=== PATIENT | female | born 1960 | race Caucasian/White ===

== ENCOUNTER → 2017-04-07 | Outpatient (CLI) | payer MEDICAID ==
[2016-08-24 13:54] VITALS: BP 140/68
[~2017-04-07] MED LIST: ASPI81TA9 PO; BUPR300T4 PO; CIPR500T94 PO; DICY20TA3 PO; GABA600T PO; GABA600T2 PO; HYDR-971 PO; HYDR1TAB26 PO; IBUP-1060 PO; INSU100I17 SQ; INSU100I27 SQ; INSU100V31 SQ; INSU100V8 SQ; LACO50TA PO; LANS30CA PO; LEVE250T30 PO; LEVE250T4 PO; LEVO100T PO; LINA290C PO; LISI2.5T PO; LUBI24CA5 PO; METF500T4 PO; METR500T PO; OMEP40CA5 PO; PHEN100C PO; PHEN100O3 PO; POLY119P4 PO; POLY255P PO; Phenytoin PO; SIMV20TA3 PO; TRAM-29 PO; ZOLP5TAB5 PO
--- NOTE | 2017-04-07 08:45 | KCIC ---
Clinical Indication: Left lower extremity pain and swelling Technique: Study is dated 04/07/2017. Grayscale, color flow and spectral waveform analysis was performed of the left lower extremity with and without compression. Findings: There is normal compressibility of all visualized vein segments. No evidence of DVT is present on grayscale or color images. There is normal phasicity of waveform. There is normal augmentation. There is a left inguinal lymph node measuring 3.1 x 0.6 x 2.2 cm, has a normal fatty notch. This is probably reactive. Impression: No evidence of deep vein thrombosis. Electronically signed by: Silver Hall MD (04/07/2017 8:42 AM)
== END | disposition home or self-care (01) ==
LOC: KCIC US 07:43
PROVIDERS: ATTEND Psychiatry & Neurology Neurology with Special Qualifications in Child Neurology
DX: M79.605 Pain in left leg (principal); M79.89 Other specified soft tissue disorders
CPT/HCPCS: 93971

== ENCOUNTER 2017-04-30 11:44 | Emergency (ER) | payer MEDICAID ==
[~2017-04-30] VITALS: Ht 157.5 cm; Wt 65.3 kg
[~2017-04-30 11:44] MED LIST changes: +ASPI-612 PO; -ASPI81TA9 PO; -LUBI24CA5 PO; +LUBI24CA7 PO; -PHEN100O3 PO; +PHEN100O4 PO; -TRAM-29 PO; +TRAM-48 PO
--- NOTE | 2017-04-30 12:29 | ED.ADGEN ---
Past Medical History Past Medical History: Constipation, Diabetes-Type II, Other Additional Past Medical Histor: abdominal pain,neuropathy,insomnia, chronic pain Past Surgical History: Cholecystectomy, Other Additional Past Surgical Histo: "top of kidney","throat" NOS, FOOT Alcohol Use: None Drug Use: None Adult General Chief Complaint Chief Complaint: ABDOMINAL PAIN HPI HPI Patient is a 57 year old with history of seizure disorder presents with intermittent left upper quadrant pain 1 week. Pain lasts for several hours at a time and varies in intensity. His dry described as sharp and is worse with palpation. Not associated with nausea vomiting constipation or diarrhea. Patient denies bloody stools or dark tarry stools. Pain is not worse with eating. Patient has not taken any medications to treat pain. She is prior cholecystectomy. She is a nonsmoker and nonconsumer of alcohol. Review of Systems Review of Systems Review symptoms as per history of present illness. All other review symptoms are negative. Current Medications Current Medications Current Medications Medications (Trade) Dose Ordered Sig/Khang Start Time Stop Time Status Last Admin Dose Admin Famotidine (Pepcid) 20 mg 1X ONCE 04/30/17 12:30 04/30/17 12:31 DC 04/30/17 12:58 20 MG Multi-Ingredient Mouthwash/Gargle (Gi Cocktail Single Dose) 15 ml 1X ONCE 04/30/17 12:30 04/30/17 12:31 DC 04/30/17 12:58 15 ML Ondansetron HCl (Zofran) 4 mg 1X ONCE 04/30/17 12:30 04/30/17 12:31 DC 04/30/17 12:58 4 MG Allergies Allergies Allergies Coded Allergies Type Severity Reaction Last Updated Verified No Known Drug Allergies 04/09/14 No Physical Exam Physical Exam Constitutional: Well developed, well nourished, no acute distress, non-toxic appearance. HENT: Normocephalic, atraumatic, bilateral external ears normal, oropharynx moist, no oral exudates, nose normal. Eyes: PERRLA, EOMI, conjunctiva normal, no discharge. Neck: Normal range of motion, no tenderness. Cardiovascular:Heart rate regular rhythm, no murmur Lungs & Thorax: Bilateral breath sounds clear to auscultation Abdomen: Bowel sounds normal, soft, Left upper quadrant pain, tenderness voluntary guarding. Skin: Warm, dry. Back: No tenderness, no CVA tenderness. Extremities: No tenderness, no cyanosis, no clubbing, ROM intact, no edema. Neurologic: Alert and oriented X 3, normal motor function, normal sensory function, no focal deficits noted. Psychologic: Affect normal, judgement normal, mood normal. Current Patient Data Vital Signs Vital Signs Date Time Temp Pulse Resp B/P (MAP) Pulse Ox O2 Delivery O2 Flow Rate FiO2 04/30/17 14:08 86 131/60 (83) 95 Room Air 04/30/17 11:56 98.2 20 98.2 Lab Values Laboratory Tests Test 04/30/17 12:16 04/30/17 14:10 White Blood Count 7.2 x10^3/uL (4.0-11.0) Red Blood Count 4.02 x10^6/uL (3.50-5.40) Hemoglobin 10.7 g/dL (12.0-15.5) L Hematocrit 32.9 % (36.0-47.0) L Mean Corpuscular Volume 82 fL (79-100) Mean Corpuscular Hemoglobin 27 pg (25-35) Mean Corpuscular Hemoglobin Concent 32 g/dL (31-37) Red Cell Distribution Width 14.7 % (11.5-14.5) H Platelet Count 318 x10^3/uL (140-400) Neutrophils (%) (Auto) 56 % (31-73) Lymphocytes (%) (Auto) 31 % (24-48) Monocytes (%) (Auto) 9 % (0-9) Eosinophils (%) (Auto) 4 % (0-3) H Basophils (%) (Auto) 1 % (0-3) Neutrophils # (Auto) 4.0 x10^3uL (1.8-7.7) Lymphocytes # (Auto) 2.2 x10^3/uL (1.0-4.8) Monocytes # (Auto) 0.6 x10^3/uL (0.0-1.1) Eosinophils # (Auto) 0.3 x10^3/uL (0.0-0.7) Basophils # (Auto) 0.1 x10^3/uL (0.0-0.2) Sodium Level 135 mmol/L (136-145) L Potassium Level 4.3 mmol/L (3.5-5.1) Chloride Level 98 mmol/L (98-107) Carbon Dioxide Level 31 mmol/L (21-32) Anion Gap 6 (6-14) Blood Urea Nitrogen 10 mg/dL (7-20) Creatinine 0.7 mg/dL (0.6-1.0) Estimated GFR (Cockcroft-Gault) 85.9 BUN/Creatinine Ratio 14 (6-20) Glucose Level 60 mg/dL (70-99) L Calcium Level 9.0 mg/dL (8.5-10.1) Total Bilirubin 0.1 mg/dL (0.2-1.0) L Aspartate Amino Transferase (AST) 22 U/L (15-37) Alanine Aminotransferase (ALT) 28 U/L (14-59) Alkaline Phosphatase 106 U/L (46-116) Troponin I Quantitative 0.024 ng/mL (0.000-0.055) Total Protein 7.3 g/dL (6.4-8.2) Albumin 4.1 g/dL (3.4-5.0) Albumin/Globulin Ratio 1.3 (1.0-1.7) Lipase 80 U/L (73-393) Urine Color Yellow Urine Clarity Clear Urine pH 6.0 Urine Specific [place] 1.015 Urine Protein Negative mg/dL (NEG-TRACE) Urine Glucose (UA) Negative mg/dL (NEG) Urine Ketones (Stick) Negative mg/dL (NEG) Urine Blood Negative (NEG) Urine Nitrite Negative (NEG) Urine Bilirubin Negative (NEG) Urine Urobilinogen Dipstick 0.2 mg/dL (0.2 mg/dL) Urine Leukocyte Esterase Trace (NEG) Urine RBC 0 /HPF (0-2) Urine WBC Occ /HPF (0-4) Urine Squamous Epithelial Cells Occ /LPF Urine Bacteria 0 /HPF (0-FEW) Laboratory Tests 04/30/17 12:16 Laboratory Tests 04/30/17 12:16 EKG EKG [EKG: Sinus rhythm, rate 82, no acute ST-T wave changes. QTC 445.] Radiology/Procedures Radiology/Procedures [] Course & Med Decision Making Course & Med Decision Making Pertinent Labs and Imaging studies reviewed. (See chart for details) [Nondescript, left upper quadrant pain, tenderness. Symptoms resolved in the ED with treatment with GI cocktail and antacid. Vital signs remained stable. Patient able to tolerate oral intake. We'll treat supportively with PCP follow- up. Return precautions reviewed. Patient verbalizes understanding agreement discharge instructions prior to departure.] Anastacia Disclaimer Anastacia Disclaimer This electronic medical record was generated, in whole or in part, using a voice recognition dictation system. GILBERT ABREU DO Apr 30, 2017 12:29
[2017-04-30] MEDS ORDERED: ONDANSETRON PF 4 MG/2 ML VIAL. IV ONE (12:30)
[2017-04-30] MEDS ORDERED: LIDO:MAALOX:DONNATAL 1:1:1 15 ML SINGLE DOSE SWSW ONE (12:30)
[2017-04-30] MEDS ORDERED: FAMOTIDINE 20 MG/2 ML VIAL IVP ONE (12:30)
[2017-04-30 12:38] LABS: BASO # 0.1 x10^3/uL (0.0-0.2); BASO % 1 % (0-3); EOS % 4 % (0-3); HEMATOCRIT 32.9 % (36.0-47.0); HEMOGLOBIN 10.7 g/dL (12.0-15.5); LYMPH # 2.2 x10^3/uL (1.0-4.8); LYMPH % 31 % (24-48); MEAN CORPUSCULAR HEMOGLOBIN 27 pg (25-35); MEAN CORPUSCULAR HGB CONC 32 g/dL (31-37); MEAN CORPUSCULAR VOLUME 82 fL (79-100); MONO % 9 % (0-9); NEUT % 56 % (31-73); PLATELET COUNT 318 x10^3/uL (140-400); RED BLOOD COUNT 4.02 x10^6/uL (3.50-5.40); RED CELL DISTRIBUTION WIDTH 14.7 % (11.5-14.5); WHITE BLOOD COUNT 7.2 x10^3/uL (4.0-11.0)
[2017-04-30 12:43] LABS: CREATININE 0.7 mg/dL (0.6-1.0); GFR 85.9; POTASSIUM 4.3 mmol/L (3.5-5.1)
[2017-04-30 12:47] LABS: ALBUMIN 4.1 g/dL (3.4-5.0); ALBUMIN/GLOBULIN RATIO 1.3 (1.0-1.7); TOTAL BILIRUBIN 0.1 mg/dL (0.2-1.0); TOTAL PROTEIN 7.3 g/dL (6.4-8.2)
[2017-04-30 14:08] VITALS: BP 131/60
[2017-04-30 14:20] LABS: BILIRUBIN,URINE NEGATIVE (NEG); GLUCOSE,URINE NEGATIVE (NEG); NITRITE,URINE NEGATIVE (NEG); PROTEIN,URINE NEGATIVE (NEG-TRACE); UROBILINOGEN,URINE 0.2 mg/dL (0.2 mg/dL)
[2017-04-30 14:36] LABS: BACTERIA,URINE 0 /HPF (0-FEW); RBC,URINE 0 /HPF (0-2); SQUAMOUS EPITHELIAL CELL,UR OCC /LPF; WBC,URINE OCC /HPF (0-4)
--- NOTE | 2017-04-30 14:43 | EKG ---
[facility] [address] [place] [address] Test Date: 2017-04-30 Test Time: 12:55:21 Pat Name: ALIVIA WILDER Department: Room: Gender: F [employer]: : 1960 Requested By: GILBERT ABREU Order Number: [id number] Reading MD: Aj Fagan Measurements Intervals [place] Rate: 82 P: 51 OK: 140 QRS: -5 QRSD: 78 T: 38 QT: 378 QTc: 445 Interpretive Statements SINUS RHYTHM LEFTWARD AXIS QRS(T) CONTOUR ABNORMALITY CONSIDER ANTEROLATERAL MYOCARDIAL DAMAGE RI6.01 Unconfirmed report Compared to ECG 02/13/2015 11:17:12 Left-axis deviation now present Electronically Signed On 05-04-2017 10:35:03 CDT by Aj Fagan
== END 2017-04-30 14:58 | disposition home or self-care (01) ==
LOC: ER 11:44
DX: R10.12 Left upper quadrant pain (principal); E11.40 Type 2 diabetes mellitus with diabetic neuropathy, unspecified; G47.00 Insomnia, unspecified; G89.29 Other chronic pain; G40.909 Epilepsy, unspecified, not intractable, without status epilepticus; Z90.49 Acquired absence of other specified parts of digestive tract
CPT/HCPCS: 36415; 80053; 81001; 83690; 84484; 85027; 87086; 93005; 96374; 96375; 99285; J2405; S0028

== ENCOUNTER 2017-06-01 08:04 | Emergency (ER) | payer MEDICAID ==
[~2017-06-01] VITALS: Ht 157.5 cm; Wt 65.3 kg
[2017-06-01] MEDS ORDERED: IV NORMAL SALINE 1000ML BAG 1,000 ML IV SCH (08:38)
[2017-06-01] MEDS ORDERED: HYDROmorphone 2 MG/ML VIAL IV/SQ PRN (08:45)
[2017-06-01] MEDS ORDERED: ONDANSETRON PF 4 MG/2 ML VIAL. IV ONE (08:45)
[2017-06-01] MEDS ORDERED: 0.9 % SODIUM CHLORIDE 10 ML DISP.SYRIN. IV PRN (08:45)
[2017-06-01 08:49] LABS: BILIRUBIN,URINE NEGATIVE (NEG); GLUCOSE,URINE 250 mg/dL (NEG); NITRITE,URINE NEGATIVE (NEG); PROTEIN,URINE NEGATIVE (NEG-TRACE); UROBILINOGEN,URINE 0.2 mg/dL (0.2 mg/dL)
[2017-06-01 09:06] LABS: RBC,URINE 0 /HPF (0-2)
[2017-06-01 09:07] LABS: BACTERIA,URINE 0 /HPF (0-FEW); SQUAMOUS EPITHELIAL CELL,UR FEW /LPF; WBC,URINE OCC /HPF (0-4)
--- NOTE | 2017-06-01 09:10 | PHYS DOC ---
Past Medical History Past Medical History: Anxiety, Constipation, Diabetes-Type II, Seizure, Other Additional Past Medical Histor: abdominal pain,neuropathy,insomnia, chronic pain Past Surgical History: Cholecystectomy, Other Additional Past Surgical Histo: "top of kidney","throat" NOS,R) FOOT Alcohol Use: None Drug Use: None Adult General Chief Complaint Chief Complaint: ABDOMINAL PAIN HPI HPI She is a pleasant 57-year-old female with a history of chronic abdominal pain, prior cholecystectomy, hyperlipidemia, hypertension, prior seizure disorder who presents with abdominal pain that began one month ago. It is described as dull and achy will go away but is increasingly more frequent over the last several days. It is described as moderate in nature but increased with food, position, and breathing. There is some mild radiation to the chest wall anteriorly. There is no radiation to the back but there is some radiation to the lower abdomen. She describes some nausea without vomiting she describes no diarrhea, no UTI symptoms no vaginal bleeding or discharge. Patient states that food for many makes it worse and she is having a decreasing appetite and increasing difficulty in eating food because the pain is so severe. She's been told that her primary care doctor believes it might be a peptic ulcer but she's had no formal treatment for it. She's been on no recent travel, no recent antibiotics, no recent raw food consumption, no recent sick contacts. Patient denies fever, chills or syncope. Review of Systems Review of Systems Constitutional: Denies fever or chills [] Eyes: Denies change in visual acuity, redness, or eye pain [] HENT: Denies nasal congestion or sore throat [] Respiratory: Denies cough or shortness of breath [] Cardiovascular: No additional information not addressed in HPI [] GI: Stomach complaint is abdominal pain with nausea without vomiting bloody stools diarrhea melena or constipation. : Denies dysuria or hematuria [] Musculoskeletal: Denies back pain or joint pain [] Integument: Denies rash or skin lesions [] Neurologic: Denies headache, focal weakness or sensory changes [] Endocrine: Denies polyuria or polydipsia [] Current Medications Current Medications Current Medications Medications (Trade) Dose Ordered Sig/Khang Start Time Stop Time Status Last Admin Dose Admin Hydromorphone HCl (Dilaudid) 1 mg PRN Q15MIN PRN 06/01/17 08:45 06/02/17 08:44 7/17/17 10:04 1 MG Info (Do NOT chart on this entry -- for MONITORING) 1 each PRN DAILY PRN 06/01/17 10:30 06/03/17 10:29 Iohexol (Omnipaque 300 Mg/ml) 75 ml 1X ONCE 06/01/17 10:30 06/01/17 10:31 DC 06/01/17 10:34 75 ML Ondansetron HCl (Zofran) 4 mg 1X ONCE 06/01/17 08:45 06/01/17 08:46 DC 06/01/17 10:03 4 MG Sodium Chloride (Normal Saline Flush) 10 ml QSHIFT PRN 06/01/17 08:45 Allergies Allergies Allergies Coded Allergies Type Severity Reaction Last Updated Verified No Known Drug Allergies 04/09/14 No Physical Exam Physical Exam Patient vital signs reviewed from nursing notes noted to be hypertensive. Constitutional: Well developed, well nourished, mildly obese in obvious discomfort but not toxic. HENT: Normocephalic, atraumatic, bilateral external ears normal, dry mucous membranes no oral exudates, nose normal. [] Eyes: PERRLA, EOMI, conjunctiva normal, no discharge. [] Neck: Normal range of motion, no tenderness, supple, no stridor. [] Cardiovascular:Heart rate regular rhythm, no murmur [] Lungs & Thorax: Bilateral breath sounds clear to auscultation [] Abdomen: Patient's abdomen is soft but tender in the epigastric region with some voluntary guarding. There is no Mckinney sign McBurney's point tenderness palpation masses or rebound. She has a negative Wright Pearce sign and no evidence of Rossing a positive heeltap. Skin: Warm, dry, no erythema, no rash. [] Back: No tenderness, no CVA tenderness. [] Extremities: No tenderness, no cyanosis, no clubbing, ROM intact, no edema. [] Neurologic: Alert and oriented X 3, normal motor function, normal sensory function, no focal deficits noted. [] Psychologic: Agents affect is somewhat blunted she seems somewhat depressed Current Patient Data Vital Signs Vital Signs Date Time Temp Pulse Resp B/P (MAP) Pulse Ox O2 Delivery O2 Flow Rate FiO2 06/01/17 10:30 74 139/63 (88) 93 Room Air 06/01/17 10:04 16 06/01/17 08:21 98.3 98.3 Lab Values Laboratory Tests Test 06/01/17 08:30 06/01/17 09:33 Urine Collection Type Void Urine Color Yellow Urine Clarity Clear Urine pH 8.0 Urine Specific [place] 1.010 Urine Protein Negative mg/dL (NEG-TRACE) Urine Glucose (UA) 250 mg/dL (NEG) Urine Ketones (Stick) Negative mg/dL (NEG) Urine Blood Negative (NEG) Urine Nitrite Negative (NEG) Urine Bilirubin Negative (NEG) Urine Urobilinogen Dipstick 0.2 mg/dL (0.2 mg/dL) Urine Leukocyte Esterase Negative (NEG) Urine RBC 0 /HPF (0-2) Urine WBC Occ /HPF (0-4) Urine Squamous Epithelial Cells Few /LPF Urine Bacteria 0 /HPF (0-FEW) Urine Mucus Slight /LPF White Blood Count 7.2 x10^3/uL (4.0-11.0) Red Blood Count 4.02 x10^6/uL (3.50-5.40) Hemoglobin 10.5 g/dL (12.0-15.5) L Hematocrit 31.8 % (36.0-47.0) L Mean Corpuscular Volume 79 fL (79-100) Mean Corpuscular Hemoglobin 26 pg (25-35) Mean Corpuscular Hemoglobin Concent 33 g/dL (31-37) Red Cell Distribution Width 14.7 % (11.5-14.5) H Platelet Count 330 x10^3/uL (140-400) Neutrophils (%) (Auto) 67 % (31-73) Lymphocytes (%) (Auto) 20 % (24-48) L Monocytes (%) (Auto) 7 % (0-9) Eosinophils (%) (Auto) 4 % (0-3) H Basophils (%) (Auto) 1 % (0-3) Neutrophils # (Auto) 4.9 x10^3uL (1.8-7.7) Lymphocytes # (Auto) 1.5 x10^3/uL (1.0-4.8) Monocytes # (Auto) 0.5 x10^3/uL (0.0-1.1) Eosinophils # (Auto) 0.3 x10^3/uL (0.0-0.7) Basophils # (Auto) 0.1 x10^3/uL (0.0-0.2) Sodium Level 133 mmol/L (136-145) L Potassium Level 5.1 mmol/L (3.5-5.1) Chloride Level 95 mmol/L (98-107) L Carbon Dioxide Level 28 mmol/L (21-32) Anion Gap 10 (6-14) Blood Urea Nitrogen 9 mg/dL (7-20) Creatinine 0.6 mg/dL (0.6-1.0) Estimated GFR (Cockcroft-Gault) 102.7 BUN/Creatinine Ratio 15 (6-20) Glucose Level 205 mg/dL (70-99) H Calcium Level 9.2 mg/dL (8.5-10.1) Total Bilirubin 0.2 mg/dL (0.2-1.0) Aspartate Amino Transferase (AST) 29 U/L (15-37) Alanine Aminotransferase (ALT) 29 U/L (14-59) Alkaline Phosphatase 113 U/L (46-116) Creatine Kinase 88 U/L (26-192) Creatine Kinase MB (Mass) 1.0 ng/mL (0.0-3.6) Creatine Kinase MB Relative Index 1.1 % (0-4) Troponin I Quantitative 0.020 ng/mL (0.000-0.055) Total Protein 7.1 g/dL (6.4-8.2) Albumin 4.1 g/dL (3.4-5.0) Albumin/Globulin Ratio 1.4 (1.0-1.7) Lipase 106 U/L (73-393) Laboratory Tests 06/01/17 09:33 Laboratory Tests 06/01/17 09:33 EKG EKG EKG timed at 2 AM 06/01/[address] Mccracken demonstrates normal sinus rhythm with a heart rate of 79. Vault 154 which is normal QRS is normal at 78. QTc is normal at 398. There are no specific EKG abdomen is noted on EKG. [] Radiology/Procedures Radiology/Procedures [] [address] [place], [place] [id number] IMAGING REPORT Signed PATIENT: ALIVIA WILDER ACCOUNT: [id number] : 1960 LOCATION: ER AGE: 57 SEX: F EXAM STATUS: REG ER ORD. PHYSICIAN: ELLEN MCCRACKEN MD REASON: upper ab pain PROCEDURE: CT ABD PELV W/ IV CONTRST ONLY Indication upper abdominal pain for 3 weeks. Axial images through the abdomen and pelvis were obtained. IV contrast was administered. Oral contrast was not. Approximately 75 cc of Omnipaque 300 was administered. Note is made of a previous examination 06/13/2016. The lung bases are clear. The liver and spleen appear normal. The pancreas appears unremarkable. Known fatty left adrenal mass, most compatible with an adrenal myolipoma is again seen. The kidneys appear unremarkable. A mass inflammatory process or acute finding in the abdomen is not seen. In the pelvis no focal mass or inflammatory process is seen. There are degenerative changes in lumbar spine likely with a component of spinal stenosis. IMPRESSION:: No acute finding seen in the abdomen or pelvis DICTATED and SIGNED BY: OLGA CANNON MD DATE: 06/01/17 1100 CC: ELLEN MCCRACKEN MD; RUDDY CALHOUN ~ Course & Med Decision Making Course & Med Decision Making Pertinent Labs and Imaging studies reviewed. (See chart for details) Considering nurse's notes, vital signs, and history and physical findings differential diagnosis includes cardiac cause of chest pain, upper abdominal pain, peptic ulcer disease, ache or tightness, small bowel section, acute coronary syndrome, diverticulosis, diverticulosis, gastritis, chronic abdominal pain of unclear etiology. At this time patient fluids, antiemetics, pain medications given as well as a CT of the abdomen and pelvis Cardec evaluation to include EKG troponin and BNP. [] Patient reevaluated and is now 10:[address] Patient tells me that their symptoms given during CC are improved. We reviewed labs at the time. Patient tells me that their symptoms given during CC are improved. We reviewed labs and radiology reports with patient and any family at bedside. Time is now 11:[address] scan findings which demonstrated no acute abdominal issues causing her pain. That we can discern at this time. There is no evidence of appendicitis, small bowel section, pancreatic tightness, or other bowel inflammation or infection. He is feeling markedly better with fluids antiemetics and pain meds here in the emergency department we discussed topic of dyspepsia and aggressive treat with a proton inhibitor and possibly Carafate and GI referral. Differential diagnosis considered upon arrival to include but not limited to small bowel obstruction, gastritis, gastroenteritis, cholelithiasis, appendicitis, diverticulosis, diverticulosis, intussusception, volvulus, UTI, pyonephritis, abdominal aneurysm, pancreatitis, peptic ulcer disease, reflux, lower lung infections. Impression: Abdominal pain unclear etiology possibly peptic ulcer disease dyspepsia. Disposition: PCP follow-up in 4 hours with initiation of PPI and Carafate therapy with referral to GI. Anastacia Disclaimer Dragon Disclaimer This electronic medical record was generated, in whole or in part, using a voice recognition dictation system. Departure Departure Impression: Primary Impression: Abdominal pain Additional Impression: Dyspepsia Disposition: HOME, SELF-CARE Condition: IMPROVED Referrals: RUDDY CALHOUN (PCP) Patient Instructions: Abdominal Pain (Nonspecific), Diet for Peptic Ulcer Disease, Peptic Ulcer Disease Additional Instructions: This follow-up with your primary care doctor in the next 24 hours if symptoms continue. Please do not wait another month to be evaluated by GI physician. I would advise that you use the diet as prescribed help reduce the duration of her symptoms. I would also advise that you return for any questions or concerns might have or if he have worsening symptoms. Scripts Hydrocodone Bit/Acetaminophen (HYDROCODONE-APAP 5-325 ) 1 Each Tablet 1-2 TAB PO PRN Q6HRS Y for PAIN for 5 Days, #10 TAB 0 Refills Prov: ELLEN MCCRACKEN MD 06/01/17 Pantoprazole Sodium (PROTONIX) 40 Mg Tablet.dr 1 TAB PO DAILY, #30 TAB 5 Refills Prov: ELLEN MCCRACKEN MD 06/01/17 Sucralfate (CARAFATE) 1 Gm Tablet 1 TAB PO QID, #60 TAB 1 Refill Prov: ELLEN MCCRACKEN MD 06/01/17 Problem Qualifiers ELLEN MCCRACKEN MD Jun 01, 2017 09:10
[2017-06-01 09:42] LABS: BASO # 0.1 x10^3/uL (0.0-0.2); BASO % 1 % (0-3); EOS % 4 % (0-3); HEMATOCRIT 31.8 % (36.0-47.0); HEMOGLOBIN 10.5 g/dL (12.0-15.5); LYMPH # 1.5 x10^3/uL (1.0-4.8); LYMPH % 20 % (24-48); MEAN CORPUSCULAR HEMOGLOBIN 26 pg (25-35); MEAN CORPUSCULAR HGB CONC 33 g/dL (31-37); MEAN CORPUSCULAR VOLUME 79 fL (79-100); MONO % 7 % (0-9); NEUT % 67 % (31-73); PLATELET COUNT 330 x10^3/uL (140-400); RED BLOOD COUNT 4.02 x10^6/uL (3.50-5.40); RED CELL DISTRIBUTION WIDTH 14.7 % (11.5-14.5); WHITE BLOOD COUNT 7.2 x10^3/uL (4.0-11.0)
[2017-06-01 10:01] LABS: CALCIUM 9.2 mg/dL (8.5-10.1); CREATININE 0.6 mg/dL (0.6-1.0); GFR 102.7; POTASSIUM 5.1 mmol/L (3.5-5.1)
[2017-06-01 10:08] LABS: ALBUMIN 4.1 g/dL (3.4-5.0); ALBUMIN/GLOBULIN RATIO 1.4 (1.0-1.7); TOTAL BILIRUBIN 0.2 mg/dL (0.2-1.0); TOTAL PROTEIN 7.1 g/dL (6.4-8.2)
[2017-06-01] MEDS ORDERED: CONTRAST GIVEN MC PRN (10:30)
[2017-06-01] MEDS ORDERED: IOHEXOL 300 MG/ML 75 ML VIAL IV ONE (10:30)
--- NOTE | 2017-06-01 11:13 | RAD ---
Indication upper abdominal pain for 3 weeks. Axial images through the abdomen and pelvis were obtained. IV contrast was administered. Oral contrast was not. Approximately 75 cc of Omnipaque 300 was administered. Note is made of a previous examination 06/13/2016. The lung bases are clear. The liver and spleen appear normal. The pancreas appears unremarkable. Known fatty left adrenal mass, most compatible with an adrenal myolipoma is again seen. The kidneys appear unremarkable. A mass inflammatory process or acute finding in the abdomen is not seen. In the pelvis no focal mass or inflammatory process is seen. There are degenerative changes in lumbar spine likely with a component of spinal stenosis. IMPRESSION:: No acute finding seen in the abdomen or pelvis
[2017-06-01] MEDS ORDERED: HYDR-2758 PO (11:34)
[2017-06-01] MEDS ORDERED: PANT40TA3 PO (11:34)
[2017-06-01] MEDS ORDERED: SUCR1TAB35 PO (11:34)
[2017-06-01 11:57] VITALS: BP 134/60
--- NOTE | 2017-06-01 15:40 | EKG ---
[facility] [address] [place] [address] Test Date: 2017-06-01 Test Time: 08:22:15 Pat Name: ALIVIA WILDER Department: Room: Gender: F Cancer Spec: CADE : 1960 Requested By: ELLEN MCCRACKEN Order Number: [id number] Reading MD: Measurements Intervals [place] Rate: 79 P: -9 [place]: 154 QRS: 2 QRSD: 78 T: 36 QT: 346 QTc: 398 Interpretive Statements SINUS RHYTHM NO SPECIFIC ECG ABNORMALITIES RI6.01 No previous ECG available for comparison
== END 2017-06-01 12:32 | disposition home or self-care (01) ==
LOC: ER 08:04
DX: G89.29 Other chronic pain (principal); R10.30 Lower abdominal pain, unspecified; R10.13 Epigastric pain; R11.0 Nausea; E11.40 Type 2 diabetes mellitus with diabetic neuropathy, unspecified; E78.5 Hyperlipidemia, unspecified; G40.909 Epilepsy, unspecified, not intractable, without status epilepticus; I10 Essential (primary) hypertension; Z90.49 Acquired absence of other specified parts of digestive tract
CPT/HCPCS: 36415; 74177; 80053; 81001; 82553; 83690; 84484; 85027; 93005; 96361; 96374; 96375; 99285; J1170; J2405; J7030; Q9967

== ENCOUNTER 2017-06-11 13:16 | Emergency (ER) | payer MEDICAID ==
[~2017-06-11 13:16] MED LIST changes: +HYDR-2758 PO; +PANT40TA3 PO; +SUCR1TAB35 PO
[2017-06-11 15:23] LABS: BILIRUBIN,URINE NEGATIVE (NEG); GLUCOSE,URINE NEGATIVE (NEG); NITRITE,URINE NEGATIVE (NEG); PROTEIN,URINE NEGATIVE (NEG-TRACE); UROBILINOGEN,URINE 0.2 mg/dL (0.2 mg/dL)
[2017-06-11 15:30] LABS: BACTERIA,URINE 0 /HPF (0-FEW); RBC,URINE 0 /HPF (0-2); SQUAMOUS EPITHELIAL CELL,UR MOD /LPF
--- NOTE | 2017-06-11 15:35 | RAD ---
Chest, 2 views, 06/11/2017: History: Abdominal pain, weakness Comparison is made to a study from 08/24/2016. The heart size and pulmonary vascularity are normal. There is an unchanged dense nodule in the left upper lobe compatible with a granuloma. There is linear parenchymal scarring in the left base. No new pulmonary abnormality is seen. There is no evidence of pleural fluid. There is a moderate amount of stool in the splenic flexure of the colon. IMPRESSION: No acute cardiopulmonary abnormality is detected.
[2017-06-11 15:37] LABS: BASO # 0.1 x10^3/uL (0.0-0.2); BASO % 1 % (0-3); EOS % 5 % (0-3); HEMOGLOBIN 10.2 g/dL (12.0-15.5); LYMPH # 1.8 x10^3/uL (1.0-4.8); LYMPH % 25 % (24-48); MEAN CORPUSCULAR HEMOGLOBIN 26 pg (25-35); MEAN CORPUSCULAR HGB CONC 32 g/dL (31-37); MEAN CORPUSCULAR VOLUME 82 fL (79-100); MONO % 8 % (0-9); NEUT % 62 % (31-73); PLATELET COUNT 310 x10^3/uL (140-400); RED BLOOD COUNT 3.92 x10^6/uL (3.50-5.40); RED CELL DISTRIBUTION WIDTH 15.6 % (11.5-14.5); WHITE BLOOD COUNT 7.2 x10^3/uL (4.0-11.0)
[2017-06-11 15:47] LABS: CREATININE 0.8 mg/dL (0.6-1.0); GFR 73.7; POTASSIUM 3.8 mmol/L (3.5-5.1)
--- NOTE | 2017-06-11 16:13 | PHYS DOC ---
Past Medical History Past Medical History: Anxiety, Constipation, Diabetes-Type II, Seizure, Other Additional Past Medical Histor: abdominal pain,neuropathy,insomnia, chronic pain Past Surgical History: Cholecystectomy, Other Additional Past Surgical Histo: "top of kidney","throat" NOS,R) FOOT Alcohol Use: None Drug Use: None Adult General Chief Complaint Chief Complaint: BLOOD SUGAR PROBLEM HPI HPI Patient is a 57 year old female presents with complaints of low blood sugar, malaise, intermittent itching and swelling outside her vaginal area. Patient denies any fevers, vomiting, diarrhea, chest pain, back pain, abdominal pain. Patient denies any sick contacts. Patient has not recently been on antibiotics. Review of Systems Review of Systems Constitutional: Denies fever or chills [] Eyes: Denies change in visual acuity, redness, or eye pain [] HENT: Denies nasal congestion or sore throat, no neck pain Respiratory: Denies cough or shortness of breath [] Cardiovascular: No chest pain GI: Denies abdominal pain, nausea, vomiting, bloody stools or diarrhea [] : Denies dysuria or hematuria, swelling in her vaginal area Musculoskeletal: Denies back pain or joint pain [] Integument: Denies rash or skin lesions [] Neurologic: Denies headache, focal weakness or sensory changes [] Endocrine: Denies polyuria or polydipsia [] Allergies Allergies Allergies Coded Allergies Type Severity Reaction Last Updated Verified No Known Drug Allergies 04/09/14 No Physical Exam Physical Exam Constitutional: Well developed, well nourished, looks tired, non-toxic appearance. [] HENT: Normocephalic, atraumatic, oropharynx moist, no oral exudates, nose normal. [] Eyes: EOMI, conjunctiva normal, no discharge. [] Neck: Normal range of motion, no tenderness, supple, no stridor. No LAD, no meningeal signs Cardiovascular:Heart rate regular rhythm, no murmur, normal perfusion, no signs of vascular insufficiency Lungs & Thorax: Bilateral breath sounds clear to auscultation, no tachypnea Abdomen: Bowel sounds normal, soft, no tenderness, no masses, no pulsatile masses. : Nondraining, indurated lesion at the left bulbar with no signs of abscess this is an external lesion, mild erythema. No vaginal discharge or bleeding [] Skin: Warm, dry, no erythema, no rash. Exception are above Back: No tenderness, no CVA tenderness. [] Extremities: No tenderness, no cyanosis, no clubbing, ROM intact, no edema. [] Neurologic: Alert and oriented X 3, normal motor function, no focal deficits noted. [] Psychologic: Affect normal, judgement normal, mood normal. [] Current Patient Data Vital Signs Vital Signs Date Time Temp Pulse Resp B/P (MAP) Pulse Ox O2 Delivery O2 Flow Rate FiO2 06/11/17 13:50 98.2 85 55 157/71 (99) 98 Room Air 98.2 Lab Values Laboratory Tests Test 06/11/17 14:01 06/11/17 14:06 06/11/17 15:30 Urine Collection Type Unknown Urine Color Yellow Urine Clarity Clear Urine pH 6.0 Urine Specific [place] 1.015 Urine Protein Negative mg/dL (NEG-TRACE) Urine Glucose (UA) Negative mg/dL (NEG) Urine Ketones (Stick) Negative mg/dL (NEG) Urine Blood Negative (NEG) Urine Nitrite Negative (NEG) Urine Bilirubin Negative (NEG) Urine Urobilinogen Dipstick 0.2 mg/dL (0.2 mg/dL) Urine Leukocyte Esterase Small (NEG) Urine RBC 0 /HPF (0-2) Urine WBC 1-4 /HPF (0-4) Urine Squamous Epithelial Cells Mod /LPF Urine Bacteria 0 /HPF (0-FEW) Urine Mucus Mod /LPF Glucose (Fingerstick) 231 mg/dL (70-99) H White Blood Count 7.2 x10^3/uL (4.0-11.0) Red Blood Count 3.92 x10^6/uL (3.50-5.40) Hemoglobin 10.2 g/dL (12.0-15.5) L Hematocrit 32.0 % (36.0-47.0) L Mean Corpuscular Volume 82 fL (79-100) Mean Corpuscular Hemoglobin 26 pg (25-35) Mean Corpuscular Hemoglobin Concent 32 g/dL (31-37) Red Cell Distribution Width 15.6 % (11.5-14.5) H Platelet Count 310 x10^3/uL (140-400) Neutrophils (%) (Auto) 62 % (31-73) Lymphocytes (%) (Auto) 25 % (24-48) Monocytes (%) (Auto) 8 % (0-9) Eosinophils (%) (Auto) 5 % (0-3) H Basophils (%) (Auto) 1 % (0-3) Neutrophils # (Auto) 4.4 x10^3uL (1.8-7.7) Lymphocytes # (Auto) 1.8 x10^3/uL (1.0-4.8) Monocytes # (Auto) 0.6 x10^3/uL (0.0-1.1) Eosinophils # (Auto) 0.4 x10^3/uL (0.0-0.7) Basophils # (Auto) 0.1 x10^3/uL (0.0-0.2) Sodium Level 134 mmol/L (136-145) L Potassium Level 3.8 mmol/L (3.5-5.1) Chloride Level 97 mmol/L (98-107) L Carbon Dioxide Level 29 mmol/L (21-32) Anion Gap 8 (6-14) Blood Urea Nitrogen 7 mg/dL (7-20) Creatinine 0.8 mg/dL (0.6-1.0) Estimated GFR (Cockcroft-Gault) 73.7 Glucose Level 242 mg/dL (70-99) H Calcium Level 8.0 mg/dL (8.5-10.1) L Laboratory Tests 06/11/17 15:30 Laboratory Tests 06/11/17 15:30 EKG EKG Sinus rhythm, rate of 80, no STEMI, EP interpretation at 1410 [] Radiology/Procedures Radiology/Procedures History: Abdominal pain, weakness Comparison is made to a study from 08/24/2016. The heart size and pulmonary vascularity are normal. There is an unchanged dense nodule in the left upper lobe compatible with a granuloma. There is linear parenchymal scarring in the left base. No new pulmonary abnormality is seen. There is no evidence of pleural fluid. There is a moderate amount of stool in the splenic flexure of the colon. IMPRESSION: No acute cardiopulmonary abnormality is detected.[] Course & Med Decision Making Course & Med Decision Making Pertinent Labs and Imaging studies reviewed. (See chart for details) Labs and findings discussed with the patient progress to follow up as directed, I told the patient should currently recheck with her PCP in 2-4 days. Patient understands the need to get rechecked and is agreeable to do so. Patient displays medical decision capacity. Strict return precautions have been given to the patient, she was understanding. I expect the patient that this may be an early process and it is imperative to get rechecked and reevaluated. The patient antibiotics for the small area of cellulitis. Dragon Disclaimer Dragon Disclaimer This electronic medical record was generated, in whole or in part, using a voice recognition dictation system. Departure Departure Impression: Primary Impression: Malaise and fatigue Additional Impressions: Anemia Cellulitis Disposition: HOME, SELF-CARE Condition: STABLE Referrals: RUDDY CALHOUN (PCP) please follow up with your doctor in 2-4 days for recheck Patient Instructions: Anemia, Nonspecific-Brief, Cellulitis, [id number], Fatigue Scripts Acetaminophen With Codeine (ACETAMINOPHEN-COD #3 TABLET) 1 Each Tablet 1 TAB PO PRN Q6HRS Y for PAIN for 2 Days, #8 TAB Prov: Abdiel FARR MD 06/11/17 Sulfamethoxazole/Trimethoprim (BACTRIM DS TABLET) 1 Each Tablet 2 TAB PO BID, #28 TAB Prov: Abdiel FARR MD 06/11/17 Problem Qualifiers Abdiel FARR MD Jun 11, 2017 16:13
[2017-06-11 16:30] VITALS: BP 152/66
[2017-06-11] MEDS ORDERED: ACET1TAB33 PO (16:36)
[2017-06-11] MEDS ORDERED: SULF1TAB24 PO (16:36)
--- NOTE | 2017-06-12 06:11 | EKG ---
[facility] [address] [place] [address] Test Date: 2017-06-11 Test Time: 14:06:12 Pat Name: ALIVIA WILDER Department: Room: Gender: F Supervisor Dried Yeast: : 1960 Requested By: Abdiel FARR Order Number: [id number] Reading MD: Reji Torres Measurements Intervals [place] Rate: 80 P: -3 CA: 144 QRS: 6 QRSD: 80 T: 35 QT: 362 QTc: 421 Interpretive Statements SINUS RHYTHM Electronically Signed On 06-14-2017 14:58:41 CDT by Reji Torres
== END 2017-06-11 16:50 | disposition home or self-care (01) ==
LOC: ER 13:16
DX: R53.81 Other malaise (principal); R53.83 Other fatigue; D64.9 Anemia, unspecified; L03.90 Cellulitis, unspecified; E11.9 Type 2 diabetes mellitus without complications; Z90.49 Acquired absence of other specified parts of digestive tract
CPT/HCPCS: 36415; 71020; 80048; 81001; 82962; 85027; 87086; 93005; 99285-25

== ENCOUNTER 2017-06-13 16:07 | Observation (INO) | payer MEDICAID, OTHER ==
[~2017-06-13] VITALS: Ht 157.5 cm; Wt 66.7 kg
[~2017-06-13 16:07] MED LIST changes: +ACET1TAB33 PO; +SULF1TAB24 PO
[2017-06-13] MEDS ORDERED: ASPIRIN CHEWABLE 81 MG TABLET. PO ONE (17:00)
[2017-06-13 17:19] LABS: BASO # 0.1 x10^3/uL (0.0-0.2); BASO % 1 % (0-3); EOS % 9 % (0-3); HEMATOCRIT 29.9 % (36.0-47.0); HEMOGLOBIN 9.7 g/dL (12.0-15.5); LYMPH # 1.2 x10^3/uL (1.0-4.8); LYMPH % 19 % (24-48); MEAN CORPUSCULAR HEMOGLOBIN 26 pg (25-35); MEAN CORPUSCULAR HGB CONC 33 g/dL (31-37); MEAN CORPUSCULAR VOLUME 81 fL (79-100); MONO % 9 % (0-9); NEUT % 62 % (31-73); PLATELET COUNT 309 x10^3/uL (140-400); RED CELL DISTRIBUTION WIDTH 15.4 % (11.5-14.5); WHITE BLOOD COUNT 6.6 x10^3/uL (4.0-11.0)
[2017-06-13 17:31] LABS: CALCIUM 8.3 mg/dL (8.5-10.1); CREATININE 0.8 mg/dL (0.6-1.0); GFR 73.7; POTASSIUM 4.7 mmol/L (3.5-5.1)
[2017-06-13 17:37] LABS: ALBUMIN 3.6 g/dL (3.4-5.0); DIRECT BILIRUBIN 0.1 mg/dL (0.0-0.2); TOTAL BILIRUBIN 0.1 mg/dL (0.2-1.0); TOTAL PROTEIN 6.7 g/dL (6.4-8.2)
[2017-06-13] MEDS ORDERED: ONDANSETRON PF 4 MG/2 ML VIAL. IV PRN ×2 (18:15→18:36)
[2017-06-13] MEDS ORDERED: MORPHINE SULFATE 2 MG/ML DISP.SYRIN. IV PRN (18:15)
[2017-06-13] MEDS ORDERED: INSULIN REGULAR 100 UNIT/ML 10ML VIAL. IV ONE (18:15)
--- NOTE | 2017-06-13 18:21 | PHYS DOC ---
Past Medical History Past Medical History: Anxiety, Constipation, Diabetes-Type II, Seizure, Other Additional Past Medical Histor: abdominal pain,neuropathy,insomnia, chronic pain Past Surgical History: Cholecystectomy, Other Additional Past Surgical Histo: "top of kidney","throat" NOS,R) FOOT Alcohol Use: None Drug Use: None Adult General Chief Complaint Chief Complaint: CHEST PAIN HPI HPI 57-year-old male presenting to the emergency department today with chest pain on the left side that is intermittent and is been present for the past 3 or 4 days. She also has been shortness of breath. The pain is nonradiating and without alleviating or exacerbating factors. She has a history of type 2 diabetes and is hypertensive here but denies a chronic history of hypertension. She denies smoking. And she denies unilateral leg swelling hemoptysis personal or family history of blood clotting disorders. Review of systems is negative for fevers chills abdominal pain. Neg for numbness weakness and tingling. All other review of systems is negative unless otherwise noted in history of present illness. ED course: 57-year-old female presenting to the emergency Department chest pain. Vital signs showed mild hypertension otherwise patient was afebrile with normal heart rate. Pertinent physical exam findings show the patient had a normal physical exam. EKG reviewed by myself compared to previous on April 302016 shows sinus rhythm with a regular rate. [place] is mildly leftward. ST segments are congruent. The computer is reading the ST segments as nonspecific abnormality (elevation). I disagree. Less than 1 mm. Not suggestive of ACS. Otherwise the patient's blood work shows hyperglycemia. Troponin and the reference range of normal. The patient was then admitted to our hospital for serial blood work further evaluation workup and care. Cardiology consult placed. Review of Systems Review of Systems SEE ABOVE. Current Medications Current Medications Current Medications Medications (Trade) Dose Ordered Sig/Khang Start Time Stop Time Status Last Admin Dose Admin Aspirin (Children'S Aspirin) 324 mg 1X ONCE 06/13/17 17:00 06/13/17 17:01 DC 06/13/17 16:51 324 MG Insulin Human Regular (NovoLIN R VIAL) 5 unit 1X ONCE 06/13/17 18:15 06/13/17 18:16 Morphine Sulfate 2 mg PRN Q2HR PRN 06/13/17 18:15 06/14/17 18:14 Ondansetron HCl (Zofran) 4 mg PRN Q8HRS PRN 06/13/17 18:15 06/14/17 18:14 Allergies Allergies Allergies Coded Allergies Type Severity Reaction Last Updated Verified No Known Drug Allergies 04/09/14 No Physical Exam Physical Exam SEE ABOVE Constitutional: Well developed, well nourished, no acute distress, non-toxic appearance. [] HENT: Normocephalic, atraumatic, bilateral external ears normal, oropharynx moist, no oral exudates, nose normal. [] Eyes: PERRLA, EOMI, conjunctiva normal, no discharge. [] Neck: Normal range of motion, no tenderness, supple, no stridor. [] Cardiovascular:Heart rate regular rhythm, no murmur [] Lungs & Thorax: Bilateral breath sounds clear to auscultation [] Abdomen: Bowel sounds normal, soft, no tenderness, no masses, no pulsatile masses. [] Skin: Warm, dry, no erythema, no rash. [] Back: No tenderness, no CVA tenderness. [] Extremities: No tenderness, no cyanosis, no clubbing, ROM intact, no edema. [] Neurologic: Alert and oriented X 3, normal motor function, normal sensory function, no focal deficits noted. [] Psychologic: Affect normal, judgement normal, mood normal. [] Current Patient Data Vital Signs Vital Signs Date Time Temp Pulse Resp B/P (MAP) Pulse Ox O2 Delivery O2 Flow Rate FiO2 06/13/17 16:37 98.7 80 18 158/68 (98) 98 Room Air 98.7 Lab Values Laboratory Tests Test 06/13/17 17:07 White Blood Count 6.6 x10^3/uL (4.0-11.0) Red Blood Count 3.70 x10^6/uL (3.50-5.40) Hemoglobin 9.7 g/dL (12.0-15.5) L Hematocrit 29.9 % (36.0-47.0) L Mean Corpuscular Volume 81 fL (79-100) Mean Corpuscular Hemoglobin 26 pg (25-35) Mean Corpuscular Hemoglobin Concent 33 g/dL (31-37) Red Cell Distribution Width 15.4 % (11.5-14.5) H Platelet Count 309 x10^3/uL (140-400) Neutrophils (%) (Auto) 62 % (31-73) Lymphocytes (%) (Auto) 19 % (24-48) L Monocytes (%) (Auto) 9 % (0-9) Eosinophils (%) (Auto) 9 % (0-3) H Basophils (%) (Auto) 1 % (0-3) Neutrophils # (Auto) 4.1 x10^3uL (1.8-7.7) Lymphocytes # (Auto) 1.2 x10^3/uL (1.0-4.8) Monocytes # (Auto) 0.6 x10^3/uL (0.0-1.1) Eosinophils # (Auto) 0.6 x10^3/uL (0.0-0.7) Basophils # (Auto) 0.1 x10^3/uL (0.0-0.2) Sodium Level 131 mmol/L (136-145) L Potassium Level 4.7 mmol/L (3.5-5.1) Chloride Level 96 mmol/L (98-107) L Carbon Dioxide Level 24 mmol/L (21-32) Anion Gap 11 (6-14) Blood Urea Nitrogen 10 mg/dL (7-20) Creatinine 0.8 mg/dL (0.6-1.0) Estimated GFR (Cockcroft-Gault) 73.7 Glucose Level 322 mg/dL (70-99) H Calcium Level 8.3 mg/dL (8.5-10.1) L Total Bilirubin 0.1 mg/dL (0.2-1.0) L Direct Bilirubin 0.1 mg/dL (0.0-0.2) Aspartate Amino Transferase (AST) 210 U/L (15-37) H Alanine Aminotransferase (ALT) 184 U/L (14-59) H Alkaline Phosphatase 152 U/L (46-116) H Troponin I Quantitative 0.029 ng/mL (0.000-0.055) PQ-Bsw-E-Type Natriuretic Peptide 199 pg/mL (0-124) H Total Protein 6.7 g/dL (6.4-8.2) Albumin 3.6 g/dL (3.4-5.0) Lipase 61 U/L (73-393) L Laboratory Tests 06/13/17 17:07 Laboratory Tests 06/13/17 17:07 EKG EKG [] Radiology/Procedures Radiology/Procedures Chest x-ray reviewed by myself shows no obvious infiltrate or pneumothorax present. No obvious acute cardiopulmonary process present. Course & Med Decision Making Course & Med Decision Making Pertinent Labs and Imaging studies reviewed. (See chart for details) [] Dragon Disclaimer Dragon Disclaimer This electronic medical record was generated, in whole or in part, using a voice recognition dictation system. Departure Departure Impression: Primary Impression: Chest pain Disposition: ADMITTED INPATIENT Admitting Physician: Radha Person Condition: STABLE Referrals: RUDDY CALHOUN (PCP) LELE KUMAR MD Jun 13, 2017 18:21
[2017-06-13] MEDS ORDERED: DEXTROSE 50% 25 GM / 50ML DISP.SYRIN. IV PRN (18:45)
[2017-06-13] MEDS ORDERED: ACETAMINOPHEN/CODEINE 300/30MG TABLET. PO PRN (18:45)
[2017-06-13] MEDS ORDERED: traMADol 50 MG TABLET PO PRN (18:45)
[2017-06-13] MEDS ORDERED: ACETAMINOPHEN 325 MG TABLET. PO PRN (18:45)
[2017-06-13] MEDS ORDERED: HYDROcodone/APAP 5/325MG 1 TAB TABLET PO PRN (18:45)
[2017-06-13] MEDS ORDERED: POLYETHYLENE GLYCOL 3350 238 GM POWDER PO PRN (18:45)
--- NOTE | 2017-06-13 18:50 | PDOC1 ---
History and Physical Date of Admission Date of Admission DATE: 06/13/17 TIME: 18:39 Identification/Chief Complaint Chief Complaint nausea, abd pain, CP Problems: Source Source: Caregiver, Chart review, Patient History of Present Illness History of Present Illness 57 female, known to me, last admit here was maybe a yr ago for DKA, VEry poor historian, partly bec she is on a lot of AEDs, follows with our neuro group. LAst sz maybe few mos ago, Complex sz with tonic clonic movements of bilateral UE. [facility] She does not remember that she has been to [facility]. In any case, epigastric, upper abd pain with some mid sternal CP, totally reproducible, ALso mentions other complains, pain in left hip, lower back,. BS 300s at ER, Does not know last hgba1c, last on file was 7 in 2014. Nausea, emesis no change in BM, Sugar logs at home (I have personally reviewed her notebook), show BS 300s or 120s at home, On OHA and insulin, Able to tell me insulin dose, different now from what she was on last admit, CP as described above, nidsternal no identifiable precipitating or alleviating factors, no presyncopal sxs. NEver has had cardiac work up before. NOn smoker non drinker but poorly controlled Diabetic. EKG and trops reassuring Admits to neuropathy, diabetic > 10 yrs. Denies foot wounds Past Medical History Cardiovascular: HTN, Hyperlipidemia Pulmonary: Other CENTRAL NERVOUS SYSTEM: Dementia, Seizure GI: Irritable bowel disease Heme/Onc: Anemia NOS Psych: Anxiety, Depression Musculoskeletal: low back pain Infectious disease: Other Endocrine: Diabetes Past Surgical History Past Surgical History: Other Family History Family History: Hypertension Social History Smoke: No ALCOHOL: none Drugs: None, Other Current Problem List Problem List Problems Medical Problems: (1) Chest pain Status: Acute Problems: Current Medications Current Medications Current Medications Aspirin (Children'S Aspirin) 324 mg 1X ONCE PO Last administered on 06/13/17t 16:51; Start 06/13/17 at 17:00; Stop 06/13/17 at 17:01; Status DC Ondansetron HCl (Zofran) 4 mg PRN Q8HRS PRN IV NAUSEA/VOMITING; Start 06/13/17 at 18:15; Stop 06/14/17 at 18:14 Morphine Sulfate 2 mg PRN Q2HR PRN IV PAIN; Start 06/13/17 at 18:15; Stop 06/14 at 18:14 Insulin Human Regular (NovoLIN R VIAL) 5 unit 1X ONCE IV ; Start 06/13/17 at 18 :15; Stop 06/13/17 at 18:16; Status DC Active Scripts Active Acetaminophen-Cod #3 Tablet (Acetaminophen/Codeine Phosphate) 1 Each Tablet 1 Tab PO PRN Q6HRS PRN 2 Days Bactrim Ds Tablet (Sulfamethoxazole/Trimethoprim) 1 Each Tablet 2 Tab PO BID Hydrocodone-Apap 5-325 (Hydrocodone Bit/Acetaminophen) 1 Each Tablet 1-2 Tab PO PRN Q6HRS PRN 5 Days Protonix (Pantoprazole Sodium) 40 Mg Tablet.dr 1 Tab PO DAILY Carafate (Sucralfate) 1 Gm Tablet 1 Tab PO QID [place] 5-325 Tablet (Acetaminophen/Hydrocodone Bitart) 1 Each Tablet 1-2 Tab PO PRN Q6HRS PRN Miralax (Polyethylene Glycol 3350) 119 Gm Powder 17 Gm PO DAILY Novolog Flexpen (Insulin Aspart) 100 Unit/1 Ml Insuln.pen 10 Unit SQ TIDAC Levemir Flextouch (Insulin Detemir) 100 Unit/1 Ml Insuln.pen 14 Unit SQ QHS Ultram (Tramadol Hcl) 50 Mg Tablet 50 Mg PO PRN Q6HRS PRN [Phenytoin] 100 MG/4 ML Oral.susp 300 Mg PO QHS 30 Days Linzess (Linaclotide) 290 Mcg Capsule 290 Mcg PO DAILY 30 Days Synthroid (Levothyroxine Sodium) 100 Mcg Tablet 100 Mcg PO DAILY06 30 Days Keppra (Levetiracetam) 250 Mg Tablet 1,250 Mg PO BID 30 Days Vimpat (Lacosamide) 50 Mg Tablet 50 Mg PO BID 30 Days Reported Metformin Hcl 500 Mg Tablet 2 Tab PO BID Dilantin (Phenytoin Sodium Extended) 100 Mg Capsule 300 Mg PO HS Ibuprofen 800 Mg Tablet 800 Mg PO TID PRN PRN Omeprazole 40 Mg Capsule.dr 40 Mg PO DAILY Lisinopril 2.5 Mg Tablet 2.5 Mg PO DAILY Neurontin (Gabapentin) 600 Mg Tablet 600 Mg PO TID Polyethylene Glycol 3350 255 Gm Powder 17 Gm PO DAILY PRN Aspirin Ec (Aspirin) 81 Mg Tablet.dr 81 Mg PO DAILY Zolpidem Tartrate 5 Mg Tablet 10 Mg PO HS Bupropion Xl (Bupropion Hcl) 300 Mg Tab.er.24h 150 Mg PO DAILY Simvastatin 20 Mg Tablet 20 Mg PO HS Allergies Allergies: Coded Allergies: No Known Drug Allergies (Unverified , 04/09/14) ROS Review of System as per HPI, CP, Abd pain, nausea, hipa pain,weak, all else is neg 14 pt reviewed Physical Exam General: Oriented X3, Cooperative, No acute distress HEENT: Atraumatic, PERRLA Lungs: Clear to auscultation, Normal air movement Heart: S1S2, RRR, no thrills, no rubs, no gallops, no murmurs Cardiovascular: S1, S2 Breasts: Normal, Rt breast nml w/o mass, Lt breast nml w/o mass, Nipples normal Abdomen: Soft, No tenderness, Other (tendernes son chest area, on palpation) Rectal Exam: not examined PELVIC: Nml ext genitalia Extremities: No clubbing, No cyanosis, No edema, Normal pulses, No tenderness/ swelling Skin: No rashes, No breakdown, No significant lesion, Other (deenis wounds on her feet) Neuro: Normal gait, Normal speech, Strength at 5/5 X4 ext, Normal tone, Sensation intact, Cranial nerves 3-12 NL, Reflexes 2+ Psych/Mental Status: Mental status NL, Mood NL Vitals Vitals Vital Signs Date Time Temp Pulse Resp B/P (MAP) Pulse Ox O2 Delivery O2 Flow Rate FiO2 06/13/17 16:37 98.7 80 18 158/68 (98) 98 Room Air 98.7 Labs Labs Laboratory Tests Test 06/13/17 17:07 White Blood Count 6.6 x10^3/uL (4.0-11.0) Red Blood Count 3.70 x10^6/uL (3.50-5.40) Hemoglobin 9.7 g/dL (12.0-15.5) Hematocrit 29.9 % (36.0-47.0) Mean Corpuscular Volume 81 fL (79-100) Mean Corpuscular Hemoglobin 26 pg (25-35) Mean Corpuscular Hemoglobin Concent 33 g/dL (31-37) Red Cell Distribution Width 15.4 % (11.5-14.5) Platelet Count 309 x10^3/uL (140-400) Neutrophils (%) (Auto) 62 % (31-73) Lymphocytes (%) (Auto) 19 % (24-48) Monocytes (%) (Auto) 9 % (0-9) Eosinophils (%) (Auto) 9 % (0-3) Basophils (%) (Auto) 1 % (0-3) Neutrophils # (Auto) 4.1 x10^3uL (1.8-7.7) Lymphocytes # (Auto) 1.2 x10^3/uL (1.0-4.8) Monocytes # (Auto) 0.6 x10^3/uL (0.0-1.1) Eosinophils # (Auto) 0.6 x10^3/uL (0.0-0.7) Basophils # (Auto) 0.1 x10^3/uL (0.0-0.2) Sodium Level 131 mmol/L (136-145) Potassium Level 4.7 mmol/L (3.5-5.1) Chloride Level 96 mmol/L (98-107) Carbon Dioxide Level 24 mmol/L (21-32) Anion Gap 11 (6-14) Blood Urea Nitrogen 10 mg/dL (7-20) Creatinine 0.8 mg/dL (0.6-1.0) Estimated GFR (Cockcroft-Gault) 73.7 Glucose Level 322 mg/dL (70-99) Calcium Level 8.3 mg/dL (8.5-10.1) Total Bilirubin 0.1 mg/dL (0.2-1.0) Direct Bilirubin 0.1 mg/dL (0.0-0.2) Aspartate Amino Transf (AST/SGOT) 210 U/L (15-37) Alanine Aminotransferase (ALT/SGPT) 184 U/L (14-59) Alkaline Phosphatase 152 U/L (46-116) Troponin I Quantitative 0.029 ng/mL (0.000-0.055) UG-Qkn-D-Type Natriuretic Peptide 199 pg/mL (0-124) Total Protein 6.7 g/dL (6.4-8.2) Albumin 3.6 g/dL (3.4-5.0) Lipase 61 U/L (73-393) Laboratory Tests Test 7/29/17 17:07 White Blood Count 6.6 x10^3/uL (4.0-11.0) Red Blood Count 3.70 x10^6/uL (3.50-5.40) Hemoglobin 9.7 g/dL (12.0-15.5) Hematocrit 29.9 % (36.0-47.0) Mean Corpuscular Volume 81 fL (79-100) Mean Corpuscular Hemoglobin 26 pg (25-35) Mean Corpuscular Hemoglobin Concent 33 g/dL (31-37) Red Cell Distribution Width 15.4 % (11.5-14.5) Platelet Count 309 x10^3/uL (140-400) Neutrophils (%) (Auto) 62 % (31-73) Lymphocytes (%) (Auto) 19 % (24-48) Monocytes (%) (Auto) 9 % (0-9) Eosinophils (%) (Auto) 9 % (0-3) Basophils (%) (Auto) 1 % (0-3) Neutrophils # (Auto) 4.1 x10^3uL (1.8-7.7) Lymphocytes # (Auto) 1.2 x10^3/uL (1.0-4.8) Monocytes # (Auto) 0.6 x10^3/uL (0.0-1.1) Eosinophils # (Auto) 0.6 x10^3/uL (0.0-0.7) Basophils # (Auto) 0.1 x10^3/uL (0.0-0.2) Sodium Level 131 mmol/L (136-145) Potassium Level 4.7 mmol/L (3.5-5.1) Chloride Level 96 mmol/L (98-107) Carbon Dioxide Level 24 mmol/L (21-32) Anion Gap 11 (6-14) Blood Urea Nitrogen 10 mg/dL (7-20) Creatinine 0.8 mg/dL (0.6-1.0) Estimated GFR (Cockcroft-Gault) 73.7 Glucose Level 322 mg/dL (70-99) Calcium Level 8.3 mg/dL (8.5-10.1) Total Bilirubin 0.1 mg/dL (0.2-1.0) Direct Bilirubin 0.1 mg/dL (0.0-0.2) Aspartate Amino Transf (AST/SGOT) 210 U/L (15-37) Alanine Aminotransferase (ALT/SGPT) 184 U/L (14-59) Alkaline Phosphatase 152 U/L (46-116) Troponin I Quantitative 0.029 ng/mL (0.000-0.055) BO-Dlc-R-Type Natriuretic Peptide 199 pg/mL (0-124) Total Protein 6.7 g/dL (6.4-8.2) Albumin 3.6 g/dL (3.4-5.0) Lipase 61 U/L (73-393) VTE Prophylaxis Ordered VTE Prophylaxis Devices: Yes VTE Pharmacological Prophylaxi: Yes Assessment/Plan Assessment/Plan 1. NAusea, CP atypical in a poorly controlled Diabetic, reproducible on palpation 2. HIGHLY POSSIBLE GASTROPARESIS 3. SZ - last Sz few mos ago, on multiple AEDS 4. Cognitive decline/impairment, forgetfullness 5,. DM 2 with neuropathy, target organ damage, uncontrolled, hx DKA needing admission - BS 300s at ER 6. Mild to mod PCM 7. LILLI PLAN: Admit Normal saline 100cc SSI high dose Liquid diet then ADAT to ADA Check hgba1c Resume AEDs and other meds - I have reviewed her multiple meds at ER and verified doses DVT prophy PT/OT GEt GET (gastric emptying test) - I REALLY THINK THIS IS GASTROPARESIS CAUSING HER SX - it is mostly epigastric But do agree with cycling CE, and getting cards - has not had cardiac eval in this poorly controlled Diabetic Dw ER pt and Seen at ER 12 GE CASTRO MD Jun 13, 2017 18:49
[2017-06-13 19:00] VITALS: BP 147/63
[2017-06-13] MEDS ORDERED: IBUPROFEN 800 MG TABLET. PO PRN (19:00)
[2017-06-13] MEDS ORDERED: ZOLPIDEM 5 MG TABLET. PO PRN (19:00)
[2017-06-13] MEDS ORDERED: PHENYTOIN 300 MG PO SCH (21:00)
[2017-06-13] MEDS: IV NORMAL SALINE 1000ML BAG 1,000 ML IV SCH (21:11)
[2017-06-13] MEDS: ENOXAPARIN 40 MG/0.4 ML SYRINGE. SQ SCH (21:18)
[2017-06-13] MEDS: ZOLPIDEM 5 MG TABLET. PO SCH (21:18)
[2017-06-13] MEDS: HYDROcodone/APAP 5/325MG 1 TAB TABLET PO PRN (21:19)
[2017-06-13] MEDS: GABAPENTIN 300 MG CAPSULE. PO SCH (21:19)
[2017-06-13] MEDS: SUCRALFATE 1 GM TABLET. PO SCH (21:19)
[2017-06-13] MEDS: SMZ/TMP 800/160MG TABLET. PO SCH (21:19)
[2017-06-13] MEDS: SIMVASTATIN 20 MG TABLET PO SCH (21:19)
[2017-06-13] MEDS: METOCLOPRAMIDE 10 MG TABLET. PO SCH (21:19)
[2017-06-13] MEDS: LACOSAMIDE 50 MG TABLET PO SCH (21:19)
[2017-06-13] MEDS: PHENYTOIN SODIUM EXTENDED 100 MG CAPSULE PO SCH (21:20)
[2017-06-13] MEDS: levETIRAcetam 250 MG TABLET PO SCH (21:20)
[2017-06-13] MEDS: INSULIN DETEMIR 300 UNITS/3 ML INSULN.PEN. SQ SCH (21:28)
[2017-06-13 23:00] VITALS: BP 125/57
--- NOTE | 2017-06-14 02:51 | ACF ---
Admission Forms Criteria CHEST PAIN Clinical Indications for Admission to Inpatient Care (Place 'X' for any and all applicable criteria): Admission is indicated for chest pain and ANY ONE of the following(1)(2)(3)(4)(5 ): [ ]I. Angina with acute coronary syndrome (Also use Myocardial Infarction or Angina guideline) [ ]II. Hemodynamic instability [ X]III. Angina needing acute intervention as indicated by ALL of the following (11)(12): [X ]a) Unstable angina is present as indicated by angina that is ANY ONE of the following: [ ]i) New onset [ ]ii) Nocturnal [ ]iii) Prolonged at rest [ X]iv) Progressive [X ]b) Angina warrants acute intervention as indicated by ANY ONE of the following: [ ]i) Recurrent angina (e.g, not responding as previously to treatment) [ ]ii) Angina at rest or with low-level activities despite initial medical therapy [ ]iii) New or presumably new ST-segment depression on ECG [ ]iv) Signs or symptoms of heart failure (eg, dyspnea, pulmonary edema) [ ]v) New or worsening mitral regurgitation [ ]vi) Hemodynamic instability [ ]vii) Dangerous arrhythmia (eg, sustained ventricular tachycardia) [ ]viii) History of percutaneous coronary intervention within 6 months [ ]ix) History of coronary artery bypass graft surgery [ ]x) MAGNOLIA risk score of 2 or greater[A] [X ]xi) History of Diabetes(14) [ ]xii) High-risk cardiac ischemia findings on noninvasive testing (e.g, echocardiogram, treadmill testing, nuclear scan) [ ]xiii) Chronic renal insufficiency (ie, estimated GFR less than 60 mL/min/1.732m) [ ]xiv) Left ventricular ejection fraction less than 40% [ ]IV. Evidence of SD (eg, cardiac biomarkers positive, ST-segment elevation on ECG) also use Myocardial Infarction Criteria Form. [ ]V. Pulmonary edema [ ]. Respiratory distress [ ]VII. Chest pain indicative of serious diagnosis other than coronary artery disease (eg, aortic dissection) [ ]VIII. Contraindications and/or Inappropriate clinical situations for Observational Care in patients with Chest Pain, when ANY ONE of the following is required: [ ]a) Patient with risk factor for pulmonary embolism, acute coronary syndrome and myocardial infarction (18) [ ]b) Patient with Pulmonary embolism require an average LOS of 4.3 days, therefore emergency department observation management is inappropriate 18,23 [ ]c) Painful condition/s in the elderly, have the highest rate of recidivism after emergency department observation management (10.8%) 20,21,22 [ ]d) Elevated cardiac biomarker requires intensive and exhaustive care (19) [ ]IX. General contraindications and/or Inappropriate clinical situations for Observational Care in patients with Chest Pain, when ANY ONE of the following is required: [ ]a) Prediction of prolongation of LOS based on ANY ONE of the following may be considered as a contraindication for observational care 2, 3, 4, 5, 6, 7, 8, 9, 10, 11 [ ]i) Age > 65 yrs. [ ]ii) Patient arriving by ambulance [ ]iii) Patient with high acuity [ ]iv) Patient requiring vital sign monitoring [ ]v) Patient on IV medication [ ]b) Systolic blood pressures 180mmHg 3,12 [ ]c) Patient with altered mental status including delirium and other alteration of consciousness, (3) [ ]d) Patient whose discharge disposition will be to a senior living home or rehabilitation home should not be managed in Emergency Department Observation Unit. CMS rule requires 3 days hospital stay before such placement. 3,13 [ ]e) Patient with failure to thrive due to broad array of etiologies 3,16,17 [ ]f) Inability to ambulate 3,14 Extended stay beyond goal length of stay may be needed for (1)(28): [ ]a) Specific condition diagnosed after evaluation (eg, pulmonary embolism, aortic dissection) [ ]b) Unstable angina [ ]c) Continued suspicion of acute coronary syndrome with inability to complete needed cardiac evaluation (eg, patient clinically unable to undergo stress testing) [ ]d) Myocardial infarction (Contents from ANGINA and CHEST PAIN clinical indications for admission to inpatient care have been integrated in this form) The original [employer] content created by [employer] has been revised. The portions of the content which have been revised are identified through the use of italic text or in bold, and [facility] has neither reviewed nor approved the modified material. All other unmodified content is copyright [employer]. Please see references footnoted in the original [facility] edition 2016 Admission Criteria Met?: Yes LESLI PEREZ Jun 14, 2017 02:51
[2017-06-14 02:54] VITALS: BP 114/57
[2017-06-14] MEDS: HYDROcodone/APAP 5/325MG 1 TAB TABLET PO PRN ×2 (03:33→21:41)
[2017-06-14] MEDS: LEVOTHYROXINE 100 MCG TABLET PO SCH (05:39)
[2017-06-14] MEDS: LINACLOTIDE 145 MCG CAPSULE. PO SCH (05:39)
[2017-06-14] MEDS: IV NORMAL SALINE 1000ML BAG 1,000 ML IV SCH ×2 (05:40→16:09)
[2017-06-14 06:07] LABS: CALCIUM 8.4 mg/dL (8.5-10.1); CREATININE 0.7 mg/dL (0.6-1.0); GFR 85.9; POTASSIUM 4.4 mmol/L (3.5-5.1)
[2017-06-14 06:11] LABS: BASO % 1 % (0-3); EOS % 11 % (0-3); HEMATOCRIT 29.4 % (36.0-47.0); HEMOGLOBIN 9.6 g/dL (12.0-15.5); LYMPH # 1.4 x10^3/uL (1.0-4.8); LYMPH % 22 % (24-48); MEAN CORPUSCULAR HEMOGLOBIN 26 pg (25-35); MEAN CORPUSCULAR HGB CONC 33 g/dL (31-37); MEAN CORPUSCULAR VOLUME 80 fL (79-100); MONO % 10 % (0-9); NEUT % 56 % (31-73); PLATELET COUNT 300 x10^3/uL (140-400); RED BLOOD COUNT 3.67 x10^6/uL (3.50-5.40); RED CELL DISTRIBUTION WIDTH 15.4 % (11.5-14.5); WHITE BLOOD COUNT 6.3 x10^3/uL (4.0-11.0)
[2017-06-14 07:00] VITALS: BP 118/62
[2017-06-14] MEDS: SUCRALFATE 1 GM TABLET. PO SCH ×4 (07:30→21:40)
[2017-06-14] MEDS: INSULIN ASPART 300 UNITS/3 ML INSULN.PEN SQ SCH ×6 (07:30→18:37)
[2017-06-14] MEDS: METOCLOPRAMIDE 10 MG TABLET. PO SCH ×4 (07:30→21:39)
[2017-06-14] MEDS ORDERED: PANTOPRAZOLE 40 MG TABLET.DR. PO SCH (07:30)
--- NOTE | 2017-06-14 08:33 | RAD ---
Portable AP upright view CXR: Clinical indications: Left-sided chest pain radiating to the left shoulder today. Comparison: June 11, 2017 and August 24, 2016. Findings: Again seen is a calcified granuloma within left upper lobe which is stable. Again seen is left lung base scarring which is unchanged. No new lung infiltrate or pleural effusion or pulmonary edema or lung mass or pneumothorax is seen. The heart size, pulmonary vasculature, mediastinum and both gary are unremarkable. Impression: No acute radiographic abnormality is seen.
[2017-06-14] MEDS ORDERED: POLYETHYLENE GLYCOL 3350 17 GM PACKET. PO PRN (09:00)
[2017-06-14] MEDS: GABAPENTIN 300 MG CAPSULE. PO SCH ×3 (09:00→21:45)
--- NOTE | 2017-06-14 09:19 | EKG ---
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
--- NOTE | 2017-06-14 10:39 | RAD ---
Gastric emptying study nuclear medicine examination History: Abdominal pain for one month. Technique: After oral ingestion of a solid meal containing 2 mCi of technetium 99m sulfur colloid, anterior planar images of the upper abdomen were performed in sequential fashion and a time/activity curve was generated. Half time gastric clearance was measured and calculated. Findings: Half-time gastric clearance is measured and calculated to be 216 minutes. Normal is 45-90 minutes. Therefore, there is a delay in gastric emptying. IMPRESSION: Delay in gastric emptying.
[2017-06-14 11:00] VITALS: BP 147/68
[2017-06-14] MEDS: levETIRAcetam 250 MG TABLET PO SCH ×2 (11:33→21:39)
[2017-06-14] MEDS: SMZ/TMP 800/160MG TABLET. PO SCH ×2 (11:39→21:39)
[2017-06-14] MEDS: LACOSAMIDE 50 MG TABLET PO SCH ×2 (11:40→21:41)
[2017-06-14] MEDS: PANTOPRAZOLE 40 MG TABLET.DR. PO SCH (11:41)
[2017-06-14] MEDS: ASPIRIN ENTERIC COATED 81 MG TABLET.DR. PO SCH (11:42)
[2017-06-14] MEDS: buPROPion XL 150 MG TAB.ER.24H. PO SCH (11:43)
[2017-06-14] MEDS: POLYETHYLENE GLYCOL 3350 17 GM PACKET. PO SCH (11:47)
[2017-06-14] MEDS: LISINOPRIL 2.5 MG TABLET PO SCH (11:55)
--- NOTE | 2017-06-14 12:07 | PDOC2 ---
CONSULT Date of Consult Date of Consult DATE: 06/14/17 TIME: 12:07 Reason for Consult Reason for Consult: Chest pain Referring Physician Referring Physician: Dr. Person Identification/Chief Complaint Chief Complaint Chest pain Problems: Source Source: Chart review, Patient History of Present Illness Reason for Visit: 57-year-old female presented with pain in her upper abdomen, retrosternal and lower back not related to exertion. She also complained of nausea, vomiting but denied any shortness of breath, palpitations or syncope. Past Medical History Cardiovascular: HTN, Hyperlipidemia Pulmonary: Other CENTRAL NERVOUS SYSTEM: Dementia, Seizure GI: Irritable bowel disease Heme/Onc: Anemia NOS Psych: Anxiety, Depression Musculoskeletal: low back pain Infectious disease: Other Endocrine: Diabetes Past Surgical History Past Surgical History: Other Family History Family History: Hypertension Social History No ALCOHOL: none Drugs: None, Other Current Problem List Problem List Problems Medical Problems: (1) Chest pain Status: Acute Current Medications Current Medications Current Medications Aspirin (Children'S Aspirin) 324 mg 1X ONCE PO Last administered on 06/13/17 16:51; Start 06/13/17 at 17:00; Stop 06/13/17 at 17:01; Status DC Ondansetron HCl (Zofran) 4 mg PRN Q8HRS PRN IV NAUSEA/VOMITING; Start 06/13/17 at 18:15; Stop 06/13/17 at 18:40; Status DC Morphine Sulfate 2 mg PRN Q2HR PRN IV PAIN; Start 06/13/17 at 18:15; Stop 06/14 at 18:14 Insulin Human Regular (NovoLIN R VIAL) 5 unit 1X ONCE IV Last administered on 06/13/17 18:50; Start 06/13/17 at 18:15; Stop 06/13/17 at 18:16; Status DC Ondansetron HCl (Zofran) 4 mg PRN Q6HRS PRN IV NAUSEA/VOMITING; Start 06/13/17 at 18:36 Acetaminophen (Tylenol) 650 mg PRN Q6HRS PRN PO MILD PAIN / TEMP; Start at 18:45 Sodium Chloride 1,000 ml @ 100 mls/hr Q10H IV Last administered on 06/14/17 05:40; Start 06/13/17 at 20:00 Insulin Aspart (NovoLOG) 0-9 UNITS TIDWMEALS SQ ; Start 06/14/17 at 08:00 Dextrose (Dextrose 50%-Water Syringe) 12.5 gm PRN Q15MIN PRN IV SEE COMMENTS; Start 06/13/17 at 18:45 Acetaminophen/ Codeine Phosphate (Tylenol #3) 1 tab PRN Q6HRS PRN PO MODERATE PAIN; Start 06/13/17 at 18:45 Aspirin (Ecotrin) 81 mg DAILY PO Last administered on 06/14/17 11:42; Start at 09:00 Acetaminophen/ Hydrocodone Bitart (Lortab 5/325) 1 tab PRN Q6HRS PRN PO SEVERE PAIN Last administered on 06/14/17 03:33; Start 06/13/17 at 18:45 Acetaminophen/ Hydrocodone Bitart (Lortab 5/325) 1 tab PRN Q6HRS PRN PO PAIN; Start 06/13/17 at 18:45; Status UNV Insulin Aspart (NovoLOG) 10 units TIDAC SQ ; Start 06/14/17 at 07:30 Insulin Detemir (Levemir) 14 units QHS SQ Last administered on 06/13/17 21:28 ; Start 06/13/17 at 21:00 Lacosamide (Vimpat) 50 mg BID PO Last administered on 06/14/17 11:40; Start at 21:00 Levetiracetam (Keppra) 1,250 mg BID PO Last administered on 06/14/17 11:33; Start 06/13/17 at 21:00 Levothyroxine Sodium (Synthroid) 100 mcg DAILY06 PO Last administered on 05:39; Start 06/14/17 at 06:00 Lisinopril (Prinivil) 2.5 mg DAILY PO ; Start 06/14/17 at 09:00 Metformin HCl (Glucophage) 1,000 mg BIDWMEALS PO Last administered on 11:46; Start 06/14/17 at 08:00 Pantoprazole Sodium (Protonix) 40 mg DAILYAC PO Last administered on 06/14/17 11:41; Start 06/14/17 at 07:30 Phenytoin Sodium (Dilantin) 300 mg HS PO Last administered on 06/13/17 21:20; Start 06/13/17 at 21:00 Polyethylene Glycol (miraLAX Powder BULK BOTTLE) 17 gm PRN DAILY PRN PO CONSTIPATION; Start 06/13/17 at 18:45; Stop 06/13/17 at 18:49; Status DC Polyethylene Glycol (miraLAX PACKET) 17 gm DAILY PO Last administered on 11:47; Start 06/14/17 at 09:00 Simvastatin (Zocor) 20 mg HS PO Last administered on 06/13/17 21:19; Start at 21:00 Sucralfate (Carafate) 1 gm QIDACHS PO Last administered on 06/14/17 11:45; Start 06/13/17 at 21:00 Trimethoprim/ Sulfamethoxazole (Bactrim Ds) 2 tab BID PO Last administered on 11:39; Start 06/13/17 at 21:00 Tramadol HCl (Ultram) 50 mg PRN Q6HRS PRN PO MILD PAIN; Start 06/13/17 at 18:45 Zolpidem Tartrate (Ambien) 5 mg HS PO Last administered on 06/13/17 21:18; Start 06/13/17 at 21:00 Bupropion HCl (Wellbutrin Xl) 150 mg DAILY PO Last administered on 06/14/17 11 :43; Start 06/14/17 at 09:00 Gabapentin (Neurontin) 600 mg TID PO Last administered on 06/14/17 11:44; Start 06/13/17 at 21:00 Ibuprofen (Motrin) 800 mg PRN TID PRN PO PAIN; Start 06/13/17 at 19:00 Linaclotide (Linzess) 290 mcg DAILY07 PO Last administered on 06/14/17 05:39; Start 06/14/17 at 07:00 Pantoprazole Sodium (Protonix) 40 mg DAILYAC PO ; Start 06/14/17 at 07:30; Status UNV Non-Formulary Medication 300 mg QHS PO ; Start 06/13/17 at 21:00; Status UNV Enoxaparin Sodium (Lovenox 40mg Syringe) 40 mg Q24H SQ Last administered on 21:18; Start 06/13/17 at 21:00 Polyethylene Glycol (miraLAX PACKET) 17 gm PRN DAILY PRN PO CONSTIPATION; Start 06/14/17 at 09:00 Zolpidem Tartrate (Ambien) 5 mg PRN QHS PRN PO IF CONTINUED INSOMNIA; Start at 19:00 Metoclopramide HCl (Reglan) 10 mg TIDACHC PO Last administered on 06/13/17t 21: 19; Start 06/13/17 at 21:00 Active Scripts Active Acetaminophen-Cod #3 Tablet (Acetaminophen/Codeine Phosphate) 1 Each Tablet 1 Tab PO PRN Q6HRS PRN 2 Days Bactrim Ds Tablet (Sulfamethoxazole/Trimethoprim) 1 Each Tablet 2 Tab PO BID Hydrocodone-Apap 5-325 (Hydrocodone Bit/Acetaminophen) 1 Each Tablet 1-2 Tab PO PRN Q6HRS PRN 5 Days Protonix (Pantoprazole Sodium) 40 Mg Tablet.dr 1 Tab PO DAILY Carafate (Sucralfate) 1 Gm Tablet 1 Tab PO QID Shields 5-325 Tablet (Acetaminophen/Hydrocodone Bitart) 1 Each Tablet 1-2 Tab PO PRN Q6HRS PRN Miralax (Polyethylene Glycol 3350) 119 Gm Powder 17 Gm PO DAILY Novolog Flexpen (Insulin Aspart) 100 Unit/1 Ml Insuln.pen 10 Unit SQ TIDAC Levemir Flextouch (Insulin Detemir) 100 Unit/1 Ml Insuln.pen 14 Unit SQ QHS Ultram (Tramadol Hcl) 50 Mg Tablet 50 Mg PO PRN Q6HRS PRN Linzess (Linaclotide) 290 Mcg Capsule 290 Mcg PO DAILY 30 Days Synthroid (Levothyroxine Sodium) 100 Mcg Tablet 100 Mcg PO DAILY06 30 Days Keppra (Levetiracetam) 250 Mg Tablet 1,250 Mg PO BID 30 Days Vimpat (Lacosamide) 50 Mg Tablet 50 Mg PO BID 30 Days Reported Metformin Hcl 500 Mg Tablet 2 Tab PO BID Dilantin (Phenytoin Sodium Extended) 100 Mg Capsule 300 Mg PO HS Ibuprofen 800 Mg Tablet 800 Mg PO TID PRN PRN Omeprazole 40 Mg Capsule.dr 40 Mg PO DAILY Lisinopril 2.5 Mg Tablet 2.5 Mg PO DAILY Neurontin (Gabapentin) 600 Mg Tablet 600 Mg PO TID Polyethylene Glycol 3350 255 Gm Powder 17 Gm PO DAILY PRN Aspirin Ec (Aspirin) 81 Mg Tablet.dr 81 Mg PO DAILY Zolpidem Tartrate 5 Mg Tablet 10 Mg PO HS Bupropion Xl (Bupropion Hcl) 300 Mg Tab.er.24h 150 Mg PO DAILY Simvastatin 20 Mg Tablet 20 Mg PO HS Allergies Allergies: Coded Allergies: No Known Drug Allergies (Unverified , 04/09/14) ROS PSYCHOLOGICAL ROS: No: Hallucinations Eyes: No Loss of vision HEENT: No: Epistaxis Respiratory: No: Shortness of breath Cardiovascular: yes Chest Pain, No Palpitations Gastrointestinal: Yes Nausea, Yes Vomiting Genitourinary: No Hematuria Neurological: No Seizures Skin: No Rash Physical Exam General: Alert, No acute distress HEENT: Atraumatic, PERRLA Lungs: Clear to auscultation Heart: Regular rate Abdomen: Soft Extremities: No edema Psych/Mental Status: Mood NL Vitals VITALS Vital Signs Date Time Temp Pulse Resp B/P (MAP) Pulse Ox O2 Delivery O2 Flow Rate FiO2 06/14/17 03:33 18 96 Room Air 06/14/17 02:54 97.9 81 114/57 (76) 97.9 Labs Labs Laboratory Tests Test 06/13/17 17:07 06/13/17 20:44 06/14/17 00:10 06/14/17 05:45 White Blood Count 6.6 x10^3/uL (4.0-11.0) 6.3 x10^3/uL (4.0-11.0) Red Blood Count 3.70 x10^6/uL (3.50-5.40) 3.67 x10^6/uL (3.50-5.40) Hemoglobin 9.7 g/dL (12.0-15.5) 9.6 g/dL (12.0-15.5) Hematocrit 29.9 % (36.0-47.0) 29.4 % (36.0-47.0) Mean Corpuscular Volume 81 fL (79-100) 80 fL (79-100) Mean Corpuscular Hemoglobin 26 pg (25-35) 26 pg (25-35) Mean Corpuscular Hemoglobin Concent 33 g/dL (31-37) 33 g/dL (31-37) Red Cell Distribution Width 15.4 % (11.5-14.5) 15.4 % (11.5-14.5) Platelet Count 309 x10^3/uL (140-400) 300 x10^3/uL (140-400) Neutrophils (%) (Auto) 62 % (31-73) 56 % (31-73) Lymphocytes (%) (Auto) 19 % (24-48) 22 % (24-48) Monocytes (%) (Auto) 9 % (0-9) 10 % (0-9) Eosinophils (%) (Auto) 9 % (0-3) 11 % (0-3) Basophils (%) (Auto) 1 % (0-3) 1 % (0-3) Neutrophils # (Auto) 4.1 x10^3uL (1.8-7.7) 3.5 x10^3uL (1.8-7.7) Lymphocytes # (Auto) 1.2 x10^3/uL (1.0-4.8) 1.4 x10^3/uL (1.0-4.8) Monocytes # (Auto) 0.6 x10^3/uL (0.0-1.1) 0.7 x10^3/uL (0.0-1.1) Eosinophils # (Auto) 0.6 x10^3/uL (0.0-0.7) 0.7 x10^3/uL (0.0-0.7) Basophils # (Auto) 0.1 x10^3/uL (0.0-0.2) 0.0 x10^3/uL (0.0-0.2) Sodium Level 131 mmol/L (136-145) 134 mmol/L (136-145) Potassium Level 4.7 mmol/L (3.5-5.1) 4.4 mmol/L (3.5-5.1) Chloride Level 96 mmol/L (98-107) 99 mmol/L (98-107) Carbon Dioxide Level 24 mmol/L (21-32) 28 mmol/L (21-32) Anion Gap 11 (6-14) 7 (6-14) Blood Urea Nitrogen 10 mg/dL (7-20) 8 mg/dL (7-20) Creatinine 0.8 mg/dL (0.6-1.0) 0.7 mg/dL (0.6-1.0) Estimated GFR (Cockcroft-Gault) 73.7 85.9 Glucose Level 322 mg/dL (70-99) 277 mg/dL (70-99) Calcium Level 8.3 mg/dL (8.5-10.1) 8.4 mg/dL (8.5-10.1) Total Bilirubin 0.1 mg/dL (0.2-1.0) Direct Bilirubin 0.1 mg/dL (0.0-0.2) Aspartate Amino Transf (AST/SGOT) 210 U/L (15-37) Alanine Aminotransferase (ALT/SGPT) 184 U/L (14-59) Alkaline Phosphatase 152 U/L (46-116) Troponin I Quantitative 0.029 ng/mL (0.000-0.055) 0.021 ng/mL (0.000-0.055) 0.023 ng/mL (0.000-0.055) NW-Mbx-X-Type Natriuretic Peptide 199 pg/mL (0-124) Total Protein 6.7 g/dL (6.4-8.2) Albumin 3.6 g/dL (3.4-5.0) Lipase 61 U/L (73-393) Glucose (Fingerstick) 252 mg/dL (70-99) Test 06/14/17 07:19 06/14/17 10:44 Glucose (Fingerstick) 110 mg/dL (70-99) 249 mg/dL (70-99) Laboratory Tests Test 06/13/17 17:07 06/13/17 20:44 06/14/17 00:10 06/14/17 05:45 White Blood Count 6.6 x10^3/uL (4.0-11.0) 6.3 x10^3/uL (4.0-11.0) Red Blood Count 3.70 x10^6/uL (3.50-5.40) 3.67 x10^6/uL (3.50-5.40) Hemoglobin 9.7 g/dL (12.0-15.5) 9.6 g/dL (12.0-15.5) Hematocrit 29.9 % (36.0-47.0) 29.4 % (36.0-47.0) Mean Corpuscular Volume 81 fL (79-100) 80 fL (79-100) Mean Corpuscular Hemoglobin 26 pg (25-35) 26 pg (25-35) Mean Corpuscular Hemoglobin Concent 33 g/dL (31-37) 33 g/dL (31-37) Red Cell Distribution Width 15.4 % (11.5-14.5) 15.4 % (11.5-14.5) Platelet Count 309 x10^3/uL (140-400) 300 x10^3/uL (140-400) Neutrophils (%) (Auto) 62 % (31-73) 56 % (31-73) Lymphocytes (%) (Auto) 19 % (24-48) 22 % (24-48) Monocytes (%) (Auto) 9 % (0-9) 10 % (0-9) Eosinophils (%) (Auto) 9 % (0-3) 11 % (0-3) Basophils (%) (Auto) 1 % (0-3) 1 % (0-3) Neutrophils # (Auto) 4.1 x10^3uL (1.8-7.7) 3.5 x10^3uL (1.8-7.7) Lymphocytes # (Auto) 1.2 x10^3/uL (1.0-4.8) 1.4 x10^3/uL (1.0-4.8) Monocytes # (Auto) 0.6 x10^3/uL (0.0-1.1) 0.7 x10^3/uL (0.0-1.1) Eosinophils # (Auto) 0.6 x10^3/uL (0.0-0.7) 0.7 x10^3/uL (0.0-0.7) Basophils # (Auto) 0.1 x10^3/uL (0.0-0.2) 0.0 x10^3/uL (0.0-0.2) Sodium Level 131 mmol/L (136-145) 134 mmol/L (136-145) Potassium Level 4.7 mmol/L (3.5-5.1) 4.4 mmol/L (3.5-5.1) Chloride Level 96 mmol/L (98-107) 99 mmol/L (98-107) Carbon Dioxide Level 24 mmol/L (21-32) 28 mmol/L (21-32) Anion Gap 11 (6-14) 7 (6-14) Blood Urea Nitrogen 10 mg/dL (7-20) 8 mg/dL (7-20) Creatinine 0.8 mg/dL (0.6-1.0) 0.7 mg/dL (0.6-1.0) Estimated GFR (Cockcroft-Gault) 73.7 85.9 Glucose Level 322 mg/dL (70-99) 277 mg/dL (70-99) Calcium Level 8.3 mg/dL (8.5-10.1) 8.4 mg/dL (8.5-10.1) Total Bilirubin 0.1 mg/dL (0.2-1.0) Direct Bilirubin 0.1 mg/dL (0.0-0.2) Aspartate Amino Transf (AST/SGOT) 210 U/L (15-37) Alanine Aminotransferase (ALT/SGPT) 184 U/L (14-59) Alkaline Phosphatase 152 U/L (46-116) Troponin I Quantitative 0.029 ng/mL (0.000-0.055) 0.021 ng/mL (0.000-0.055) 0.023 ng/mL (0.000-0.055) PT-Uhy-P-Type Natriuretic Peptide 199 pg/mL (0-124) Total Protein 6.7 g/dL (6.4-8.2) Albumin 3.6 g/dL (3.4-5.0) Lipase 61 U/L (73-393) Glucose (Fingerstick) 252 mg/dL (70-99) Test 06/14/17 07:19 06/14/17 10:44 Glucose (Fingerstick) 110 mg/dL (70-99) 249 mg/dL (70-99) Assessment/Plan Assessment/Plan 1. Chest pain with atypical features, reproducible to palpation. Myocardial infarction is ruled out. Check 2-D echocardiogram to assess LV systolic function and rule out wall motion abnormalities. We will also obtain Lexiscan nuclear stress test to rule out ischemia. 2. Hypertension: Well-controlled 3. Diabetes mellitus, uncontrolled with possible gastroparesis: Treat per IM 4. Seizure disorder: Continue current medical regimen Thank you for your consultation RINA MALCOLM MD Jun 14, 2017 12:07
--- NOTE | 2017-06-14 14:00 | PDOC ---
PROGRESS NOTES Chief Complaint Chief Complaint Chest pain Abdominal pain Nausea HTN Hyperlipidemia Dementia Seizure Irritable bowel disease Anemia NOS Anxiety Depression Low back pain Diabetes History of Present Illness History of Present Illness Patient appeared to be in moderate discomfort. Stated chest pain worsened just after she started eating. Patient was crying. Vital signs stable. Vitals Vitals Vital Signs Date Time Temp Pulse Resp B/P (MAP) Pulse Ox O2 Delivery O2 Flow Rate FiO2 06/14/17 11:55 69 147/68 06/14/17 03:33 18 96 Room Air 06/14/17 02:54 97.9 97.9 Physical Exam General: Oriented X3, Cooperative, moderate distress Heart: Regular rate, No murmurs Lungs: Clear, Other Abdomen: Soft, No tenderness, Other Extremities: No clubbing, No cyanosis, No edema, Normal pulses, No tenderness/ swelling Skin: No rashes, No breakdown, No significant lesion, Other Labs LABS Laboratory Tests Test 06/13/17 17:07 06/13/17 20:44 06/14/17 00:10 06/14/17 05:45 White Blood Count 6.6 x10^3/uL (4.0-11.0) 6.3 x10^3/uL (4.0-11.0) Red Blood Count 3.70 x10^6/uL (3.50-5.40) 3.67 x10^6/uL (3.50-5.40) Hemoglobin 9.7 g/dL (12.0-15.5) 9.6 g/dL (12.0-15.5) Hematocrit 29.9 % (36.0-47.0) 29.4 % (36.0-47.0) Mean Corpuscular Volume 81 fL (79-100) 80 fL (79-100) Mean Corpuscular Hemoglobin 26 pg (25-35) 26 pg (25-35) Mean Corpuscular Hemoglobin Concent 33 g/dL (31-37) 33 g/dL (31-37) Red Cell Distribution Width 15.4 % (11.5-14.5) 15.4 % (11.5-14.5) Platelet Count 309 x10^3/uL (140-400) 300 x10^3/uL (140-400) Neutrophils (%) (Auto) 62 % (31-73) 56 % (31-73) Lymphocytes (%) (Auto) 19 % (24-48) 22 % (24-48) Monocytes (%) (Auto) 9 % (0-9) 10 % (0-9) Eosinophils (%) (Auto) 9 % (0-3) 11 % (0-3) Basophils (%) (Auto) 1 % (0-3) 1 % (0-3) Neutrophils # (Auto) 4.1 x10^3uL (1.8-7.7) 3.5 x10^3uL (1.8-7.7) Lymphocytes # (Auto) 1.2 x10^3/uL (1.0-4.8) 1.4 x10^3/uL (1.0-4.8) Monocytes # (Auto) 0.6 x10^3/uL (0.0-1.1) 0.7 x10^3/uL (0.0-1.1) Eosinophils # (Auto) 0.6 x10^3/uL (0.0-0.7) 0.7 x10^3/uL (0.0-0.7) Basophils # (Auto) 0.1 x10^3/uL (0.0-0.2) 0.0 x10^3/uL (0.0-0.2) Sodium Level 131 mmol/L (136-145) 134 mmol/L (136-145) Potassium Level 4.7 mmol/L (3.5-5.1) 4.4 mmol/L (3.5-5.1) Chloride Level 96 mmol/L (98-107) 99 mmol/L (98-107) Carbon Dioxide Level 24 mmol/L (21-32) 28 mmol/L (21-32) Anion Gap 11 (6-14) 7 (6-14) Blood Urea Nitrogen 10 mg/dL (7-20) 8 mg/dL (7-20) Creatinine 0.8 mg/dL (0.6-1.0) 0.7 mg/dL (0.6-1.0) Estimated GFR (Cockcroft-Gault) 73.7 85.9 Glucose Level 322 mg/dL (70-99) 277 mg/dL (70-99) Calcium Level 8.3 mg/dL (8.5-10.1) 8.4 mg/dL (8.5-10.1) Total Bilirubin 0.1 mg/dL (0.2-1.0) Direct Bilirubin 0.1 mg/dL (0.0-0.2) Aspartate Amino Transf (AST/SGOT) 210 U/L (15-37) Alanine Aminotransferase (ALT/SGPT) 184 U/L (14-59) Alkaline Phosphatase 152 U/L (46-116) Troponin I Quantitative 0.029 ng/mL (0.000-0.055) 0.021 ng/mL (0.000-0.055) 0.023 ng/mL (0.000-0.055) SC-Jff-D-Type Natriuretic Peptide 199 pg/mL (0-124) Total Protein 6.7 g/dL (6.4-8.2) Albumin 3.6 g/dL (3.4-5.0) Lipase 61 U/L (73-393) Glucose (Fingerstick) 252 mg/dL (70-99) Test 06/14/17 07:19 06/14/17 10:44 Glucose (Fingerstick) 110 mg/dL (70-99) 249 mg/dL (70-99) Review of Systems Review of Systems Weakness. Crying. Moderate distress. Assessment and Plan Assessmemt and Plan Problems Medical Problems: (1) Chest pain Status: Acute Assessment: Chest pain Abdominal pain Gastroparesis Nausea HTN Hyperlipidemia Dementia Seizure Irritable bowel disease Anemia NOS Anxiety Depression Low back pain Diabetes Plan: 1. Continue serial cardiac enzymes 2. Continue serial EKGs 3. Cardiac monitoring 4. Continue daily aspirin 5. Consulting with cardiology 6. PT/OT 7. Home meds Problems: Comment Review of Relevant I have reviewed the following items vlad (where applicable) has been applied. Labs Laboratory Tests Test 06/13/17 17:07 06/13/17 20:44 06/14/17 00:10 06/14/17 05:45 White Blood Count 6.6 x10^3/uL (4.0-11.0) 6.3 x10^3/uL (4.0-11.0) Red Blood Count 3.70 x10^6/uL (3.50-5.40) 3.67 x10^6/uL (3.50-5.40) Hemoglobin 9.7 g/dL (12.0-15.5) 9.6 g/dL (12.0-15.5) Hematocrit 29.9 % (36.0-47.0) 29.4 % (36.0-47.0) Mean Corpuscular Volume 81 fL (79-100) 80 fL (79-100) Mean Corpuscular Hemoglobin 26 pg (25-35) 26 pg (25-35) Mean Corpuscular Hemoglobin Concent 33 g/dL (31-37) 33 g/dL (31-37) Red Cell Distribution Width 15.4 % (11.5-14.5) 15.4 % (11.5-14.5) Platelet Count 309 x10^3/uL (140-400) 300 x10^3/uL (140-400) Neutrophils (%) (Auto) 62 % (31-73) 56 % (31-73) Lymphocytes (%) (Auto) 19 % (24-48) 22 % (24-48) Monocytes (%) (Auto) 9 % (0-9) 10 % (0-9) Eosinophils (%) (Auto) 9 % (0-3) 11 % (0-3) Basophils (%) (Auto) 1 % (0-3) 1 % (0-3) Neutrophils # (Auto) 4.1 x10^3uL (1.8-7.7) 3.5 x10^3uL (1.8-7.7) Lymphocytes # (Auto) 1.2 x10^3/uL (1.0-4.8) 1.4 x10^3/uL (1.0-4.8) Monocytes # (Auto) 0.6 x10^3/uL (0.0-1.1) 0.7 x10^3/uL (0.0-1.1) Eosinophils # (Auto) 0.6 x10^3/uL (0.0-0.7) 0.7 x10^3/uL (0.0-0.7) Basophils # (Auto) 0.1 x10^3/uL (0.0-0.2) 0.0 x10^3/uL (0.0-0.2) Sodium Level 131 mmol/L (136-145) 134 mmol/L (136-145) Potassium Level 4.7 mmol/L (3.5-5.1) 4.4 mmol/L (3.5-5.1) Chloride Level 96 mmol/L (98-107) 99 mmol/L (98-107) Carbon Dioxide Level 24 mmol/L (21-32) 28 mmol/L (21-32) Anion Gap 11 (6-14) 7 (6-14) Blood Urea Nitrogen 10 mg/dL (7-20) 8 mg/dL (7-20) Creatinine 0.8 mg/dL (0.6-1.0) 0.7 mg/dL (0.6-1.0) Estimated GFR (Cockcroft-Gault) 73.7 85.9 Glucose Level 322 mg/dL (70-99) 277 mg/dL (70-99) Calcium Level 8.3 mg/dL (8.5-10.1) 8.4 mg/dL (8.5-10.1) Total Bilirubin 0.1 mg/dL (0.2-1.0) Direct Bilirubin 0.1 mg/dL (0.0-0.2) Aspartate Amino Transf (AST/SGOT) 210 U/L (15-37) Alanine Aminotransferase (ALT/SGPT) 184 U/L (14-59) Alkaline Phosphatase 152 U/L (46-116) Troponin I Quantitative 0.029 ng/mL (0.000-0.055) 0.021 ng/mL (0.000-0.055) 0.023 ng/mL (0.000-0.055) DR-Zti-R-Type Natriuretic Peptide 199 pg/mL (0-124) Total Protein 6.7 g/dL (6.4-8.2) Albumin 3.6 g/dL (3.4-5.0) Lipase 61 U/L (73-393) Glucose (Fingerstick) 252 mg/dL (70-99) Test 06/14/17 07:19 06/14/17 10:44 Glucose (Fingerstick) 110 mg/dL (70-99) 249 mg/dL (70-99) Laboratory Tests Test 06/13/17 17:07 06/13/17 20:44 06/14/17 00:10 06/14/17 05:45 White Blood Count 6.6 x10^3/uL (4.0-11.0) 6.3 x10^3/uL (4.0-11.0) Red Blood Count 3.70 x10^6/uL (3.50-5.40) 3.67 x10^6/uL (3.50-5.40) Hemoglobin 9.7 g/dL (12.0-15.5) 9.6 g/dL (12.0-15.5) Hematocrit 29.9 % (36.0-47.0) 29.4 % (36.0-47.0) Mean Corpuscular Volume 81 fL (79-100) 80 fL (79-100) Mean Corpuscular Hemoglobin 26 pg (25-35) 26 pg (25-35) Mean Corpuscular Hemoglobin Concent 33 g/dL (31-37) 33 g/dL (31-37) Red Cell Distribution Width 15.4 % (11.5-14.5) 15.4 % (11.5-14.5) Platelet Count 309 x10^3/uL (140-400) 300 x10^3/uL (140-400) Neutrophils (%) (Auto) 62 % (31-73) 56 % (31-73) Lymphocytes (%) (Auto) 19 % (24-48) 22 % (24-48) Monocytes (%) (Auto) 9 % (0-9) 10 % (0-9) Eosinophils (%) (Auto) 9 % (0-3) 11 % (0-3) Basophils (%) (Auto) 1 % (0-3) 1 % (0-3) Neutrophils # (Auto) 4.1 x10^3uL (1.8-7.7) 3.5 x10^3uL (1.8-7.7) Lymphocytes # (Auto) 1.2 x10^3/uL (1.0-4.8) 1.4 x10^3/uL (1.0-4.8) Monocytes # (Auto) 0.6 x10^3/uL (0.0-1.1) 0.7 x10^3/uL (0.0-1.1) Eosinophils # (Auto) 0.6 x10^3/uL (0.0-0.7) 0.7 x10^3/uL (0.0-0.7) Basophils # (Auto) 0.1 x10^3/uL (0.0-0.2) 0.0 x10^3/uL (0.0-0.2) Sodium Level 131 mmol/L (136-145) 134 mmol/L (136-145) Potassium Level 4.7 mmol/L (3.5-5.1) 4.4 mmol/L (3.5-5.1) Chloride Level 96 mmol/L (98-107) 99 mmol/L (98-107) Carbon Dioxide Level 24 mmol/L (21-32) 28 mmol/L (21-32) Anion Gap 11 (6-14) 7 (6-14) Blood Urea Nitrogen 10 mg/dL (7-20) 8 mg/dL (7-20) Creatinine 0.8 mg/dL (0.6-1.0) 0.7 mg/dL (0.6-1.0) Estimated GFR (Cockcroft-Gault) 73.7 85.9 Glucose Level 322 mg/dL (70-99) 277 mg/dL (70-99) Calcium Level 8.3 mg/dL (8.5-10.1) 8.4 mg/dL (8.5-10.1) Total Bilirubin 0.1 mg/dL (0.2-1.0) Direct Bilirubin 0.1 mg/dL (0.0-0.2) Aspartate Amino Transf (AST/SGOT) 210 U/L (15-37) Alanine Aminotransferase (ALT/SGPT) 184 U/L (14-59) Alkaline Phosphatase 152 U/L (46-116) Troponin I Quantitative 0.029 ng/mL (0.000-0.055) 0.021 ng/mL (0.000-0.055) 0.023 ng/mL (0.000-0.055) GR-Ulm-P-Type Natriuretic Peptide 199 pg/mL (0-124) Total Protein 6.7 g/dL (6.4-8.2) Albumin 3.6 g/dL (3.4-5.0) Lipase 61 U/L (73-393) Glucose (Fingerstick) 252 mg/dL (70-99) Test 06/14/17 07:19 06/14/17 10:44 Glucose (Fingerstick) 110 mg/dL (70-99) 249 mg/dL (70-99) Medications Current Medications Aspirin (Children'S Aspirin) 324 mg 1X ONCE PO Last administered on 06/13/17 16:51; Start 06/13/17 at 17:00; Stop 06/13/17 at 17:01; Status DC Ondansetron HCl (Zofran) 4 mg PRN Q8HRS PRN IV NAUSEA/VOMITING; Start 06/13/17 at 18:15; Stop 06/13/17 at 18:40; Status DC Morphine Sulfate 2 mg PRN Q2HR PRN IV PAIN; Start 06/13/17 at 18:15; Stop 06/14 at 18:14 Insulin Human Regular (NovoLIN R VIAL) 5 unit 1X ONCE IV Last administered on 06/13/17 18:50; Start 06/13/17 at 18:15; Stop 06/13/17 at 18:16; Status DC Ondansetron HCl (Zofran) 4 mg PRN Q6HRS PRN IV NAUSEA/VOMITING; Start 06/13/17 at 18:36 Acetaminophen (Tylenol) 650 mg PRN Q6HRS PRN PO MILD PAIN / TEMP; Start at 18:45 Sodium Chloride 1,000 ml @ 100 mls/hr Q10H IV Last administered on 06/14/17 05:40; Start 06/13/17 at 20:00 Insulin Aspart (NovoLOG) 0-9 UNITS TIDWMEALS SQ Last administered on 06/14/17 12:19; Start 06/14/17 at 08:00 Dextrose (Dextrose 50%-Water Syringe) 12.5 gm PRN Q15MIN PRN IV SEE COMMENTS; Start 06/13/17 at 18:45 Acetaminophen/ Codeine Phosphate (Tylenol #3) 1 tab PRN Q6HRS PRN PO MODERATE PAIN; Start 06/13/17 at 18:45 Aspirin (Ecotrin) 81 mg DAILY PO Last administered on 06/14/17 11:42; Start at 09:00 Acetaminophen/ Hydrocodone Bitart (Lortab 5/325) 1 tab PRN Q6HRS PRN PO SEVERE PAIN Last administered on 06/14/17 03:33; Start 06/13/17 at 18:45 Acetaminophen/ Hydrocodone Bitart (Lortab 5/325) 1 tab PRN Q6HRS PRN PO PAIN; Start 06/13/17 at 18:45; Status UNV Insulin Aspart (NovoLOG) 10 units TIDAC SQ Last administered on 06/14/17 12:20 ; Start 06/14/17 at 07:30 Insulin Detemir (Levemir) 14 units QHS SQ Last administered on 06/13/17 21:28 ; Start 06/13/17 at 21:00 Lacosamide (Vimpat) 50 mg BID PO Last administered on 06/14/17 11:40; Start at 21:00 Levetiracetam (Keppra) 1,250 mg BID PO Last administered on 06/14/17 11:33; Start 06/13/17 at 21:00 Levothyroxine Sodium (Synthroid) 100 mcg DAILY06 PO Last administered on 05:39; Start 06/14/17 at 06:00 Lisinopril (Prinivil) 2.5 mg DAILY PO Last administered on 06/14/17 11:55; Start 06/14/17 at 09:00 Metformin HCl (Glucophage) 1,000 mg BIDWMEALS PO Last administered on 11:46; Start 06/14/17 at 08:00 Pantoprazole Sodium (Protonix) 40 mg DAILYAC PO Last administered on 06/14/17 11:41; Start 06/14/17 at 07:30 Phenytoin Sodium (Dilantin) 300 mg HS PO Last administered on 06/13/17 21:20; Start 06/13/17 at 21:00 Polyethylene Glycol (miraLAX Powder BULK BOTTLE) 17 gm PRN DAILY PRN PO CONSTIPATION; Start 06/13/17 at 18:45; Stop 06/13/17 at 18:49; Status DC Polyethylene Glycol (miraLAX PACKET) 17 gm DAILY PO Last administered on 11:47; Start 06/14/17 at 09:00 Simvastatin (Zocor) 20 mg HS PO Last administered on 06/13/17 21:19; Start at 21:00 Sucralfate (Carafate) 1 gm QIDACHS PO Last administered on 06/14/17 11:45; Start 06/13/17 at 21:00 Trimethoprim/ Sulfamethoxazole (Bactrim Ds) 2 tab BID PO Last administered on 11:39; Start 06/13/17 at 21:00 Tramadol HCl (Ultram) 50 mg PRN Q6HRS PRN PO MILD PAIN; Start 06/13/17 at 18:45 Zolpidem Tartrate (Ambien) 5 mg HS PO Last administered on 06/13/17 21:18; Start 06/13/17 at 21:00 Bupropion HCl (Wellbutrin Xl) 150 mg DAILY PO Last administered on 06/14/17 11 :43; Start 06/14/17 at 09:00 Gabapentin (Neurontin) 600 mg TID PO Last administered on 06/14/17 11:44; Start 06/13/17 at 21:00 Ibuprofen (Motrin) 800 mg PRN TID PRN PO PAIN; Start 06/13/17 at 19:00 Linaclotide (Linzess) 290 mcg DAILY07 PO Last administered on 06/14/17 05:39; Start 06/14/17 at 07:00 Pantoprazole Sodium (Protonix) 40 mg DAILYAC PO ; Start 06/14/17 at 07:30; Status UNV Non-Formulary Medication 300 mg QHS PO ; Start 06/13/17 at 21:00; Status UNV Enoxaparin Sodium (Lovenox 40mg Syringe) 40 mg Q24H SQ Last administered on 21:18; Start 06/13/17 at 21:00 Polyethylene Glycol (miraLAX PACKET) 17 gm PRN DAILY PRN PO CONSTIPATION; Start 06/14/17 at 09:00 Zolpidem Tartrate (Ambien) 5 mg PRN QHS PRN PO IF CONTINUED INSOMNIA; Start at 19:00 Metoclopramide HCl (Reglan) 10 mg TIDACHC PO Last administered on 06/14/17 11: 49; Start 06/13/17 at 21:00 Active Scripts Active Acetaminophen-Cod #3 Tablet (Acetaminophen/Codeine Phosphate) 1 Each Tablet 1 Tab PO PRN Q6HRS PRN 2 Days Bactrim Ds Tablet (Sulfamethoxazole/Trimethoprim) 1 Each Tablet 2 Tab PO BID Hydrocodone-Apap 5-325 (Hydrocodone Bit/Acetaminophen) 1 Each Tablet 1-2 Tab PO PRN Q6HRS PRN 5 Days Protonix (Pantoprazole Sodium) 40 Mg Tablet.dr 1 Tab PO DAILY Carafate (Sucralfate) 1 Gm Tablet 1 Tab PO QID [place] 5-325 Tablet (Acetaminophen/Hydrocodone Bitart) 1 Each Tablet 1-2 Tab PO PRN Q6HRS PRN Miralax (Polyethylene Glycol 3350) 119 Gm Powder 17 Gm PO DAILY Novolog Flexpen (Insulin Aspart) 100 Unit/1 Ml Insuln.pen 10 Unit SQ TIDAC Levemir Flextouch (Insulin Detemir) 100 Unit/1 Ml Insuln.pen 14 Unit SQ QHS Ultram (Tramadol Hcl) 50 Mg Tablet 50 Mg PO PRN Q6HRS PRN Linzess (Linaclotide) 290 Mcg Capsule 290 Mcg PO DAILY 30 Days Synthroid (Levothyroxine Sodium) 100 Mcg Tablet 100 Mcg PO DAILY06 30 Days Keppra (Levetiracetam) 250 Mg Tablet 1,250 Mg PO BID 30 Days Vimpat (Lacosamide) 50 Mg Tablet 50 Mg PO BID 30 Days Reported Metformin Hcl 500 Mg Tablet 2 Tab PO BID Dilantin (Phenytoin Sodium Extended) 100 Mg Capsule 300 Mg PO HS Ibuprofen 800 Mg Tablet 800 Mg PO TID PRN PRN Omeprazole 40 Mg Capsule.dr 40 Mg PO DAILY Lisinopril 2.5 Mg Tablet 2.5 Mg PO DAILY Neurontin (Gabapentin) 600 Mg Tablet 600 Mg PO TID Polyethylene Glycol 3350 255 Gm Powder 17 Gm PO DAILY PRN Aspirin Ec (Aspirin) 81 Mg Tablet.dr 81 Mg PO DAILY Zolpidem Tartrate 5 Mg Tablet 10 Mg PO HS Bupropion Xl (Bupropion Hcl) 300 Mg Tab.er.24h 150 Mg PO DAILY Simvastatin 20 Mg Tablet 20 Mg PO HS Vitals/I & O Vital Sign - Last 24 Hours 06/13/17 06/13/17 06/13/17 06/13/17 16:37 16:44 17:21 17:44 Temp 98.7 98.7 Pulse 80 80 66 79 Resp 18 16 16 18 B/P (MAP) 158/68 (98) 158/70 (99) 156/70 (98) 123/58 (79) Pulse Ox 98 98 98 94 O2 Delivery Room Air Room Air Room Air Room Air 06/13/17 06/13/17 06/13/17 06/13/17 18:14 19:00 21:19 21:39 Temp 97.9 97.9 Pulse 76 83 Resp 18 18 18 B/P (MAP) 152/69 (96) 147/63 (91) Pulse Ox 97 96 97 O2 Delivery Room Air Room Air Room Air 06/13/17 06/13/17 06/14/17 06/14/17 22:19 23:00 02:54 03:33 Temp 97.9 97.9 97.9 97.9 Pulse 81 81 Resp 18 18 16 18 B/P (MAP) 125/57 (79) 114/57 (76) Pulse Ox 97 96 96 96 O2 Delivery Room Air Room Air Room Air Room Air 06/14/17 11:55 Pulse 69 B/P (MAP) 147/68 Intake and Output 06/13/17 06/13/17 06/14/17 15:00 23:00 07:00 Intake Total 980 ml Balance 980 ml SABRINA BALTAZAR III DO Jun 14, 2017 14:00
[2017-06-14 15:00] VITALS: BP 125/57
[2017-06-14 19:00] VITALS: BP 121/57
[2017-06-14] MEDS: ENOXAPARIN 40 MG/0.4 ML SYRINGE. SQ SCH (21:37)
[2017-06-14] MEDS: PHENYTOIN SODIUM EXTENDED 100 MG CAPSULE PO SCH (21:40)
[2017-06-14] MEDS: SIMVASTATIN 20 MG TABLET PO SCH (21:40)
[2017-06-14] MEDS: ZOLPIDEM 5 MG TABLET. PO SCH (21:41)
[2017-06-14] MEDS: INSULIN DETEMIR 300 UNITS/3 ML INSULN.PEN. SQ SCH (21:46)
[2017-06-14 23:00] VITALS: BP 140/63
[2017-06-15] MEDS: IV NORMAL SALINE 1000ML BAG 1,000 ML IV SCH (01:41)
[2017-06-15 03:19] VITALS: BP 95/59
[2017-06-15] MEDS: LINACLOTIDE 145 MCG CAPSULE. PO SCH (04:57)
[2017-06-15] MEDS: LEVOTHYROXINE 100 MCG TABLET PO SCH (04:57)
[2017-06-15] MEDS: INSULIN ASPART 300 UNITS/3 ML INSULN.PEN SQ SCH ×4 (07:30→11:15)
[2017-06-15 07:55] VITALS: BP 125/56
[2017-06-15] MEDS ORDERED: REGADENOSON 0.4 MG/5 ML DISP.SYRIN. IV ONE (08:45)
[2017-06-15] MEDS: POLYETHYLENE GLYCOL 3350 17 GM PACKET. PO SCH (10:29)
[2017-06-15] MEDS: PANTOPRAZOLE 40 MG TABLET.DR. PO SCH (10:30)
[2017-06-15] MEDS: LACOSAMIDE 50 MG TABLET PO SCH (10:30)
[2017-06-15] MEDS: LISINOPRIL 2.5 MG TABLET PO SCH (10:30)
[2017-06-15] MEDS: levETIRAcetam 250 MG TABLET PO SCH (10:30)
[2017-06-15] MEDS: GABAPENTIN 300 MG CAPSULE. PO SCH ×2 (10:31→14:53)
[2017-06-15] MEDS: buPROPion XL 150 MG TAB.ER.24H. PO SCH (10:31)
[2017-06-15] MEDS: SMZ/TMP 800/160MG TABLET. PO SCH (10:31)
[2017-06-15] MEDS: SUCRALFATE 1 GM TABLET. PO SCH ×2 (10:31→11:30)
[2017-06-15] MEDS: ASPIRIN ENTERIC COATED 81 MG TABLET.DR. PO SCH (10:31)
[2017-06-15] MEDS: METOCLOPRAMIDE 10 MG TABLET. PO SCH ×2 (10:31→11:30)
[2017-06-15 10:45] VITALS: BP 161/56
--- NOTE | 2017-06-15 12:55 | RAD ---
APPROVED REPORT Test Type: Pharmacological Stress Nurse/Tech: Courtney German R.N. Test Indications: chest pain Cardiac History: htn, dm Medications: see ehr Medical History: see ehr Resting ECG: sr Resting Heart Rate: 68 bpm Resting Blood Pressure: 126/58mmHg Pretest Chest Pain: No chest pain Nurse/Tech Notes lungs cta, heart tones reg, good radial pulse Consent: The procedure was explained to the patient in lay terms. Informed consent was witnessed. Abdifatah eout was entered into [facility]. History and Stress Test performed by Courtney German R.N. Pharm. Details Pharmacologic stress testing was performed using 0.4mg per 5ml of regadenoson given intravenously ove r 7-10 seconds. Stress Symptoms No chest pain or symptoms. POST EXERCISE Reason for Termination: Infusion complete Target HR: No Max HR: 114 bpm Max Blood Pressure: 161/69mmHg Chest Pain: No. Arrhythmia: No. ST Change: No. INTERPRETATION Stress EKG Conclusion: No evidence of acute EKG changes. Imaging Protocol IMAGE PROTOCOL: Rest Tc-99m/stress Tc-99m 1 day Rest: Stress: Viability: Radiopharm.Tc99m ScsjiatdzEv61h Sestamibi Rodu20cDd 33mCi Img Date 06/15/2017 06/15/2017 Inj-Img [id number]. 90min. Rest Admin Site:IV - Left HandAdministrator:GABRIELA Montoya, ARRT (R)(N) Stress Admin Site: IV - Left HandAdministrator: GABRIELA Montoya, SANTOSHT (R)(N) STRESS DATA End Diast. Vol.60.0mlAv. Heart Rate84.0bpm End Syst. Vol.11.0mlCO Index BSA0.0L/min Myocardial Etbv108.0gEject. Gojdhiip22.0% Stress Rates Pk. Fill Rate4.33EDV/secLVtime Pk. Fill 184.11msec Pk. Empty Rate4.89ESV/secLVtime Pk. Zkbww226.09msec 11/18 Pk. Fill1.63EDV/sec Stress Scores Regional WT1.00Summed WT6.00 Regional WM0.00Summed WM2.00 The rest and stress images show normal perfusion, normal contraction and thickening. LV Perf. Quant 17 Seg. SSS0.00 17 Seg. SRS0.00 17 Seg. SDS0.00 Stress Defect Extent (% LAD)0.00Rest Defect Extent (% LAD)0.00Rev. Defect Extent (% LAD)0.00 Stress Defect Extent (% LCX) 0.00Rest Defect Extent (% LCX)0.00Rev. Defect Extent (% LCX)0.00 Stress Defect Extent (% RCA)0.00Rest Defect Extent (% RCA)0.00Rev. Defect Extent (% RCA)0.00 Stress Defect Extent (% LIZZ)0.00Rest Defect Extent (% LIZZ)0.00Rev. Defect Extent (% LIZZ)0.00 Other Information Quality:Good Risk Assessment: Low Risk Conclusion 1. No evidence of EKG changes with stress testing. 2. Normal perfusion at stress/rest. 3. Low risk study. 4. EF > 60%.
--- NOTE | 2017-06-15 12:58 | EKG ---
[facility] [address] [place] [address] Test Date: 2017-06-15 Test Time: 11:24:36 Pat Name: ALIVIA WILDER Department: Room: 538 1 Gender: F Banking Representative: : 1960 Requested By: CARLTON CASTRO Order Number: [id number] Reading MD: Mejia Benson Measurements Intervals [place] Rate: 84 P: -109 [place]: 122 QRS: -16 QRSD: 82 T: 98 QT: 370 QTc: 440 Interpretive Statements SR NON-SPECIFIC ST/T CHANGES BASELINE ARTIFACT Electronically Signed On 06-18-2017 7:50:25 CDT by Mejia Benson
--- NOTE | 2017-06-15 13:14 | PDOC ---
CARDIO Progress Notes Date and Time Date of Service 06/15/17 Time of Evaluation 1245 Subjective Subjective: Other (rapid response called this morning for chest pain and seizure-like activity) Vitals Vitals Vital Signs Date Time Temp Pulse Resp B/P (MAP) Pulse Ox O2 Delivery O2 Flow Rate FiO2 06/15/17 10:45 97.5 74 18 161/56 (91) 100 Room Air 97.5 Weight Weight [ ] Input and Output Intake and Output Intake and Output 06/15/17 07:00 Intake Total 2260 ml Balance 2260 ml Intake Oral 260 ml IV Total 2000 ml # Voids 11 Laboratory Labs Laboratory Tests Test 06/14/17 16:31 06/14/17 20:44 06/15/17 07:56 06/15/17 11:10 Glucose (Fingerstick) 204 mg/dL (70-99) 108 mg/dL (70-99) 185 mg/dL (70-99) 194 mg/dL (70-99) Test 06/15/17 11:29 Glucose (Fingerstick) 218 mg/dL (70-99) Physical Exam HEENT: Neck Supple W Full Motion Chest: Symmetric LUNGS: Clear to Auscultation Heart: S1S2, RRR, no thrills Abdomen: Soft N/T Extremities: No Edema, No Calf Tenderness Neurology: alert, oriented, follow commands Assessment Assessment 1. Chest pain with atypical features, reproducible to palpation. Myocardial infarction is ruled out. Echo revealed normal LV systolic function. MPI without evidence of ischemia. Nor further cardiac workup warranted. Please call with questions. 2. Hypertension: Well-controlled 3. Diabetes mellitus, uncontrolled with possible gastroparesis: Treat per IM. 4. Seizure disorder: Continue current medical regimen DOUG BOOGIE APRN Jun 15, 2017 13:14
--- NOTE | 2017-06-15 13:27 | CARD ---
APPROVED REPORT EXAM: Two-dimensional and M-mode echocardiogram with Doppler and color Doppler. Other Information Quality : GoodHR: 79bpm Rhythm : NSR INDICATION Aortic Valve Disease Chest Pain 2D DIMENSIONS RVDd2.8 (2.9-3.5cm)Left Atrium(2D)2.8 (1.6-4.0cm) IVSd0.9 (0.7-1.1cm)Aortic Root(2D)2.0 (2.0-3.7cm) LVDd3.8 (3.9-5.9cm)PWd0.9 (0.7-1.1cm) LVDs2.4 (2.5-4.0cm)FS (%) 36.2 % SV40.1 mlLVEF(%)66.7 (>50%) Aortic Valve AoV Peak Brandon.176.7cm/sAoV VTI33.9cm AO Peak GR.12.5mmHgLVOT Peak Brandon.141.5cm/s AO Mean GR.6mmHgAI P 1/2 [id number] Mitral Valve MV E Bdbrozan64.0cm/sMV E Peak Gr.3mmHg MV DECEL [id number] A Fhbzwpsc86.9cm/s MV E Mean Gr.1mmHgE/A Ratio1.4 MV A [id number] Pulmonary Valve PV Peak Ydzswdwq391.0cm/s Pulmonary Vein S1 Vupcdgez65.5cm/sD2 Qpgkpytl90.0cm/s PVa [id number] LEFT VENTRICLE The left ventricle is normal size. There is normal left ventricular wall thickness. The left ventricu lar systolic function is normal and the ejection fraction is within normal range. The Ejection Fracti on is 60-65%. There is normal LV segmental wall motion. The left ventricular diastolic function and f illing is normal for age. RIGHT VENTRICLE The right ventricle is normal size. There is normal right ventricular wall thickness. The right ventr icular systolic function is normal. ATRIA The left atrium size is normal. The right atrium size is normal. The interatrial septum is intact wit h no evidence for an atrial septal defect or patent foramen ovale as noted on 2-D or Doppler imaging. The septum appears to be moderately thickened. AORTIC VALVE The aortic valve is not well visualized but appears grossly trileaflet mildly calcified, thickened an d opens well. Doppler and Color Flow revealed mild aortic regurgitation. There is no significant aort ic valvular stenosis. MITRAL VALVE Mitral annular calcification is mild. The mitral valve leaflets are mildly thickened. There is no paola dence of mitral valve prolapse. There is no mitral valve stenosis. Doppler and Color Flow revealed no mitral valve regurgitation noted. TRICUSPID VALVE Doppler and Color Flow revealed no tricuspid valve regurgitation noted. Unable to determine pulmonary artery pressure at exam time. PULMONIC VALVE The pulmonary valve is not well visualized but appears to opens well. Doppler and Color Flow revealed pulmonic valvular regurgitation. There is no pulmonic valvular stenosis by spectral Doppler. GREAT VESSELS The aortic root is normal in size. The ascending aorta is normal in size. The pulmonary artery is nor mal. The IVC is normal in size and collapses >50% with inspiration. PERICARDIAL EFFUSION There is no evidence of significant pericardial effusion. Critical Notification Critical Value: No <Conclusion> The left ventricular systolic function is normal and the ejection fraction is within normal range. Th e Ejection Fraction is 60-65%. There is normal LV segmental wall motion.
--- NOTE | 2017-06-15 14:13 | PDOC ---
PROGRESS NOTES Chief Complaint Chief Complaint Chest pain ASSESSMENT AND PLAN: 1. Chest pain: ACS ruled out with serial enzymes, EKG. appreciate cardiology input: nl echo, no further W/U indicated with pain reproducible with pressure, i.e. chest wall pain 2. Abd pain/nausea: resolved. hx IBS 3. Epilepsy: had sz this AM, now recovered. apparently, daily sz at home 4. HTN, HLD: well controlled on home regimen 5. DM2: fairl control on metformin and insulin. on ISS 6. Anemia NOS 7. Depression/anxiety: stable mood, cont home meds 8. LBP: chronic 9. dispo: home History of Present Illness History of Present Illness denies any ongoing pain issues chest or abd. eager to go home. Per RN, had sx episode this AM, self-limited Vitals Vitals Vital Signs Date Time Temp Pulse Resp B/P (MAP) Pulse Ox O2 Delivery O2 Flow Rate FiO2 06/15/17 10:45 97.5 74 18 161/56 (91) 100 Room Air 97.5 Physical Exam General: Alert, Oriented X3, Cooperative, No acute distress Heart: Regular rate Lungs: Clear Abdomen: Normal bowel sounds, Soft Extremities: No edema Skin: No rashes Labs LABS Laboratory Tests Test 06/14/17 16:31 06/14/17 20:44 06/15/17 07:56 06/15/17 11:10 Glucose (Fingerstick) 204 mg/dL (70-99) 108 mg/dL (70-99) 185 mg/dL (70-99) 194 mg/dL (70-99) Test 06/15/17 11:29 Glucose (Fingerstick) 218 mg/dL (70-99) YAS JEREZ MD Jun 15, 2017 14:13
[2017-06-15 14:30] VITALS: BP 110/64
[2017-06-16] MEDS ORDERED: HYDR-2758 PO (13:02)
--- NOTE | 2017-06-16 21:51 | DS ---
DATE OF DISCHARGE: 06/15/2017 CHIEF COMPLAINT: Chest pain. HOSPITAL COURSE: The patient is a 57-year-old woman with multiple risk factors for cardiac disease, who presented to the Emergency Room with chest pain. ACS was ruled out with serial enzymes and EKGs. Cardiology was consulted and echo was obtained, which was essentially within normal limits. Further workup was not indicated as her chest pain was actually reproducible with pressure and attributed to chest wall rather than cardiac pain. She also had complaint of nausea and abdominal pain, which resolved with p.r.n. medications. She does carry a history of IBS. All other medical issues including hypertension, hyperlipidemia, diabetes as well as depression were controlled with her home medications and did not require any further adjustment. PHYSICAL EXAMINATION: Please refer to note from same day. DISCHARGE DISPOSITION: To home. DISCHARGE CONDITION: Improved. DISCHARGE MEDICATIONS: Please refer to MAR. DISCHARGE INSTRUCTIONS: The patient will follow up with her PCP in 1-2 weeks. YAS JEREZ MD DR: MICHAEL/nts JOB#: [id number] / [id number] RUDDY Laura MD MTDD
== END 2017-06-15 16:36 | disposition home or self-care (01) ==
LOC: ER 16:07 → 5 NORTH 18:02
PROVIDERS: ADMIT Internal Medicine; ATTEND Internal Medicine
DX: R07.89 Other chest pain (principal); R11.0 Nausea; R10.9 Unspecified abdominal pain; E78.5 Hyperlipidemia, unspecified; F03.90 Unspecified dementia, unspecified severity, without behavioral disturbance, psychotic disturbance, mood disturbance, and anxiety; F41.9 Anxiety disorder, unspecified; F32.9 Major depressive disorder, single episode, unspecified; E11.65 Type 2 diabetes mellitus with hyperglycemia; E11.43 Type 2 diabetes mellitus with diabetic autonomic (poly)neuropathy; K31.84 Gastroparesis; G40.909 Epilepsy, unspecified, not intractable, without status epilepticus; G31.84 Mild cognitive impairment of uncertain or unknown etiology; N17.9 Acute kidney failure, unspecified; E44.0 Moderate protein-calorie malnutrition; I10 Essential (primary) hypertension; K58.9 Irritable bowel syndrome, unspecified; D64.9 Anemia, unspecified; G89.29 Other chronic pain; M54.5 Low back pain; Z82.49 Family history of ischemic heart disease and other diseases of the circulatory system
CPT/HCPCS: 36415; 71010; 78264; 78452; 80048; 80076; 82962; 83036; 83690; 83880; 84484; 85027; 93005; 93017; 93306; 96361; 96372; 96374; 97161; 97165; 99285; A9500; A9541; G0378; G8987; G8988; G8989; J1650; J1815; J2785; J7030; J8597; 96375; 96376; G0379

== ENCOUNTER 2017-06-16 10:19 | Emergency (ER) | payer OTHER ==
[~2017-06-16] VITALS: Ht 160 cm; Wt 66.7 kg
[2017-06-16] MEDS ORDERED: IV NORMAL SALINE 500ML BAG 500 ML IV ONE (10:45)
[2017-06-16] MEDS ORDERED: ONDANSETRON PF 4 MG/2 ML VIAL. IV ONE (10:45)
--- NOTE | 2017-06-16 11:33 | RAD ---
Left shoulder, 2 views, 06/16/2017: History: Fall Comparison is made to a study from 10/21/2014. There is an impacted fracture of the left humeral neck. There is deformity of the distal clavicle due to an old fracture which was evident on the 10/21/2014 study. There are mild degenerative changes. Granulomatous calcifications are present in the left chest. IMPRESSION: 1. Recent appearing impacted fracture of the left humeral neck. 2. Old healed distal left clavicular fracture.
[2017-06-16 11:50] LABS: BASO # 0.1 x10^3/uL (0.0-0.2); BASO % 1 % (0-3); EOS % 5 % (0-3); HEMATOCRIT 31.2 % (36.0-47.0); LYMPH # 1.6 x10^3/uL (1.0-4.8); LYMPH % 20 % (24-48); MEAN CORPUSCULAR HEMOGLOBIN 26 pg (25-35); MEAN CORPUSCULAR HGB CONC 32 g/dL (31-37); MEAN CORPUSCULAR VOLUME 81 fL (79-100); MONO % 8 % (0-9); NEUT % 67 % (31-73); PLATELET COUNT 319 x10^3/uL (140-400); RED BLOOD COUNT 3.86 x10^6/uL (3.50-5.40); RED CELL DISTRIBUTION WIDTH 15.6 % (11.5-14.5); WHITE BLOOD COUNT 8.4 x10^3/uL (4.0-11.0)
[2017-06-16] MEDS: HYDROmorphone 2 MG/ML VIAL IV PRN ×2 (12:01→12:44)
[2017-06-16 12:07] LABS: CREATININE 0.8 mg/dL (0.6-1.0); GFR 73.7; POTASSIUM 4.7 mmol/L (3.5-5.1)
[2017-06-16 12:17] VITALS: BP 140/64
--- NOTE | 2017-06-16 12:43 | EKG ---
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
[2017-06-16] MEDS ORDERED: HYDR-2758 PO (13:02)
--- NOTE | 2017-06-16 13:16 | PHYS DOC ---
Past Medical History Past Medical History: Anxiety, Constipation, Diabetes-Type II, Seizure, Other Additional Past Medical Histor: abdominal pain,neuropathy,insomnia, chronic pain Past Surgical History: Cholecystectomy, Other Additional Past Surgical Histo: "top of kidney","throat" NOS,R) FOOT Alcohol Use: None Drug Use: None Adult General Chief Complaint Chief Complaint: SHOULDER INJURY HPI HPI 57-year-old female presenting to the emergency department today after injuring her left shoulder. She was at the local grocery store when she tripped on her foot and suddenly had pain in her left shoulder that was sharp moderate nonradiating and without alleviating factors. She presents today by EMS. She denies loss of consciousness or head injury. She denies chest pain or abdominal pain. Review of systems is negative for fevers chills cough abdominal pain nausea vomiting. All other review of systems is negative unless otherwise noted in history of present illness. ED course: 49-year-old female presenting to the emergency department after sustaining a fall and injuring her left shoulder. She was found to have an acute humeral neck fracture and distal clavicular fracture that may or may not be acute. I discussed the case with Dr. scott early our orthopedic surgeon who recommended placing the patient in a shoulder immobilizer and having her follow-up with him in clinic in 5-7 days. I communicated this to the patient demonstrated verbal understanding. I provided her with oral pain medications and subsequently discharged her home. Review of Systems Review of Systems SEE ABOVE. Current Medications Current Medications Current Medications Medications (Trade) Dose Ordered Sig/Khang Start Time Stop Time Status Last Admin Dose Admin Hydromorphone HCl (Dilaudid) 0.5 mg PRN Q30MIN PRN 06/16/17 10:45 06/16/17 12:44 0.5 MG Ondansetron HCl (Zofran) 4 mg 1X ONCE 06/16/17 10:45 06/16/17 10:48 DC 06/16/17 12:00 4 MG Sodium Chloride 500 ml @ 500 mls/hr 1X ONCE 06/16/17 10:45 06/16/17 11:44 DC 06/16/17 12:00 500 MLS/HR Allergies Allergies Allergies Coded Allergies Type Severity Reaction Last Updated Verified No Known Drug Allergies 04/09/14 No Physical Exam Physical Exam SEE ABOVE Constitutional: Well developed, well nourished, no acute distress, non-toxic appearance. [] HENT: Normocephalic, atraumatic, bilateral external ears normal, oropharynx moist, no oral exudates, nose normal. [] Eyes: PERRLA, EOMI, conjunctiva normal, no discharge. [] Neck: Normal range of motion, no tenderness, supple, no stridor. [] Cardiovascular:Heart rate regular rhythm, no murmur [] Lungs & Thorax: Bilateral breath sounds clear to auscultation [] Abdomen: Bowel sounds normal, soft, no tenderness, no masses, no pulsatile masses. [] Skin: Warm, dry, no erythema, no rash. [] Back: No tenderness, no CVA tenderness. [] Extremities: Pain with passive range of motion. Mild pain in the left clavicular region. Neurovascularly intact. Axilla sensation intact. Sensation of the hand intact. Otherwise palpable pulse and 2 second cap refill. Neurologic: Alert and oriented X 3, normal motor function, normal sensory function, no focal deficits noted. [] Psychologic: Affect normal, judgement normal, mood normal. [] Current Patient Data Vital Signs Vital Signs Date Time Temp Pulse Resp B/P (MAP) Pulse Ox O2 Delivery O2 Flow Rate FiO2 06/16/17 12:44 16 98 Room Air 06/16/17 12:17 78 140/64 (89) 06/16/17 10:20 98.3 98.3 Lab Values Laboratory Tests Test 06/16/17 11:40 White Blood Count 8.4 x10^3/uL (4.0-11.0) Red Blood Count 3.86 x10^6/uL (3.50-5.40) Hemoglobin 10.0 g/dL (12.0-15.5) L Hematocrit 31.2 % (36.0-47.0) L Mean Corpuscular Volume 81 fL (79-100) Mean Corpuscular Hemoglobin 26 pg (25-35) Mean Corpuscular Hemoglobin Concent 32 g/dL (31-37) Red Cell Distribution Width 15.6 % (11.5-14.5) H Platelet Count 319 x10^3/uL (140-400) Neutrophils (%) (Auto) 67 % (31-73) Lymphocytes (%) (Auto) 20 % (24-48) L Monocytes (%) (Auto) 8 % (0-9) Eosinophils (%) (Auto) 5 % (0-3) H Basophils (%) (Auto) 1 % (0-3) Neutrophils # (Auto) 5.6 x10^3uL (1.8-7.7) Lymphocytes # (Auto) 1.6 x10^3/uL (1.0-4.8) Monocytes # (Auto) 0.7 x10^3/uL (0.0-1.1) Eosinophils # (Auto) 0.4 x10^3/uL (0.0-0.7) Basophils # (Auto) 0.1 x10^3/uL (0.0-0.2) Sodium Level 134 mmol/L (136-145) L Potassium Level 4.7 mmol/L (3.5-5.1) Chloride Level 98 mmol/L (98-107) Carbon Dioxide Level 26 mmol/L (21-32) Anion Gap 10 (6-14) Blood Urea Nitrogen 7 mg/dL (7-20) Creatinine 0.8 mg/dL (0.6-1.0) Estimated GFR (Cockcroft-Gault) 73.7 Glucose Level 59 mg/dL (70-99) L Calcium Level 9.0 mg/dL (8.5-10.1) Troponin I Quantitative 0.031 ng/mL (0.000-0.055) Laboratory Tests 06/16/17 11:40 Laboratory Tests 06/16/17 11:40 EKG EKG [] Radiology/Procedures Radiology/Procedures [] Course & Med Decision Making Course & Med Decision Making Pertinent Labs and Imaging studies reviewed. (See chart for details) [] Dragon Disclaimer Dragon Disclaimer This electronic medical record was generated, in whole or in part, using a voice recognition dictation system. Departure Departure Impression: Primary Impression: Fracture of proximal end of humerus Additional Impression: Clavicular fracture Disposition: 01 HOME, SELF-CARE Admitting Physician: Other Condition: STABLE Referrals: RUDDY CALHOUN (PCP) JOHN FLEMING II, MD Patient Instructions: Humerus Fracture, Treated with Immobilization, Easy-to- Read Additional Instructions: Thank you for allowing us to participate in your care today. Followup with your primary care physician in 3 days if your symptoms do not improve. Call your Primary Doctor tomorrow and inform them of your visit today. If you do not have a primary care provider you can ask for a list of our primary care providers. Return to the emergency department you have any new or concerning findings. This should be evaluated by the primary care physician and any necessary consulting services for continued management within a few days after discharge. Return to emergency room if you have any new or concerning symptoms including but not limited to fever, chills, nausea, vomiting, intractable pain, any new rashes, chest pain, shortness of air, uncontrolled bleeding, difficulty breathing, and/or vision loss. You may have been prescribed medication that can change in your level of thinking and ability to operate machinery. These medications include hydrocodone and Ativan. Also, Benadryl has been known to do this as well. Be sure to check with your pharmacist and ask if the medications you've prescribed can affect your level of consciousness. I recommend not operating heavy machinery or driving while on medication such as these. Scripts Hydrocodone Bit/Acetaminophen (HYDROCODONE-APAP 5-325 ) 1 Each Tablet 1 TAB PO PRN Q6HRS Y for PAIN, #15 TAB 0 Refills Be careful as this medication may cause you to be drowsy or tired. Do not drive on this medication. Prov: LELE KUMAR MD 06/16/17 Problem Qualifiers LELE KUMAR MD Jun 16, 2017 13:16
== END 2017-06-16 14:00 | disposition home or self-care (01) ==
LOC: ER 10:19
DX: S42.202A Unspecified fracture of upper end of left humerus, initial encounter for closed fracture (principal); S42.002A Fracture of unspecified part of left clavicle, initial encounter for closed fracture; E11.40 Type 2 diabetes mellitus with diabetic neuropathy, unspecified; G89.29 Other chronic pain; W01.0XXA Fall on same level from slipping, tripping and stumbling without subsequent striking against object, initial encounter; Y93.89 Activity, other specified; Y99.8 Other external cause status; Y92.89 Other specified places as the place of occurrence of the external cause
CPT/HCPCS: 36415; 73030; 80048; 84484; 85027; 93005; 96361; 96374; 96375; 96376; 99285; J1170; J2405; J7040

== ENCOUNTER 2017-06-21 07:33 | Emergency (ER) | payer OTHER ==
[~2017-06-21] VITALS: Ht 157.5 cm; Wt 68.0 kg
[2017-06-21] MEDS ORDERED: HYDROcodone/APAP 5/325MG 1 TAB TABLET PO ONE (08:00)
[2017-06-21] MEDS ORDERED: HYDR-2758 PO (08:14)
--- NOTE | 2017-06-21 08:14 | PHYS DOC ---
Past Medical History Past Medical History: Anxiety, Constipation, Diabetes-Type II, Seizure, Other Additional Past Medical Histor: abdominal pain,neuropathy,insomnia, chronic pain Past Surgical History: Cholecystectomy, Other Additional Past Surgical Histo: "top of kidney","throat" NOS,R) FOOT Alcohol Use: None Drug Use: None Adult General Chief Complaint Chief Complaint: PAIN CONTROL HPI HPI He is a pleasant 57-year-old female who had fallen earlier this month injuring her left shoulder. She is presently in a sling. She been sitting and sleeping in a chair for comfort for last week noted this morning that her sling was not adjusted properly and is causing more pain in her shoulder or arm. She came in this morning to have helped to adjust her sling and is looking for some pain management. At this point patient has no new neurologic complaints no shortness of breath just wants some help adjusting her sling. Pain is described as throbbing 8 of 10 at this time. She denies any neck pain at this time only short of pain Review of Systems Review of Systems Constitutional: Denies fever or chills [] Eyes: Denies change in visual acuity, redness, or eye pain [] HENT: Denies nasal congestion or sore throat [] Respiratory: Denies cough or shortness of breath [] Cardiovascular: No additional information not addressed in HPI [] GI: Denies abdominal pain, nausea, vomiting, bloody stools or diarrhea [] : Denies dysuria or hematuria [] Musculoskeletal: Denies back pain or joint pain [] Integument: Denies rash or skin lesions [] Neurologic: Denies headache, focal weakness or sensory changes [] Endocrine: Denies polyuria or polydipsia [] Current Medications Current Medications Current Medications Medications (Trade) Dose Ordered Sig/[facility] Start Time Stop Time Status Last Admin Dose Admin Acetaminophen/ Hydrocodone Bitart (Lortab 5/325) 2 tab 1X ONCE 06/21/17 08:00 06/21/17 08:01 DC Allergies Allergies Allergies Coded Allergies Type Severity Reaction Last Updated Verified No Known Drug Allergies 04/09/14 No Physical Exam Physical Exam Patient's vital signs been reviewed and remarkable Constitutional: Well developed, well nourished, no acute distress, non-toxic appearance. [] Neck: Normal range of motion, no tenderness, supple, no stridor. [] Cardiovascular:Heart rate regular rhythm, no murmur [] Lungs & Thorax: Bilateral breath sounds clear to auscultation [] Skin: Warm, dry, no erythema, no rash. [] Extremities: His left arm is held in a position of comfort with a sling. She has great capillary refill +2 peripheral pulses +2 at the ulnar and radial arteries. Patient has no significant soft tissue swelling. Normal sensation to light touch. Neurologic: Alert and oriented X 3, normal motor function, normal sensory function, no focal deficits noted. [] Psychologic: She is very anxious. Her judgment is normal. Current Patient Data Vital Signs Vital Signs Date Time Temp Pulse Resp B/P (MAP) Pulse Ox O2 Delivery O2 Flow Rate FiO2 06/21/17 07:33 98.4 84 18 99 Room Air 98.4 EKG EKG [] Radiology/Procedures Radiology/Procedures [] IMAGING REPORT Signed PATIENT: ALIVIA WILDER ACCOUNT: [id number] : 1960 LOCATION: ER AGE: 57 SEX: F EXAM STATUS: REG ER ORD. PHYSICIAN: LELE KUMAR MD REASON: left shoulder pain PROCEDURE: SHOULDER 2+V LEFT Left shoulder, 2 views, 06/16/2017: History: Fall Comparison is made to a study from 10/21/2014. There is an impacted fracture of the left humeral neck. There is deformity of the distal clavicle due to an old fracture which was evident on the 10/21/2014 study. There are mild degenerative changes. Granulomatous calcifications are present in the left chest. IMPRESSION: 1. Recent appearing impacted fracture of the left humeral neck. 2. Old healed distal left clavicular fracture. DICTATED and SIGNED BY: MARYLU CALLAWAY MD DATE: 06/16/17 1128 CC: LELE KUMAR MD; RUDDY CALHOUN I have reviewed x-ray of the patient's prior injury. Course & Med Decision Making Course & Med Decision Making Pertinent Labs and Imaging studies reviewed. (See chart for details) She presents with pain control issues and readjustment of her splint. She is neurovascularly intact. Pain is well controlled or medications. Patient was prescribed her appropriate medications and asked to follow-up with her primary care doctor. Impression: Pain control, splint adjustment. No evidence of compartment syndrome [] Dragon Disclaimer Dragon Disclaimer This electronic medical record was generated, in whole or in part, using a voice recognition dictation system. Departure Departure Impression: Primary Impression: Fall Additional Impressions: Humerus fracture Inadequate pain control Disposition: HOME, SELF-CARE Condition: STABLE Referrals: RUDDY CALHOUN (PCP) Patient Instructions: Cast or Splint Care, Humerus Fracture, Treated with Immobilization Additional Instructions: Follow-up your primary care doctor for referral to physical therapy and your orthopedic surgeon to manage her humeral fracture. Scripts Hydrocodone Bit/Acetaminophen (HYDROCODONE-APAP 5-325 ) 1 Each Tablet 1-2 TAB PO PRN Q6HRS Y for PAIN for 5 Days, #10 TAB 0 Refills Prov: ELLEN MCCRACKEN MD 06/21/17 Problem Qualifiers ELLEN MCCRACKEN MD Jun 21, 2017 08:14
[2017-06-21 08:45] VITALS: BP 132/57
== END 2017-06-21 08:48 | disposition home or self-care (01) ==
LOC: ER 07:33
DX: S42.212A Unspecified displaced fracture of surgical neck of left humerus, initial encounter for closed fracture (principal); F41.9 Anxiety disorder, unspecified; E11.40 Type 2 diabetes mellitus with diabetic neuropathy, unspecified; G89.29 Other chronic pain; G47.00 Insomnia, unspecified; Z90.49 Acquired absence of other specified parts of digestive tract; W18.39XA Other fall on same level, initial encounter; Y93.89 Activity, other specified; Y92.89 Other specified places as the place of occurrence of the external cause; Y99.8 Other external cause status
CPT/HCPCS: 99283

== ENCOUNTER 2017-06-23 08:50 | Emergency (ER) | payer OTHER ==
[2017-06-23 08:59] VITALS: BP 185/82
[2017-06-23] MEDS ORDERED: oxyCODONE/APAP 5/325 1 TAB TABLET PO ONE (10:15)
--- NOTE | 2017-06-23 10:22 | ED.ADGEN ---
Past Medical History Past Medical History: Anxiety, Constipation, Diabetes-Type II, Seizure, Other Additional Past Medical Histor: abdominal pain,neuropathy,insomnia, chronic pain Past Surgical History: Cholecystectomy, Other Additional Past Surgical Histo: "top of kidney","throat" NOS,R) FOOT Alcohol Use: None Drug Use: None Adult General Chief Complaint Chief Complaint: UPPER EXTREMITY PAIN HPI HPI Patient is a 57 year old with chronic pain syndrome who suffers from chronic left shoulder arm pain who presents with exacerbation of chronic pain. Patient denies specific injury or complaint. She states her pain is pearly controlled with home pain medications. Patient is managed by her PCP Dr. Ramirez. She has not seen her doctor today or yesterday but has been evaluated multiple times for the same complaint. She is also well-known to the ED staff is been here multiple obtained for various pain-related complaints. No other acute symptoms or complaints. Review of Systems Review of Systems Review OF symptoms as per history of present illness. All other review symptoms are negative. Current Medications Current Medications Current Medications Medications (Trade) Dose Ordered Sig/Khang Start Time Stop Time Status Last Admin Dose Admin Oxycodone/ Acetaminophen (Percocet 5/325) 1 tab 1X ONCE 06/23/17 10:15 06/23/17 10:16 Allergies Allergies Allergies Coded Allergies Type Severity Reaction Last Updated Verified No Known Drug Allergies 04/09/14 No Physical Exam Physical Exam Constitutional: Well developed, anxious, rocking, moderate discomfort secondary to pain [] HENT: Normocephalic, atraumatic, bilateral external ears normal, oropharynx moist, no oral exudates, nose normal. [] Eyes: PERRLA, EOMI, conjunctiva normal, no discharge. [] Neck: Normal range of motion, no tenderness, supple, no stridor. [] Cardiovascular:Heart rate regular rhythm, no murmur [] Lungs & Thorax: Bilateral breath sounds clear to auscultation [] Abdomen: Bowel sounds normal, soft, no tenderness, no masses, no pulsatile masses. [] Skin: Warm, dry, no erythema, no rash. [] Back: No tenderness, no CVA tenderness. [] Extremities: Left upper extremity in sling with immobilizer. Patient with no gross deformity, bony tenderness or soft tissue swelling. Diffuse soft tissue pain/tenderness disproportionate to exam. Limited exam secondary to pain. [] Neurologic: Alert and oriented X 3, left upper extremity, no motor weakness or loss of sensation.. [] Current Patient Data Vital Signs Vital Signs Date Time Temp Pulse Resp B/P (MAP) Pulse Ox O2 Delivery O2 Flow Rate FiO2 06/23/17 08:59 99.0 104 18 185/82 (116) 97 Room Air 99.0 EKG EKG [] Radiology/Procedures Radiology/Procedures [] Course & Med Decision Making Course & Med Decision Making Pertinent Labs and Imaging studies reviewed. (See chart for details) [Pain addressed. Patient's arm does not feel red, war, or swollen. There is no deformity or history of recent acute injury.] Dragon Disclaimer Dragon Disclaimer This electronic medical record was generated, in whole or in part, using a voice recognition dictation system. GILBERT ABREU DO Jun 23, 2017 10:21
== END 2017-06-23 10:28 | disposition home or self-care (01) ==
LOC: ER 08:50
DX: G89.29 Other chronic pain (principal); M25.512 Pain in left shoulder; E11.40 Type 2 diabetes mellitus with diabetic neuropathy, unspecified; Z90.49 Acquired absence of other specified parts of digestive tract
CPT/HCPCS: 99284

== ENCOUNTER 2017-07-01 09:37 | Emergency (ER) | payer OTHER ==
[2017-07-01 10:07] VITALS: BP 144/70
[2017-07-01] MEDS ORDERED: oxyCODONE/APAP 5/325 1 TAB TABLET PO ONE (10:15)
[2017-07-01] MEDS ORDERED: CYCLOBENZAPRINE 10 MG TABLET. PO ONE (10:15)
[2017-07-01] MEDS ORDERED: NAPR500T3 PO (10:53)
[2017-07-01] MEDS ORDERED: CYCL10TA2 PO (10:53)
--- NOTE | 2017-07-01 10:53 | PHYS DOC ---
Past Medical History Past Medical History: Anxiety, Constipation, Diabetes-Type II, Seizure, Other Additional Past Medical Histor: abdominal pain,neuropathy,insomnia, chronic pain Past Surgical History: Cholecystectomy, Other Additional Past Surgical Histo: "top of kidney","throat" NOS,R) FOOT Alcohol Use: None Drug Use: None Adult General Chief Complaint Chief Complaint: UPPER EXTREMITY PAIN HPI HPI Patient is a 57 year old female with history of diabetes type 2, anxiety, chronic pain syndrome, and seizures who presents today complaining of increased moderate left shoulder pain that has been going on since June 16 2017 after she fell. Patient was diagnosed with left humerus fracture. She is in an immobilizer. She states she is supposed to follow-up with orthopedic doctor on July 07, 2017. She states her pain was more today than normal. Patient denies any new injuries. Review of Systems Review of Systems Constitutional: Denies fever or chills [] Musculoskeletal: Left shoulder pain Integument: Denies rash or skin lesions [] Neurologic: Denies headache, focal weakness or sensory changes [] Current Medications Current Medications Current Medications Medications (Trade) Dose Ordered Sig/Khang Start Time Stop Time Status Last Admin Dose Admin Cyclobenzaprine HCl (Flexeril) 10 mg 1X ONCE 07/01/17 10:15 07/01/17 10:16 DC 07/01/17 10:23 10 MG Oxycodone/ Acetaminophen (Percocet 5/325) 1 tab 1X ONCE 07/01/17 10:15 07/01/17 10:16 DC 07/01/17 10:23 1 TAB Allergies Allergies Allergies Coded Allergies Type Severity Reaction Last Updated Verified No Known Drug Allergies 04/09/14 No Physical Exam Physical Exam Constitutional: Well developed, well nourished, no acute distress, non-toxic appearance. [] Skin: Warm, dry, no erythema, no rash. [] Back: No tenderness, no CVA tenderness. [] Extremities: Left upper extremity is in a immobilizer. Neurovascular exam is intact to the left upper extremity including cap refill less than 2 seconds the left fingers. +2 left radial pulse. Neurologic: Alert and oriented X 3, normal motor function, normal sensory function, no focal deficits noted. [] Psychologic: Affect normal, judgement normal, mood normal. [] Current Patient Data Vital Signs Vital Signs Date Time Temp Pulse Resp B/P (MAP) Pulse Ox O2 Delivery O2 Flow Rate FiO2 07/01/17 10:23 16 07/01/17 10:07 98.6 99 99 Room Air 98.6 EKG EKG [] Radiology/Procedures Radiology/Procedures [] Course & Med Decision Making Course & Med Decision Making Pertinent Labs and Imaging studies reviewed. (See chart for details) Patient is in the ED with increased shoulder pain. She does have left humerus fracture diagnosed on 06/16/2017. She is an appointment with orthopedic doctor on July 07, 2017. She was given pain control in the ED and discharged. She is well known to this ED for chronic pain. She was advised to follow-up with orthopedic doctor. I gave her prescription for naproxen and cyclobenzaprine. Dragon Disclaimer Dragon Disclaimer This electronic medical record was generated, in whole or in part, using a voice recognition dictation system. Departure Departure Impression: Primary Impression: Left shoulder pain Disposition: HOME, SELF-CARE Condition: STABLE Referrals: RUDDY CALHOUN (PCP) JOHN FLEMING II, MD Follow-up with orthopedic doctor as soon as possible Patient Instructions: Shoulder Pain, [id number] Additional Instructions: You were seen for left shoulder pain. Follow-up with the orthopedic doctor as soon as possible. Scripts Cyclobenzaprine Hcl (CYCLOBENZAPRINE HCL) 10 Mg Tablet 1 TAB PO TID, #15 TAB Prov: ALOK TOM APRN 07/01/17 Naproxen (NAPROXEN) 500 Mg Tablet 1 TAB PO BID, #20 TAB 0 Refills Prov: ALOK TOM APRN 07/01/17 Problem Qualifiers Primary Impression: Left shoulder pain Chronicity: chronic Qualified Codes: M25.512 - Pain in left shoulder; G89.29 - Other chronic pain ALOK TOM APRN Jul 01, 2017 10:53
== END 2017-07-01 11:18 | disposition home or self-care (01) ==
LOC: ER 09:37
DX: M25.512 Pain in left shoulder (principal); G89.29 Other chronic pain; E11.9 Type 2 diabetes mellitus without complications
CPT/HCPCS: 99283

== ENCOUNTER 2017-07-20 09:56 | Emergency (ER) | payer OTHER ==
[~2017-07-20] VITALS: Ht 157.5 cm; Wt 81.6 kg
[~2017-07-20 09:56] MED LIST changes: +CYCL10TA2 PO; +NAPR500T3 PO
[2017-07-20] MEDS ORDERED: NYSTATIN TOPICAL POWDER 15GM BOTTLE. TP SCH (11:00)
--- NOTE | 2017-07-20 11:08 | PHYS DOC ---
Past Medical History Past Medical History: Anxiety, Constipation, Diabetes-Type II, Seizure, Other Additional Past Medical Histor: abdominal pain,neuropathy,insomnia, chronic pain Past Surgical History: Cholecystectomy, Other Additional Past Surgical Histo: "top of kidney","throat" NOS,R) FOOT Alcohol Use: None Drug Use: None Adult General Chief Complaint Chief Complaint: epigastric abd pain HPI HPI 49-year-old female presenting to the emergency department today with epigastric abdominal pain and chest pain. She describes it as a burning sensation that radiates to the left side. The pain is intermittent mild and without alleviating factors. Review of systems is negative for fevers chills cough she denies nausea vomiting diarrhea or blood in stools. All other review of systems is negative unless otherwise noted in history of present illness. ED course: 57-year-old female presenting to the emergency department today with epigastric abdominal pain and chest pain. EKG obtained and reviewed by myself shows sinus rhythm at a regular rate. [place] is mildly leftward. ST segments are congruent. Compared to previous on June 16, 2017. Similar to previous. Patient had a recent nuclear medicine cardiac examination that was unremarkable at the end of May. Patient recently evaluated by cardiology. gastric emptying study performed from previous admission which shows delayed gastric emptying consistent with possible gastroparesis. On reexamination of the patient in the emergency department she was feeling better and subsequently discharged home to follow-up with her PCP. The patient was then discharged home in stable condition to follow up with their primary care physician over the next 2-3 days. They were to return if their symptoms worsened or if they were concerned for any reason. [id number] discharge instructions and return precautions were given. Patient's questions were answered to their satisfaction. Patient is comfortable plan. Review of Systems Review of Systems SEE ABOVE. Current Medications Current Medications Current Medications Medications (Trade) Dose Ordered Sig/Khang Start Time Stop Time Status Last Admin Dose Admin Nystatin (Nystop) 1 abhijit BID 07/20/17 11:00 07/20/17 10:56 1 ABHIJIT Allergies Allergies Allergies Coded Allergies Type Severity Reaction Last Updated Verified No Known Drug Allergies 04/09/14 No Physical Exam Physical Exam SEE ABOVE Constitutional: Well developed, well nourished, no acute distress, non-toxic appearance. [] HENT: Normocephalic, atraumatic, bilateral external ears normal, oropharynx moist, no oral exudates, nose normal. [] Eyes: PERRLA, EOMI, conjunctiva normal, no discharge. [] Neck: Normal range of motion, no tenderness, supple, no stridor. [] Cardiovascular:Heart rate regular rhythm, no murmur [] Lungs & Thorax: Bilateral breath sounds clear to auscultation [] Abdomen: Abdomen is soft and nontender to palpation. No rebound tenderness or guarding present. Negative McBurney's point. Skin: Warm, dry, no erythema, no rash. [] Back: No tenderness, no CVA tenderness. [] Extremities: No tenderness, no cyanosis, no clubbing, ROM intact, no edema. [] Neurologic: Alert and oriented X 3, normal motor function, normal sensory function, no focal deficits noted. [] Psychologic: Affect normal, judgement normal, mood normal. [] Current Patient Data Vital Signs Vital Signs Date Time Temp Pulse Resp B/P (MAP) Pulse Ox O2 Delivery O2 Flow Rate FiO2 07/20/17 10:58 76 20 140/61 (87) 95 Room Air 07/20/17 09:58 99.0 99.0 Lab Values Laboratory Tests Test 07/20/17 10:40 07/20/17 11:15 Troponin I Quantitative 0.026 ng/mL (0.000-0.055) White Blood Count 8.1 x10^3/uL (4.0-11.0) Red Blood Count 4.15 x10^6/uL (3.50-5.40) Hemoglobin 10.8 g/dL (12.0-15.5) L Hematocrit 34.2 % (36.0-47.0) L Mean Corpuscular Volume 82 fL (79-100) Mean Corpuscular Hemoglobin 26 pg (25-35) Mean Corpuscular Hemoglobin Concent 32 g/dL (31-37) Red Cell Distribution Width 18.1 % (11.5-14.5) H Platelet Count 405 x10^3/uL (140-400) H Neutrophils (%) (Auto) 70 % (31-73) Lymphocytes (%) (Auto) 14 % (24-48) L Monocytes (%) (Auto) 8 % (0-9) Eosinophils (%) (Auto) 7 % (0-3) H Basophils (%) (Auto) 1 % (0-3) Neutrophils # (Auto) 5.7 x10^3uL (1.8-7.7) Lymphocytes # (Auto) 1.1 x10^3/uL (1.0-4.8) Monocytes # (Auto) 0.6 x10^3/uL (0.0-1.1) Eosinophils # (Auto) 0.6 x10^3/uL (0.0-0.7) Basophils # (Auto) 0.1 x10^3/uL (0.0-0.2) Sodium Level 136 mmol/L (136-145) Potassium Level 4.5 mmol/L (3.5-5.1) Chloride Level 96 mmol/L (98-107) L Carbon Dioxide Level 30 mmol/L (21-32) Anion Gap 10 (6-14) Blood Urea Nitrogen 10 mg/dL (7-20) Creatinine 0.7 mg/dL (0.6-1.0) Estimated GFR (Cockcroft-Gault) 85.9 Glucose Level 199 mg/dL (70-99) H Calcium Level 8.9 mg/dL (8.5-10.1) Total Bilirubin 0.1 mg/dL (0.2-1.0) L Direct Bilirubin 0.1 mg/dL (0.0-0.2) Aspartate Amino Transferase (AST) 18 U/L (15-37) Alanine Aminotransferase (ALT) 31 U/L (14-59) Alkaline Phosphatase 145 U/L (46-116) H Total Protein 7.6 g/dL (6.4-8.2) Albumin 3.9 g/dL (3.4-5.0) Lipase 64 U/L (73-393) L Laboratory Tests 07/20/17 11:15 Laboratory Tests 07/20/17 11:15 EKG EKG [] Radiology/Procedures Radiology/Procedures [] Course & Med Decision Making Course & Med Decision Making Pertinent Labs and Imaging studies reviewed. (See chart for details) [] Dragon Disclaimer Dragon Disclaimer This electronic medical record was generated, in whole or in part, using a voice recognition dictation system. Departure Departure Impression: Primary Impression: Abdominal pain Additional Impression: Chest pain Disposition: HOME, SELF-CARE Condition: STABLE Referrals: RUDDY CALHOUN (PCP) Patient Instructions: Abdominal Pain Additional Instructions: Thank you for allowing us to participate in your care today. Followup with your primary care physician in 3 days if your symptoms do not improve. Call your Primary Doctor tomorrow and inform them of your visit today. If you do not have a primary care provider you can ask for a list of our primary care providers. Return to the emergency department you have any new or concerning findings. This should be evaluated by the primary care physician and any necessary consulting services for continued management within a few days after discharge. Return to emergency room if you have any new or concerning symptoms including but not limited to fever, chills, nausea, vomiting, intractable pain, any new rashes, chest pain, shortness of air, uncontrolled bleeding, difficulty breathing, and/or vision loss. Problem Qualifiers LELE KUMAR MD Jul 20, 2017 11:08
--- NOTE | 2017-07-20 11:15 | RAD ---
Examination: Single frontal view chest History: History of chest pain and possible seizure Comparison: 06/13/2017 Findings The cardiomediastinal silhouette grossly appears unremarkable. There is no acute infiltrate or visualized pneumothorax. Small calcified granuloma identified in the left upper lobe lung similar to prior exam. Minimal left lung base linear atelectasis. Degenerative disease left shoulder joint. Old left clavicle fracture. Impression: No acute cardiopulmonary findings.
[2017-07-20] MEDS ORDERED: INSU100V13 SQ (11:16)
[2017-07-20] MEDS ORDERED: PHEN100C PO (11:16)
[2017-07-20] MEDS ORDERED: FAMO20TA5 PO (11:16)
[2017-07-20] MEDS ORDERED: INSU100V31 SQ ×3 (11:16)
[2017-07-20] MEDS ORDERED: LEVO137T3 PO (11:16)
[2017-07-20] MEDS ORDERED: OXYC-323 PO (11:16)
[2017-07-20 11:33] VITALS: BP 122/58
[2017-07-20 11:33] LABS: CALCIUM 8.9 mg/dL (8.5-10.1); CREATININE 0.7 mg/dL (0.6-1.0); GFR 85.9; POTASSIUM 4.5 mmol/L (3.5-5.1)
[2017-07-20 11:39] LABS: ALBUMIN 3.9 g/dL (3.4-5.0); DIRECT BILIRUBIN 0.1 mg/dL (0.0-0.2); TOTAL BILIRUBIN 0.1 mg/dL (0.2-1.0); TOTAL PROTEIN 7.6 g/dL (6.4-8.2)
[2017-07-20 11:40] LABS: BASO # 0.1 x10^3/uL (0.0-0.2); BASO % 1 % (0-3); EOS % 7 % (0-3); HEMATOCRIT 34.2 % (36.0-47.0); HEMOGLOBIN 10.8 g/dL (12.0-15.5); LYMPH # 1.1 x10^3/uL (1.0-4.8); LYMPH % 14 % (24-48); MEAN CORPUSCULAR HEMOGLOBIN 26 pg (25-35); MEAN CORPUSCULAR HGB CONC 32 g/dL (31-37); MEAN CORPUSCULAR VOLUME 82 fL (79-100); MONO % 8 % (0-9); NEUT % 70 % (31-73); PLATELET COUNT 405 x10^3/uL (140-400); RED BLOOD COUNT 4.15 x10^6/uL (3.50-5.40); RED CELL DISTRIBUTION WIDTH 18.1 % (11.5-14.5); WHITE BLOOD COUNT 8.1 x10^3/uL (4.0-11.0)
--- NOTE | 2017-07-20 13:19 | EKG ---
[facility] [address] [place] [address] Test Date: 2017-07-20 Test Time: 09:58:55 Pat Name: ALIVIA WILDER Department: Room: Gender: F [employer]: : 1960 Requested By: LELE KUMAR Order Number: [id number] Reading MD: Romelia Webber Measurements Intervals [place] Rate: 78 P: 31 W[place]: 150 QRS: 10 QRSD: 76 T: 49 QT: 350 QTc: 402 Interpretive Statements SINUS RHYTHM NORMAL ECG Electronically Signed On 07-24-2017 21:43:01 CDT by Romelia Webber
== END 2017-07-20 11:59 | disposition home or self-care (01) ==
LOC: ER 09:56
DX: R10.13 Epigastric pain (principal); R07.89 Other chest pain; E11.40 Type 2 diabetes mellitus with diabetic neuropathy, unspecified; G89.29 Other chronic pain; Z90.49 Acquired absence of other specified parts of digestive tract
CPT/HCPCS: 36415; 71010; 80048; 80076; 83690; 84484; 85025; 93005; 99285-25

== ENCOUNTER 2017-07-24 09:37 | Emergency (ER) | payer OTHER ==
[~2017-07-24] VITALS: Ht 157.5 cm; Wt 63.5 kg
[~2017-07-24 09:37] MED LIST changes: +FAMO20TA5 PO; +INSU100V13 SQ; +LEVO137T3 PO; +OXYC-323 PO
[2017-07-24 09:55] VITALS: BP 156/70
[2017-07-24] MEDS ORDERED: MORPHINE SULFATE 2 MG/ML DISP.SYRIN. IM ONE (10:30)
--- NOTE | 2017-07-24 10:34 | PHYS DOC ---
Past Medical History Past Medical History: Anxiety, Constipation, Diabetes-Type II, Seizure, Other Additional Past Medical Histor: abdominal pain,neuropathy,insomnia, chronic pain Past Surgical History: Cholecystectomy, Other Additional Past Surgical Histo: "top of kidney","throat" NOS,R) FOOT Alcohol Use: None Drug Use: None Adult General Chief Complaint Chief Complaint: UPPER EXTREMITY PAIN [facility] HPI Patient is a 57 year old female presents to the emergency department stating that she has having left upper arm pain and discomfort. She states that she was seen here was diagnosed with a humeral head fracture. She has been seen by orthopedic doctor in which they placed her in a sling. She states that she has hydrocodone for pain and discomfort she states this morning she was in extreme pain in the hydrocodone have not worked. Patient presents to the emergency department this morning with normal vital signs. Patient does take ibuprofen on a regular basis. Patient has peripheral pulses that are 2+ cap refill brisk less than 2 seconds good sensation noted. Patient states that her pain is an 8/ 10. She states the pain is sharp in nature. Review of Systems Review of Systems Constitutional: Denies fever or chills [] Eyes: Denies change in visual acuity, redness, or eye pain [] HENT: Denies nasal congestion or sore throat [] Respiratory: Denies cough or shortness of breath [] Cardiovascular: No additional information not addressed in HPI [] GI: Denies abdominal pain, nausea, vomiting, bloody stools or diarrhea [] : Denies dysuria or hematuria [] Musculoskeletal: Denies back pain. Left upper arm pain, status post fracture Integument: Denies rash or skin lesions [] Neurologic: Denies headache, focal weakness or sensory changes [] Endocrine: Denies polyuria or polydipsia [] Current Medications Current Medications Current Medications Medications (Trade) Dose Ordered Sig/[facility] Start Time Stop Time Status Last Admin Dose Admin Morphine Sulfate 2 mg 1X ONCE 07/24/17 10:30 07/24/17 10:31 DC 07/24/17 10:48 2 MG Allergies Allergies Allergies Coded Allergies Type Severity Reaction Last Updated Verified No Known Drug Allergies 04/09/14 No Physical Exam Physical Exam Constitutional: Well developed, well nourished, no acute distress, non-toxic appearance. [] HENT: Normocephalic, atraumatic, bilateral external ears normal, oropharynx moist, no oral exudates, nose normal. [] Eyes: PERRLA, EOMI, conjunctiva normal, no discharge. [] Neck: Normal range of motion, no tenderness, supple, no stridor. [] Cardiovascular:Heart rate regular rhythm, no murmur [] Lungs & Thorax: Bilateral breath sounds clear to auscultation [] Skin: Warm, dry, no erythema, no rash. Patient with open sores noted on the upper abd. Appears to be healing, no drainage noted from the area. Back: No tenderness Extremities: left upper arm tenderness, no cyanosis, no clubbing, ROM intact, no edema. Patient was noted to have swelling in the upper arm however there was no discoloration. Peripheral pulses 2+ cap refill brisk less than 2 seconds. Patient remains in a sling. Neurologic: Alert and oriented X 3, normal motor function, normal sensory function, no focal deficits noted. [] Psychologic: Affect normal, judgement normal, mood normal. [] Current Patient Data Vital Signs Vital Signs Date Time Temp Pulse Resp B/P (MAP) Pulse Ox O2 Delivery O2 Flow Rate FiO2 07/24/17 10:48 14 97 Room Air EKG EKG [] Radiology/Procedures Radiology/Procedures [] Course & Med Decision Making Course & Med Decision Making Pertinent Labs and Imaging studies reviewed. (See chart for details) Patient will be provided with 2 mg of morphine IM for pain control. She was instructed that she will need to use her hydrocodone at home and need to follow- up with orthopedic for further evaluation of her pain. Patient agrees with discharge instructions, treatment regimens and follow-up recommendations. Signs and symptoms to return back to emergency department as been provided. All questions and concerns have been answered. [] Dragon Disclaimer Dragon Disclaimer This electronic medical record was generated, in whole or in part, using a voice recognition dictation system. Departure Departure Impression: Primary Impression: Left shoulder pain Disposition: 01 HOME, SELF-CARE Condition: STABLE Referrals: RUDDY CALHOUN (PCP) Patient Instructions: Shoulder Pain, Eywz-er-[id number] Additional Instructions: Activity as tolerated. Continue to wear the sling is usually were instructed by your orthopedic doctor. Continue with your home medications as prescribed. This would include the hydrocodone in which you have. Follow-up with orthopedic for further pain management. You may also try ice packs on 20 minutes off 20 minutes several times a day. Return to the emergency department for signs and symptoms of become worse. Scripts Bacitracin (Bacitracin) 28.4 Gm Oint...g. 28.4 GM TP BID, #1 MISC Prov: GILL TINOCO APRN 07/24/17 Problem Qualifiers Primary Impression: Left shoulder pain Chronicity: acute Qualified Codes: M25.512 - Pain in left shoulder GILL TINOCO APRN Jul 24, 2017 10:34
[2017-07-24] MEDS ORDERED: BACI28.43 TP (11:06)
== END 2017-07-24 11:06 | disposition home or self-care (01) ==
LOC: ER 09:37
DX: M25.512 Pain in left shoulder (principal); M79.622 Pain in left upper arm; E11.9 Type 2 diabetes mellitus without complications; G89.29 Other chronic pain
CPT/HCPCS: 96372; 99283; J2270

== ENCOUNTER 2017-07-28 08:17 | Emergency (ER) | payer OTHER ==
[~2017-07-28] VITALS: Ht 157.5 cm; Wt 65.8 kg
[~2017-07-28 08:17] MED LIST changes: +BACI28.43 TP
[2017-07-28 08:24] VITALS: BP 154/69
[2017-07-28] MEDS ORDERED: LIDOCAINE 1%/EPI 1:100,000 20 ML VIAL. INJ ONE (08:30)
--- NOTE | 2017-07-28 08:31 | PHYS DOC ---
Past Medical History Past Medical History: Constipation, Diabetes-Type II, Hypothyroid, Seizure, Other Additional Past Medical Histor: Abd.pain,Neuropathy,Insomnia,Chronic pain. Past Surgical History: Cholecystectomy, Tonsillectomy, Other Additional Past Surgical Histo: "top of kidney","throat",NOS,R)foot. Alcohol Use: None Drug Use: None Adult General Chief Complaint Chief Complaint: finger and breast abscess HPI HPI Patient is a 57 year old female who presents with left breast abscess and R index finger abscess. Denies fevers, reports she took her morning meds just prior to arrival. pt has h/o DM and has had multiple abscesses in the past. She is unsure of her tetanus status Review of Systems Review of Systems Constitutional: Denies fever or chills [] Eyes: Denies change in visual acuity, redness, or eye pain [] HENT: Denies nasal congestion or sore throat [] Respiratory: Denies cough or shortness of breath [] Cardiovascular: Denies chest pain GI: Denies abdominal pain, nausea, vomiting, bloody stools or diarrhea [] : Denies dysuria or hematuria [] Musculoskeletal: Denies back pain , left arm pain from humerus fracture from 1 month ago Integument: per hpi Neurologic: Denies headache, focal weakness or sensory changes [] Current Medications Current Medications Current Medications Medications (Trade) Dose Ordered Sig/Khang Start Time Stop Time Status Last Admin Dose Admin Lidocaine/ Epinephrine (Xylocaine 1%-Epi 1:100,000) 20 ml 1X ONCE 07/28/17 08:30 07/28/17 08:31 DC 07/28/17 08:39 20 ML Allergies Allergies Allergies Coded Allergies Type Severity Reaction Last Updated Verified No Known Drug Allergies 04/09/14 No Physical Exam Physical Exam Constitutional: Well developed, well nourished, no acute distress, non-toxic appearance. [] HENT: Normocephalic, atraumatic Eyes: PERRLA, EOMI, c Neck: Normal range of motion Cardiovascular:Heart rate regular with regular rhythm Lungs & Thorax: Bilateral breath sounds clear to auscultation [] Skin: Warm, dry, left lateral breast with small fluctuance of abscess without surrounding erythema or enduration Back: No tenderness, no CVA tenderness. [] Extremities: R index finger paronychia with enduration and erythema, no active drainage, no fat pad ttp, ROM intact, ttp of proximal L humuerus (site of previous humeral fracture), pulse intact Neurologic: Alert and oriented X 3, normal motor function, normal sensory function, no focal deficits noted. [] Current Patient Data Vital Signs Vital Signs Date Time Temp Pulse Resp B/P (MAP) Pulse Ox O2 Delivery O2 Flow Rate FiO2 07/28/17 08:24 98.7 94 18 154/69 (97) 97 Room Air 98.7 EKG EKG [] Radiology/Procedures Radiology/Procedures Indication: abscess Procedure: The patient was positioned appropriately. Local anesthesia was 1% lido with epi. An incision was then made over the apex of the lesion of left index finger with pus material was expressed. The drainage cavity was irrigated . The left breast was also injected with 1%lido with epi, incised with 11 blade , small pus expressed, small cavity, no irrigation. Pt's tetanus was updated in 05/2017 The patient tolerated the procedure well. Complications: none.[] Course & Med Decision Making Course & Med Decision Making Pertinent Labs and Imaging studies reviewed. (See chart for details) I&D performed. Will treat with keflex for erythema of the R index finger. She has f/u with per PCP next week. Dragon Disclaimer Dragon Disclaimer This electronic medical record was generated, in whole or in part, using a voice recognition dictation system. Departure Departure Impression: Primary Impression: Acute paronychia Additional Impression: Abscess Disposition: 01 HOME, SELF-CARE Condition: STABLE Referrals: RUDDY CALHOUN (PCP) Scripts Cephalexin (KEFLEX) 500 Mg Capsule 1 CAP PO BID, #14 CAP Prov: MARIO KRUEGER MD 07/28/17 Problem Qualifiers MARIO KRUEGER MD Jul 28, 2017 08:31
[2017-07-28] MEDS ORDERED: CEPH-264 PO (09:00)
== END 2017-07-28 09:07 | disposition home or self-care (01) ==
LOC: ER 08:17
DX: N61.1 Abscess of the breast and nipple (principal); L03.011 Cellulitis of right finger; E11.40 Type 2 diabetes mellitus with diabetic neuropathy, unspecified; E03.9 Hypothyroidism, unspecified; G47.00 Insomnia, unspecified; G89.29 Other chronic pain; Z90.49 Acquired absence of other specified parts of digestive tract
CPT/HCPCS: 10061; 99284; J3490

== ENCOUNTER 2017-08-08 09:05 | Emergency (ER) | payer OTHER ==
[~2017-08-08] VITALS: Ht 157.5 cm; Wt 64.0 kg
[~2017-08-08 09:05] MED LIST changes: +CEPH-264 PO
[2017-08-08 10:19] VITALS: BP 158/69
--- NOTE | 2017-08-08 10:38 | PHYS DOC ---
Past Medical History Past Medical History: Constipation, Diabetes-Type II, Hypothyroid, Seizure, Other Additional Past Medical Histor: Abd.pain,Neuropathy,Insomnia,Chronic pain. Past Surgical History: Cholecystectomy, Other Additional Past Surgical Histo: "top of kidney","throat",NOS,R)foot. Alcohol Use: None Drug Use: None Adult General Chief Complaint Chief Complaint: SHOUDLER HPI HPI Patient is a 57 year old female with history of diabetes type 2, anxiety, chronic pain syndrome, and seizures who presents today complaining of mild left shoulder pain that three days after she hit her left shoulder against a wall. Patient was diagnosed with left humerus fracture in June 2017 and follows up with the orthopedic doctor as well as outpatient therapy, she is requesting x- rays of her left shoulder. Review of Systems Review of Systems Constitutional: Denies fever or chills [] Musculoskeletal: Left shoulder pain Integument: Denies rash or skin lesions [] Neurologic: Denies headache, focal weakness or sensory changes [] Allergies Allergies Allergies Coded Allergies Type Severity Reaction Last Updated Verified No Known Drug Allergies 04/09/14 No Physical Exam Physical Exam Constitutional: Well developed, well nourished, no acute distress, non-toxic appearance. [] Skin: Warm, dry, no erythema, no rash. [] Back: No tenderness, no CVA tenderness. [] Extremities: Left shoulder is immobilized in a sling with good range of motion to the fingers. Cap refill less than 2 seconds the left fingers. Adequate radial medial and ulnar sensation to the left hand. +2 left radial pulse. Slight tenderness elicited on palpation of the left ACM joint. Neurologic: Alert and oriented X 3, normal motor function, normal sensory function, no focal deficits noted. [] Psychologic: Affect normal, judgement normal, mood normal. [] Current Patient Data Vital Signs Vital Signs Date Time Temp Pulse Resp B/P (MAP) Pulse Ox O2 Delivery O2 Flow Rate FiO2 08/08/17 10:19 98.4 85 18 96 Room Air 98.4 EKG EKG [] Radiology/Procedures Radiology/Procedures []PROCEDURE: SHOULDER 2+V LEFT Three-view left shoulder radiographs 08/08/2017 Clinical history: Left shoulder pain post fall. AP internal and external rotation and transscapular digital radiographs of the left shoulder were obtained. Comparison study is dated 08/03/2017. Ununited fractures of the left humeral neck and distal left clavicle are again seen, unchanged. No acute fracture is noted. No dislocation is seen. Calcified left hilar lymph nodes are again seen. A calcified granuloma seen involving the left upper lobe, unchanged. Impression: Ununited fractures of the left humeral neck and left clavicle are again seen. No acute abnormality is noted. DICTATED and SIGNED BY: ANGELITA BRAGA MD DATE: 08/08/17 1131 CC: ALOK TOM APRN; NON,STAFF; RUDDY CALHOUN ~ Course & Med Decision Making Course & Med Decision Making Pertinent Labs and Imaging studies reviewed. (See chart for details) This is a 57-year-old female patient with history of left humerus fracture June 2017 who presents today complaining of left shoulder pain after hitting her left shoulder on a wall 3 days ago. She is currently following up with an orthopedic doctor as well as outpatient therapy for the humerus fracture. She is requesting x-rays of her left shoulder. Left shoulder x-rays interpreted by radiologist were noted for Ununited fractures of the left humeral neck and left clavicle. No acute abnormality is noted. Patient was instructed to follow-up with her orthopedic doctor on Thursday. Discharge with naproxen and Flexeril. Dragon Disclaimer Dragon Disclaimer This electronic medical record was generated, in whole or in part, using a voice recognition dictation system. Departure Departure Impression: Primary Impression: Contusion of left shoulder Disposition: HOME, SELF-CARE Condition: STABLE Referrals: RUDDY CALHOUN (PCP) Follow up with the orthopedic doctor on Thursday Patient Instructions: Contusion Additional Instructions: You were seen for left shoulder contusion. We did an x-ray of the left shoulder , there was no acute findings on the x-rays. Continue wearing the sling. Follow- up with the orthopedic doctor on Thursday. Ice and elevate the extremity. Take the prescribed medicines as needed. Scripts Naproxen (NAPROXEN) 500 Mg Tablet. 1 TAB PO BID, #20 TAB 0 Refills Prov: ALOK TOM APRN 08/08/17 Cyclobenzaprine Hcl (CYCLOBENZAPRINE HCL) 10 Mg Tablet 1 TAB PO TID, #30 TAB Prov: ALOK TOM APRN 08/08/17 Problem Qualifiers Primary Impression: Contusion of left shoulder Encounter type: initial encounter Qualified Codes: S40.012A - Contusion of left shoulder, initial encounter ALOK TOM APRN Aug 08, 2017 10:38
--- NOTE | 2017-08-08 11:35 | RAD ---
Three-view left shoulder radiographs 08/08/2017 Clinical history: Left shoulder pain post fall. AP internal and external rotation and transscapular digital radiographs of the left shoulder were obtained. Comparison study is dated 08/03/2017. Ununited fractures of the left humeral neck and distal left clavicle are again seen, unchanged. No acute fracture is noted. No dislocation is seen. Calcified left hilar lymph nodes are again seen. A calcified granuloma seen involving the left upper lobe, unchanged. Impression: Ununited fractures of the left humeral neck and left clavicle are again seen. No acute abnormality is noted.
[2017-08-08] MEDS ORDERED: NAPR500T8 PO (11:40)
[2017-08-08] MEDS ORDERED: CYCL10TA2 PO (11:40)
== END 2017-08-08 11:46 | disposition home or self-care (01) ==
LOC: ER 09:05
DX: S40.012A Contusion of left shoulder, initial encounter (principal); E11.40 Type 2 diabetes mellitus with diabetic neuropathy, unspecified; G89.29 Other chronic pain; E03.9 Hypothyroidism, unspecified; W22.01XA Walked into wall, initial encounter; Y93.89 Activity, other specified; Y92.89 Other specified places as the place of occurrence of the external cause; Y99.8 Other external cause status
CPT/HCPCS: 73030; 99284

== ENCOUNTER → 2017-09-23 | Outpatient (CLI) | payer OTHER ==
[2017-09-21 18:53] VITALS: BP 146/67
[~2017-09-23] MED LIST changes: +LEVE500T56 PO; -NAPR500T3 PO; +NAPR500T4 PO; +NAPR500T8 PO; +PHEN30CA PO; +POLY17PO29 PO
[2017-09-23 14:38] LABS: BASO # 0.1 x10^3/uL (0.0-0.2); BASO % 1 % (0-3); EOS % 6 % (0-3); HEMOGLOBIN 10.2 g/dL (12.0-15.5); LYMPH # 1.6 x10^3/uL (1.0-4.8); LYMPH % 25 % (24-48); MEAN CORPUSCULAR HEMOGLOBIN 27 pg (25-35); MEAN CORPUSCULAR HGB CONC 32 g/dL (31-37); MEAN CORPUSCULAR VOLUME 85 fL (79-100); MONO % 9 % (0-9); NEUT % 59 % (31-73); PLATELET COUNT 426 x10^3/uL (140-400); RED BLOOD COUNT 3.76 x10^6/uL (3.50-5.40); RED CELL DISTRIBUTION WIDTH 16.8 % (11.5-14.5); WHITE BLOOD COUNT 6.4 x10^3/uL (4.0-11.0)
[2017-09-23 14:43] LABS: INR 1.1 (0.8-1.1); PROTHROMBIN TIME PATIENT 13.3 SEC (11.7-14.0)
[2017-09-23 14:44] LABS: ALBUMIN 3.9 g/dL (3.4-5.0); CALCIUM 8.6 mg/dL (8.5-10.1); CREATININE 0.8 mg/dL (0.6-1.0); GFR 73.7; POTASSIUM 4.6 mmol/L (3.5-5.1)
[2017-09-23 16:36] LABS: BILIRUBIN,URINE NEGATIVE (NEG); GLUCOSE,URINE NEGATIVE (NEG); NITRITE,URINE NEGATIVE (NEG); PROTEIN,URINE 30 mg/dL (NEG-TRACE)
[2017-09-23 16:48] LABS: BACTERIA,URINE 0 /HPF (0-FEW); RBC,URINE 0 /HPF (0-2); SQUAMOUS EPITHELIAL CELL,UR MOD /LPF; WBC,URINE 0 /HPF (0-4)
== END | disposition home or self-care (01) ==
LOC: SURGPAT 13:26
PROVIDERS: ATTEND Orthopaedic Surgery
DX: Z01.818 Encounter for other preprocedural examination (principal); S42.302A Unspecified fracture of shaft of humerus, left arm, initial encounter for closed fracture; Z96.612 Presence of left artificial shoulder joint; X58.XXXA Exposure to other specified factors, initial encounter; Y93.89 Activity, other specified; Y92.89 Other specified places as the place of occurrence of the external cause; Y99.8 Other external cause status
CPT/HCPCS: 36415; 80048; 81001; 82040; 83036; 85025; 85610; 85651; 85730; 87641

== ENCOUNTER 2017-09-30 10:54 | Inpatient (IN) | payer OTHER ==
[~2017-09-30] VITALS: Ht 142.2 cm; Wt 63.5 kg
[2017-09-30] MEDS ORDERED: HALOPERIDOL LACTATE 5 MG/ML VIAL. IVP ONE (11:30)
--- NOTE | 2017-09-30 11:32 | PHYS DOC ---
Past Medical History Past Medical History: Constipation, Diabetes-Type II, Hypothyroid, Seizure, Other Additional Past Medical Histor: Abd pain,Neuropathy,Insomnia,Chronic pain, L arm fx. Past Surgical History: Cholecystectomy, Other Additional Past Surgical Histo: "top of kidney","throat",NOS,R)foot. Alcohol Use: None Drug Use: None Adult General Chief Complaint Chief Complaint: ABDOMINAL PAIN HPI HPI Patient is a 57 year old female well-known to this emergency department who presents with chronic abdominal pain, onset of nausea with vomiting 1 this morning constipation. Patient's been evaluated in this emergency department apartment multiple times for chronic abdominal pain, neuropathy, complications of diabetes. Patient was last seen in the emergency department on 09/21/17 for the same. She had extensive workup including CT of the abdomen and pelvis which showed constipation. Patient has also been taking narcotic pain medications for her fracture which she feels may have worsened or constipation. The patient was discharged home with MiraLAX and she is been compliant with therapy but returned due to worsening pain and vomiting. Patient denies fever chills sweats. Denies blood in stools dark tarry stools. Denies hematuria, flank pain. No history of kidney stones. No other acute symptoms or complaints.[] Review of Systems Review of Systems Review symptoms as per history of present illness. All other review symptoms are negative. All other systems were reviewed and found to be within normal limits, except as documented in this note. Current Medications Current Medications Current Medications Medications (Trade) Dose Ordered Sig/Khang Start Time Stop Time Status Last Admin Dose Admin Haloperidol Lactate (Haldol) 2.5 mg 1X ONCE 09/30/17 11:30 09/30/17 11:31 DC 09/30/17 12:04 2.5 MG Allergies Allergies Allergies Coded Allergies Type Severity Reaction Last Updated Verified No Known Drug Allergies 09/23/17 No Physical Exam Physical Exam Constitutional: Well developed, well nourished, just. [] HENT: Normocephalic, atraumatic, bilateral external ears normal, oropharynx moist, no oral exudates, nose normal. [] Eyes: PERRLA, EOMI, conjunctiva normal, no discharge. [] Neck: Normal range of motion, no tenderness, supple, no stridor. [] Cardiovascular:Heart rate regular rhythm, no murmur [] Lungs & Thorax: Bilateral breath sounds clear to auscultation [] Abdomen: Bowel sounds normal, soft, tension, normal bowel sounds, use abdominal pain tenderness without guarding.. [] Skin: Warm, dry, no erythema, no rash. [] Back: No tenderness, no CVA tenderness. [] Extremities: No tenderness, no cyanosis, no clubbing, ROM intact, no edema. [] Neurologic: Alert and oriented X 3, normal motor function, normal sensory function [] Current Patient Data Vital Signs Vital Signs Date Time Temp Pulse Resp B/P (MAP) Pulse Ox O2 Delivery O2 Flow Rate FiO2 09/30/17 10:56 97.6 85 20 171/73 (105) 96 Room Air 97.6 Lab Values Laboratory Tests Test 09/30/17 11:38 09/30/17 13:39 White Blood Count 9.7 x10^3/uL (4.0-11.0) Red Blood Count 4.39 x10^6/uL (3.50-5.40) Hemoglobin 11.8 g/dL (12.0-15.5) L Hematocrit 36.5 % (36.0-47.0) Mean Corpuscular Volume 83 fL (79-100) Mean Corpuscular Hemoglobin 27 pg (25-35) Mean Corpuscular Hemoglobin Concent 32 g/dL (31-37) Red Cell Distribution Width 16.2 % (11.5-14.5) H Platelet Count 519 x10^3/uL (140-400) H Neutrophils (%) (Auto) 56 % (31-73) Lymphocytes (%) (Auto) 31 % (24-48) Monocytes (%) (Auto) 10 % (0-9) H Eosinophils (%) (Auto) 2 % (0-3) Basophils (%) (Auto) 1 % (0-3) Neutrophils # (Auto) 5.4 x10^3uL (1.8-7.7) Lymphocytes # (Auto) 3.0 x10^3/uL (1.0-4.8) Monocytes # (Auto) 1.0 x10^3/uL (0.0-1.1) Eosinophils # (Auto) 0.2 x10^3/uL (0.0-0.7) Basophils # (Auto) 0.1 x10^3/uL (0.0-0.2) Sodium Level 124 mmol/L (136-145) L Potassium Level 4.3 mmol/L (3.5-5.1) Chloride Level 86 mmol/L (98-107) L Carbon Dioxide Level 26 mmol/L (21-32) Anion Gap 12 (6-14) Blood Urea Nitrogen 12 mg/dL (7-20) Creatinine 0.9 mg/dL (0.6-1.0) Estimated GFR (Cockcroft-Gault) 64.3 BUN/Creatinine Ratio 13 (6-20) Glucose Level 49 mg/dL (70-99) L Calcium Level 9.7 mg/dL (8.5-10.1) Total Bilirubin 0.2 mg/dL (0.2-1.0) Aspartate Amino Transferase (AST) 23 U/L (15-37) Alanine Aminotransferase (ALT) 18 U/L (14-59) Alkaline Phosphatase 118 U/L (46-116) H Total Protein 8.8 g/dL (6.4-8.2) H Albumin 4.9 g/dL (3.4-5.0) Albumin/Globulin Ratio 1.3 (1.0-1.7) Lipase 54 U/L (73-393) L Glucose (Fingerstick) 53 mg/dL (70-99) L Laboratory Tests 09/30/17 11:38 Laboratory Tests 09/30/17 11:38 EKG EKG [] Radiology/Procedures Radiology/Procedures Abdominal series: No evidence of obstruction per radiology report. CT abdomen pelvis- 09/21/17 1. No acute intra-abdominal or pelvic process is detected. 2. Stable left adrenal nodules. 3. Extensive scattered stool throughout the colon. Correlate clinically for constipation. ] Course & Med Decision Making Course & Med Decision Making Pertinent Labs and Imaging studies reviewed. (See chart for details) [Patient anxious tearful abdomen soft nonsurgical. Lab work reviewed and imaging reviewed. No evidence of obstruction on current x-ray. No evidence of surgical pathology on recent CT scan. Patient noted to be hypoglycemic and hyponatremic. Patient tolerates oral intake in the ED. Sodium is 124 which represents a 10 point drop in just the past several days. Will admit to hospitalist service for further treatment.] Dragon Disclaimer Dragon Disclaimer This electronic medical record was generated, in whole or in part, using a voice recognition dictation system. Departure Departure Impression: Primary Impression: Hyponatremia Additional Impressions: Hypoglycemia Abdominal pain Constipation Disposition: 09 ADMITTED INPATIENT Admitting Physician: Francisco Cruz Condition: STABLE Referrals: RUDDY CALHOUN MD (PCP) Problem Qualifiers GILBERT ABREU DO Sep 30, 2017 11:32
[2017-09-30 11:52] LABS: BASO # 0.1 x10^3/uL (0.0-0.2); BASO % 1 % (0-3); EOS % 2 % (0-3); HEMATOCRIT 36.5 % (36.0-47.0); HEMOGLOBIN 11.8 g/dL (12.0-15.5); LYMPH % 31 % (24-48); MEAN CORPUSCULAR HEMOGLOBIN 27 pg (25-35); MEAN CORPUSCULAR HGB CONC 32 g/dL (31-37); MEAN CORPUSCULAR VOLUME 83 fL (79-100); MONO % 10 % (0-9); NEUT % 56 % (31-73); PLATELET COUNT 519 x10^3/uL (140-400); RED BLOOD COUNT 4.39 x10^6/uL (3.50-5.40); RED CELL DISTRIBUTION WIDTH 16.2 % (11.5-14.5); WHITE BLOOD COUNT 9.7 x10^3/uL (4.0-11.0)
[2017-09-30 11:58] LABS: CALCIUM 9.7 mg/dL (8.5-10.1); CREATININE 0.9 mg/dL (0.6-1.0); GFR 64.3; POTASSIUM 4.3 mmol/L (3.5-5.1)
[2017-09-30 12:03] LABS: ALBUMIN 4.9 g/dL (3.4-5.0); ALBUMIN/GLOBULIN RATIO 1.3 (1.0-1.7); TOTAL BILIRUBIN 0.2 mg/dL (0.2-1.0); TOTAL PROTEIN 8.8 g/dL (6.4-8.2)
--- NOTE | 2017-09-30 12:20 | RAD ---
Acute abdominal series 09/30/2017 Clinical indication: Abdominal pain, nausea and vomiting. Comparison: CT abdomen and pelvis 09/21/2017 Findings: There is a calcified granuloma in the left upper lung. Cardiac and mediastinal silhouettes are within normal limits. There is linear atelectasis or scarring in the left lung base. No pleural effusion or pneumothorax. There is a nonobstructive bowel gas pattern. There is a large amount of retained colonic stool throughout including the rectum. No evidence of pneumoperitoneum. Impression: 1. No acute cardiopulmonary abnormality. 2. No radiographic evidence of bowel obstruction or pneumoperitoneum. 3. Large amount of retained colonic stool, may contribute to constipation.
[2017-09-30] MEDS ORDERED: IV NORMAL SALINE 1000ML BAG 1,000 ML IV ONE ×2 (14:30→15:45)
[2017-09-30] MEDS ORDERED: ONDANSETRON PF 4 MG/2 ML VIAL. IV PRN ×2 (14:30→15:45)
[2017-09-30 15:10] VITALS: BP 156/60
[2017-09-30] MEDS ORDERED: HYDROcodone/APAP 5/325MG 1 TAB TABLET PO PRN (15:45)
[2017-09-30] MEDS ORDERED: LACTULOSE 20 GM/30 ML SOLUTION. PO PRN (15:45)
[2017-09-30] MEDS ORDERED: MAGNESIUM HYDROXIDE 2,400 MG/30 ML ORAL.SUSP. PO PRN (15:45)
[2017-09-30] MEDS ORDERED: BISACODYL 10 MG SUPP.RECT. PR PRN (15:45)
[2017-09-30] MEDS ORDERED: DEXTROSE 50% 25 GM / 50ML DISP.SYRIN. IV PRN (15:45)
[2017-09-30] MEDS ORDERED: hydrALAZINE 20 MG/ML VIAL. IVP PRN (15:45)
[2017-09-30] MEDS ORDERED: ACETAMINOPHEN 325 MG TABLET. PO PRN (15:45)
[2017-09-30] MEDS ORDERED: DOCUSATE SODIUM 100 MG CAPSULE. PO PRN (15:45)
[2017-09-30] MEDS ORDERED: MORPHINE SULFATE 4 MG/ML DISP.SYRIN. IV PRN (15:45)
[2017-09-30] MEDS ORDERED: traMADol 50 MG TABLET PO PRN (15:45)
--- NOTE | 2017-09-30 15:52 | PDOC1 ---
History and Physical Date of Admission Date of Admission 09/30/17 Identification/Chief Complaint Chief Complaint abd pain Problems: Source Source: Chart review, Patient History of Present Illness History of Present Illness HPI Patient is a 57 year old female with dm2 on insulin, seizure, came for abd pain. She was in ER before for abd pain, CT showed constipation. She said this abd pain has been going on for 1 week, intermittent, but daily, middle abd , moderate 6/10, no radiation. ALso N/V today. She has chronic constipation, BM every 1-2 weeks, not taking stool softner. just had one BM in ER before i came, and abd pain gone for now. AXR showed stool in colon. Patient has also been taking narcotic pain medications for her fracture which she feels may have worsened or constipation. seems she was given miralax from ER , but she told me not taking any stool softner. not taking NSAIDS , had EGD/COLONoscopy done but cannot tell me the result. She was also found hypoglycemia in ER with Glucose 40s, Na 124, low po intake at home. i looked at her DM diary, had hypoglycemia in the morning twice a week or so. takes levemir 12u qhs, aspart ac. Past Medical History Cardiovascular: HTN, Hyperlipidemia Pulmonary: Other CENTRAL NERVOUS SYSTEM: Dementia, Seizure GI: Irritable bowel disease Heme/Onc: Anemia NOS Psych: Anxiety, Depression Infectious disease: Other Endocrine: Diabetes Past Surgical History Past Surgical History: Cholecystectomy, Other Family History Family History: Hypertension Social History Smoke: No ALCOHOL: none Drugs: None, Other Current Problem List Problem List Problems Medical Problems: (1) Abdominal pain Status: Acute (2) Constipation Status: Acute (3) Hypoglycemia Status: Acute (4) Hyponatremia Status: Acute Current Medications Current Medications Current Medications Medications (Trade) Dose Ordered Sig/Khang Start Time Stop Time Status Last Admin Dose Admin Acetaminophen/ Hydrocodone Bitart (Lortab 5/325) 1 tab PRN Q6HRS PRN 09/30/17 15:45 UNV Famotidine (Pepcid) 20 mg BID 09/30/17 21:00 UNV Haloperidol Lactate (Haldol) 2.5 mg 1X ONCE 09/30/17 11:30 09/30/17 11:31 DC 09/30/17 12:04 2.5 MG Lacosamide (Vimpat) 50 mg BID 09/30/17 21:00 UNV Levetiracetam (Keppra) 1,250 mg BID 09/30/17 21:00 UNV Levothyroxine Sodium (Synthroid) 137 mcg DAILY 10/01/17 09:00 UNV Metformin HCl (Glucophage) 1,000 mg BID 09/30/17 21:00 UNV Non-Formulary Medication 600 mg TID 09/30/17 21:00 UNV Ondansetron HCl (Zofran) 4 mg PRN Q8HRS PRN 09/30/17 14:30 10/01/17 14:29 Pantoprazole Sodium (Protonix) 40 mg DAILY 10/01/17 09:00 UNV Phenytoin Sodium (Dilantin) 200 mg QHS 09/30/17 21:00 UNV Polyethylene Glycol (miraLAX Powder BULK BOTTLE) 17 gm DAILY PRN 09/30/17 15:45 UNV Simvastatin (Zocor) 20 mg HS 09/30/17 21:00 UNV Sodium Chloride 1,000 ml @ 150 mls/hr 1X ONCE 09/30/17 14:30 09/30/17 21:09 09/30/17 15:03 150 MLS/HR Allergies Allergies Allergies Coded Allergies Type Severity Reaction Last Updated Verified No Known Drug Allergies 09/23/17 No ROS Review of System CONSTITUTIONAL: No fever or chills EYES: No recent changes SKIN: No rash or itching CARDIOVASCULAR: No chest pain, syncope, palpitations, or edema RESPIRATORY: No SOB or cough GASTROINTESTINAL: No nausea, vomiting or abdominal pain NEUROLOGICAL: No headaches or weakness ENDOCRINE: No cold or heat intolerance GENITOURINARY: No urgency or frequency of urination MUSCULOSKELETAL: No back pain or joint pain LYMPHATICS: No enlarged lymph nodes PSYCHIATRIC: No anxiety or depression Physical Exam Physical Exam GEN.: No apparent distress. Alert and oriented. HEENT: Head is normocephalic, atraumatic NECK: Supple. LUNGS: Clear to auscultation. HEART: RRR, S1, S2 present. Peripheral pulses intact ABDOMEN: Soft, nontender. Positive bowel sounds. EXTREMITIES: Without any cyanosis. NEUROLOGIC: Normal speech, normal tone PSYCHIATRIC: Normal affect, normal mood. SKIN: No ulcerations Vitals Vitals Vital Signs Date Time Temp Pulse Resp B/P (MAP) Pulse Ox O2 Delivery O2 Flow Rate FiO2 09/30/17 15:05 82 14 177/77 (110) 99 Room Air 09/30/17 10:56 97.6 97.6 Labs Labs Laboratory Tests Test 09/30/17 11:38 09/30/17 13:39 09/30/17 14:59 White Blood Count 9.7 x10^3/uL (4.0-11.0) Red Blood Count 4.39 x10^6/uL (3.50-5.40) Hemoglobin 11.8 g/dL (12.0-15.5) Hematocrit 36.5 % (36.0-47.0) Mean Corpuscular Volume 83 fL (79-100) Mean Corpuscular Hemoglobin 27 pg (25-35) Mean Corpuscular Hemoglobin Concent 32 g/dL (31-37) Red Cell Distribution Width 16.2 % (11.5-14.5) Platelet Count 519 x10^3/uL (140-400) Neutrophils (%) (Auto) 56 % (31-73) Lymphocytes (%) (Auto) 31 % (24-48) Monocytes (%) (Auto) 10 % (0-9) Eosinophils (%) (Auto) 2 % (0-3) Basophils (%) (Auto) 1 % (0-3) Neutrophils # (Auto) 5.4 x10^3uL (1.8-7.7) Lymphocytes # (Auto) 3.0 x10^3/uL (1.0-4.8) Monocytes # (Auto) 1.0 x10^3/uL (0.0-1.1) Eosinophils # (Auto) 0.2 x10^3/uL (0.0-0.7) Basophils # (Auto) 0.1 x10^3/uL (0.0-0.2) Sodium Level 124 mmol/L (136-145) Potassium Level 4.3 mmol/L (3.5-5.1) Chloride Level 86 mmol/L (98-107) Carbon Dioxide Level 26 mmol/L (21-32) Anion Gap 12 (6-14) Blood Urea Nitrogen 12 mg/dL (7-20) Creatinine 0.9 mg/dL (0.6-1.0) Estimated GFR (Cockcroft-Gault) 64.3 BUN/Creatinine Ratio 13 (6-20) Glucose Level 49 mg/dL (70-99) Serum Osmolality 266 mOsm/Kg (279-304) Calcium Level 9.7 mg/dL (8.5-10.1) Total Bilirubin 0.2 mg/dL (0.2-1.0) Aspartate Amino Transf (AST/SGOT) 23 U/L (15-37) Alanine Aminotransferase (ALT/SGPT) 18 U/L (14-59) Alkaline Phosphatase 118 U/L (46-116) Total Protein 8.8 g/dL (6.4-8.2) Albumin 4.9 g/dL (3.4-5.0) Albumin/Globulin Ratio 1.3 (1.0-1.7) Lipase 54 U/L (73-393) Glucose (Fingerstick) 53 mg/dL (70-99) 159 mg/dL (70-99) Laboratory Tests Test 09/30/17 11:38 09/30/17 13:39 09/30/17 14:59 White Blood Count 9.7 x10^3/uL (4.0-11.0) Red Blood Count 4.39 x10^6/uL (3.50-5.40) Hemoglobin 11.8 g/dL (12.0-15.5) Hematocrit 36.5 % (36.0-47.0) Mean Corpuscular Volume 83 fL (79-100) Mean Corpuscular Hemoglobin 27 pg (25-35) Mean Corpuscular Hemoglobin Concent 32 g/dL (31-37) Red Cell Distribution Width 16.2 % (11.5-14.5) Platelet Count 519 x10^3/uL (140-400) Neutrophils (%) (Auto) 56 % (31-73) Lymphocytes (%) (Auto) 31 % (24-48) Monocytes (%) (Auto) 10 % (0-9) Eosinophils (%) (Auto) 2 % (0-3) Basophils (%) (Auto) 1 % (0-3) Neutrophils # (Auto) 5.4 x10^3uL (1.8-7.7) Lymphocytes # (Auto) 3.0 x10^3/uL (1.0-4.8) Monocytes # (Auto) 1.0 x10^3/uL (0.0-1.1) Eosinophils # (Auto) 0.2 x10^3/uL (0.0-0.7) Basophils # (Auto) 0.1 x10^3/uL (0.0-0.2) Sodium Level 124 mmol/L (136-145) Potassium Level 4.3 mmol/L (3.5-5.1) Chloride Level 86 mmol/L (98-107) Carbon Dioxide Level 26 mmol/L (21-32) Anion Gap 12 (6-14) Blood Urea Nitrogen 12 mg/dL (7-20) Creatinine 0.9 mg/dL (0.6-1.0) Estimated GFR (Cockcroft-Gault) 64.3 BUN/Creatinine Ratio 13 (6-20) Glucose Level 49 mg/dL (70-99) Serum Osmolality 266 mOsm/Kg (279-304) Calcium Level 9.7 mg/dL (8.5-10.1) Total Bilirubin 0.2 mg/dL (0.2-1.0) Aspartate Amino Transf (AST/SGOT) 23 U/L (15-37) Alanine Aminotransferase (ALT/SGPT) 18 U/L (14-59) Alkaline Phosphatase 118 U/L (46-116) Total Protein 8.8 g/dL (6.4-8.2) Albumin 4.9 g/dL (3.4-5.0) Albumin/Globulin Ratio 1.3 (1.0-1.7) Lipase 54 U/L (73-393) Glucose (Fingerstick) 53 mg/dL (70-99) 159 mg/dL (70-99) VTE Prophylaxis Ordered VTE Prophylaxis Devices: Yes VTE Pharmacological Prophylaxi: Yes Assessment/Plan Assessment/Plan abd pain 2/2 constipation likely chronic constipation hypoglycemia with dm2 on insulin htn hyponatremia, low po intake likely hypothyroidism seizure chronic pain plan: stool softner ivf hold insulin regimen, SSI for now check hba1c cont other home meds dvt ppx labs tmr check TSH MANUELITO WALSH MD Sep 30, 2017 15:52
[2017-09-30] MEDS ORDERED: POLYETHYLENE GLYCOL 3350 17 GM PACKET. PO PRN (16:30)
[2017-09-30] MEDS: ENOXAPARIN 40 MG/0.4 ML SYRINGE. SQ SCH (17:02)
[2017-09-30] MEDS: INSULIN ASPART 300 UNITS/3 ML INSULN.PEN SQ SCH (17:46)
[2017-09-30 19:35] VITALS: BP 145/50
[2017-09-30] MEDS: FAMOTIDINE 20 MG TABLET. PO SCH (20:43)
[2017-09-30] MEDS: SENNOSIDES/DOCUSATE 8.6/50MG TABLET. PO SCH (20:43)
[2017-09-30] MEDS: LACOSAMIDE 50 MG TABLET PO SCH (20:44)
[2017-09-30] MEDS: DOCUSATE SODIUM 100 MG CAPSULE. PO SCH (20:44)
[2017-09-30] MEDS: levETIRAcetam 250 MG TABLET PO SCH (20:45)
[2017-09-30] MEDS: GABAPENTIN 300 MG CAPSULE. PO SCH (20:46)
[2017-09-30] MEDS ORDERED: PHENYTOIN SODIUM EXTENDED 100 MG CAPSULE PO SCH (21:00)
[2017-09-30] MEDS ORDERED: PHENYTOIN SODIUM EXTENDED 30 MG CAPSULE. PO SCH (21:00)
[2017-09-30] MEDS ORDERED: SIMVASTATIN 20 MG TABLET PO SCH (21:00)
[2017-09-30 21:40] VITALS: BP 145/80
[2017-09-30 23:35] VITALS: BP 125/61
[2017-10-01 03:40] VITALS: BP 125/62
[2017-10-01 05:36] LABS: BASO # 0.1 x10^3/uL (0.0-0.2); BASO % 1 % (0-3); EOS % 2 % (0-3); HEMATOCRIT 36.6 % (36.0-47.0); HEMOGLOBIN 11.7 g/dL (12.0-15.5); LYMPH # 1.8 x10^3/uL (1.0-4.8); LYMPH % 26 % (24-48); MEAN CORPUSCULAR HEMOGLOBIN 27 pg (25-35); MEAN CORPUSCULAR HGB CONC 32 g/dL (31-37); MEAN CORPUSCULAR VOLUME 84 fL (79-100); MONO % 12 % (0-9); NEUT % 58 % (31-73); PLATELET COUNT 441 x10^3/uL (140-400); RED BLOOD COUNT 4.38 x10^6/uL (3.50-5.40); RED CELL DISTRIBUTION WIDTH 16.6 % (11.5-14.5); WHITE BLOOD COUNT 6.9 x10^3/uL (4.0-11.0)
[2017-10-01 05:57] LABS: CALCIUM 9.3 mg/dL (8.5-10.1); CREATININE 0.7 mg/dL (0.6-1.0); GFR 85.9; POTASSIUM 4.9 mmol/L (3.5-5.1)
[2017-10-01] MEDS ORDERED: LEVOTHYROXINE 137 MCG TABLET PO SCH (06:00)
[2017-10-01] MEDS ORDERED: PANTOPRAZOLE 40 MG TABLET.DR. PO SCH (07:30)
[2017-10-01 07:55] VITALS: BP 116/68
[2017-10-01] MEDS: INSULIN ASPART 300 UNITS/3 ML INSULN.PEN SQ SCH ×3 (08:00→17:43)
[2017-10-01] MEDS: LACOSAMIDE 50 MG TABLET PO SCH (09:19)
[2017-10-01] MEDS: FAMOTIDINE 20 MG TABLET. PO SCH (09:19)
[2017-10-01] MEDS: GABAPENTIN 300 MG CAPSULE. PO SCH ×2 (09:19→17:38)
[2017-10-01] MEDS: levETIRAcetam 250 MG TABLET PO SCH (09:19)
[2017-10-01] MEDS: SENNOSIDES/DOCUSATE 8.6/50MG TABLET. PO SCH (09:20)
[2017-10-01] MEDS: DOCUSATE SODIUM 100 MG CAPSULE. PO SCH (09:20)
--- NOTE | 2017-10-01 09:20 | PDOC ---
PROGRESS NOTES Chief Complaint Chief Complaint Abd pain ASSESSMENT AND PLAN: 1. Constipation: prob 2/2 narcotic use. if oral bowel regimen ineffective, trial of relistor 2. Hypoglycemia: resolved 3. DM2: well controlled oral home meds, cont ISS. HgbA1c pending 4. HTN: well controlled on home regimen 5. Hyponatremia: resolved 6. Hypothyroidism: on synthroid; check TSH 7. seizure d/o: on phenytoin, keppra, vimpat 8. chronic pain: cont home meds. no IV narcotics 9. Prophylaxis: H2b, lovenox 10. Dispo: home History of Present Illness History of Present Illness feels much better, eager to go home Vitals Vitals Vital Signs Date Time Temp Pulse Resp B/P (MAP) Pulse Ox O2 Delivery O2 Flow Rate FiO2 10/01/17 03:40 98.6 85 125/62 (83) 95 Room Air 98.6 09/30/17 23:35 2.0 09/30/17 16:09 14 Physical Exam General: Alert, Oriented X3, Cooperative Heart: Regular rate Lungs: Clear Abdomen: Normal bowel sounds, Soft, No tenderness Extremities: No edema Labs LABS Laboratory Tests Test 09/30/17 11:38 09/30/17 13:39 09/30/17 14:59 09/30/17 17:14 White Blood Count 9.7 x10^3/uL (4.0-11.0) Red Blood Count 4.39 x10^6/uL (3.50-5.40) Hemoglobin 11.8 g/dL (12.0-15.5) Hematocrit 36.5 % (36.0-47.0) Mean Corpuscular Volume 83 fL (79-100) Mean Corpuscular Hemoglobin 27 pg (25-35) Mean Corpuscular Hemoglobin Concent 32 g/dL (31-37) Red Cell Distribution Width 16.2 % (11.5-14.5) Platelet Count 519 x10^3/uL (140-400) Neutrophils (%) (Auto) 56 % (31-73) Lymphocytes (%) (Auto) 31 % (24-48) Monocytes (%) (Auto) 10 % (0-9) Eosinophils (%) (Auto) 2 % (0-3) Basophils (%) (Auto) 1 % (0-3) Neutrophils # (Auto) 5.4 x10^3uL (1.8-7.7) Lymphocytes # (Auto) 3.0 x10^3/uL (1.0-4.8) Monocytes # (Auto) 1.0 x10^3/uL (0.0-1.1) Eosinophils # (Auto) 0.2 x10^3/uL (0.0-0.7) Basophils # (Auto) 0.1 x10^3/uL (0.0-0.2) Sodium Level 124 mmol/L (136-145) Potassium Level 4.3 mmol/L (3.5-5.1) Chloride Level 86 mmol/L (98-107) Carbon Dioxide Level 26 mmol/L (21-32) Anion Gap 12 (6-14) Blood Urea Nitrogen 12 mg/dL (7-20) Creatinine 0.9 mg/dL (0.6-1.0) Estimated GFR (Cockcroft-Gault) 64.3 BUN/Creatinine Ratio 13 (6-20) Glucose Level 49 mg/dL (70-99) Serum Osmolality 266 mOsm/Kg (279-304) Calcium Level 9.7 mg/dL (8.5-10.1) Total Bilirubin 0.2 mg/dL (0.2-1.0) Aspartate Amino Transf (AST/SGOT) 23 U/L (15-37) Alanine Aminotransferase (ALT/SGPT) 18 U/L (14-59) Alkaline Phosphatase 118 U/L (46-116) Total Protein 8.8 g/dL (6.4-8.2) Albumin 4.9 g/dL (3.4-5.0) Albumin/Globulin Ratio 1.3 (1.0-1.7) Lipase 54 U/L (73-393) Thyroid Stimulating Hormone (TSH) 0.148 uIU/mL (0.358-3.74) Free Thyroxine 1.30 ng/dL (0.76-1.46) Glucose (Fingerstick) 53 mg/dL (70-99) 159 mg/dL (70-99) 327 mg/dL (70-99) Test 09/30/17 21:29 10/01/17 05:05 10/01/17 07:44 Glucose (Fingerstick) 165 mg/dL (70-99) 137 mg/dL (70-99) White Blood Count 6.9 x10^3/uL (4.0-11.0) Red Blood Count 4.38 x10^6/uL (3.50-5.40) Hemoglobin 11.7 g/dL (12.0-15.5) Hematocrit 36.6 % (36.0-47.0) Mean Corpuscular Volume 84 fL (79-100) Mean Corpuscular Hemoglobin 27 pg (25-35) Mean Corpuscular Hemoglobin Concent 32 g/dL (31-37) Red Cell Distribution Width 16.6 % (11.5-14.5) Platelet Count 441 x10^3/uL (140-400) Neutrophils (%) (Auto) 58 % (31-73) Lymphocytes (%) (Auto) 26 % (24-48) Monocytes (%) (Auto) 12 % (0-9) Eosinophils (%) (Auto) 2 % (0-3) Basophils (%) (Auto) 1 % (0-3) Neutrophils # (Auto) 4.0 x10^3uL (1.8-7.7) Lymphocytes # (Auto) 1.8 x10^3/uL (1.0-4.8) Monocytes # (Auto) 0.8 x10^3/uL (0.0-1.1) Eosinophils # (Auto) 0.2 x10^3/uL (0.0-0.7) Basophils # (Auto) 0.1 x10^3/uL (0.0-0.2) Sodium Level 134 mmol/L (136-145) Potassium Level 4.9 mmol/L (3.5-5.1) Chloride Level 98 mmol/L (98-107) Carbon Dioxide Level 26 mmol/L (21-32) Anion Gap 10 (6-14) Blood Urea Nitrogen 11 mg/dL (7-20) Creatinine 0.7 mg/dL (0.6-1.0) Estimated GFR (Cockcroft-Gault) 85.9 Glucose Level 123 mg/dL (70-99) Calcium Level 9.3 mg/dL (8.5-10.1) YAS JEREZ MD Oct 01, 2017 09:20
[2017-10-01] MEDS ORDERED: POLY255P PO (10:51)
[2017-10-01 11:07] VITALS: BP 123/60
[2017-10-01 14:50] VITALS: BP 111/59
[2017-10-01] MEDS: ENOXAPARIN 40 MG/0.4 ML SYRINGE. SQ SCH (17:38)
--- NOTE | 2017-10-03 18:59 | DS ---
DATE OF DISCHARGE: 10/01/2017 CHIEF COMPLAINT: Abdominal pain secondary to constipation. HOSPITAL COURSE: The patient is a 57-year-old woman who presented to the hospital with constipation secondary to chronic narcotic abuse. She responded well to oral bowel regimen. Relistor was not utilized. Pain essentially resolved. Discussion about judicious use of narcotics at home was held with her. Her other medical issues including diabetes, hypertension, hypothyroidism were stable and she was continued on all home medications. Same true for seizures. PHYSICAL EXAMINATION: VITAL SIGNS: Blood pressure of 125/62, heart rate of 85, respiratory rate at 20. GENERAL: This is a 57-year-old woman, alert and oriented, in no acute distress. LUNGS: Clear. HEART: Regular rate and rhythm. ABDOMEN: Positive bowel sounds. EXTREMITIES: No edema. DISCHARGE DIAGNOSES: Constipation, impaction. DISCHARGE DISPOSITION: to home DISCHARGE CONDITION: Improved. DISCHARGE MEDICATIONS: Please refer to MAR. DISCHARGE INSTRUCTIONS: The patient will follow up with PCP in 1-2 weeks. YAS JEREZ MD DR: UR/nts JOB#: [id number] / [id number] RUDDY Laura MD MTDD
== END 2017-10-01 19:10 | disposition home or self-care (01) | DRG 392 ==
LOC: ER 10:54 → ED HOLD 14:30 → 5 SOUTH 16:39
PROVIDERS: ADMIT Internal Medicine; ATTEND Internal Medicine
DX: K59.03 Drug induced constipation (principal); E11.40 Type 2 diabetes mellitus with diabetic neuropathy, unspecified; E11.649 Type 2 diabetes mellitus with hypoglycemia without coma; E87.1 Hypo-osmolality and hyponatremia; K58.9 Irritable bowel syndrome, unspecified; E03.9 Hypothyroidism, unspecified; F03.90 Unspecified dementia, unspecified severity, without behavioral disturbance, psychotic disturbance, mood disturbance, and anxiety; E78.5 Hyperlipidemia, unspecified; F11.10 Opioid abuse, uncomplicated; G89.29 Other chronic pain; I10 Essential (primary) hypertension; T40.605A Adverse effect of unspecified narcotics, initial encounter; F41.9 Anxiety disorder, unspecified; F32.9 Major depressive disorder, single episode, unspecified; Z79.4 Long term (current) use of insulin; Y92.89 Other specified places as the place of occurrence of the external cause; Z82.49 Family history of ischemic heart disease and other diseases of the circulatory system; Z90.49 Acquired absence of other specified parts of digestive tract
CPT/HCPCS: 36415; 74022; 80048; 80053; 82962; 83036; 83690; 83930; 83935; 84439; 84443; 85025; 96361; 96372; 96374; J1630; J1650; J1815; J7030; 99285-25

== ENCOUNTER 2017-11-11 08:56 | Emergency (ER) | payer OTHER ==
[2017-11-11] MEDS: MAGNESIUM CITRATE 296 ML SOLUTION. PO (10:30)
== END 2017-11-11 10:48 | disposition home or self-care (01) ==
LOC: ER 08:56
DX: K59.03 Drug induced constipation (principal); E03.9 Hypothyroidism, unspecified; I10 Essential (primary) hypertension; E11.40 Type 2 diabetes mellitus with diabetic neuropathy, unspecified; G89.29 Other chronic pain; Z90.49 Acquired absence of other specified parts of digestive tract; Z88.8 Allergy status to other drugs, medicaments and biological substances
CPT/HCPCS: 74000; 99283

== ENCOUNTER 2017-11-14 11:12 | Emergency (ER) | payer OTHER ==
[2017-11-14 11:42] LABS: BILIRUBIN,URINE NEGATIVE (NEG); GLUCOSE,URINE 250 mg/dL (NEG); NITRITE,URINE NEGATIVE (NEG); PROTEIN,URINE NEGATIVE (NEG-TRACE); UROBILINOGEN,URINE 0.2 mg/dL (0.2 mg/dL)
[2017-11-14 12:02] LABS: BACTERIA,URINE 0 /HPF (0-FEW); RBC,URINE 0 /HPF (0-2); WBC,URINE 0 /HPF (0-4)
[2017-11-14 12:22] LABS: ADD MAN DIFF? NO; BASO # 0.1 x10^3/uL (0.0-0.2); BASO % 1 % (0-3); EOS % 4 % (0-3); HEMATOCRIT 29.1 % (36.0-47.0); HEMOGLOBIN 9.1 g/dL (12.0-15.5); LYMPH # 1.3 x10^3/uL (1.0-4.8); LYMPH % 20 % (24-48); MEAN CORPUSCULAR HEMOGLOBIN 26 pg (25-35); MEAN CORPUSCULAR HGB CONC 31 g/dL (31-37); MEAN CORPUSCULAR VOLUME 83 fL (79-100); MONO % 10 % (0-9); NEUT % 65 % (31-73); PLATELET COUNT 304 x10^3/uL (140-400); RED CELL DISTRIBUTION WIDTH 16.4 % (11.5-14.5); WHITE BLOOD COUNT 6.6 x10^3/uL (4.0-11.0)
[2017-11-14 12:27] LABS: ANION GAP 9 (6-14); BLOOD UREA NITROGEN 8 mg/dL (7-20); BUN/CREATININE RATIO 11 (6-20); CALCIUM 8.6 mg/dL (8.5-10.1); CARBON DIOXIDE 29 mmol/L (21-32); CHLORIDE 99 mmol/L (98-107); CREATININE 0.7 mg/dL (0.6-1.0); GFR 85.9; GLUCOSE 209 mg/dL (70-99); POTASSIUM 4.1 mmol/L (3.5-5.1); SODIUM 137 mmol/L (136-145)
[2017-11-14 12:32] LABS: ALBUMIN 3.6 g/dL (3.4-5.0); ALBUMIN/GLOBULIN RATIO 1.2 (1.0-1.7); ALK PHOS 149 U/L (46-116); ALT (SGPT) 21 U/L (14-59); AST (SGOT) 18 U/L (15-37); TOTAL BILIRUBIN 0.1 mg/dL (0.2-1.0); TOTAL PROTEIN 6.5 g/dL (6.4-8.2)
[2017-11-14 12:42] LABS: OBC FLU VALID
== END 2017-11-14 12:56 | disposition home or self-care (01) ==
LOC: ER 11:12
DX: K59.03 Drug induced constipation (principal); T40.605A Adverse effect of unspecified narcotics, initial encounter; E11.40 Type 2 diabetes mellitus with diabetic neuropathy, unspecified; I10 Essential (primary) hypertension; E03.9 Hypothyroidism, unspecified; G89.29 Other chronic pain; G47.00 Insomnia, unspecified; Z90.49 Acquired absence of other specified parts of digestive tract; Y92.89 Other specified places as the place of occurrence of the external cause
CPT/HCPCS: 36415; 74022; 80053; 81001; 85025; 87804; 87804-59; 99285

== ENCOUNTER 2017-12-25 15:24 | Emergency (ER) | payer OTHER ==
[2017-12-25 15:40] LABS: POC GLUCOSE 77 mg/dL (70-99)
[2017-12-25] MEDS: IV DEXTROSE 5% - 0.9 % NACL 500 ML IV ×2 (15:45)
[2017-12-25 16:12] LABS: BILIRUBIN,URINE NEGATIVE (NEG); CLARITY,URINE CLEAR; COLOR,URINE YELLOW; GLUCOSE,URINE NEGATIVE (NEG); NITRITE,URINE NEGATIVE (NEG); PROTEIN,URINE NEGATIVE (NEG-TRACE); UROBILINOGEN,URINE 0.2 mg/dL (0.2 mg/dL)
[2017-12-25 16:20] LABS: ADD MAN DIFF? NO
[2017-12-25 16:21] LABS: RBC,URINE 0 /HPF (0-2)
[2017-12-25 16:22] LABS: BACTERIA,URINE 0 /HPF (0-FEW); SQUAMOUS EPITHELIAL CELL,UR MOD /LPF
[2017-12-25 16:27] LABS: BASO # 0.1 x10^3/uL (0.0-0.2); BASO % 2 % (0-3); EOS # 0.3 x10^3/uL (0.0-0.7); EOS % 5 % (0-3); HEMATOCRIT 29.8 % (36.0-47.0); HEMOGLOBIN 9.4 g/dL (12.0-15.5); LYMPH % 16 % (24-48); MEAN CORPUSCULAR HEMOGLOBIN 25 pg (25-35); MEAN CORPUSCULAR HGB CONC 32 g/dL (31-37); MEAN CORPUSCULAR VOLUME 77 fL (79-100); MONO # 0.7 x10^3/uL (0.0-1.1); MONO % 11 % (0-9); NEUT # 4.3 x10^3uL (1.8-7.7); NEUT % 67 % (31-73); PLATELET COUNT 316 x10^3/uL (140-400); RED BLOOD COUNT 3.84 x10^6/uL (3.50-5.40); RED CELL DISTRIBUTION WIDTH 16.4 % (11.5-14.5); WHITE BLOOD COUNT 6.5 x10^3/uL (4.0-11.0)
[2017-12-25 16:55] LABS: TROPONINI 0.024 ng/mL (0.000-0.055)
[2017-12-25 18:21] LABS: POC GLUCOSE 413 mg/dL (70-99)
[2017-12-25 19:09] LABS: POC GLUCOSE 442 mg/dL (70-99)
== END 2017-12-25 19:35 | disposition home or self-care (01) ==
LOC: ER 15:24
DX: E11.649 Type 2 diabetes mellitus with hypoglycemia without coma (principal); E11.40 Type 2 diabetes mellitus with diabetic neuropathy, unspecified; I10 Essential (primary) hypertension; E03.9 Hypothyroidism, unspecified; G89.29 Other chronic pain; Z90.49 Acquired absence of other specified parts of digestive tract
CPT/HCPCS: 36415; 81001; 82962; 84484; 85025; 93005; 99285-25; J7042

== ENCOUNTER 2018-04-17 10:32 | Inpatient (IN) | payer OTHER ==
[2018-04-17] MEDS: LIDO:MAALOX 1:1 20 ML SINGLE DOSE. SWSW ×2 (11:13→20:58)
[2018-04-17] MEDS: IV NORMAL SALINE 1000ML BAG 1,000 ML IV ×4 (11:14→23:58)
[2018-04-17 11:37] LABS: BILIRUBIN,URINE NEGATIVE (NEG); CLARITY,URINE CLEAR; COLOR,URINE YELLOW; GLUCOSE,URINE >=1000 mg/dL (NEG); NITRITE,URINE NEGATIVE (NEG); PROTEIN,URINE NEGATIVE (NEG-TRACE); UROBILINOGEN,URINE 0.2 mg/dL (0.2 mg/dL)
[2018-04-17 11:43] LABS: BACTERIA,URINE FEW /HPF (0-FEW); SQUAMOUS EPITHELIAL CELL,UR MANY /LPF
[2018-04-17 11:45] LABS: RBC,URINE OCC /HPF (0-2); YEAST,URINE PRESENT /HPF
[2018-04-17 11:49] LABS: BASO # 0.1 x10^3/uL (0.0-0.2); BASO % 1 % (0-3); EOS % 0 % (0-3); HEMOGLOBIN 9.9 g/dL (12.0-15.5); LYMPH # 0.9 x10^3/uL (1.0-4.8); LYMPH % 5 % (24-48); MEAN CORPUSCULAR HEMOGLOBIN 24 pg (25-35); MEAN CORPUSCULAR HGB CONC 31 g/dL (31-37); MEAN CORPUSCULAR VOLUME 77 fL (79-100); MONO # 1.2 x10^3/uL (0.0-1.1); MONO % 7 % (0-9); NEUT # 15.5 x10^3uL (1.8-7.7); NEUT % 87 % (31-73); PLATELET COUNT 501 x10^3/uL (140-400); RED BLOOD COUNT 4.17 x10^6/uL (3.50-5.40); RED CELL DISTRIBUTION WIDTH 19.2 % (11.5-14.5); WHITE BLOOD COUNT 17.7 x10^3/uL (4.0-11.0)
[2018-04-17 11:50] LABS: ADD MAN DIFF? YES
[2018-04-17 11:57] LABS: ANION GAP 23 (6-14); BLOOD UREA NITROGEN 19 mg/dL (7-20); BUN/CREATININE RATIO 17 (6-20); CARBON DIOXIDE 16 mmol/L (21-32); CHLORIDE 94 mmol/L (98-107); CREATININE 1.1 mg/dL (0.6-1.0); GFR 50.8; GLUCOSE 348 mg/dL (70-99); POTASSIUM 4.4 mmol/L (3.5-5.1); SODIUM 133 mmol/L (136-145)
[2018-04-17 12:03] LABS: ALBUMIN 3.9 g/dL (3.4-5.0); ALBUMIN/GLOBULIN RATIO 1.1 (1.0-1.7); ALK PHOS 216 U/L (46-116); ALT (SGPT) 29 U/L (14-59); AST (SGOT) 24 U/L (15-37); LIPASE 271 U/L (73-393); TOTAL BILIRUBIN 0.5 mg/dL (0.2-1.0); TOTAL PROTEIN 7.5 g/dL (6.4-8.2)
[2018-04-17 12:07] LABS: TROPONINI 0.054 ng/mL (0.000-0.055)
[2018-04-17 12:15] LABS: % BANDS 6 % (0-9); % LYMPHS 5 % (24-48)
[2018-04-17 12:16] LABS: % MONOS 5 % (0-10); % SEGS 84 % (35-66); PLT ESTIMATE INCREASED (ADEQUATE)
[2018-04-17 12:17] LABS: ANISOCYTOSIS SLIGHT; BURR CELLS FEW; MICROCYTOSIS PRESENT; OVALOCYTES FEW; POLYCHROMASIA SLIGHT
[2018-04-17] MEDS: IOHEXOL 300 MG/ML 100ML VIAL. IV (12:23)
[2018-04-17] MEDS ORDERED: CONTRAST GIVEN. MC (12:30)
[2018-04-17] MEDS: INSULIN REGULAR 100 UNIT/ML 3ML VIAL. IV ×2 (12:36→20:59)
[2018-04-17 12:53] LABS: PCO2 ABG 30 mmHg (35-46); PH ABG 7.35 (7.35-7.45)
[2018-04-17 12:54] LABS: BASE EXCESS ABG -8 mmol/L (-3-3); FIO2 ABG 21; HCO3 ABG 16 mmol/L (21-28); PO2 ABG 92 mmHg (65-108); SAT O2 ABG 97 % (92-99)
[2018-04-17] MEDS: ASPIRIN CHEWABLE 81 MG TABLET. PO (13:28)
[2018-04-17 13:52] LABS: POC GLUCOSE 239 mg/dL (70-99)
[2018-04-17] MEDS: amLODIPine BESYLATE 10 MG TABLET PO (15:30)
[2018-04-17] MEDS: GABAPENTIN 300 MG CAPSULE. PO ×2 (16:30→21:40)
[2018-04-17] MEDS: ENOXAPARIN 40 MG/0.4 ML SYRINGE. SQ (16:30)
[2018-04-17] MEDS: INSULIN LISPRO 300 UNITS/3 ML INSULN.PEN. SQ ×2 (16:31→16:32)
[2018-04-17 16:41] LABS: POC GLUCOSE 199 mg/dL (70-99)
[2018-04-17] MEDS: oxyCODONE/APAP 10/325 1 TAB TABLET PO (17:06)
[2018-04-17 18:59] LABS: ANION GAP 18 (6-14); BLOOD UREA NITROGEN 15 mg/dL (7-20); CALCIUM 8.1 mg/dL (8.5-10.1); CARBON DIOXIDE 17 mmol/L (21-32); CHLORIDE 99 mmol/L (98-107); CREATININE 0.7 mg/dL (0.6-1.0); GFR 85.6; GLUCOSE 331 mg/dL (70-99); MAGNESIUM 1.7 mg/dL (1.8-2.4); SODIUM 134 mmol/L (136-145)
[2018-04-17 19:08] LABS: LACTIC ACID 1.2 mmol/L (0.4-2.0)
[2018-04-17 19:50] LABS: TROPONINI 0.047 ng/mL (0.000-0.055)
[2018-04-17 20:23] LABS: POC GLUCOSE 410 mg/dL (70-99)
[2018-04-17] MEDS: PANTOPRAZOLE 40 MG TABLET.DR. PO (20:58)
[2018-04-17] MEDS ORDERED: ONDANSETRON PF 4 MG/2 ML VIAL. IV (21:30)
[2018-04-17] MEDS: PHENYTOIN SODIUM EXTENDED 100 MG CAPSULE PO (21:40)
[2018-04-17] MEDS: LACOSAMIDE 50 MG TABLET PO (21:41)
[2018-04-17] MEDS: levETIRAcetam 250 MG TABLET PO (21:41)
[2018-04-17] MEDS: INSULIN GLARGINE 300 UNITS/3 ML INSULN.PEN. SQ (21:42)
[2018-04-17] MEDS: INSULIN REGULAR VIAL 150 UNIT in 0.9 % SODIUM CHLORIDE 150ML 150 ML IV (22:57)
[2018-04-17] MEDS: IV 1/2 NORMAL SALINE 1,000 ML IV (23:54)
[2018-04-18 00:55] LABS: POC GLUCOSE 410 mg/dL (70-99)
[2018-04-18 00:55] LABS: POC GLUCOSE 343 mg/dL (70-99)
[2018-04-18 00:55] LABS: POC GLUCOSE 294 mg/dL (70-99)
[2018-04-18 00:55] LABS: POC GLUCOSE 375 mg/dL (70-99)
[2018-04-18 03:55] LABS: MAGNESIUM 1.7 mg/dL (1.8-2.4)
[2018-04-18 05:38] LABS: TROPONINI 0.047 ng/mL (0.000-0.055)
[2018-04-18] MEDS: DEXTROSE 50% 25 GM / 50ML DISP.SYRIN. IV (05:51)
[2018-04-18] MEDS: LEVOTHYROXINE 137 MCG TABLET PO (06:24)
[2018-04-18] MEDS: INSULIN LISPRO 300 UNITS/3 ML INSULN.PEN. SQ ×6 (08:00→16:58)
[2018-04-18] MEDS: LACOSAMIDE 50 MG TABLET PO ×2 (08:11→20:58)
[2018-04-18] MEDS: amLODIPine BESYLATE 10 MG TABLET PO (08:11)
[2018-04-18] MEDS: levETIRAcetam 250 MG TABLET PO ×2 (08:11→20:59)
[2018-04-18] MEDS: GABAPENTIN 300 MG CAPSULE. PO ×3 (08:11→20:58)
[2018-04-18] MEDS: PANTOPRAZOLE 40 MG TABLET.DR. PO (08:11)
[2018-04-18] MEDS: POLYETHYLENE GLYCOL 3350 17 GM PACKET. PO (08:11)
[2018-04-18 08:13] LABS: POC GLUCOSE 126 mg/dL (70-99)
[2018-04-18 08:13] LABS: POC GLUCOSE 91 mg/dL (70-99)
[2018-04-18 08:13] LABS: POC GLUCOSE 241 mg/dL (70-99)
[2018-04-18 08:13] LABS: POC GLUCOSE 177 mg/dL (70-99)
[2018-04-18 08:13] LABS: POC GLUCOSE 82 mg/dL (70-99)
[2018-04-18 08:13] LABS: POC GLUCOSE 68 mg/dL (70-99)
[2018-04-18 08:14] LABS: POC GLUCOSE 90 mg/dL (70-99)
[2018-04-18] MEDS: MAGNESIUM SULFATE 2GM 50 ML IV (09:31)
[2018-04-18] MEDS: IV NORMAL SALINE 1000ML BAG 1,000 ML IV (09:58)
[2018-04-18 10:57] LABS: HEMATOCRIT 23.9 % (36.0-47.0); HEMOGLOBIN 7.5 g/dL (12.0-15.5); MEAN CORPUSCULAR HEMOGLOBIN 24 pg (25-35); MEAN CORPUSCULAR HGB CONC 31 g/dL (31-37); MEAN CORPUSCULAR VOLUME 77 fL (79-100); PLATELET COUNT 331 x10^3/uL (140-400); RED BLOOD COUNT 3.11 x10^6/uL (3.50-5.40); WHITE BLOOD COUNT 9.8 x10^3/uL (4.0-11.0)
[2018-04-18 11:04] LABS: ALBUMIN 2.7 g/dL (3.4-5.0); ALBUMIN/GLOBULIN RATIO 0.9 (1.0-1.7); ALK PHOS 137 U/L (46-116); ALT (SGPT) 25 U/L (14-59); AST (SGOT) 32 U/L (15-37); CHLORIDE 105 mmol/L (98-107); CREATININE 0.8 mg/dL (0.6-1.0); GFR 73.4; POTASSIUM 3.8 mmol/L (3.5-5.1); TOTAL BILIRUBIN 0.2 mg/dL (0.2-1.0); TOTAL PROTEIN 5.7 g/dL (6.4-8.2)
[2018-04-18 11:07] LABS: ANION GAP 11 (6-14); BLOOD UREA NITROGEN 11 mg/dL (7-20); BUN/CREATININE RATIO 14 (6-20); CALCIUM 7.7 mg/dL (8.5-10.1); CARBON DIOXIDE 20 mmol/L (21-32); GLUCOSE 158 mg/dL (70-99); SODIUM 136 mmol/L (136-145)
[2018-04-18 11:38] LABS: POC GLUCOSE 156 mg/dL (70-99)
[2018-04-18] MEDS: ENOXAPARIN 40 MG/0.4 ML SYRINGE. SQ (14:27)
[2018-04-18 16:08] LABS: POC GLUCOSE 170 mg/dL (70-99)
[2018-04-18] MEDS: PHENYTOIN SODIUM EXTENDED 100 MG CAPSULE PO (20:58)
[2018-04-18] MEDS: INSULIN GLARGINE 300 UNITS/3 ML INSULN.PEN. SQ (21:00)
[2018-04-18 21:10] LABS: POC GLUCOSE 179 mg/dL (70-99)
[2018-04-18] MEDS: FLUCONAZOLE 100 MG TABLET. PO (23:04)
[2018-04-18 23:08] LABS: HEMOGLOBIN A1C 8.5 % (4.8-5.6)
[2018-04-19] MEDS: LEVOTHYROXINE 137 MCG TABLET PO (06:09)
[2018-04-19] MEDS: REGADENOSON 0.4 MG/5 ML DISP.SYRIN. IV (08:45)
[2018-04-19 09:09] LABS: ADD MAN DIFF? NO
[2018-04-19 09:14] LABS: BASO % 1 % (0-3); EOS # 0.2 x10^3/uL (0.0-0.7); EOS % 4 % (0-3); HEMOGLOBIN 8.6 g/dL (12.0-15.5); LYMPH # 1.1 x10^3/uL (1.0-4.8); LYMPH % 23 % (24-48); MEAN CORPUSCULAR HEMOGLOBIN 24 pg (25-35); MEAN CORPUSCULAR HGB CONC 32 g/dL (31-37); MEAN CORPUSCULAR VOLUME 75 fL (79-100); MONO # 0.4 x10^3/uL (0.0-1.1); MONO % 8 % (0-9); NEUT % 65 % (31-73); PLATELET COUNT 328 x10^3/uL (140-400); RED CELL DISTRIBUTION WIDTH 19.2 % (11.5-14.5); WHITE BLOOD COUNT 4.6 x10^3/uL (4.0-11.0)
[2018-04-19 09:39] LABS: ALBUMIN 2.8 g/dL (3.4-5.0); ALBUMIN/GLOBULIN RATIO 0.8 (1.0-1.7); ALK PHOS 172 U/L (46-116); ALT (SGPT) 31 U/L (14-59); ANION GAP 9 (6-14); AST (SGOT) 37 U/L (15-37); BLOOD UREA NITROGEN 6 mg/dL (7-20); BUN/CREATININE RATIO 10 (6-20); CALCIUM 7.4 mg/dL (8.5-10.1); CARBON DIOXIDE 22 mmol/L (21-32); CHLORIDE 105 mmol/L (98-107); CHOLESTEROL 151 mg/dL (0-200); CREATININE 0.6 mg/dL (0.6-1.0); GFR 102.3; GLUCOSE 306 mg/dL (70-99); HDLC 77 mg/dL (40-60); LDLC 61 mg/dL (0-100); MAGNESIUM 1.8 mg/dL (1.8-2.4); NON-HDL CHOLESTEROL 74 mg/dL (0-129); POTASSIUM 5.1 mmol/L (3.5-5.1); SODIUM 136 mmol/L (136-145); TOTAL BILIRUBIN 0.2 mg/dL (0.2-1.0); TOTAL PROTEIN 6.1 g/dL (6.4-8.2); TRIGLYCERIDES 67 mg/dL (0-150); VLDLC 13 mg/dL (0-40)
[2018-04-19 10:06] LABS: POC GLUCOSE 277 mg/dL (70-99)
[2018-04-19] MEDS: levETIRAcetam 250 MG TABLET PO (10:21)
[2018-04-19] MEDS: GABAPENTIN 300 MG CAPSULE. PO ×2 (10:22→15:09)
[2018-04-19] MEDS: PANTOPRAZOLE 40 MG TABLET.DR. PO (10:22)
[2018-04-19] MEDS: LACOSAMIDE 50 MG TABLET PO (10:22)
[2018-04-19] MEDS: amLODIPine BESYLATE 10 MG TABLET PO (10:23)
[2018-04-19] MEDS: POLYETHYLENE GLYCOL 3350 17 GM PACKET. PO (10:25)
[2018-04-19] MEDS: INSULIN LISPRO 300 UNITS/3 ML INSULN.PEN. SQ ×7 (10:29→17:00)
[2018-04-19] MEDS ORDERED: DEXTROSE 50% 25 GM / 50ML DISP.SYRIN. IV (13:00)
[2018-04-19 13:53] LABS: POC GLUCOSE 300 mg/dL (70-99)
[2018-04-19] MEDS: ENOXAPARIN 40 MG/0.4 ML SYRINGE. SQ (16:00)
[2018-04-19] MEDS ORDERED: metFORMIN 500 MG TABLET PO (17:00)
[2018-04-19 17:23] LABS: POC GLUCOSE 125 mg/dL (70-99)
[2018-04-19 18:26] LABS: ANION GAP 7 (6-14); BLOOD UREA NITROGEN 8 mg/dL (7-20); CALCIUM 8.9 mg/dL (8.5-10.1); CARBON DIOXIDE 27 mmol/L (21-32); CHLORIDE 103 mmol/L (98-107); CREATININE 0.8 mg/dL (0.6-1.0); GFR 73.4; GLUCOSE 86 mg/dL (70-99); SODIUM 137 mmol/L (136-145)
[2018-04-19 18:33] LABS: POTASSIUM 4.1 mmol/L (3.5-5.1)
[2018-04-19 21:03] LABS: POC GLUCOSE 390 mg/dL (70-99)
== END 2018-04-19 19:15 | disposition home or self-care (01) | DRG 638 ==
LOC: 2 SOUTH 04-18 23:48 → ER 10:32 → 1 WEST ICU 12:20
DX: E11.10 Type 2 diabetes mellitus with ketoacidosis without coma (principal); R65.10 Systemic inflammatory response syndrome (SIRS) of non-infectious origin without acute organ dysfunction; E87.0 Hyperosmolality and hypernatremia; R07.89 Other chest pain; I10 Essential (primary) hypertension; Z79.4 Long term (current) use of insulin; Z91.19 Patient's noncompliance with other medical treatment and regimen; F41.9 Anxiety disorder, unspecified; E78.5 Hyperlipidemia, unspecified; E03.9 Hypothyroidism, unspecified; K21.9 Gastro-esophageal reflux disease without esophagitis; G62.9 Polyneuropathy, unspecified; F32.9 Major depressive disorder, single episode, unspecified; G89.29 Other chronic pain; Z90.49 Acquired absence of other specified parts of digestive tract; Z82.49 Family history of ischemic heart disease and other diseases of the circulatory system; Z83.3 Family history of diabetes mellitus; L73.2 Hidradenitis suppurativa; Z85.528 Personal history of other malignant neoplasm of kidney; Z90.5 Acquired absence of kidney; D64.9 Anemia, unspecified
CPT/HCPCS: 36415; 36600; 71045; 74177; 78452; 80048; 80053; 80061; 81001; 82805; 82962; 83036; 83605; 83690; 83735; 84100; 84484; 85007; 85025; 85027; 87040; 93005; 93017; 96361; 96374; 96375; 96376; 97161-GP; 99285-25; A9500; J1650; J1815; J2785; J3475; J7030; J7042; Q9967

== ENCOUNTER 2018-10-08 12:07 | Emergency (ER) | payer OTHER ==
[~2018-10-08] VITALS: Ht 157.5 cm; Wt 68.0 kg
[~2018-10-08 12:07] MED LIST changes: +AMLO10TA6 PO; +ATOR10TA60 PO; +HYDR-3164 PO; -HYDR-971 PO; +METF500T16 PO; -METF500T4 PO; +NAPR-514 PO; -NAPR500T4 PO; +OXYC-328 PO; -POLY255P PO; +POLY255P11 PO
[2018-10-08] MEDS ORDERED: cloNIDine HCL 0.1 MG TABLET PO ONE (13:15)
[2018-10-08 14:01] LABS: BILIRUBIN,URINE NEGATIVE (NEG); CLARITY,URINE CLEAR; COLOR,URINE YELLOW; NITRITE,URINE NEGATIVE (NEG); PH,URINE 7.5; PROTEIN,URINE NEGATIVE (NEG-TRACE)
[2018-10-08 14:06] LABS: BASO # 0.1 x10^3/uL (0.0-0.2); BASO % 1 % (0-3); EOS # 0.2 x10^3/uL (0.0-0.7); EOS % 1 % (0-3); HEMATOCRIT 41.5 % (36.0-47.0); HEMOGLOBIN 14.3 g/dL (12.0-15.5); LYMPH # 1.2 x10^3/uL (1.0-4.8); LYMPH % 11 % (24-48); MEAN CORPUSCULAR HEMOGLOBIN 33 pg (25-35); MEAN CORPUSCULAR HGB CONC 34 g/dL (31-37); MEAN CORPUSCULAR VOLUME 96 fL (79-100); MONO # 0.3 x10^3/uL (0.0-1.1); MONO % 3 % (0-9); NEUT # 9.8 x10^3uL (1.8-7.7); NEUT % 85 % (31-73); PLATELET COUNT 247 x10^3/uL (140-400); RED BLOOD COUNT 4.33 x10^6/uL (3.50-5.40); RED CELL DISTRIBUTION WIDTH 14.8 % (11.5-14.5); WHITE BLOOD COUNT 11.6 x10^3/uL (4.0-11.0)
[2018-10-08 14:08] LABS: BACTERIA,URINE 0 /HPF (0-FEW); RBC,URINE 0 /HPF (0-2); SQUAMOUS EPITHELIAL CELL,UR FEW /LPF; WBC,URINE 0 /HPF (0-4)
[2018-10-08 14:20] LABS: CALCIUM 9.4 mg/dL (8.5-10.1); CREATININE 0.8 mg/dL (0.6-1.0); GFR 73.4; POTASSIUM 4.4 mmol/L (3.5-5.1)
[2018-10-08 14:27] LABS: ALBUMIN/GLOBULIN RATIO 1.1 (1.0-1.7); TOTAL BILIRUBIN 0.3 mg/dL (0.2-1.0); TOTAL PROTEIN 7.7 g/dL (6.4-8.2)
[2018-10-08] MEDS ORDERED: IV NORMAL SALINE 1000ML BAG 1,000 ML IV ONE (14:45)
[2018-10-08 15:02] LABS: PHENY 19.5 mcg/mL (10.0-20.0)
--- NOTE | 2018-10-08 17:31 | RAD ---
PQRS Compliance statement: One or more of the following individualized dose reduction techniques were utilized for this examination: 1. Automated exposure control. 2. Adjustment of the mA and/or kV according to patient size. 3. Use of iterative reconstruction technique. Indication:FALL, SEIZURE, extreme AMS TECHNIQUE: CT head without IV contrast COMPARISON:04/02/2018 FINDINGS: no pathologic extra-axial or intra-axial fluid collection. The ventricles and basal cisterns are within normal limits. No acute intracranial bleed. No focal loss of lancaster-white differentiation. Orbits are within normal limits. No suspicious calvarial lesion. Visualized paranasal sinuses and mastoid air cells are clear. IMPRESSION: No acute intracranial process. If concern for acute ischemic stroke is high, please consider MRI brain. Electronically signed by: Seb Beltran DO (10/08/2018 5:27 PM) [facility]
--- NOTE | 2018-10-08 17:43 | PHYS DOC ---
Past Medical History Past Medical History: Constipation, Diabetes-Type II, Hypertension, Hypothyroid , Seizure, Other Additional Past Medical Histor: Abd pain,Neuropathy,Insomnia,Chronic pain Past Surgical History: Cholecystectomy, Other Additional Past Surgical Histo: "top of kidney","throat",NOS,R)foot. Alcohol Use: None Drug Use: None Adult General Chief Complaint Chief Complaint: SEIZURE HPI HPI Patient is a 58 year old female who presents with reported seizure at home. The patient did seem to be postictal upon arrival in the ED. She is not answering questions. Vital signs are stable. Review of Systems Review of Systems Unable to assess. All other systems were reviewed and found to be within normal limits, except as documented in this note. Current Medications Current Medications Current Medications Medications (Trade) Dose Ordered Sig/Khang Start Time Stop Time Status Last Admin Dose Admin Clonidine HCl (Catapres) 0.1 mg 1X ONCE 10/08/18 13:15 10/08/18 13:48 DC Sodium Chloride 1,000 ml @ 1,000 mls/hr 1X ONCE 10/08/18 14:45 10/08/18 15:44 DC 10/08/18 14:41 1,000 MLS/HR Allergies Allergies Allergies Coded Allergies Type Severity Reaction Last Updated Verified I S O L A T I O N *CONTACT* Allergy Unknown 04/05/18 Yes No Known Medication Allergies Allergy Unknown 04/05/18 Yes Physical Exam Physical Exam Constitutional: Well developed, well nourished, no acute distress, non-toxic appearance. [] HENT: Normocephalic, atraumatic, bilateral external ears normal, oropharynx moist, no oral exudates, nose normal. [] Eyes: PERRLA, EOMI, conjunctiva normal, no discharge. [] Neck: Normal range of motion, no tenderness, supple, no stridor. [] Cardiovascular:Heart rate regular rhythm, no murmur [] Lungs & Thorax: Bilateral breath sounds clear to auscultation [] Abdomen: Bowel sounds normal, soft, no tenderness, no masses, no pulsatile masses. [] Skin: Warm, dry, no erythema, no rash. [] Neurologic: Alert and oriented, normal motor function, normal sensory function, no focal deficits noted. [] Psychologic: Affect flat, judgement normal, mood depressed. [] Current Patient Data Vital Signs Vital Signs Date Time Temp Pulse Resp B/P (MAP) Pulse Ox O2 Delivery O2 Flow Rate FiO2 10/08/18 18:32 92 18 97 10/08/18 12:07 98.0 157/72 (100) Room Air 98.0 Lab Values Laboratory Tests Test 10/08/18 12:55 10/08/18 13:40 10/08/18 14:37 Urine Collection Type Unknown Urine Color Yellow Urine Clarity Clear Urine pH 7.5 Urine Specific [place] >=1.030 Urine Protein Negative mg/dL (NEG-TRACE) Urine Glucose (UA) >=1000 mg/dL (NEG) Urine Ketones (Stick) 15 mg/dL (NEG) Urine Blood Negative (NEG) Urine Nitrite Negative (NEG) Urine Bilirubin Negative (NEG) Urine Urobilinogen Dipstick 1.0 mg/dL (0.2 mg/dL) Urine Leukocyte Esterase Negative (NEG) Urine RBC 0 /HPF (0-2) Urine WBC 0 /HPF (0-4) Urine Squamous Epithelial Cells Few /LPF Urine Bacteria 0 /HPF (0-FEW) White Blood Count 11.6 x10^3/uL (4.0-11.0) H Red Blood Count 4.33 x10^6/uL (3.50-5.40) Hemoglobin 14.3 g/dL (12.0-15.5) Hematocrit 41.5 % (36.0-47.0) Mean Corpuscular Volume 96 fL (79-100) Mean Corpuscular Hemoglobin 33 pg (25-35) Mean Corpuscular Hemoglobin Concent 34 g/dL (31-37) Red Cell Distribution Width 14.8 % (11.5-14.5) H Platelet Count 247 x10^3/uL (140-400) Neutrophils (%) (Auto) 85 % (31-73) H Lymphocytes (%) (Auto) 11 % (24-48) L Monocytes (%) (Auto) 3 % (0-9) Eosinophils (%) (Auto) 1 % (0-3) Basophils (%) (Auto) 1 % (0-3) Neutrophils # (Auto) 9.8 x10^3uL (1.8-7.7) H Lymphocytes # (Auto) 1.2 x10^3/uL (1.0-4.8) Monocytes # (Auto) 0.3 x10^3/uL (0.0-1.1) Eosinophils # (Auto) 0.2 x10^3/uL (0.0-0.7) Basophils # (Auto) 0.1 x10^3/uL (0.0-0.2) Sodium Level 136 mmol/L (136-145) Potassium Level 4.4 mmol/L (3.5-5.1) Chloride Level 98 mmol/L (98-107) Carbon Dioxide Level 29 mmol/L (21-32) Anion Gap 9 (6-14) Blood Urea Nitrogen 17 mg/dL (7-20) Creatinine 0.8 mg/dL (0.6-1.0) Estimated GFR (Cockcroft-Gault) 73.4 BUN/Creatinine Ratio 21 (6-20) H Glucose Level 420 mg/dL (70-99) H Calcium Level 9.4 mg/dL (8.5-10.1) Total Bilirubin 0.3 mg/dL (0.2-1.0) Aspartate Amino Transferase (AST) 17 U/L (15-37) Alanine Aminotransferase (ALT) 26 U/L (14-59) Alkaline Phosphatase 172 U/L (46-116) H Total Protein 7.7 g/dL (6.4-8.2) Albumin 4.0 g/dL (3.4-5.0) Albumin/Globulin Ratio 1.1 (1.0-1.7) Phenytoin (Dilantin) Level 19.5 mcg/mL (10.0-20.0) Phenytoin Last Dose Date 10/08/18 Phenytoin Last Dose Time 0900 Glucose (Fingerstick) 341 mg/dL (70-99) H Laboratory Tests 10/08/18 13:40 Laboratory Tests 10/08/18 13:40 EKG EKG [] Radiology/Procedures Radiology/Procedures []PATIENT: ALIVIA WILDER MACCOUNT: [id number]#: [id number] : 1960 LOCATION: ER AGE: 58 SEX: F EXAM STATUS: REG ER ORD. PHYSICIAN: TIMMY SANTIAGO APRN REASON: seizure, fall PROCEDURE: CT HEAD WO CONTRAST PQRS Compliance statement: One or more of the following individualized dose reduction techniques were utilized for this examination: 1. Automated exposure control. 2. Adjustment of the mA and/or kV according to patient size. 3. Use of iterative reconstruction technique. Indication:FALL, SEIZURE, extreme AMS TECHNIQUE: CT head without IV contrast COMPARISON:04/02/2018 FINDINGS: no pathologic extra-axial or intra-axial fluid collection. The ventricles and basal cisterns are within normal limits. No acute intracranial bleed. No focal loss of lancaster-white differentiation. Orbits are within normal limits. No suspicious calvarial lesion. Visualized paranasal sinuses and mastoid air cells are clear. IMPRESSION: No acute intracranial process. If concern for acute ischemic stroke is high, please consider MRI brain. Electronically signed by: Seb Beltran DO (10/08/2018 5:27 PM) [facility] DICTATED and SIGNED BY: SEB BELTRAN DO DATE: 10/08/181724 Course & Med Decision Making Course & Med Decision Making Pertinent Labs and Imaging studies reviewed. (See chart for details) []Reassessment of the patient after she began speaking shows that her cranial nerves II through XII are grossly intact. After the patient was informed that she was being discharged home she ripped out her IV, took her pillow and went and laid on the floor. She had last repeatedly while she was here where her boyfriend was. She seems very angry that he has not appeared at the hospital to see her. She is now refusing to answer any further questions. We did place her back in the bed. She is completely uncommunicative and will not make eye contact now. I explained to her that with her changes in behavior coupled with the seizure would have to do a head CT. She refuses to answer. We will proceed with a head CT. After her boyfriend. In the emergency department the patient is now speaking. Her CT was normal. She is being discharged home. Dragon Disclaimer Dragon Disclaimer This electronic medical record was generated, in whole or in part, using a voice recognition dictation system. Departure Departure Impression: Primary Impression: Seizure Disposition: 01 HOME, SELF-CARE Condition: STABLE Referrals: KAYLAN STAHL M.D. (PCP) Patient Instructions: Seizure, Adult Additional Instructions: Continue to take your at-home medications as directed. Follow-up with your primary care provider in 3 days for recheck. If worsening return to the emergency department. TIMMY SANTIAGO SIZER HAND Oct 08, 2018 17:43
[2018-10-08 18:32] VITALS: BP 149/65
--- NOTE | 2018-10-09 16:32 | EKG ---
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
== END 2018-10-08 18:34 | disposition home or self-care (01) ==
LOC: ER 12:07
DX: R56.9 Unspecified convulsions (principal); R41.82 Altered mental status, unspecified; E03.9 Hypothyroidism, unspecified; E11.40 Type 2 diabetes mellitus with diabetic neuropathy, unspecified; I10 Essential (primary) hypertension; G89.29 Other chronic pain; Z90.49 Acquired absence of other specified parts of digestive tract; Z91.041 Radiographic dye allergy status
CPT/HCPCS: 36415; 70450; 80053; 80185; 81001; 82962; 85025; 93005; 96360; 99284; J7030

== ENCOUNTER 2018-11-10 14:39 | Emergency (ER) | payer OTHER ==
[~2018-11-10] VITALS: Ht 157.5 cm; Wt 58.5 kg
[~2018-11-10 14:39] MED LIST changes: -HYDR-2758 PO; +HYDR-2761 PO; -LINA290C PO; +LINZESS290 MCG PO; -OXYC-323 PO; -OXYC-328 PO; +OXYC1TAB15 PO; +OXYC1TAB22 PO
--- NOTE | 2018-11-10 15:37 | PHYS DOC ---
Past Medical History Past Medical History: Constipation, Diabetes-Type II, Hypertension, Hypothyroid , Seizure, Other Additional Past Medical Histor: Abd pain,Neuropathy,Insomnia,Chronic pain Past Surgical History: Cholecystectomy, Other Additional Past Surgical Histo: "top of kidney","throat",NOS,R)foot. Alcohol Use: None Drug Use: None Adult General Chief Complaint Chief Complaint: CONSTIPATION HPI HPI Patient is a 58 year old female with history of constipation, diabetes type 2, seizures, hypothyroidism, who presents today complaining of constipation, patient states she's not had a normal bowel movement since the beginning of the month. Denies any nausea vomiting, she states she's been using"this powder stuff "and pills with no relief. She states she take pain medicine but does not know/ remember the name Review of Systems Review of Systems Constitutional: Denies fever or chills [] Eyes: Denies change in visual acuity, redness, or eye pain [] HENT: Denies nasal congestion or sore throat [] Respiratory: Denies cough or shortness of breath [] Cardiovascular: No additional information not addressed in HPI [] GI: Reports constipation, denies, nausea, vomiting, bloody stools or diarrhea [] : Denies dysuria or hematuria [] Musculoskeletal: Denies back pain or joint pain [] Integument: Denies rash or skin lesions [] Neurologic: Denies headache, focal weakness or sensory changes [] All other systems were reviewed and found to be within normal limits, except as documented in this note. Current Medications Current Medications Current Medications Medications (Trade) Dose Ordered Sig/Khang Start Time Stop Time Status Last Admin Dose Admin Magnesium Citrate (Citroma) 296 ml 1X ONCE 11/10/18 16:30 11/10/18 16:31 DC 11/10/18 16:20 296 ML Methylnaltrexone [place] (Relistor) 12 mg 1X ONCE 11/10/18 16:30 11/10/18 16:31 DC 11/10/18 16:20 12 MG Allergies Allergies Allergies Coded Allergies Type Severity Reaction Last Updated Verified I S O L A T I O N *CONTACT* Allergy Unknown 04/05/18 Yes No Known Medication Allergies Allergy Unknown 04/05/18 Yes Physical Exam Physical Exam Constitutional: Well developed, well nourished, no acute distress, non-toxic appearance. [] HENT: Normocephalic, atraumatic, bilateral external ears normal, oropharynx moist, no oral exudates, nose normal. [] Eyes: PERRLA, EOMI, conjunctiva normal, no discharge. [] Neck: Normal range of motion, no tenderness, supple, no stridor. [] Cardiovascular:Heart rate regular rhythm, no murmur [] Lungs & Thorax: Bilateral breath sounds clear to auscultation [] Abdomen: Bowel sounds normal, soft, no tenderness, no masses, no pulsatile masses. [] Rectal exam External rectum with small amount of non-thrombosed external hemorrhoids. No internal hemorrhoids. No signs stool masses/blockage on the lower rectum. Skin: Warm, dry, no erythema, no rash. [] Back: No tenderness, no CVA tenderness. [] Extremities: No tenderness, no cyanosis, no clubbing, ROM intact, no edema. [] Neurologic: Alert and oriented X 3, normal motor function, normal sensory function, no focal deficits noted. [] Psychologic: Affect normal, judgement normal, mood normal. [] Current Patient Data Vital Signs Vital Signs Date Time Temp Pulse Resp B/P (MAP) Pulse Ox O2 Delivery O2 Flow Rate FiO2 11/10/18 16:47 98.9 74 16 118/60 (79) 95 Room Air 98.9 EKG EKG [] Radiology/Procedures Radiology/Procedures []PROCEDURE: VIJAY LINARES, 11/10/2018: HISTORY: Abdominal pain, constipation There is a large amount of stool throughout the colon. There is no evidence organomegaly. Scattered vascular calcifications are present. There is a surgical clip along the medial aspect of the left kidney. Mild degenerative changes are evident in the spine. IMPRESSION: Large amount of retained stool throughout the colon. Electronically signed by: Tonny Small MD (11/10/2018 3:54 PM) [facility] DICTATED and SIGNED BY: TONNY SMALL MD DATE: 11/10/18 2032 Course & Med Decision Making Course & Med Decision Making Pertinent Labs and Imaging studies reviewed. (See chart for details) This is a 58-year-old female patient presenting to the ED today complaining of constipation. Apparently her last bowel movement was the beginning of this month. She has no nausea vomiting. Well known to this ED for constipation mostly narcotic induced. She states she takes pain medicine but she could not remember the names. KUB noted for- Large amount of retained stool throughout the colon. Patient was given Rosteril IM as well as magnesium citrate. She was discharged to home. We talked about staying away from pain pills, we talked about increasing dietary as well as water intake. We talked about following up with the PCP. Encouraged her to take MiraLAX every day and magnesium citrate every day and today she has a normal bowel movement. She is in no distress, she has no nausea or vomiting. She has been tolerating all her meals with no difficulties. Staff Physician Addendum: I was working in the ER during the course of this patient's visit. I was available for consultation as needed, but I was not directly involved in the care of this patient. Dragon Disclaimer Dragon Disclaimer This electronic medical record was generated, in whole or in part, using a voice recognition dictation system. Departure Departure Impression: Primary Impression: Constipation Disposition: HOME, SELF-CARE Condition: STABLE Referrals: RUDDY CALHOUN MD (PCP) Follow-up with your doctor in the course of this week or next week. MARISABEL HAYES MD follow-up in the course of this week or next week Patient Instructions: Constipation, Adult Additional Instructions: You were evaluated in the emergency room for constipation. We encourage you to continue using MiraLAX every day. Take magnesium citrate every day until you have a normal bowel movement. Consider performing an enema. Consider increasing dietary fiber as well as water intake. Consider not taking any pain pills especially narcotics. Scripts Magnesium Citrate (MAGNESIUM CITRATE) 296 Ml Solution 296 ML PO ONCE, #296 ML Prov: ALOK TOM APRN 11/10/18 Problem Qualifiers Primary Impression: Constipation Constipation type: drug induced constipation Qualified Codes: K59.03 - Drug induced constipation ALOK TOM APRN Nov 10, 2018 15:37 ZAHIRA GALLARDO MD Nov 10, 2018 18:03
--- NOTE | 2018-11-10 15:58 | RAD ---
KUB, 11/10/2018: HISTORY: Abdominal pain, constipation There is a large amount of stool throughout the colon. There is no evidence organomegaly. Scattered vascular calcifications are present. There is a surgical clip along the medial aspect of the left kidney. Mild degenerative changes are evident in the spine. IMPRESSION: Large amount of retained stool throughout the colon. Electronically signed by: Tonny Small MD (11/10/2018 3:54 PM) [facility]
[2018-11-10] MEDS ORDERED: MAGN296S9 PO (16:29)
[2018-11-10] MEDS ORDERED: MAGNESIUM CITRATE 296 ML SOLUTION. PO ONE (16:30)
[2018-11-10] MEDS ORDERED: METHYLNALTREXONE 12 MG/0.6 ML VIAL. SQ ONE (16:30)
[2018-11-10 16:47] VITALS: BP 118/60
== END 2018-11-10 16:55 | disposition home or self-care (01) ==
LOC: ER 14:39
DX: K59.03 Drug induced constipation (principal); K64.4 Residual hemorrhoidal skin tags; I10 Essential (primary) hypertension; E03.9 Hypothyroidism, unspecified; E11.40 Type 2 diabetes mellitus with diabetic neuropathy, unspecified; G89.29 Other chronic pain; Z91.040 Latex allergy status
CPT/HCPCS: 74018; 96372; 99283; J2212

== ENCOUNTER 2019-03-06 10:54 | Emergency (ER) | payer MEDICAID, OTHER ==
[~2019-03-06] VITALS: Ht 157.5 cm; Wt 54.0 kg
[~2019-03-06 10:54] MED LIST changes: -AMLO10TA6 PO; +AMLO10TA8 PO; -GABA600T2 PO; +GABA600T7 PO; +MAGN296S9 PO
[2019-03-06] MEDS ORDERED: KETOROLAC 30 MG/ML VIAL. IV ONE (11:45)
[2019-03-06 11:47] LABS: BASO # 0.1 x10^3/uL (0.0-0.2); BASO % 1 % (0-3); EOS # 0.2 x10^3/uL (0.0-0.7); EOS % 4 % (0-3); HEMOGLOBIN 13.3 g/dL (12.0-15.5); LYMPH # 1.5 x10^3/uL (1.0-4.8); LYMPH % 33 % (24-48); MEAN CORPUSCULAR HEMOGLOBIN 32 pg (25-35); MEAN CORPUSCULAR HGB CONC 33 g/dL (31-37); MEAN CORPUSCULAR VOLUME 95 fL (79-100); MONO # 0.3 x10^3/uL (0.0-1.1); MONO % 8 % (0-9); NEUT # 2.4 x10^3uL (1.8-7.7); NEUT % 54 % (31-73); PLATELET COUNT 227 x10^3/uL (140-400); RED BLOOD COUNT 4.21 x10^6/uL (3.50-5.40); RED CELL DISTRIBUTION WIDTH 13.6 % (11.5-14.5); WHITE BLOOD COUNT 4.4 x10^3/uL (4.0-11.0)
--- NOTE | 2019-03-06 11:47 | PHYS DOC ---
Past Medical History Past Medical History: Diabetes-Type II, High Cholesterol, Seizure Additional Past Medical Histor: Abd pain,Neuropathy,Insomnia,Chronic pain Past Surgical History: Other Additional Past Surgical Histo: Left shoulder and right kidney surgeries Alcohol Use: None Drug Use: None Adult General Chief Complaint Chief Complaint: CHEST PAIN [facility] HPI Patient is a 59 year old female who presents with complaining of chest and abdominal pain. Patient states she woke up at 0645 today without having any pain at around 7 AM she has sudden onset of pain in substernal and left side of chest and bilateral upper abdomen as a constant pain without radiation. Patient rated her pain 10 over 10 and denies shortness of breath, nausea, dizziness, fever and chills. Patient complaining of palpitation. Patient states she took a couple of Tylenol without change of her pain. Patient states she has had episodes of the same pain for several months that happened usually daily but today her pain was worse than her usual. Patient denies history of coronary artery disease and smoking and family history of coronary artery disease. Patient is a poor history because of mentally challenged condition. Review of Systems Review of Systems Constitutional: Denies fever or chills [] Eyes: Denies change in visual acuity, redness, or eye pain [] HENT: Denies nasal congestion or sore throat [] Respiratory: Denies cough or shortness of breath [] Cardiovascular: No additional information not addressed in HPI [] GI: Denies abdominal pain, nausea, vomiting, bloody stools or diarrhea [] : Denies dysuria or hematuria [] Musculoskeletal: Denies back pain or joint pain [] Integument: Denies rash or skin lesions [] Neurologic: Denies headache, focal weakness or sensory changes [] Endocrine: Denies polyuria or polydipsia [] All other systems were reviewed and found to be within normal limits, except as documented in this note. Current Medications Current Medications Current Medications Medications (Trade) Dose Ordered Sig/Khang Start Time Stop Time Status Last Admin Dose Admin Ketorolac Tromethamine (Toradol 30mg Vial) 30 mg 1X ONCE 03/06/19 11:45 03/06/19 11:46 DC 03/06/19 11:45 30 MG Allergies Allergies Allergies Coded Allergies Type Severity Reaction Last Updated Verified I S O L A T I O N *CONTACT* Allergy Unknown 04/05/18 Yes No Known Medication Allergies Allergy Unknown 04/05/18 Yes Physical Exam Physical Exam Constitutional: Well nourished, mild distress, non-toxic appearance. [] HENT: Normocephalic, atraumatic, oropharynx moist. Eyes: PERRLA, EOMI, conjunctiva normal, no discharge. [] Neck: Normal range of motion, no tenderness, supple, no stridor. [] Cardiovascular:Heart rate regular rhythm, no murmur [] Lungs & Thorax: Bilateral breath sounds clear to auscultation , reproducible left-sided chest pain[] Abdomen: Bowel sounds normal, soft, no tenderness, no masses, no pulsatile masses. [] Skin: Warm, dry, no erythema, no rash. [] Back: No tenderness, no CVA tenderness. [] Extremities: No tenderness, no cyanosis, no clubbing, ROM intact, no edema. [] Neurologic: Alert and oriented X 3, normal motor function, normal sensory function, no focal deficits noted. [] Psychologic: Affect anxious, keeps her eyes closed. Current Patient Data Vital Signs Vital Signs Date Time Temp Pulse Resp B/P (MAP) Pulse Ox O2 Delivery O2 Flow Rate FiO2 03/06/19 11:49 64 16 134/69 (90) 97 Room Air 03/06/19 11:28 98.1 98.1 Lab Values Laboratory Tests Test 03/06/19 11:20 03/06/19 11:56 White Blood Count 4.4 x10^3/uL (4.0-11.0) Red Blood Count 4.21 x10^6/uL (3.50-5.40) Hemoglobin 13.3 g/dL (12.0-15.5) Hematocrit 40.0 % (36.0-47.0) Mean Corpuscular Volume 95 fL (79-100) Mean Corpuscular Hemoglobin 32 pg (25-35) Mean Corpuscular Hemoglobin Concent 33 g/dL (31-37) Red Cell Distribution Width 13.6 % (11.5-14.5) Platelet Count 227 x10^3/uL (140-400) Neutrophils (%) (Auto) 54 % (31-73) Lymphocytes (%) (Auto) 33 % (24-48) Monocytes (%) (Auto) 8 % (0-9) Eosinophils (%) (Auto) 4 % (0-3) H Basophils (%) (Auto) 1 % (0-3) Neutrophils # (Auto) 2.4 x10^3uL (1.8-7.7) Lymphocytes # (Auto) 1.5 x10^3/uL (1.0-4.8) Monocytes # (Auto) 0.3 x10^3/uL (0.0-1.1) Eosinophils # (Auto) 0.2 x10^3/uL (0.0-0.7) Basophils # (Auto) 0.1 x10^3/uL (0.0-0.2) Sodium Level 137 mmol/L (136-145) Potassium Level 4.3 mmol/L (3.5-5.1) Chloride Level 101 mmol/L (98-107) Carbon Dioxide Level 31 mmol/L (21-32) Anion Gap 5 (6-14) L Blood Urea Nitrogen 14 mg/dL (7-20) Creatinine 0.8 mg/dL (0.6-1.0) Estimated GFR (Cockcroft-Gault) 73.2 BUN/Creatinine Ratio 18 (6-20) Glucose Level 208 mg/dL (70-99) H Calcium Level 9.1 mg/dL (8.5-10.1) Magnesium Level 1.9 mg/dL (1.8-2.4) Total Bilirubin 0.2 mg/dL (0.2-1.0) Aspartate Amino Transferase (AST) 19 U/L (15-37) Alanine Aminotransferase (ALT) 21 U/L (14-59) Alkaline Phosphatase 137 U/L (46-116) H Creatine Kinase 68 U/L (26-192) Troponin I Quantitative 0.039 ng/mL (0.000-0.055) OL-Bwr-M-Type Natriuretic Peptide 185 pg/mL (0-124) H Total Protein 7.3 g/dL (6.4-8.2) Albumin 3.9 g/dL (3.4-5.0) Albumin/Globulin Ratio 1.1 (1.0-1.7) Lipase 56 U/L (73-393) L Phenytoin (Dilantin) Level 16.9 mcg/mL (10.0-20.0) Phenytoin Last Dose Date 03/05/19 Phenytoin Last Dose Time 2100 Urine Collection Type Unknown Urine Color Yellow Urine Clarity Clear Urine pH 7.5 Urine Specific [place] 1.010 Urine Protein Negative mg/dL (NEG-TRACE) Urine Glucose (UA) Negative mg/dL (NEG) Urine Ketones (Stick) Negative mg/dL (NEG) Urine Blood Negative (NEG) Urine Nitrite Negative (NEG) Urine Bilirubin Negative (NEG) Urine Urobilinogen Dipstick 0.2 mg/dL (0.2 mg/dL) Urine Leukocyte Esterase Negative (NEG) Urine RBC 0 /HPF (0-2) Urine WBC 0 /HPF (0-4) Urine Squamous Epithelial Cells Few /LPF Urine Bacteria 0 /HPF (0-FEW) Laboratory Tests 03/06/19 11:20 Laboratory Tests 03/06/19 11:20 EKG EKG EKG interpreted by me. EKG at 1105 showed normal sinus rhythm at rate of 67, normal TN and QT intervals, poor R-wave progress in anteroseptal leads, no acute ST and T-wave abnormalities. Radiology/Procedures Radiology/Procedures [facility] [address] [place], [place] [id number] IMAGING REPORT Signed PATIENT: ALIVIA WILDER ACCOUNT: [id number] : 1960 LOCATION: ER AGE: 59 SEX: F EXAM STATUS: REG ER ORD. PHYSICIAN: KWAKU MAR MD REASON: chest pain PROCEDURE: CHEST PA & LATERAL CHEST PA LATERAL Technique: PA and lateral views of the chest were obtained. Clinical History: CHEST PAIN AND TROUBLE BREATHING. Comparison: April 17, 2018. Findings: The heart and pulmonary vasculature appear within normal limits. There is a calcified granuloma on the left and there is linear opacities in the left lung base. The pleural margins are clear. There has been prior left shoulder total reverse arthroplasty. Impression: Left basal infiltrate likely discoid atelectasis. Electronically signed by: Dontae Becerril III, MD (03/06/2019 12:26 PM) [id number] DICTATED and SIGNED BY: DONTAE BECERRIL III, MD DATE: 03/06/19 1226 Course & Med Decision Making Course & Med Decision Making Pertinent Labs and Imaging studies reviewed. (See chart for details) Evaluation of patient in ER showed 59-year-old male patient with complaining of intermittent episodes of left chest and upper abdomen pain for several months that getting worse today. Patient had reproducible left upper chest wall pain with unremarkable EKG, chest x-ray and labs. Patient treated with Trental helping the pain. Plan to discharge patient home with diagnosis of musculoskeletal chest pain and instruction to follow up with her primary care physician for chronic pain. Dragon Disclaimer Dragon Disclaimer This electronic medical record was generated, in whole or in part, using a voice recognition dictation system. Departure Departure Impression: Primary Impression: Musculoskeletal chest pain Additional Impressions: Seizure Diabetes mellitus Disposition: HOME, SELF-CARE (at 1306) Condition: IMPROVED Referrals: RUDDY CALHOUN MD (PCP) Patient Instructions: Chest Wall Pain Additional Instructions: Drink plenty of liquids Follow-up with your primary care physician in 3-5 days Return to ER if not getting better Scripts Cyclobenzaprine Hcl (CYCLOBENZAPRINE HCL) 10 Mg Tablet 1 TAB PO TID for muscle pain, #30 TAB Prov: KWAKU MAR MD 03/06/19 Problem Qualifiers Additional Impressions: Diabetes mellitus Diabetes mellitus type: other specified (including ALVIN) Diabetes mellitus nursing home insulin use: unspecified terminal worker insulin use status Diabetes mellitus complication status: with unspecified complications Qualified Codes: E13.8 - Other specified diabetes mellitus with unspecified complications KWAKU MAR MD Mar 06, 2019 11:47
[2019-03-06 11:52] LABS: ANION GAP 5 (6-14); BLOOD UREA NITROGEN 14 mg/dL (7-20); BUN/CREATININE RATIO 18 (6-20); CALCIUM 9.1 mg/dL (8.5-10.1); CARBON DIOXIDE 31 mmol/L (21-32); CHLORIDE 101 mmol/L (98-107); CREATININE 0.8 mg/dL (0.6-1.0); GFR 73.2; GLUCOSE 208 mg/dL (70-99); POTASSIUM 4.3 mmol/L (3.5-5.1); SODIUM 137 mmol/L (136-145)
[2019-03-06 11:58] LABS: ALBUMIN 3.9 g/dL (3.4-5.0); ALBUMIN/GLOBULIN RATIO 1.1 (1.0-1.7); ALK PHOS 137 U/L (46-116); ALT (SGPT) 21 U/L (14-59); AST (SGOT) 19 U/L (15-37); CREATINE KINASE 68 U/L (26-192); LIPASE 56 U/L (73-393); MAGNESIUM 1.9 mg/dL (1.8-2.4); PHENY 16.9 mcg/mL (10.0-20.0); TOTAL BILIRUBIN 0.2 mg/dL (0.2-1.0); TOTAL PROTEIN 7.3 g/dL (6.4-8.2)
--- NOTE | 2019-03-06 12:25 | EKG ---
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
--- NOTE | 2019-03-06 12:29 | RAD ---
CHEST PA LATERAL Technique: PA and lateral views of the chest were obtained. Clinical History: CHEST PAIN AND TROUBLE BREATHING. Comparison: April 17, 2018. Findings: The heart and pulmonary vasculature appear within normal limits. There is a calcified granuloma on the left and there is linear opacities in the left lung base. The pleural margins are clear. There has been prior left shoulder total reverse arthroplasty. Impression: Left basal infiltrate likely discoid atelectasis. Electronically signed by: Wade Dang III, MD (03/06/2019 12:26 PM) [id number]
[2019-03-06 12:44] LABS: BILIRUBIN,URINE NEGATIVE (NEG); CLARITY,URINE CLEAR; COLOR,URINE YELLOW; NITRITE,URINE NEGATIVE (NEG); PH,URINE 7.5; PROTEIN,URINE NEGATIVE (NEG-TRACE); UROBILINOGEN,URINE 0.2 mg/dL (0.2 mg/dL)
[2019-03-06 12:50] LABS: BACTERIA,URINE 0 /HPF (0-FEW); RBC,URINE 0 /HPF (0-2); SQUAMOUS EPITHELIAL CELL,UR FEW /LPF; WBC,URINE 0 /HPF (0-4)
[2019-03-06 13:02] VITALS: BP 127/61
[2019-03-06] MEDS ORDERED: CYCL10TA2 PO (13:08)
== END 2019-03-06 13:24 | disposition home or self-care (01) ==
LOC: ER 10:54
DX: R07.2 Precordial pain (principal); R56.9 Unspecified convulsions; E11.40 Type 2 diabetes mellitus with diabetic neuropathy, unspecified; E78.00 Pure hypercholesterolemia, unspecified; G89.29 Other chronic pain; Z91.041 Radiographic dye allergy status
CPT/HCPCS: 36415; 71046; 80053; 80185; 81001; 82550; 83690; 83735; 83880; 84484; 85025; 93005; 96374; 99285; J1885

== ENCOUNTER 2019-03-12 09:19 | Emergency (ER) | payer OTHER ==
[~2019-03-12] VITALS: Ht 154.9 cm; Wt 54.0 kg
--- NOTE | 2019-03-12 10:09 | PHYS DOC ---
Past Medical History Past Medical History: Diabetes-Type II, High Cholesterol, Seizure Additional Past Medical Histor: Abd pain,Neuropathy,Insomnia,Chronic pain Past Surgical History: Other Additional Past Surgical Histo: Left shoulder and right kidney surgeries Alcohol Use: None Drug Use: None Adult General Chief Complaint Chief Complaint: CHEST PAIN HPI HPI 59 y/o female presents to ER via POV for c/o lt side CP/SOA. She reports her chest pain or shortness of air have been intermittent for the past 3 months however this morning pain increased with pain radiation into left arm and left side neck. Patient denies palpitations, productive cough, or fever. She reports her appetite has been regular denies any N/V/D. Patient denies smoking and is uncertain of family medical hx except that her mother had diabetes. Review of Systems Review of Systems Constitutional: Denies fever or chills [] Eyes: Denies change in visual acuity, redness, or eye pain [] HENT: Denies nasal congestion or sore throat [] Respiratory: Denies cough. Reports intermittent SOA Cardiovascular: Reports lt side CP w/pain radiating into lt arm/lt side neck GI: Denies abdominal pain, nausea, vomiting, bloody stools or diarrhea [] : Denies dysuria or hematuria [] Musculoskeletal: Denies back pain or joint pain [] Integument: Denies rash or skin lesions [] Neurologic: Denies headache, focal weakness or sensory changes [] Endocrine: Denies polyuria or polydipsia [] All other systems were reviewed and found to be within normal limits, except as documented in this note. Allergies Allergies Allergies Coded Allergies Type Severity Reaction Last Updated Verified I S O L A T I O N *CONTACT* Allergy Unknown 04/05/18 Yes No Known Medication Allergies Allergy Unknown 04/05/18 Yes Physical Exam Physical Exam Constitutional: Well developed, well nourished, no acute distress, non-toxic appearance. [] HENT: Normocephalic, atraumatic, oropharynx moist, no oral exudates, nose taiwo l. [] Eyes: Pupils equal, conjunctiva normal, no discharge. [] Neck: Normal range of motion, no tenderness, supple, no stridor. [] Cardiovascular: Heart rate regular rhythm, no murmur [] Lungs & Thorax: Bilateral breath sounds clear to auscultation- resp. equal/nonlabored Abdomen: Bowel sounds normal, soft, no tenderness, no masses, no pulsatile masses. [] Skin: Warm, dry, no erythema, no rash. [] Back: No tenderness, no CVA tenderness. [] Extremities: No tenderness, no cyanosis, no clubbing, ROM intact, no edema. [] Neurologic: Alert and oriented X 3, normal motor function, normal sensory function, no focal deficits noted. [] Psychologic: Affect normal, judgement normal, mood normal. [] Current Patient Data Vital Signs Vital Signs Date Time Temp Pulse Resp B/P (MAP) Pulse Ox O2 Delivery O2 Flow Rate FiO2 03/12/19 09:30 98.5 90 18 132/62 (85) 98 Room Air 98.5 Lab Values Laboratory Tests Test 03/12/19 11:05 03/12/19 12:45 White Blood Count 4.7 x10^3/uL (4.0-11.0) Red Blood Count 4.50 x10^6/uL (3.50-5.40) Hemoglobin 14.2 g/dL (12.0-15.5) Hematocrit 42.6 % (36.0-47.0) Mean Corpuscular Volume 95 fL (79-100) Mean Corpuscular Hemoglobin 32 pg (25-35) Mean Corpuscular Hemoglobin Concent 33 g/dL (31-37) Red Cell Distribution Width 13.4 % (11.5-14.5) Platelet Count 241 x10^3/uL (140-400) Neutrophils (%) (Auto) 59 % (31-73) Lymphocytes (%) (Auto) 27 % (24-48) Monocytes (%) (Auto) 7 % (0-9) Eosinophils (%) (Auto) 4 % (0-3) H Basophils (%) (Auto) 2 % (0-3) Neutrophils # (Auto) 2.8 x10^3uL (1.8-7.7) Lymphocytes # (Auto) 1.3 x10^3/uL (1.0-4.8) Monocytes # (Auto) 0.3 x10^3/uL (0.0-1.1) Eosinophils # (Auto) 0.2 x10^3/uL (0.0-0.7) Basophils # (Auto) 0.1 x10^3/uL (0.0-0.2) Sodium Level 135 mmol/L (136-145) L Potassium Level 4.3 mmol/L (3.5-5.1) Chloride Level 99 mmol/L (98-107) Carbon Dioxide Level 27 mmol/L (21-32) Anion Gap 9 (6-14) Blood Urea Nitrogen 14 mg/dL (7-20) Creatinine 0.9 mg/dL (0.6-1.0) Estimated GFR (Cockcroft-Gault) 63.9 BUN/Creatinine Ratio 16 (6-20) Glucose Level 228 mg/dL (70-99) H Calcium Level 9.3 mg/dL (8.5-10.1) Magnesium Level 2.0 mg/dL (1.8-2.4) Total Bilirubin 0.2 mg/dL (0.2-1.0) Aspartate Amino Transferase (AST) 19 U/L (15-37) Alanine Aminotransferase (ALT) 20 U/L (14-59) Alkaline Phosphatase 154 U/L (46-116) H Troponin I Quantitative 0.030 ng/mL (0.000-0.055) Total Protein 7.6 g/dL (6.4-8.2) Albumin 4.2 g/dL (3.4-5.0) Albumin/Globulin Ratio 1.2 (1.0-1.7) Urine Collection Type Unknown Urine Color Yellow Urine Clarity Clear Urine pH 6.0 Urine Specific [place] 1.015 Urine Protein Negative mg/dL (NEG-TRACE) Urine Glucose (UA) >=1000 mg/dL (NEG) Urine Ketones (Stick) Negative mg/dL (NEG) Urine Blood Negative (NEG) Urine Nitrite Negative (NEG) Urine Bilirubin Negative (NEG) Urine Urobilinogen Dipstick 0.2 mg/dL (0.2 mg/dL) Urine Leukocyte Esterase Negative (NEG) Urine RBC 0 /HPF (0-2) Urine WBC 1-4 /HPF (0-4) Urine Squamous Epithelial Cells Mod /LPF Urine Bacteria 0 /HPF (0-FEW) Urine Mucus Slight /LPF Laboratory Tests 03/12/19 11:05 Laboratory Tests 03/12/19 11:05 EKG EKG EKG obtained 03/12/19 at [address] Fisher Sinus rhythm Ltward axis Nonspec. ST-T abnorm Rate 79 No STEMI Radiology/Procedures Radiology/Procedures PROCEDURE: CHEST PA & LATERAL CHEST PA LATERAL History: Chest pain, shortness of air Comparison: March 06, 2019 Findings: 2 views of the chest are submitted. There is again large granuloma of the superior left hemithorax and atelectasis of the left lung base. There is no pneumothorax, new lobar consolidation, pleural fluid. Heart size is stable. There is atherosclerotic calcification of the aortic arch. There is left shoulder arthroplasty. Impression: 1. There is again left base atelectasis. Electronically signed by: Monique Kenny MD (03/12/2019 10:57 AM) [facility] DICTATED and SIGNED BY: MONIQUE KENNY MD DATE: 03/12/19 105 Course & Med Decision Making Course & Med Decision Making Pertinent Labs and Imaging studies reviewed. (See chart for details) During initial exam discussed plans for dose of aspirin patient is refusing aspirin stating she has taken too many medications today which are her p rescribed meds and has not wanting any additional medicine. 1155: Pt's records show that pt was evaluated in the ER for similar sxs on 03/06 and had cardiac examination with EKG/labs/chest xray. Pt had not mentioned this ER visit during initial exam so discussed this with her as she was dx'd with m usculoskeletal pain and Rx'd Flexeril. She reports she hasn't taken that medication for sxs. She reports she hadn't had Rx filled. She was evaluated in the ER for complaints of ongoing chest pain which she reports been intermittent for the past several months. Patient was recently evaluated in the ER for similar symptoms. Patient states pain waxes and wanes and increases at times. With the pain ongoing for several months and EKG and labs similar to previous visit with SR on EKG without ST elevation and STEMI and troponin <0.017. Test x-ray was negative for acute findings. UA negative for infection. Pt has been in no visible distress. Discussed home discharge plan with patient to follow-up with her primary care physician she says she has a scheduled appointment with her doctor-advised patient to discuss her ER visits with her doctor at that time. Dragon Disclaimer Dragon Disclaimer This electronic medical record was generated, in whole or in part, using a voice recognition dictation system. Departure Departure Impression: Primary Impression: Chest pain Disposition: HOME, SELF-CARE Condition: STABLE Referrals: RUDDY CALHOUN MD (PCP) Patient Instructions: Chest Pain (Nonspecific) Additional Instructions: Continue your home medications as prescribed. Follow-up with your primary care physician- keep scheduled appointment already set up with your primary care physician if you have concerns or symptoms worsen call and schedule a sooner appointment. MARIAJOSE SAMANO APRN Mar 12, 2019 10:09
--- NOTE | 2019-03-12 11:00 | RAD ---
CHEST PA LATERAL History: Chest pain, shortness of air Comparison: March 06, 2019 Findings: 2 views of the chest are submitted. There is again large granuloma of the superior left hemithorax and atelectasis of the left lung base. There is no pneumothorax, new lobar consolidation, pleural fluid. Heart size is stable. There is atherosclerotic calcification of the aortic arch. There is left shoulder arthroplasty. Impression: 1. There is again left base atelectasis. Electronically signed by: Anshu Finch MD (03/12/2019 10:57 AM) [facility]
[2019-03-12 11:15] LABS: BASO # 0.1 x10^3/uL (0.0-0.2); BASO % 2 % (0-3); EOS # 0.2 x10^3/uL (0.0-0.7); EOS % 4 % (0-3); HEMATOCRIT 42.6 % (36.0-47.0); HEMOGLOBIN 14.2 g/dL (12.0-15.5); LYMPH # 1.3 x10^3/uL (1.0-4.8); LYMPH % 27 % (24-48); MEAN CORPUSCULAR HEMOGLOBIN 32 pg (25-35); MEAN CORPUSCULAR HGB CONC 33 g/dL (31-37); MEAN CORPUSCULAR VOLUME 95 fL (79-100); MONO # 0.3 x10^3/uL (0.0-1.1); MONO % 7 % (0-9); NEUT # 2.8 x10^3uL (1.8-7.7); NEUT % 59 % (31-73); PLATELET COUNT 241 x10^3/uL (140-400); RED CELL DISTRIBUTION WIDTH 13.4 % (11.5-14.5); WHITE BLOOD COUNT 4.7 x10^3/uL (4.0-11.0)
[2019-03-12 11:35] LABS: CALCIUM 9.3 mg/dL (8.5-10.1); CREATININE 0.9 mg/dL (0.6-1.0); GFR 63.9; POTASSIUM 4.3 mmol/L (3.5-5.1)
[2019-03-12 11:43] LABS: ALBUMIN 4.2 g/dL (3.4-5.0); ALBUMIN/GLOBULIN RATIO 1.2 (1.0-1.7); TOTAL BILIRUBIN 0.2 mg/dL (0.2-1.0); TOTAL PROTEIN 7.6 g/dL (6.4-8.2)
[2019-03-12 12:50] LABS: BILIRUBIN,URINE NEGATIVE (NEG); CLARITY,URINE CLEAR; COLOR,URINE YELLOW; NITRITE,URINE NEGATIVE (NEG); PROTEIN,URINE NEGATIVE (NEG-TRACE); UROBILINOGEN,URINE 0.2 mg/dL (0.2 mg/dL)
[2019-03-12 13:08] LABS: SQUAMOUS EPITHELIAL CELL,UR MOD /LPF
[2019-03-12 13:09] LABS: BACTERIA,URINE 0 /HPF (0-FEW); RBC,URINE 0 /HPF (0-2)
[2019-03-12 13:28] VITALS: BP 117/58
--- NOTE | 2019-03-12 15:04 | EKG ---
[facility] [address] [place] [address] Test Date: 2019-03-12 Test Time: 09:31:05 Pat Name: ALIVIA WILDER Department: Room: Gender: F P[employer] Executive: : 1960 Requested By: MARIAJOSE SAMANO Order Number: [id number] Reading MD: Aj Fagan Measurements Intervals [place] Rate: 79 P: -9 VT: 162 QRS: -14 QRSD: 80 T: 44 QT: 344 QTc: 395 Interpretive Statements SINUS RHYTHM LEFTWARD AXIS NON SPECIFIC ST-T ABNORMALITY (ELEVATION) OTHERWISE NORMAL ECG Compared to ECG 03/06/2019 11:05:09 Left-axis deviation now present ST (T wave) deviation now present Electronically Signed On 03-16-2019 13:08:23 CDT by Aj Fagan
== END 2019-03-12 13:31 | disposition home or self-care (01) ==
LOC: ER 09:19
DX: R07.89 Other chest pain (principal); M54.2 Cervicalgia; M79.602 Pain in left arm; E78.00 Pure hypercholesterolemia, unspecified; E11.40 Type 2 diabetes mellitus with diabetic neuropathy, unspecified; G89.29 Other chronic pain; Z98.890 Other specified postprocedural states; Z91.041 Radiographic dye allergy status
CPT/HCPCS: 36415; 71046; 80053; 81001; 83735; 84484; 85025; 93005; 99285-25

== ENCOUNTER 2019-04-14 11:42 | Emergency (ER) | payer OTHER ==
[~2019-04-14] VITALS: Ht 157.5 cm; Wt 63.5 kg
[~2019-04-14 11:42] MED LIST changes: -PANT40TA3 PO; +PANT40TA77 PO
[2019-04-14] MEDS ORDERED: IV NORMAL SALINE 1000ML BAG 1,000 ML IV SCH (12:27)
[2019-04-14] MEDS ORDERED: ASPIRIN CHEWABLE 81 MG TABLET. PO ONE (12:30)
--- NOTE | 2019-04-14 12:35 | PHYS DOC ---
Past Medical History Past Medical History: Diabetes-Type II, High Cholesterol, Seizure Additional Past Medical Histor: Abd pain,Neuropathy,Insomnia,Chronic pain Past Surgical History: Other Additional Past Surgical Histo: Left shoulder and right kidney surgeries Alcohol Use: None Drug Use: None Adult General Chief Complaint Chief Complaint: ABDOMINAL PAIN HPI HPI Patient is a 59-year-old female who presents to the emergency department for evaluation. She has numerous medical complaints. She states that for the past 2 days she has had some generalized abdominal pain, without any nausea. She states a few days ago she had some diarrhea, but had a normal bowel movement yesterday. She also reports some intermittent chest pain, which is not present now. She also reports some pain in her upper neck. She has not had any shortness of breath, or pleuritic pain. She states she ran out of her gabapentin yesterday and her pharmacy would not refill it. There are no alleviating or exacerbating factors to her symptoms. She has not had any vomiting, urinary symptoms, headache, numbness, or focal weakness. The patient is somewhat of a limited historian. Review of Systems Review of Systems Constitutional: Denies fever or chills [] Eyes: Denies change in visual acuity, redness, or eye pain [] HENT: Denies nasal congestion or sore throat [] Respiratory: Denies cough or shortness of breath [] Cardiovascular: No additional information not addressed in HPI [] GI: No additional information not addressed in HPI [] : Denies dysuria or hematuria [] Musculoskeletal: Denies back pain or joint pain [] Integument: Denies rash or skin lesions [] Neurologic: Denies headache, focal weakness or sensory changes [] Endocrine: Denies polyuria or polydipsia [] All other systems were reviewed and found to be within normal limits, except as documented in this note. Current Medications Current Medications Current Medications Medications (Trade) Dose Ordered Sig/Khang Start Time Stop Time Status Last Admin Dose Admin Aspirin (Children'S Aspirin) 324 mg 1X ONCE 04/14/19 12:30 04/14/19 12:36 DC 04/14/19 12:58 324 MG Fentanyl Citrate (Fentanyl 2ml Vial) 50 mcg PRN Q15MIN PRN 04/14/19 12:30 04/15/19 12:29 04/14/19 15:25 50 MCG Info (CONTRAST GIVEN -- Rx MONITORING) 1 each PRN DAILY PRN 04/14/19 13:15 04/16/19 13:14 Iohexol (Omnipaque 300 Mg/ml) 75 ml 1X ONCE 04/14/19 13:30 04/14/19 13:31 DC 04/14/19 13:18 75 ML Sodium Chloride 1,000 ml @ 100 mls/hr Q10H 04/14/19 12:27 04/14/19 22:26 04/14/19 12:58 100 MLS/HR Allergies Allergies Allergies Coded Allergies Type Severity Reaction Last Updated Verified I S O L A T I O N *CONTACT* Allergy Unknown 04/05/18 Yes No Known Medication Allergies Allergy Unknown 04/05/18 Yes Physical Exam Physical Exam PHYSICAL EXAM: CONSTITUTIONAL: Well developed, well nourished HEAD: normocephalic, atraumatic EENT: PERRL, EOMI. Conjunctivae normal color, sclerae non-icteric; moist mucous membranes. The oropharynx is nonerythematous. NECK: Supple, non-tender; no meningismus. LUNGS: Lungs CTA, breathing even and unlabored. Normal air movement. HEART: Regular rate and rhythm, no murmur CHEST: No deformity; non-tender ABDOMEN: The abdomen is soft, is diffuse tenderness to palpation to the entire abdomen, without focal tenderness, rebound, or guarding,no masses or bruits. EXTREM: Normal ROM; no deformity, no calf tenderness. Normal pulses palpable in all extremities. There is no pedal edema. SKIN: No rash; no diaphoresis NEURO: Alert; normal speech and cognition; CN's grossly intact; strength grossly intact without focal deficit. BACK: No CVA TTP. Current Patient Data Vital Signs Vital Signs Date Time Temp Pulse Resp B/P (MAP) Pulse Ox O2 Delivery O2 Flow Rate FiO2 04/14/19 13:03 76 21 167/66 (99) 98 Room Air 04/14/19 12:07 98.0 98.0 Lab Values Laboratory Tests Test 04/14/19 12:02 04/14/19 13:54 White Blood Count 5.5 x10^3/uL (4.0-11.0) Red Blood Count 3.97 x10^6/uL (3.50-5.40) Hemoglobin 12.7 g/dL (12.0-15.5) Hematocrit 37.9 % (36.0-47.0) Mean Corpuscular Volume 95 fL (79-100) Mean Corpuscular Hemoglobin 32 pg (25-35) Mean Corpuscular Hemoglobin Concent 34 g/dL (31-37) Red Cell Distribution Width 13.3 % (11.5-14.5) Platelet Count 225 x10^3/uL (140-400) Neutrophils (%) (Auto) 59 % (31-73) Lymphocytes (%) (Auto) 25 % (24-48) Monocytes (%) (Auto) 11 % (0-9) H Eosinophils (%) (Auto) 3 % (0-3) Basophils (%) (Auto) 1 % (0-3) Neutrophils # (Auto) 3.3 x10^3uL (1.8-7.7) Lymphocytes # (Auto) 1.4 x10^3/uL (1.0-4.8) Monocytes # (Auto) 0.6 x10^3/uL (0.0-1.1) Eosinophils # (Auto) 0.2 x10^3/uL (0.0-0.7) Basophils # (Auto) 0.1 x10^3/uL (0.0-0.2) Sodium Level 135 mmol/L (136-145) L Potassium Level 4.2 mmol/L (3.5-5.1) Chloride Level 101 mmol/L (98-107) Carbon Dioxide Level 27 mmol/L (21-32) Anion Gap 7 (6-14) Blood Urea Nitrogen 13 mg/dL (7-20) Creatinine 0.8 mg/dL (0.6-1.0) Estimated GFR (Cockcroft-Gault) 73.2 BUN/Creatinine Ratio 16 (6-20) Glucose Level 234 mg/dL (70-99) H Lactic Acid Level 1.5 mmol/L (0.4-2.0) Calcium Level 8.5 mg/dL (8.5-10.1) Magnesium Level 2.2 mg/dL (1.8-2.4) Total Bilirubin 0.3 mg/dL (0.2-1.0) Aspartate Amino Transferase (AST) 17 U/L (15-37) Alanine Aminotransferase (ALT) 22 U/L (14-59) Alkaline Phosphatase 131 U/L (46-116) H Creatine Kinase 71 U/L (26-192) Creatine Kinase MB (Mass) 0.8 ng/mL (0.0-3.6) Creatine Kinase MB Relative Index % (0-4) Troponin I Quantitative 0.018 ng/mL (0.000-0.055) OV-Tdu-O-Type Natriuretic Peptide 210 pg/mL (0-124) H Total Protein 6.9 g/dL (6.4-8.2) Albumin 3.7 g/dL (3.4-5.0) Albumin/Globulin Ratio 1.2 (1.0-1.7) Lipase 57 U/L (73-393) L Thyroid Stimulating Hormone (TSH) 10.358 uIU/mL (0.358-3.74) H Free Thyroxine 0.70 ng/dL (0.76-1.46) L Phenytoin (Dilantin) Level 22.0 mcg/mL (10.0-20.0) H Phenytoin Last Dose Date Unknown Phenytoin Last Dose Time Unknown Urine Collection Type Unknown Urine Color Yellow Urine Clarity Clear Urine pH 6.5 Urine Specific [place] >=1.030 Urine Protein Negative mg/dL (NEG-TRACE) Urine Glucose (UA) 500 mg/dL (NEG) Urine Ketones (Stick) Trace mg/dL (NEG) Urine Blood Negative (NEG) Urine Nitrite Negative (NEG) Urine Bilirubin Negative (NEG) Urine Urobilinogen Dipstick 1.0 mg/dL (0.2 mg/dL) Urine Leukocyte Esterase Negative (NEG) Urine RBC 0 /HPF (0-2) Urine WBC Occ /HPF (0-4) Urine Squamous Epithelial Cells Mod /LPF Urine Bacteria 0 /HPF (0-FEW) Laboratory Tests 04/14/19 12:02 Laboratory Tests 04/14/19 12:02 EKG EKG Normal sinus rhythm at a rate of 72 beats for minute, left axis deviation, normal intervals. There are no acute ischemic ST/T changes.[] Radiology/Procedures Radiology/Procedures [PROCEDURE: PORTABLE CHEST 1V PORTABLE CHEST 1V Indications: Mid sternal chest pain. COMPARISON: March 12, 2019. Findings: Linear scarring of the left lung base is unchanged. Again seen is a calcified granuloma of the left upper lobe with associated calcified granulomatous left hilar lymph nodes. No acute lung infiltrate or pleural effusion or pulmonary edema or lung mass or pneumothorax is seen. The heart size, pulmonary vasculature, mediastinum and both gary are otherwise unremarkable. Left shoulder reverse arthroplasty is evident. Impression: No new radiographic abnormality is seen. ] PROCEDURE: CT ABD PELV W/ IV CONTRST ONLY ADDENDUM Addendum: There is mild thickened appearance of the wall of the distal stomach could be due to nondistention or gastritis. Electronically signed by: Eros Garcia MD (04/14/2019 1:46 PM) [place] [id number] DICTATED AND SIGNED BY: EROS GARCIA MD DATE: 04/14/19 [id number] CC: KAYLAN NAGY MD; RUDDY CALHOUN MD ~ Examination: CT of the abdomen pelvis with IV contrast HISTORY: History of abdominal pain COMPARISON: 04/17/2018 TECHNIQUE: Axial CT images of the abdomen pelvis were performed with IV contrast. Coronal and sagittal reformats are performed Exposure: One or more of the following individualized dose reduction techniques were utilized for this examination: 1. Automated exposure control 2. Adjustment of the mA and/or kV according to patient size 3. Use of iterative reconstruction technique FINDINGS: Linear atelectasis left lung base. No evidence of free air identified in the abdomen. The visualized liver, spleen, right adrenal grossly appears unremarkable. There are 2 cystic structure identified in the left adrenal gland similar to prior exam adrenal myelolipoma. Surgical clips identified in the medial aspect of the left kidney. Calcification identified in the anterior portion of the left kidney. Focal scarring changes identified in the lateral aspect of the left kidney. There is unchanged since prior exam. There is mild thickened appearance of the distal wall of the stomach and first part of the duodenum. Prominent appearing common bile duct likely post cholecystectomy changes similar to prior exam. The visualized pancreas grossly appears unremarkable The small bowel is nondilated. There is mild fat stranding identified about the distal small bowel loops the pelvis probably enteritis. However evaluation of the bowel is limited in the pelvis due to multiple small bowel loops in the pelvis. The partially visualized appendix appears unremarkable Moderate amount of feces and gas noted throughout the colon. There is thickening of the rectal wall with minimal surrounding fat stranding. Urinary bladder is mildly distended Moderate degenerative changes lumbar spine. Mild compression change of T12 vertebral body. A small sebaceous cyst identified in the subcutaneous region posterior to the T11 spinous process. IMPRESSION: 1. Thickening of the rectal wall with surrounding mild fat stranding could be proctitis. Moderate amount of feces and gas noted in the colon likely constipation. 2. Minimal fat stranding identified about the small bowel, nonspecific, the evaluation of small bowel is limited due to multiple bowel loops in the pelvis however mild enteritis is not excluded. 3. Unchanged two adrenal myelolipoma in the left adrenal glands similar to prior exam. 4. Mild superior endplate compression change of T12 vertebral body new since prior exam. Course & Med Decision Making Course & Med Decision Making Pertinent Labs and Imaging studies reviewed. (See chart for details) []3:30 PM: The patient's condition remains stable. She does take Synthroid 100 �g, but only 5 days a week. She skips Tuesdays and . I recommended she increase this to once daily, and follow up with her PCP for further thyroid management. I also discussed importance of close PCP follow-up for her colitis. She states that she had a normal bowel movement yesterday, and then 2 loose bowel movements as well. She does not appear impacted. Dragon Disclaimer Dragon Disclaimer This electronic medical record was generated, in whole or in part, using a voice recognition dictation system. Departure Departure Impression: Primary Impression: Abdominal pain Additional Impressions: Colitis Hypothyroidism Atypical chest pain Disposition: HOME, SELF-CARE Condition: STABLE Referrals: RUDDY CALHOUN MD (PCP) Patient Instructions: Abdominal Pain, Chest Pain (Nonspecific), Colitis, Proctitis, Thyroid Diseases Additional Instructions: start taking your thyroid medication once daily, and follow-up with your primary care provider for further management instructions on your thyroid Medication Scripts Metronidazole (FLAGYL) 500 Mg Tablet 1 TAB PO BID, #14 TAB Prov: KAYLAN NAGY MD 04/14/19 Ciprofloxacin Hcl (CIPRO) 500 Mg Tablet 1 TAB PO BID, #14 TAB Prov: KAYLAN NAGY MD 04/14/19 Problem Qualifiers KAYLAN NAGY MD April 14, 2019 12:35
[2019-04-14 12:41] LABS: BASO # 0.1 x10^3/uL (0.0-0.2); BASO % 1 % (0-3); EOS # 0.2 x10^3/uL (0.0-0.7); EOS % 3 % (0-3); HEMATOCRIT 37.9 % (36.0-47.0); HEMOGLOBIN 12.7 g/dL (12.0-15.5); LYMPH # 1.4 x10^3/uL (1.0-4.8); LYMPH % 25 % (24-48); MEAN CORPUSCULAR HEMOGLOBIN 32 pg (25-35); MEAN CORPUSCULAR HGB CONC 34 g/dL (31-37); MEAN CORPUSCULAR VOLUME 95 fL (79-100); MONO # 0.6 x10^3/uL (0.0-1.1); MONO % 11 % (0-9); NEUT # 3.3 x10^3uL (1.8-7.7); NEUT % 59 % (31-73); PLATELET COUNT 225 x10^3/uL (140-400); RED BLOOD COUNT 3.97 x10^6/uL (3.50-5.40); RED CELL DISTRIBUTION WIDTH 13.3 % (11.5-14.5); WHITE BLOOD COUNT 5.5 x10^3/uL (4.0-11.0)
--- NOTE | 2019-04-14 12:58 | RAD ---
PORTABLE CHEST 1V Indications: Mid sternal chest pain. COMPARISON: March 12, 2019. Findings: Linear scarring of the left lung base is unchanged. Again seen is a calcified granuloma of the left upper lobe with associated calcified granulomatous left hilar lymph nodes. No acute lung infiltrate or pleural effusion or pulmonary edema or lung mass or pneumothorax is seen. The heart size, pulmonary vasculature, mediastinum and both gary are otherwise unremarkable. Left shoulder reverse arthroplasty is evident. Impression: No new radiographic abnormality is seen. Electronically signed by: John Mota MD (04/14/2019 12:55 PM) [id number]
[2019-04-14] MEDS: fentaNYL PF VIAL 100 MCG/2 ML VIAL IV PRN ×2 (12:59→15:25)
[2019-04-14 13:00] LABS: ANION GAP 7 (6-14); BLOOD UREA NITROGEN 13 mg/dL (7-20); BUN/CREATININE RATIO 16 (6-20); CALCIUM 8.5 mg/dL (8.5-10.1); CARBON DIOXIDE 27 mmol/L (21-32); CHLORIDE 101 mmol/L (98-107); CREATININE 0.8 mg/dL (0.6-1.0); GFR 73.2; GLUCOSE 234 mg/dL (70-99); POTASSIUM 4.2 mmol/L (3.5-5.1); SODIUM 135 mmol/L (136-145)
[2019-04-14 13:03] VITALS: BP 167/66
[2019-04-14 13:06] LABS: ALBUMIN 3.7 g/dL (3.4-5.0); ALBUMIN/GLOBULIN RATIO 1.2 (1.0-1.7); ALK PHOS 131 U/L (46-116); ALT (SGPT) 22 U/L (14-59); AST (SGOT) 17 U/L (15-37); LIPASE 57 U/L (73-393); MAGNESIUM 2.2 mg/dL (1.8-2.4); TOTAL BILIRUBIN 0.3 mg/dL (0.2-1.0); TOTAL PROTEIN 6.9 g/dL (6.4-8.2)
[2019-04-14 13:13] LABS: CREATINE KINASE 71 U/L (26-192); FREE T4 0.7 ng/dL (0.76-1.46); THYROID STIM HORMONE (TSH) 10.358 uIU/mL (0.358-3.74)
[2019-04-14] MEDS ORDERED: CONTRAST GIVEN. MC PRN (13:15)
[2019-04-14] MEDS ORDERED: IOHEXOL 300 MG/ML 100ML VIAL. IV ONE (13:30)
--- NOTE | 2019-04-14 13:43 | RAD ---
Examination: CT of the abdomen pelvis with IV contrast HISTORY: History of abdominal pain COMPARISON: 04/17/2018 TECHNIQUE: Axial CT images of the abdomen pelvis were performed with IV contrast. Coronal and sagittal reformats are performed Exposure: One or more of the following individualized dose reduction techniques were utilized for this examination: 1. Automated exposure control 2. Adjustment of the mA and/or kV according to patient size 3. Use of iterative reconstruction technique FINDINGS: Linear atelectasis left lung base. No evidence of free air identified in the abdomen. The visualized liver, spleen, right adrenal grossly appears unremarkable. There are 2 cystic structure identified in the left adrenal gland similar to prior exam adrenal myelolipoma. Surgical clips identified in the medial aspect of the left kidney. Calcification identified in the anterior portion of the left kidney. Focal scarring changes identified in the lateral aspect of the left kidney. There is unchanged since prior exam. There is mild thickened appearance of the distal wall of the stomach and first part of the duodenum. Prominent appearing common bile duct likely post cholecystectomy changes similar to prior exam. The visualized pancreas grossly appears unremarkable The small bowel is nondilated. There is mild fat stranding identified about the distal small bowel loops the pelvis probably enteritis. However evaluation of the bowel is limited in the pelvis due to multiple small bowel loops in the pelvis. The partially visualized appendix appears unremarkable Moderate amount of feces and gas noted throughout the colon. There is thickening of the rectal wall with minimal surrounding fat stranding. Urinary bladder is mildly distended Moderate degenerative changes lumbar spine. Mild compression change of T12 vertebral body. A small sebaceous cyst identified in the subcutaneous region posterior to the T11 spinous process. IMPRESSION: 1. Thickening of the rectal wall with surrounding mild fat stranding could be proctitis. Moderate amount of feces and gas noted in the colon likely constipation. 2. Minimal fat stranding identified about the small bowel, nonspecific, the evaluation of small bowel is limited due to multiple bowel loops in the pelvis however mild enteritis is not excluded. 3. Unchanged two adrenal myelolipoma in the left adrenal glands similar to prior exam. 4. Mild superior endplate compression change of T12 vertebral body new since prior exam. Electronically signed by: Eros Garcia MD (04/14/2019 1:40 PM) [place] [id number]
[2019-04-14 14:28] LABS: BILIRUBIN,URINE NEGATIVE (NEG); CLARITY,URINE CLEAR; COLOR,URINE YELLOW; NITRITE,URINE NEGATIVE (NEG); PH,URINE 6.5; PROTEIN,URINE NEGATIVE (NEG-TRACE)
[2019-04-14 14:38] LABS: BACTERIA,URINE 0 /HPF (0-FEW); RBC,URINE 0 /HPF (0-2); SQUAMOUS EPITHELIAL CELL,UR MOD /LPF; WBC,URINE OCC /HPF (0-4)
--- NOTE | 2019-04-14 15:13 | EKG ---
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
[2019-04-14] MEDS ORDERED: METR500T PO (15:37)
[2019-04-14] MEDS ORDERED: CIPR500T94 PO (15:37)
== END 2019-04-14 15:51 | disposition home or self-care (01) ==
LOC: ER 11:42
DX: K52.89 Other specified noninfective gastroenteritis and colitis (principal); R07.89 Other chest pain; E03.9 Hypothyroidism, unspecified; E78.00 Pure hypercholesterolemia, unspecified; E11.40 Type 2 diabetes mellitus with diabetic neuropathy, unspecified; G89.29 Other chronic pain; Z79.82 Long term (current) use of aspirin; Z91.041 Radiographic dye allergy status
CPT/HCPCS: 36415; 71045; 74177; 80053; 80185; 81001; 82553; 83605; 83690; 83735; 83880; 84439; 84443; 84484; 85025; 93005; 96361; 96374; 96376; 99285; J3010; J7030; Q9967

== ENCOUNTER 2019-06-02 08:00 | Emergency (ER) | payer OTHER ==
[~2019-06-02] VITALS: Ht 157.5 cm; Wt 59.0 kg
--- NOTE | 2019-06-02 09:13 | PHYS DOC ---
Past Medical History Past Medical History: Diabetes-Type II, High Cholesterol, Seizure Additional Past Medical Histor: Abd pain,Neuropathy,Insomnia,Chronic pain Past Surgical History: Other Additional Past Surgical Histo: Left shoulder and right kidney surgeries Alcohol Use: None Drug Use: None Adult General Chief Complaint Chief Complaint: SEIZURE HPI HPI Patient is a 59-year-old female well known to our emergency department with a history of multiple medical problems including seizures. Her states that she has seizures several times a week. Today they were outside and she began to have a seizure while walking the caught her and set her down the seizure was brief. They flagged down an ambulance and was brought to the emergency department for further evaluation. On arrival to the emergency department the patient states that she feels much better. She denies any headache or lateralizing neurologic weakness. She denies any injuries. She states she would like to be discharged so she can go shopping with her son. She does state that 1-2 months ago she fell on her back and hit her head. At that time she states she did not lose consciousness. She states she still does have some occasional headaches that she thinks is associated with that fall.[] Review of Systems Review of Systems Constitutional: Denies fever or chills [] Eyes: Denies change in visual acuity, redness, or eye pain [] HENT: Denies nasal congestion or sore throat [] Respiratory: Denies cough or shortness of breath [] Cardiovascular: No additional information not addressed in HPI [] GI: Denies abdominal pain, nausea, vomiting, bloody stools or diarrhea [] : Denies dysuria or hematuria [] Musculoskeletal: Denies back pain or joint pain [] Integument: Denies rash or skin lesions [] Neurologic: Per history of present illness[] Endocrine: Denies polyuria or polydipsia [] All other systems were reviewed and found to be within normal limits, except as documented in this note. Allergies Allergies Allergies Coded Allergies Type Severity Reaction Last Updated Verified I S O L A T I O N *CONTACT* Allergy Unknown 04/05/18 Yes No Known Medication Allergies Allergy Unknown 04/05/18 Yes Physical Exam Physical Exam Constitutional: Well developed, well nourished, no acute distress, non-toxic appearance. [] HENT: Normocephalic, atraumatic, bilateral external ears normal, oropharynx moist, no oral exudates, nose normal. [] Eyes: PERRLA, EOMI, conjunctiva normal, no discharge. [] Neck: Normal range of motion, no tenderness, supple, no stridor. [] Cardiovascular:Heart rate regular rhythm, no murmur [] Lungs & Thorax: Bilateral breath sounds clear to auscultation [] Abdomen: Bowel sounds normal, soft, no tenderness, no masses, no pulsatile masses. [] Skin: Warm, dry, no erythema, no rash. [] Back: No tenderness, no CVA tenderness. [] Extremities: No tenderness, no cyanosis, no clubbing, ROM intact, no edema. [] Neurologic: Alert and oriented X 3, normal motor function, normal sensory function, no focal deficits noted. [] Psychologic: Affect normal, judgement normal, mood normal. [] Current Patient Data Vital Signs Vital Signs Date Time Temp Pulse Resp B/P (MAP) Pulse Ox O2 Delivery O2 Flow Rate FiO2 06/02/19 08:06 98.7 75 18 168/74 (105) 98 Room Air 98.7 EKG EKG [] Radiology/Procedures Radiology/Procedures [] Course & Med Decision Making Course & Med Decision Making Pertinent Labs and Imaging studies reviewed. (See chart for details) [ED course: Evaluation reveals a 59-year-old female who may have had a seizure today. On my evaluation the patient is awake alert interactive and completely appropriate. I do not see anything acutely wrong with her today. I do not believe a prolonged medical evaluation is in the patient's best interest at this time. Patient is safe for discharge home.] Dragon Disclaimer Dragon Disclaimer This electronic medical record was generated, in whole or in part, using a voice recognition dictation system. Departure Departure Impression: Primary Impression: Seizure Disposition: HOME, SELF-CARE Condition: IMPROVED Referrals: RDUDY CALHOUN MD (PCP) Patient Instructions: Nonepileptic Seizures, Seizure, Adult Additional Instructions: Follow with your primary care physician this week for recheck. Return to the emergency department with any new or concerning symptoms TAO VILLAREAL DO Jun 02, 2019 09:13
[2019-06-02 09:43] VITALS: BP 115/61
== END 2019-06-02 09:45 | disposition home or self-care (01) ==
LOC: ER 08:00
DX: R56.9 Unspecified convulsions (principal); E78.00 Pure hypercholesterolemia, unspecified; E11.40 Type 2 diabetes mellitus with diabetic neuropathy, unspecified; G89.29 Other chronic pain; Z91.041 Radiographic dye allergy status
CPT/HCPCS: 99284

== ENCOUNTER 2019-07-09 08:37 | Emergency (ER) | payer OTHER ==
[~2019-07-09] VITALS: Ht 157.5 cm; Wt 55.3 kg
[2019-07-09] MEDS ORDERED: LORazepam 0.5 MG TABLET PO ONE (09:15)
[2019-07-09 09:22] LABS: BASO # 0.1 x10^3/uL (0.0-0.2); BASO % 2 % (0-3); EOS # 0.5 x10^3/uL (0.0-0.7); EOS % 10 % (0-3); HEMATOCRIT 39.7 % (36.0-47.0); HEMOGLOBIN 13.4 g/dL (12.0-15.5); LYMPH # 1.4 x10^3/uL (1.0-4.8); LYMPH % 29 % (24-48); MEAN CORPUSCULAR HEMOGLOBIN 32 pg (25-35); MEAN CORPUSCULAR HGB CONC 34 g/dL (31-37); MEAN CORPUSCULAR VOLUME 96 fL (79-100); MONO # 0.4 x10^3/uL (0.0-1.1); MONO % 7 % (0-9); NEUT # 2.5 x10^3/uL (1.8-7.7); NEUT % 52 % (31-73); PLATELET COUNT 226 x10^3/uL (140-400); RED BLOOD COUNT 4.13 x10^6/uL (3.50-5.40); RED CELL DISTRIBUTION WIDTH 13.8 % (11.5-14.5); WHITE BLOOD COUNT 4.8 x10^3/uL (4.0-11.0)
--- NOTE | 2019-07-09 09:36 | RAD ---
EXAM: CHEST 1 VIEW History: Shortness of breath COMPARISON: 06/10/2019 TECHNIQUE: Single portable radiograph of the chest FINDINGS: The cardiac silhouette is unremarkable. Calcified nodule identified in the left upper lobe of the lung measuring 9 mm. Minimal left lung base atelectasis. The costophrenic sulci are clear and well demarcated. IMPRESSION: No radiographic evidence of an acute cardiopulmonary process. Electronically signed by: Eros Garcia MD (07/09/2019 9:33 AM) [facility]
[2019-07-09 09:37] LABS: CALCIUM 8.9 mg/dL (8.5-10.1); CREATININE 0.8 mg/dL (0.6-1.0); GFR 73.2
[2019-07-09 09:43] LABS: ALBUMIN 3.9 g/dL (3.4-5.0); ALBUMIN/GLOBULIN RATIO 1.2 (1.0-1.7); TOTAL BILIRUBIN 0.2 mg/dL (0.2-1.0); TOTAL PROTEIN 7.1 g/dL (6.4-8.2)
--- NOTE | 2019-07-09 10:35 | PHYS DOC ---
Past Medical History Past Medical History: Anxiety, Diabetes-Type II, GERD, High Cholesterol, Hypertension, Hypothyroid, Seizure Additional Past Medical Histor: Abd pain,Neuropathy,Insomnia,Chronic pain Past Surgical History: Other Additional Past Surgical Histo: Left shoulder and right kidney surgeries Alcohol Use: None Drug Use: None Adult General Chief Complaint Chief Complaint: SHORTNESS OF BREATH HPI HPI Patient is a 59 year old presents with shortness of breath feeling of fullness sensation back or throat. Patient states she has to sensation daily upon waking initially after eating breakfast. Denies chest pain, nausea vomiting sweats. No pain or choking episodes. Patient has not been evaluated by her PCP for these symptoms. States she has not taking anxiety medications on a routine basis. Her symptoms or complaints. [] Review of Systems Review of Systems Review symptoms as per history of present illness All other systems were reviewed and found to be within normal limits, except as documented in this note. Current Medications Current Medications Current Medications Medications (Trade) Dose Ordered Sig/Khang Start Time Stop Time Status Last Admin Dose Admin Lorazepam (Ativan) 2 mg 1X ONCE 07/09/19 09:15 07/09/19 09:16 DC 07/09/19 09:27 2 MG Allergies Allergies Allergies Coded Allergies Type Severity Reaction Last Updated Verified I S O L A T I O N *CONTACT* Allergy Unknown 04/05/18 Yes No Known Medication Allergies Allergy Unknown 04/05/18 Yes Physical Exam Physical Exam Constitutional: Well developed, well nourished, anxious, hyperventilating.. [] HENT: Normocephalic, atraumatic, bilateral external ears normal, oropharynx moist, no oral exudates, nose normal. [] Eyes: PERRLA, EOMI, conjunctiva normal, no discharge. [] Neck: Normal range of motion, no tenderness, supple, no stridor. [] Cardiovascular:Heart rate regular rhythm, no murmur [] Lungs & Thorax: Bilateral breath sounds clear to auscultation [] Abdomen: Bowel sounds normal, soft, no tenderness, no masses, no pulsatile masses. [] Skin: Warm, dry, no erythema, no rash. [] Back: No tenderness, no CVA tenderness. [] Extremities: No tenderness, no cyanosis, no clubbing, ROM intact, no edema. [] Neurologic: Alert and oriented X 3, normal motor function, normal sensory function, no focal deficits noted. [] Current Patient Data Vital Signs Vital Signs Date Time Temp Pulse Resp B/P (MAP) Pulse Ox O2 Delivery O2 Flow Rate FiO2 07/09/19 08:37 97.7 76 13 144/76 (98) 100 Room Air 97.7 Lab Values Laboratory Tests Test 07/09/19 08:59 07/09/19 09:05 Glucose (Fingerstick) 254 mg/dL (70-99) H White Blood Count 4.8 x10^3/uL (4.0-11.0) Red Blood Count 4.13 x10^6/uL (3.50-5.40) Hemoglobin 13.4 g/dL (12.0-15.5) Hematocrit 39.7 % (36.0-47.0) Mean Corpuscular Volume 96 fL (79-100) Mean Corpuscular Hemoglobin 32 pg (25-35) Mean Corpuscular Hemoglobin Concent 34 g/dL (31-37) Red Cell Distribution Width 13.8 % (11.5-14.5) Platelet Count 226 x10^3/uL (140-400) Neutrophils (%) (Auto) 52 % (31-73) Lymphocytes (%) (Auto) 29 % (24-48) Monocytes (%) (Auto) 7 % (0-9) Eosinophils (%) (Auto) 10 % (0-3) H Basophils (%) (Auto) 2 % (0-3) Neutrophils # (Auto) 2.5 x10^3/uL (1.8-7.7) Lymphocytes # (Auto) 1.4 x10^3/uL (1.0-4.8) Monocytes # (Auto) 0.4 x10^3/uL (0.0-1.1) Eosinophils # (Auto) 0.5 x10^3/uL (0.0-0.7) Basophils # (Auto) 0.1 x10^3/uL (0.0-0.2) Sodium Level 139 mmol/L (136-145) Potassium Level 4.0 mmol/L (3.5-5.1) Chloride Level 102 mmol/L (98-107) Carbon Dioxide Level 30 mmol/L (21-32) Anion Gap 7 (6-14) Blood Urea Nitrogen 10 mg/dL (7-20) Creatinine 0.8 mg/dL (0.6-1.0) Estimated GFR (Cockcroft-Gault) 73.2 BUN/Creatinine Ratio 13 (6-20) Glucose Level 233 mg/dL (70-99) H Calcium Level 8.9 mg/dL (8.5-10.1) Total Bilirubin 0.2 mg/dL (0.2-1.0) Aspartate Amino Transferase (AST) 17 U/L (15-37) Alanine Aminotransferase (ALT) 22 U/L (14-59) Alkaline Phosphatase 147 U/L (46-116) H Troponin I Quantitative 0.020 ng/mL (0.000-0.055) RY-Kiv-E-Type Natriuretic Peptide 121 pg/mL (0-124) Total Protein 7.1 g/dL (6.4-8.2) Albumin 3.9 g/dL (3.4-5.0) Albumin/Globulin Ratio 1.2 (1.0-1.7) Laboratory Tests 07/09/19 09:05 Laboratory Tests 07/09/19 09:05 EKG EKG [EKG: Reviewed] Radiology/Procedures Radiology/Procedures [CHest x-ray: No acute cardiopulmonary disease.] Course & Med Decision Making Course & Med Decision Making Pertinent Labs and Imaging studies reviewed. (See chart for details) [Symptoms fully resolved with treatment of anxiety in the emergency department.] Dragon Disclaimer Dragon Disclaimer This electronic medical record was generated, in whole or in part, using a voice recognition dictation system. Departure Departure Impression: Primary Impression: Anxiety Disposition: TRANSFER T-[facility] Condition: STABLE Referrals: RUDDY CALHOUN MD (PCP) Patient Instructions: Anxiety and Panic Attacks, [id number] Additional Instructions: Please follow-up with your PCP early next week for reevaluation symptoms and anxiety. GILBERT ABREU DO Jul 09, 2019 10:35
[2019-07-09 10:55] VITALS: BP 108/54
--- NOTE | 2019-07-10 10:05 | EKG ---
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
== END 2019-07-09 11:22 | disposition home or self-care (01) ==
LOC: ER 08:37
DX: F41.9 Anxiety disorder, unspecified (principal); R06.02 Shortness of breath; R91.1 Solitary pulmonary nodule; J98.11 Atelectasis; K21.9 Gastro-esophageal reflux disease without esophagitis; E11.40 Type 2 diabetes mellitus with diabetic neuropathy, unspecified; E78.00 Pure hypercholesterolemia, unspecified; E03.9 Hypothyroidism, unspecified; G89.29 Other chronic pain; I10 Essential (primary) hypertension; Z98.890 Other specified postprocedural states; Z91.041 Radiographic dye allergy status
CPT/HCPCS: 36415; 71045; 80053; 82962; 83880; 84484; 85025; 93005; 99285-25

== ENCOUNTER 2019-07-16 12:33 | Inpatient (IN) | payer OTHER ==
[~2019-07-16] VITALS: Ht 157.5 cm; Wt 54.9 kg
[2019-07-16] MEDS ORDERED: fentaNYL PF VIAL 100 MCG/2 ML VIAL IV ONE ×3 (12:45→15:15)
[2019-07-16] MEDS ORDERED: ONDANSETRON PF 4 MG/2 ML VIAL. IV ONE (12:45)
--- NOTE | 2019-07-16 13:15 | PHYS DOC ---
Past Medical History Past Medical History: Anxiety, Diabetes-Type II, GERD, High Cholesterol, Hypertension, Hypothyroid, Seizure, Other Additional Past Medical Histor: Abd pain,Neuropathy,Insomnia,Chronic pain Past Surgical History: Other Additional Past Surgical Histo: Left shoulder and right kidney surgeries Alcohol Use: None Drug Use: None Adult General Chief Complaint Chief Complaint: MECHANICAL FALL HPI HPI Patient is a 59 year old right-handed female who presents via EMS with complaining of shoulder pain after a fall. Patient had an accidental fall from a standing position and injured her right shoulder and was not able to move her shoulder. Patient denies history of previous right shoulder injury or dislocation. Patient did not have loss of consciousness and other injuries and denies focal neuro deficit. Patient rated her pain 10 over 10. She had 50 �g of fentanyl intranasally by EMS. Review of Systems Review of Systems Constitutional: Denies fever or chills [] Eyes: Denies change in visual acuity, redness, or eye pain [] HENT: Denies nasal congestion or sore throat [] Respiratory: Denies cough or shortness of breath [] Cardiovascular: No additional information not addressed in HPI [] GI: Denies abdominal pain, nausea, vomiting, bloody stools or diarrhea [] : Denies dysuria or hematuria [] Musculoskeletal: Denies back pain, reports joint pain [] Integument: Denies rash or skin lesions [] Neurologic: Denies headache, focal weakness or sensory changes [] Endocrine: Denies polyuria or polydipsia [] All other systems were reviewed and found to be within normal limits, except as documented in this note. Current Medications Current Medications Current Medications Medications (Trade) Dose Ordered Sig/[facility] Start Time Stop Time Status Last Admin Dose Admin Fentanyl Citrate (Fentanyl 2ml Vial) 50 mcg 1X ONCE 07/16/19 14:00 07/16/19 14:02 DC 07/16/19 14:02 50 MCG Ondansetron HCl (Zofran) 4 mg 1X ONCE 07/16/19 12:45 07/16/19 12:47 DC 07/16/19 13:16 4 MG Allergies Allergies Allergies Coded Allergies Type Severity Reaction Last Updated Verified I S O L A T I O N *CONTACT* Allergy Unknown 04/05/18 Yes No Known Medication Allergies Allergy Unknown 04/05/18 Yes Physical Exam Physical Exam Constitutional: Well nourished, moderate distress, non-toxic appearance. [] HENT: Normocephalic, atraumatic. Eyes: PERRLA, EOMI, conjunctiva normal, no discharge. [] Neck: Normal range of motion, no tenderness, supple, no stridor. [] Cardiovascular:Heart rate regular rhythm, no murmur [] Lungs & Thorax: Bilateral breath sounds clear to auscultation [] Abdomen: Bowel sounds normal, soft, no tenderness, no masses, no pulsatile masses. [] Skin: Warm, dry, no erythema, no rash. [] Back: No tenderness, no CVA tenderness. [] Extremities: Right shoulder with deformity and tenderness, unable to move right shoulder because of severe pain, no neurovascular deficit , no edema. [] Neurologic: Alert and oriented X 3, no focal deficits noted. [] Psychologic: Affect anxious, judgement normal, mood normal. [] Current Patient Data Vital Signs Vital Signs Date Time Temp Pulse Resp B/P (MAP) Pulse Ox O2 Delivery O2 Flow Rate FiO2 07/16/19 13:21 67 16 100 07/16/19 13:16 Room Air 07/16/19 12:33 100.5 133/64 (87) 100.5 EKG EKG [] Radiology/Procedures Radiology/Procedures [][facility] [address], [place] [id number] IMAGING REPORT Signed PATIENT: ALIVIA WILDER ACCOUNT: [id number] : 1960 LOCATION: ER AGE: 59 SEX: F EXAM STATUS: REG ER ORD. PHYSICIAN: KWAKU MAR MD REASON: fall. right shoulder pain PROCEDURE: SHOULDER 2+V RIGHT SHOULDER 2+V RIGHT History: Pain after a fall. Findings: Comminuted fracture of the proximal shaft of the right humerus. Mild separation of fragments. There appears to be some anterior angulation of the fracture and anterior displacement of the distal fragment although fracture is poorly profiled. No glenohumeral joint dislocation. No acromioclavicular joint separation. IMPRESSION: Mildly displaced comminuted fracture of the proximal humeral shaft just below the humeral neck. Electronically signed by: Nicko Lozada MD (07/16/2019 2:40 PM) [facility] DICTATED and SIGNED BY: NICKO LOZADA MD DATE: 07/16/19 1440 Course & Med Decision Making Course & Med Decision Making Pertinent Imaging studies reviewed. (See chart for details) Evaluation of patient in ER showed 59-year-old male patient with accidental fall and injury to right shoulder. X-ray showed comminuted fracture of proximal humerus with marked displacement. Patient had shoulder immobilizer placement in ER. Patient does not have enough care at home and plan to admit for possible transfer to rehabilitation. Dr Barney was consulted at 1508 and agreed with plan of care.labs was pending. Patient requiring admission for further evaluation and treatment. Discussed with Dr. Gamboa who is in agreement with admission. Discussed findings and plan with patient and family, who acknowledge understanding and agreement. Dragon Disclaimer Dragon Disclaimer This electronic medical record was generated, in whole or in part, using a voice recognition dictation system. Departure Departure Impression: Primary Impression: Closed right humeral fracture Additional Impressions: Fall at home Generalized weakness History of seizure Disposition: ADMITTED INPATIENT (at 1457) Admitting Physician: SCOTTS (Dr. Gamboa accepted admission at 1456) Condition: IMPROVED Referrals: RUDDY CALHOUN MD (PCP) Problem Qualifiers Primary Impression: Closed right humeral fracture Encounter type: initial encounter Humerus Location: proximal Fracture morphology: other fracture Fracture alignment: displaced Qualified Codes: S42.291A - Other displaced fracture of upper end of right humerus, initial encounter for closed fracture Additional Impressions: Fall at home Encounter type: subsequent encounter Qualified Codes: W19.XXXD - Unspecified fall, subsequent encounter; Y92.009 - Unspecified place in unspecified non-institutional (private) residence as the place of occurrence of the external cause KWAKU MAR MD Jul 16, 2019 13:15
--- NOTE | 2019-07-16 14:43 | RAD ---
SHOULDER 2+V RIGHT History: Pain after a fall. Findings: Comminuted fracture of the proximal shaft of the right humerus. Mild separation of fragments. There appears to be some anterior angulation of the fracture and anterior displacement of the distal fragment although fracture is poorly profiled. No glenohumeral joint dislocation. No acromioclavicular joint separation. IMPRESSION: Mildly displaced comminuted fracture of the proximal humeral shaft just below the humeral neck. Electronically signed by: Nicko Lozada MD (07/16/2019 2:40 PM) [facility]
[2019-07-16 16:13] LABS: BASO # 0.1 x10^3/uL (0.0-0.2); BASO % 1 % (0-3); EOS # 0.5 x10^3/uL (0.0-0.7); EOS % 5 % (0-3); HEMATOCRIT 37.5 % (36.0-47.0); HEMOGLOBIN 12.7 g/dL (12.0-15.5); LYMPH # 1.3 x10^3/uL (1.0-4.8); LYMPH % 15 % (24-48); MEAN CORPUSCULAR HEMOGLOBIN 32 pg (25-35); MEAN CORPUSCULAR HGB CONC 34 g/dL (31-37); MEAN CORPUSCULAR VOLUME 96 fL (79-100); MONO # 0.5 x10^3/uL (0.0-1.1); MONO % 6 % (0-9); NEUT # 6.6 x10^3/uL (1.8-7.7); NEUT % 73 % (31-73); PLATELET COUNT 210 x10^3/uL (140-400); RED BLOOD COUNT 3.92 x10^6/uL (3.50-5.40); RED CELL DISTRIBUTION WIDTH 13.4 % (11.5-14.5)
[2019-07-16 16:20] LABS: CALCIUM 8.9 mg/dL (8.5-10.1); CREATININE 0.8 mg/dL (0.6-1.0); GFR 73.2; POTASSIUM 4.1 mmol/L (3.5-5.1)
[2019-07-16 16:27] LABS: ALBUMIN 3.7 g/dL (3.4-5.0); ALBUMIN/GLOBULIN RATIO 1.2 (1.0-1.7); TOTAL BILIRUBIN 0.2 mg/dL (0.2-1.0); TOTAL PROTEIN 6.8 g/dL (6.4-8.2)
--- NOTE | 2019-07-16 17:00 | NUR ---
1700 pt admitted to room 444. Dr Barney present to assess patient. Admission done
[2019-07-16] MEDS ORDERED: LEVO100T PO (17:30)
[2019-07-16] MEDS ORDERED: dilantin PO (17:30)
[2019-07-16] MEDS ORDERED: oxyCODONE/APAP 10/325 1 TAB TABLET PO PRN (17:45)
[2019-07-16] MEDS ORDERED: IV DEXTROSE 5% 250 ML BAG. IV PRN (18:00)
[2019-07-16] MEDS ORDERED: DEXTROSE 50% 25 GM / 50ML DISP.SYRIN. IV PRN (18:00)
--- NOTE | 2019-07-16 18:10 | PDOC2 ---
CONSULT Date of Consult Date of Consult DATE: 07/16/19 TIME: 17:58 Reason for Consult Reason for Consult: Right humerus fracture Identification/Chief Complaint Chief Complaint Right shoulder pain Source Source: Chart review, Patient History of Present Illness Reason for Visit: Patient is a 59 year old right-handed woman with epilepsy/seizure disorder since childhood who presented to the ER via EMS with complaining of shoulder pain after a fall. Patient had an accidental fall from a standing position and injured her right shoulder and was not able to move her shoulder. Patient denies history of previous right shoulder injury or dislocation. Patient did not have loss of consciousness and other injuries and denies focal neuro deficit. Patient rated her pain 10 over 10. She had 50 �g of fentanyl intranasally by EMS. She was headed to the laundry room in her apartment, and her laundry cart wheel caught in the elevator causing her to fall. 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 Past Medical History Cardiovascular: HTN, Hyperlipidemia Pulmonary: Other CENTRAL NERVOUS SYSTEM: Periperal neuropathy, Seizure GI: GERD, Other Heme/Onc: Anemia NOS, Cancer Psych: Anxiety, Depression Musculoskeletal: low back pain Infectious disease: Other Endocrine: Diabetes, Other Past Surgical History Past Surgical History: Cholecystectomy, Other Family History Family History: Hypertension Social History No ALCOHOL: rare Drugs: None, Other Current Problem List Problem List Problems Medical Problems: (1) Closed right humeral fracture Status: Acute (2) Fall at home Status: Acute (3) Generalized weakness Status: Acute (4) History of seizure Status: Acute Current Medications Current Medications Current Medications Fentanyl Citrate (Fentanyl 2ml Vial) 50 mcg 1X ONCE IV Last administered on 07/16/19at 13:16; Start 07/16/19 at 12:45; Stop 07/16/19 at 12:47; Status DC Ondansetron HCl (Zofran) 4 mg 1X ONCE IV Last administered on 07/16/19at 13:16; Start 07/16/19 at 12:45; Stop 07/16/19 at 12:47; Status DC Fentanyl Citrate (Fentanyl 2ml Vial) 50 mcg 1X ONCE IV Last administered on 07/16/19at 14:02; Start 07/16/19 at 14:00; Stop 07/16/19 at 14:02; Status DC Fentanyl Citrate (Fentanyl 2ml Vial) 50 mcg 1X ONCE IV Last administered on 07/16/19at 15:17; Start 07/16/19 at 15:15; Stop 07/16/19 at 15:16; Status DC Fentanyl Citrate (Fentanyl 2ml Vial) 50 mcg PRN Q2HR PRN IV PAIN; Start 07/16/19 at 15:30; Stop 07/17/19 at 18:00 Amlodipine Besylate (Norvasc) 10 mg DAILY PO ; Start 07/17/19 at 09:00; Status UNV Atorvastatin Calcium (Lipitor) 10 mg DAILY PO ; Start 07/17/19 at 09:00; Status UNV Lacosamide (Vimpat) 50 mg BID PO ; Start 07/16/19 at 21:00; Status UNV Levetiracetam (Keppra) 1,250 mg BID PO ; Start 07/16/19 at 21:00; Status UNV Levothyroxine Sodium (Synthroid) 100 mcg DAILYAC PO ; Start 07/17/19 at 07:30; Status UNV Oxycodone/ Acetaminophen (Percocet 10/325) 1 tab PRN Q6HRS PRN PO PAIN; Start 07/16/19 at 17:45; Status UNV Pantoprazole Sodium (Protonix) 40 mg DAILY PO ; Start 07/17/19 at 09:00; Status UNV Phenytoin Sodium (Dilantin) 200 mg QHS PO ; Start 07/16/19 at 21:00; Status UNV Polyethylene Glycol (miraLAX Powder BULK BOTTLE) 17 gm DAILY PO ; Start 07/17/19 at 09:00; Status UNV Non-Formulary Medication (Gabapentin (Neurontin)) 600 mg TID PO ; Start 07/16/19 at 21:00; Status UNV Non-Formulary Medication (Insulin Detemir (Levemir)) 12 unit QHS SQ ; Start 07/16/19 at 21:00; Status UNV Non-Formulary Medication ([dilantin] ) 30 mg QHS PO ; Start 07/16/19 at 21:00; Status UNV Insulin Human Lispro (HumaLOG) 0-7 UNITS TIDWMEALS SQ ; Start 07/16/19 at 18:00; Status UNV Dextrose (Dextrose 50%-Water Syringe) 12.5 gm PRN Q15MIN PRN IV SEE COMMENTS; Start 07/16/19 at 18:00; Status UNV Dextrose 250 ml PRN Q15MIN PRN IV SEE COMMENTS; Start 07/16/19 at 18:00; Status UNV Active Scripts Active Polyethylene Glycol 3350 255 Gm Powder 17 Gm PO DAILY hold for loose BM Protonix (Pantoprazole Sodium) 40 Mg Tablet.dr 1 Tab PO DAILY Keppra (Levetiracetam) 250 Mg Tablet 1,250 Mg PO BID 30 Days Vimpat (Lacosamide) 50 Mg Tablet 50 Mg PO BID 30 Days Reported [dilantin] 30 Mg PO QHS Synthroid (Levothyroxine Sodium) 100 Mcg Tablet 100 Mcg PO DAILYAC Atorvastatin Calcium 10 Mg Tablet 1 Tab PO DAILY Percocet 10-325 Mg Tablet (Oxycodone/Acetaminophen) 1 Each Tablet 1 Tab PO PRN Q4-6HRS PRN Amlodipine Besylate 10 Mg Tablet 10 Mg PO DAILY Levemir (Insulin Detemir) 100 Unit/1 Ml Vial 12 Unit SQ QHS Dilantin (Phenytoin Sodium Extended) 100 Mg Capsule 2 Cap PO QHS Novolog (Insulin Aspart) 100 Unit/1 Ml Vial 4 Unit SQ DAILYWSUP Novolog (Insulin Aspart) 100 Unit/1 Ml Vial 5 Unit SQ DAILYBFRLUN Novolog (Insulin Aspart) 100 Unit/1 Ml Vial 12 Unit SQ DAILY07 Neurontin (Gabapentin) 600 Mg Tablet 600 Mg PO TID Allergies Allergies: Coded Allergies: I S O L A T I O N *CONTACT* (Verified Allergy, Unknown, 04/05/18) +MRSA nasal screen 02/21/18 No Known Medication Allergies (Verified Allergy, Unknown, 04/05/18) ROS General: No: Chills, Night Sweats PSYCHOLOGICAL ROS: YES: Anxiety Respiratory: No: Cough, Hemoptysis, Shortness of breath, SOB with excertion Cardiovascular: No Chest Pain, No Palpitations Gastrointestinal: No Nausea, No Vomiting Genitourinary: No Hematuria Musculoskeletal: Yes Joint Pain, Yes Joint Swelling Neurological: Yes Seizures Physical Exam General: Alert, Cooperative HEENT: Atraumatic Lungs: Normal air movement Heart: Regular rate Abdomen: Soft Extremities: Other (the right shoulder is held in a splinted position in a shoulder immobilizer. The skin is intact over the fracture. There is quite a bit of swelling at the arm but no ecchymosis. There is probably a deformity of the shoulder but the swelling makes it somewhat difficult to evaluate. Just based on examination I would suspect apex anterior angulation of the fracture at the proximal humerus. The elbow is nontender, and she demonstrated motor function of the radial ulnar and median nerves at the right hand. Sensation is intact in the right fingers. Radial pulses intact.) Neuro: Normal speech, Sensation intact MUSCULOSKELETAL: Abnormal exam of right (shoulder as above) Vitals VITALS Vital Signs Date Time Temp Pulse Resp B/P (MAP) Pulse Ox O2 Delivery O2 Flow Rate FiO2 07/16/19 15:17 20 99 Room Air 07/16/19 15:11 70 07/16/19 12:33 100.5 133/64 (87) 100.5 Labs Labs Laboratory Tests Test 07/16/19 16:00 07/16/19 17:15 White Blood Count 9.0 x10^3/uL (4.0-11.0) Red Blood Count 3.92 x10^6/uL (3.50-5.40) Hemoglobin 12.7 g/dL (12.0-15.5) Hematocrit 37.5 % (36.0-47.0) Mean Corpuscular Volume 96 fL (79-100) Mean Corpuscular Hemoglobin 32 pg (25-35) Mean Corpuscular Hemoglobin Concent 34 g/dL (31-37) Red Cell Distribution Width 13.4 % (11.5-14.5) Platelet Count 210 x10^3/uL (140-400) Neutrophils (%) (Auto) 73 % (31-73) Lymphocytes (%) (Auto) 15 % (24-48) Monocytes (%) (Auto) 6 % (0-9) Eosinophils (%) (Auto) 5 % (0-3) Basophils (%) (Auto) 1 % (0-3) Neutrophils # (Auto) 6.6 x10^3/uL (1.8-7.7) Lymphocytes # (Auto) 1.3 x10^3/uL (1.0-4.8) Monocytes # (Auto) 0.5 x10^3/uL (0.0-1.1) Eosinophils # (Auto) 0.5 x10^3/uL (0.0-0.7) Basophils # (Auto) 0.1 x10^3/uL (0.0-0.2) Sodium Level 139 mmol/L (136-145) Potassium Level 4.1 mmol/L (3.5-5.1) Chloride Level 102 mmol/L (98-107) Carbon Dioxide Level 28 mmol/L (21-32) Anion Gap 9 (6-14) Blood Urea Nitrogen 10 mg/dL (7-20) Creatinine 0.8 mg/dL (0.6-1.0) Estimated GFR (Cockcroft-Gault) 73.2 BUN/Creatinine Ratio 13 (6-20) Glucose Level 305 mg/dL (70-99) Calcium Level 8.9 mg/dL (8.5-10.1) Total Bilirubin 0.2 mg/dL (0.2-1.0) Aspartate Amino Transf (AST/SGOT) 18 U/L (15-37) Alanine Aminotransferase (ALT/SGPT) 19 U/L (14-59) Alkaline Phosphatase 136 U/L (46-116) Total Protein 6.8 g/dL (6.4-8.2) Albumin 3.7 g/dL (3.4-5.0) Albumin/Globulin Ratio 1.2 (1.0-1.7) Glucose (Fingerstick) 306 mg/dL (70-99) Laboratory Tests Test 07/16/19 16:00 07/16/19 17:15 White Blood Count 9.0 x10^3/uL (4.0-11.0) Red Blood Count 3.92 x10^6/uL (3.50-5.40) Hemoglobin 12.7 g/dL (12.0-15.5) Hematocrit 37.5 % (36.0-47.0) Mean Corpuscular Volume 96 fL (79-100) Mean Corpuscular Hemoglobin 32 pg (25-35) Mean Corpuscular Hemoglobin Concent 34 g/dL (31-37) Red Cell Distribution Width 13.4 % (11.5-14.5) Platelet Count 210 x10^3/uL (140-400) Neutrophils (%) (Auto) 73 % (31-73) Lymphocytes (%) (Auto) 15 % (24-48) Monocytes (%) (Auto) 6 % (0-9) Eosinophils (%) (Auto) 5 % (0-3) Basophils (%) (Auto) 1 % (0-3) Neutrophils # (Auto) 6.6 x10^3/uL (1.8-7.7) Lymphocytes # (Auto) 1.3 x10^3/uL (1.0-4.8) Monocytes # (Auto) 0.5 x10^3/uL (0.0-1.1) Eosinophils # (Auto) 0.5 x10^3/uL (0.0-0.7) Basophils # (Auto) 0.1 x10^3/uL (0.0-0.2) Sodium Level 139 mmol/L (136-145) Potassium Level 4.1 mmol/L (3.5-5.1) Chloride Level 102 mmol/L (98-107) Carbon Dioxide Level 28 mmol/L (21-32) Anion Gap 9 (6-14) Blood Urea Nitrogen 10 mg/dL (7-20) Creatinine 0.8 mg/dL (0.6-1.0) Estimated GFR (Cockcroft-Gault) 73.2 BUN/Creatinine Ratio 13 (6-20) Glucose Level 305 mg/dL (70-99) Calcium Level 8.9 mg/dL (8.5-10.1) Total Bilirubin 0.2 mg/dL (0.2-1.0) Aspartate Amino Transf (AST/SGOT) 18 U/L (15-37) Alanine Aminotransferase (ALT/SGPT) 19 U/L (14-59) Alkaline Phosphatase 136 U/L (46-116) Total Protein 6.8 g/dL (6.4-8.2) Albumin 3.7 g/dL (3.4-5.0) Albumin/Globulin Ratio 1.2 (1.0-1.7) Glucose (Fingerstick) 306 mg/dL (70-99) Images Images Report reviewed, images independently reviewed. The angulation on the outlet view appears to be 55� when I measure it. Comminuted neck fracture, no head involvement based on these images. No dislocation. [facility] [id number] [place], [place] [id number] IMAGING REPORT Signed PATIENT: ALIVIA WILDER ACCOUNT: [id number] : 1960 LOCATION: ER AGE: 59 SEX: F EXAM STATUS: REG ER ORD. PHYSICIAN: KWAKU MAR MD REASON: fall. right shoulder pain PROCEDURE: SHOULDER 2+V RIGHT SHOULDER 2+V RIGHT History: Pain after a fall. Findings: Comminuted fracture of the proximal shaft of the right humerus. Mild separation of fragments. There appears to be some anterior angulation of the fracture and anterior displacement of the distal fragment although fracture is poorly profiled. No glenohumeral joint dislocation. No acromioclavicular joint separation. IMPRESSION: Mildly displaced comminuted fracture of the proximal humeral shaft just below the humeral neck. Electronically signed by: Nicko Lozada MD (07/16/2019 2:40 PM) [facility] DICTATED and SIGNED BY: NICKO LOZADA MD DATE: 07/16/19 1440 Assessment/Plan Assessment/Plan S42.221A 2-part displaced fracture of surgical neck of right humerus, initial encounter for closed fracture I spoke to her about options for treatment, operative versus nonoperative. This can be treated nonoperatively but would be painful for several weeks due to the instability, and is likely to heal in a malunited position which might cause quite a bit of difficulty with motion and function later. I do recommend surgery. Surgical fixation would likely realign the bone to give better long- term function, and although there is increased pain initially with surgery, stabilizing the bone should help the bone pain be better in the next few days, and allow early range of motion. There are still risks of stiffness and loss of motion with surgery. There are other risks of surgery such as infection, hardware pulling out, hardware failure, need for additional surgeries, nonunion, malunion, bleeding, scarring, neurovascular injury, and other potential complications. My main concern with her is that many medications for seizures cause abnormal bone metabolism, and her bone quality could be much more poor than would be expected for her age. This could cause the hardware to pull out of the bone, or cause difficulties with stable fixation. Her bone appears near normal radiographically, perhaps slight osteopenia of the humeral shaft radiographically. I discussed all of this with her, and her nurse Dinesh was in the room while the discussion occurred. Another surgical option would be an intramedullary nail, but in her case with suspected poor bone quality, I doubt the proximal fixation of an intramedullary nail would be stable enough. A locking plate proximally would give better fixation. I spoke to her about the risks benefits and alternatives of open treatment with internal fixation of the right proximal humerus versus nonoperative treatment but I do recommend surgical fixation. She agrees with the plan for surgery. DONTAE HAND MD Jul 16, 2019 18:10
[2019-07-16] MEDS: INSULIN LISPRO 300 UNITS/3 ML VIAL. SQ SCH (18:50)
[2019-07-16 19:00] VITALS: BP 122/64
--- NOTE | 2019-07-16 21:21 | HP ---
ADMIT DATE: 07/16/2019 CHIEF COMPLAINT: Fall with right arm pain. HISTORY OF PRESENT ILLNESS: The patient is a pleasant middle-aged white female who has severe seizure disorder and is on 3 different seizure meds. Today, she was at her apartment, trying to get on elevator and tripped, she fell onto her right shoulder. She has now suffered a proximal humerus fracture. I discussed the case with ER physician. She has 10/10 pain. We are going to admit the patient, give her IV pain meds and consult Orthopedics. She is scheduled for surgery tomorrow. PAST MEDICAL HISTORY: Severe seizure disorders, she is on 3 meds; GERD, anxiety, hypertension, hyperlipidemia, hypothyroidism, neuropathy, previous left shoulder injury, previous right knee injury. ALLERGIES: None. FAMILY HISTORY: Hypertension. SOCIAL HISTORY: She does not drink, smoke or take drugs. She lives in an apartment. She has a boyfriend. MEDICATIONS: Reviewed, please refer to the MRAD. REVIEW OF SYSTEMS: GENERAL: No history of weight change, weakness or fevers. SKIN: No bruising, hair changes or rashes. EYES: No blurred, double or loss of vision. NOSE AND THROAT: No history of nosebleeds, hoarseness or sore throat. HEART: No history of palpitations, chest pain or shortness of breath on exertion. LUNGS: Denies cough, hemoptysis, wheezing or shortness of breath. GASTROINTESTINAL: Denies changes in appetite, nausea, vomiting, diarrhea or constipation. GENITOURINARY: No history of frequency, urgency, hesitancy or nocturia. NEUROLOGIC: Denies history of numbness, tingling, tremor or weakness. PSYCHIATRIC: No history of panic, anxiety or depression. ENDOCRINE: No history of heat or cold intolerance, polyuria or polydipsia. EXTREMITIES: Complains of right arm pain. PHYSICAL EXAMINATION: VITALS: Within normal limits and are stable. GENERAL: No apparent distress. Alert and oriented. HEENT: Head is normocephalic, atraumatic, pupils were equally round and reactive to light and accommodation. NECK: Supple, no JVD, no thyromegaly was noted. LUNGS: Clear to auscultation in all lung liriano without rhonchi or wheezing. HEART: RRR, S1, S2 present. Peripheral pulses intact, no obvious murmurs were noted. ABDOMEN: Soft, nontender. Positive bowel sounds no organomegaly, normal bowel sounds. EXTREMITIES: She has brace on the right arm. NEUROLOGIC: Normal speech, normal tone. A and O x 3, moves all extremities, no obvious focal deficits. PSYCHIATRIC: Normal affect, normal mood. Stable. SKIN: No ulcerations or rashes, good skin turgor, no jaundice. VASCULAR: Good capillary refill, neurovascular bundle appears to be intact. ASSESSMENT AND PLAN: Fall with right humerus fracture. The patient has been admitted. We will give her p.r.n. narcotics, IV fluids, p.r.n. Zofran, try to resume her home meds especially her seizure meds and I talked to the nurse and the patient about this. We certainly do not want to have a breakthrough seizure in the middle of this process. She is going to go to surgery tomorrow. DVT prophylaxis. Full code. SABRINA BALTAZAR DO DR: CAREY/julius JOB#: [id number] / [id number]
[2019-07-16] MEDS: PHENYTOIN SODIUM EXTENDED 100 MG CAPSULE PO SCH (21:33)
[2019-07-16] MEDS: levETIRAcetam 500 MG TABLET PO SCH (21:33)
[2019-07-16] MEDS: GABAPENTIN 300 MG CAPSULE. PO SCH (21:33)
[2019-07-16] MEDS: PHENYTOIN SODIUM EXTENDED 30 MG CAPSULE. PO SCH (21:33)
[2019-07-16] MEDS: LACOSAMIDE 50 MG TABLET PO SCH (21:35)
[2019-07-16] MEDS: ATORVASTATIN CALCIUM 10 MG TABLET. PO SCH (21:35)
[2019-07-16] MEDS: INSULIN GLARGINE SYRINGE. SQ SCH (21:40)
[2019-07-16] MEDS ORDERED: INSULIN LISPRO 300 UNITS/3 ML VIAL. SQ ONE (22:00)
[2019-07-16 23:00] VITALS: BP 118/55
[2019-07-17] VITALS (8 sets, daily range): BP systolic 99–149; BP diastolic 39–85
[2019-07-17] MEDS: LEVOTHYROXINE 100 MCG TABLET PO SCH (05:30)
[2019-07-17] MEDS: PANTOPRAZOLE 40 MG TABLET.DR. PO SCH (05:30)
[2019-07-17] MEDS ORDERED: fentaNYL PF VIAL 100 MCG/2 ML VIAL IV PRN ×3 (06:45→13:30)
[2019-07-17] MEDS ORDERED: PROCHLORPERAZINE 10 MG/2 ML VIAL. IV PRN (06:45)
[2019-07-17] MEDS ORDERED: ONDANSETRON PF 4 MG/2 ML VIAL. IV PRN ×2 (06:45→13:30)
[2019-07-17] MEDS ORDERED: BUPIVACAINE MPF 0.25% 30 ML VIAL. ONE (06:50)
[2019-07-17] MEDS ORDERED: IV RINGERS,LACTATED 1000ML 1,000 ML IV SCH (07:00)
--- NOTE | 2019-07-17 07:52 | PDOC ---
PROGRESS NOTES History of Present Illness History of Present Illness ASSESSMENT AND PLAN: Fall with right humerus fracture. Mildly displaced comminuted fracture of the proximal humeral shaft just below the humeral neck. admitted. p.r.n. narcotics, IV fluids, p.r.n. Zofran, try to home meds DVT prophylaxis. Full code. 28 min pt exam, chart review, > 50% of time spent with exam, chart review, pt care coordination Vitals Vitals Vital Signs Date Time Temp Pulse Resp B/P (MAP) Pulse Ox O2 Delivery O2 Flow Rate FiO2 07/17/19 03:49 16 Room Air 07/17/19 03:00 97.5 65 99/39 (59) 96 97.5 Physical Exam General: Alert, Oriented X3, Cooperative, No acute distress Heart: Regular rate Lungs: Clear Abdomen: Normal bowel sounds, Soft, No tenderness Extremities: No cyanosis, Normal pulses, Other (the right shoulder is held in a splinted position in a shoulder immobilizer. The skin is intact over the fracture. There is quite a bit of swelling at the arm but no ecchymosis. There is probably a deformity of the shoulder but the swelling makes it somewhat difficult to evaluate. Just based on examination I would suspect apex anterior angulation of the fracture at the proximal humerus. The elbow is nontender, and she demonstrated motor function of the radial ulnar and median nerves at the right hand. Sensation is intact in the right fingers. Radial pulses intact.) Skin: No breakdown Labs LABS SHOULDER 2+V RIGHT History: Pain after a fall. Findings: Comminuted fracture of the proximal shaft of the right humerus. Mild separation of fragments. There appears to be some anterior angulation of the fracture and anterior displacement of the distal fragment although fracture is poorly profiled. No glenohumeral joint dislocation. No acromioclavicular joint separation. IMPRESSION: Mildly displaced comminuted fracture of the proximal humeral shaft just below the humeral neck. Electronically signed by: Nicko Lozada MD (07/16/2019 2:40 PM) [facility] Laboratory Tests Test 07/16/19 16:00 07/16/19 17:15 07/16/19 20:22 White Blood Count 9.0 x10^3/uL (4.0-11.0) Red Blood Count 3.92 x10^6/uL (3.50-5.40) Hemoglobin 12.7 g/dL (12.0-15.5) Hematocrit 37.5 % (36.0-47.0) Mean Corpuscular Volume 96 fL (79-100) Mean Corpuscular Hemoglobin 32 pg (25-35) Mean Corpuscular Hemoglobin Concent 34 g/dL (31-37) Red Cell Distribution Width 13.4 % (11.5-14.5) Platelet Count 210 x10^3/uL (140-400) Neutrophils (%) (Auto) 73 % (31-73) Lymphocytes (%) (Auto) 15 % (24-48) Monocytes (%) (Auto) 6 % (0-9) Eosinophils (%) (Auto) 5 % (0-3) Basophils (%) (Auto) 1 % (0-3) Neutrophils # (Auto) 6.6 x10^3/uL (1.8-7.7) Lymphocytes # (Auto) 1.3 x10^3/uL (1.0-4.8) Monocytes # (Auto) 0.5 x10^3/uL (0.0-1.1) Eosinophils # (Auto) 0.5 x10^3/uL (0.0-0.7) Basophils # (Auto) 0.1 x10^3/uL (0.0-0.2) Sodium Level 139 mmol/L (136-145) Potassium Level 4.1 mmol/L (3.5-5.1) Chloride Level 102 mmol/L (98-107) Carbon Dioxide Level 28 mmol/L (21-32) Anion Gap 9 (6-14) Blood Urea Nitrogen 10 mg/dL (7-20) Creatinine 0.8 mg/dL (0.6-1.0) Estimated GFR (Cockcroft-Gault) 73.2 BUN/Creatinine Ratio 13 (6-20) Glucose Level 305 mg/dL (70-99) Calcium Level 8.9 mg/dL (8.5-10.1) Total Bilirubin 0.2 mg/dL (0.2-1.0) Aspartate Amino Transf (AST/SGOT) 18 U/L (15-37) Alanine Aminotransferase (ALT/SGPT) 19 U/L (14-59) Alkaline Phosphatase 136 U/L (46-116) Total Protein 6.8 g/dL (6.4-8.2) Albumin 3.7 g/dL (3.4-5.0) Albumin/Globulin Ratio 1.2 (1.0-1.7) Glucose (Fingerstick) 306 mg/dL (70-99) 285 mg/dL (70-99) Assessment and Plan Assessmemt and Plan Problems Medical Problems: (1) Closed right humeral fracture Status: Acute (2) Fall at home Status: Acute (3) Generalized weakness Status: Acute (4) History of seizure Status: Acute Comment Review of Relevant I have reviewed the following items vlad (where applicable) has been applied. Labs Laboratory Tests Test 07/16/19 16:00 07/16/19 17:15 07/16/19 20:22 White Blood Count 9.0 x10^3/uL (4.0-11.0) Red Blood Count 3.92 x10^6/uL (3.50-5.40) Hemoglobin 12.7 g/dL (12.0-15.5) Hematocrit 37.5 % (36.0-47.0) Mean Corpuscular Volume 96 fL (79-100) Mean Corpuscular Hemoglobin 32 pg (25-35) Mean Corpuscular Hemoglobin Concent 34 g/dL (31-37) Red Cell Distribution Width 13.4 % (11.5-14.5) Platelet Count 210 x10^3/uL (140-400) Neutrophils (%) (Auto) 73 % (31-73) Lymphocytes (%) (Auto) 15 % (24-48) Monocytes (%) (Auto) 6 % (0-9) Eosinophils (%) (Auto) 5 % (0-3) Basophils (%) (Auto) 1 % (0-3) Neutrophils # (Auto) 6.6 x10^3/uL (1.8-7.7) Lymphocytes # (Auto) 1.3 x10^3/uL (1.0-4.8) Monocytes # (Auto) 0.5 x10^3/uL (0.0-1.1) Eosinophils # (Auto) 0.5 x10^3/uL (0.0-0.7) Basophils # (Auto) 0.1 x10^3/uL (0.0-0.2) Sodium Level 139 mmol/L (136-145) Potassium Level 4.1 mmol/L (3.5-5.1) Chloride Level 102 mmol/L (98-107) Carbon Dioxide Level 28 mmol/L (21-32) Anion Gap 9 (6-14) Blood Urea Nitrogen 10 mg/dL (7-20) Creatinine 0.8 mg/dL (0.6-1.0) Estimated GFR (Cockcroft-Gault) 73.2 BUN/Creatinine Ratio 13 (6-20) Glucose Level 305 mg/dL (70-99) Calcium Level 8.9 mg/dL (8.5-10.1) Total Bilirubin 0.2 mg/dL (0.2-1.0) Aspartate Amino Transf (AST/SGOT) 18 U/L (15-37) Alanine Aminotransferase (ALT/SGPT) 19 U/L (14-59) Alkaline Phosphatase 136 U/L (46-116) Total Protein 6.8 g/dL (6.4-8.2) Albumin 3.7 g/dL (3.4-5.0) Albumin/Globulin Ratio 1.2 (1.0-1.7) Glucose (Fingerstick) 306 mg/dL (70-99) 285 mg/dL (70-99) Laboratory Tests Test 07/16/19 16:00 07/16/19 17:15 07/16/19 20:22 White Blood Count 9.0 x10^3/uL (4.0-11.0) Red Blood Count 3.92 x10^6/uL (3.50-5.40) Hemoglobin 12.7 g/dL (12.0-15.5) Hematocrit 37.5 % (36.0-47.0) Mean Corpuscular Volume 96 fL (79-100) Mean Corpuscular Hemoglobin 32 pg (25-35) Mean Corpuscular Hemoglobin Concent 34 g/dL (31-37) Red Cell Distribution Width 13.4 % (11.5-14.5) Platelet Count 210 x10^3/uL (140-400) Neutrophils (%) (Auto) 73 % (31-73) Lymphocytes (%) (Auto) 15 % (24-48) Monocytes (%) (Auto) 6 % (0-9) Eosinophils (%) (Auto) 5 % (0-3) Basophils (%) (Auto) 1 % (0-3) Neutrophils # (Auto) 6.6 x10^3/uL (1.8-7.7) Lymphocytes # (Auto) 1.3 x10^3/uL (1.0-4.8) Monocytes # (Auto) 0.5 x10^3/uL (0.0-1.1) Eosinophils # (Auto) 0.5 x10^3/uL (0.0-0.7) Basophils # (Auto) 0.1 x10^3/uL (0.0-0.2) Sodium Level 139 mmol/L (136-145) Potassium Level 4.1 mmol/L (3.5-5.1) Chloride Level 102 mmol/L (98-107) Carbon Dioxide Level 28 mmol/L (21-32) Anion Gap 9 (6-14) Blood Urea Nitrogen 10 mg/dL (7-20) Creatinine 0.8 mg/dL (0.6-1.0) Estimated GFR (Cockcroft-Gault) 73.2 BUN/Creatinine Ratio 13 (6-20) Glucose Level 305 mg/dL (70-99) Calcium Level 8.9 mg/dL (8.5-10.1) Total Bilirubin 0.2 mg/dL (0.2-1.0) Aspartate Amino Transf (AST/SGOT) 18 U/L (15-37) Alanine Aminotransferase (ALT/SGPT) 19 U/L (14-59) Alkaline Phosphatase 136 U/L (46-116) Total Protein 6.8 g/dL (6.4-8.2) Albumin 3.7 g/dL (3.4-5.0) Albumin/Globulin Ratio 1.2 (1.0-1.7) Glucose (Fingerstick) 306 mg/dL (70-99) 285 mg/dL (70-99) Medications Current Medications Fentanyl Citrate (Fentanyl 2ml Vial) 50 mcg 1X ONCE IV Last administered on 07/16/19at 13:16; Start 07/16/19 at 12:45; Stop 07/16/19 at 12:47; Status DC Ondansetron HCl (Zofran) 4 mg 1X ONCE IV Last administered on 07/16/19at 13:16; Start 07/16/19 at 12:45; Stop 07/16/19 at 12:47; Status DC Fentanyl Citrate (Fentanyl 2ml Vial) 50 mcg 1X ONCE IV Last administered on 07/16/19 14:02; Start 07/16/19 at 14:00; Stop 07/16/19 at 14:02; Status DC Fentanyl Citrate (Fentanyl 2ml Vial) 50 mcg 1X ONCE IV Last administered on 07/16/19at 15:17; Start 07/16/19 at 15:15; Stop 07/16/19 at 15:16; Status DC Fentanyl Citrate (Fentanyl 2ml Vial) 50 mcg PRN Q2HR PRN IV PAIN; Start 07/16/19 at 15:30; Stop 07/17/19 at 18:00 Amlodipine Besylate (Norvasc) 10 mg DAILY PO ; Start 07/17/19 at 09:00 Atorvastatin Calcium (Lipitor) 10 mg QHS PO Last administered on 07/16/19 21:41; Start 07/16/19 at 21:00 Lacosamide (Vimpat) 100 mg BID PO Last administered on 07/16/19 21:41; Start 07/16/19 at 21:00 Levetiracetam (Keppra) 1,250 mg BID PO Last administered on 07/16/19 21:34; Start 07/16/19 at 21:00 Levothyroxine Sodium (Synthroid) 100 mcg DAILYAC PO ; Start 07/17/19 at 07:30 Oxycodone/ Acetaminophen (Percocet 10/325) 1 tab PRN Q6HRS PRN PO PAIN MODERATE Last administered on 07/16/19at 21:41; Start 07/16/19 at 17:45 Pantoprazole Sodium (Protonix) 40 mg DAILYAC PO ; Start 07/17/19 at 07:30 Phenytoin Sodium (Dilantin) 200 mg QHS PO Last administered on 07/16/19 21:34; Start 07/16/19 at 21:00 Polyethylene Glycol (miraLAX PACKET) 17 gm DAILY PO ; Start 07/17/19 at 09:00 Gabapentin (Neurontin) 600 mg TID PO Last administered on 07/16/19 21:34; Start 07/16/19 at 21:00 Insulin Glargine (Lantus Syringe) 12 unit QHS SQ Last administered on 07/16/19 21:41; Start 07/16/19 at 21:00 Phenytoin Sodium (Dilantin) 30 mg QHS PO Last administered on 07/16/19at 21:34; Start 07/16/19 at 21:00 Insulin Human Lispro (HumaLOG) 0-7 UNITS TIDWMEALS SQ Last administered on 07/16/19at 18:50; Start 07/16/19 at 18:00 Dextrose (Dextrose 50%-Water Syringe) 12.5 gm PRN Q15MIN PRN IV SEE COMMENTS; Start 07/16/19 at 18:00 Dextrose 250 ml PRN Q15MIN PRN IV SEE COMMENTS; Start 07/16/19 at 18:00 Cefazolin Sodium/ Dextrose 50 ml @ 100 mls/hr 1X PREOP PRN IV SEE COMMENTS; Start 07/16/19 at 18:15 Insulin Human Lispro (HumaLOG) 3 units 1X ONCE SQ Last administered on 07/16/19at 21:41; Start 07/16/19 at 22:00; Stop 07/16/19 at 22:01; Status DC Ondansetron HCl (Zofran) 4 mg PRN Q6HRS PRN IV NAUSEA/VOMITING; Start 07/17/19 at 06:45; Stop 07/18/19 at 06:44 Fentanyl Citrate (Fentanyl 2ml Vial) 25 mcg PRN Q5MIN PRN IV MILD PAIN 1-3; St art 07/17/19 at 06:45; Stop 07/18/19 at 06:44 Fentanyl Citrate (Fentanyl 2ml Vial) 50 mcg PRN Q5MIN PRN IV MODERATE TO SEVERE PAIN; Start 07/17/19 at 06:45; Stop 07/18/19 at 06:44 Morphine Sulfate (Morphine Sulfate) 1 mg PRN Q10MIN PRN IV SEVERE PAIN 7-10; S tart 07/17/19 at 06:45; Stop 07/18/19 at 06:44 Ringer's Solution 1,000 ml @ 30 mls/hr Q24H IV ; Start 07/17/19 at 07:00; Stop 07/17/19 at 07:01; Status DC Hydromorphone HCl (Dilaudid) 0.5 mg PRN Q10MIN PRN IV SEV PAIN, Second choice; Start 07/17/19 at 06:45; Stop 07/18/19 at 06:44 Prochlorperazine Edisylate (Compazine) 5 mg PACU PRN PRN IV NAUSEA, MRX1; Start 07/17/19 at 06:45; Stop 07/18/19 at 06:44 Bupivacaine HCl (Sensorcaine Mpf 0.25%) 30 ml STK-MED ONCE .ROUTE ; Start 07/17/19 at 06:50; Stop 07/17/19 at 06:50; Status DC Active Scripts Active Polyethylene Glycol 3350 255 Gm Powder 17 Gm PO DAILY hold for loose BM Protonix (Pantoprazole Sodium) 40 Mg Tablet. 1 Tab PO DAILY Keppra (Levetiracetam) 250 Mg Tablet 1,250 Mg PO BID 30 Days Vimpat (Lacosamide) 50 Mg Tablet 50 Mg PO BID 30 Days Reported [dilantin] 30 Mg PO QHS Synthroid (Levothyroxine Sodium) 100 Mcg Tablet 100 Mcg PO DAILYAC Atorvastatin Calcium 10 Mg Tablet 1 Tab PO DAILY Percocet 10-325 Mg Tablet (Oxycodone/Acetaminophen) 1 Each Tablet 1 Tab PO PRN Q4-6HRS PRN Amlodipine Besylate 10 Mg Tablet 10 Mg PO DAILY Levemir (Insulin Detemir) 100 Unit/1 Ml Vial 12 Unit SQ QHS Dilantin (Phenytoin Sodium Extended) 100 Mg Capsule 2 Cap PO QHS Novolog (Insulin Aspart) 100 Unit/1 Ml Vial 4 Unit SQ [id number] Novolog (Insulin Aspart) 100 Unit/1 Ml Vial 5 Unit SQ [id number] Novolog (Insulin Aspart) 100 Unit/1 Ml Vial 12 Unit SQ DAILY07 Neurontin (Gabapentin) 600 Mg Tablet 600 Mg PO TID Vitals/I & O Vital Sign - Last 24 Hours 07/16/19 07/16/19 07/16/19 07/16/19 12:33 13:16 13:21 13:56 Temp 100.5 100.5 Pulse 66 67 62 Resp 20 16 16 13 B/P (MAP) 133/64 (87) Pulse Ox 100 99 100 99 O2 Delivery Room Air Room Air 07/16/19 07/16/19 07/16/19 07/16/19 14:02 14:26 14:56 15:11 Pulse 64 74 70 Resp 16 17 15 16 Pulse Ox 99 100 96 100 O2 Delivery Room Air 07/16/19 07/16/19 07/16/19 07/16/19 15:17 17:00 19:00 20:05 Temp 98.5 98.5 Pulse 81 Resp 20 18 B/P (MAP) 122/64 (83) Pulse Ox 99 93 O2 Delivery Room Air Room Air Room Air Room Air 07/16/19 07/16/19 07/17/19 07/17/19 21:41 23:00 03:00 03:49 Temp 97.9 97.5 97.9 97.5 Pulse 68 65 Resp 16 18 18 16 B/P (MAP) 118/55 (76) 99/39 (59) Pulse Ox 99 96 O2 Delivery Room Air Room Air Room Air Room Air Intake and Output 07/16/19 07/16/19 07/17/19 14:59 22:59 06:59 Intake Total 450 ml Balance 450 ml JORGE DOMINGO MD Jul 17, 2019 07:51
[2019-07-17] MEDS: LACOSAMIDE 50 MG TABLET PO SCH ×2 (08:49→22:07)
[2019-07-17] MEDS: levETIRAcetam 500 MG TABLET PO SCH ×2 (08:53→22:08)
[2019-07-17] MEDS: POLYETHYLENE GLYCOL 3350 17 GM PACKET. PO SCH (09:00)
[2019-07-17] MEDS: GABAPENTIN 300 MG CAPSULE. PO SCH ×3 (09:00→22:05)
[2019-07-17] MEDS: INSULIN LISPRO 300 UNITS/3 ML VIAL. SQ SCH ×3 (09:07→18:15)
[2019-07-17] MEDS: fentaNYL PF VIAL 100 MCG/2 ML VIAL IV PRN ×2 (10:56→14:24)
[2019-07-17] MEDS ORDERED: PROPOFOL 20 ML IV ONE (11:22)
[2019-07-17] MEDS ORDERED: LIDOCAINE 2% PF 5 ML VIAL. ONE (11:22)
[2019-07-17] MEDS ORDERED: DEXAMETHASONE SOD PHOS 4 MG/ML VIAL ONE (11:22)
[2019-07-17] MEDS ORDERED: ONDANSETRON PF 4 MG/2 ML VIAL. ONE (11:22)
[2019-07-17] MEDS ORDERED: fentaNYL PF VIAL 100 MCG/2 ML VIAL ONE (11:22)
[2019-07-17] MEDS ORDERED: ROCURONIUM 50 MG/5 ML VIAL. ONE (11:22)
[2019-07-17] MEDS ORDERED: INSULIN LISPRO 100 UNIT/ML 3ML VIAL for OP,RR ONLY. SQ PRN (11:30)
[2019-07-17] MEDS ORDERED: diazepam PO (11:48)
[2019-07-17] MEDS ORDERED: ePHEDrine PF IN SALINE 50 MG/10 ML SYRINGE. IV ONE (12:15)
[2019-07-17] MEDS ORDERED: NEOSTIGMINE METHYLSULFATE 5 MG/5 ML SYRINGE. ONE (13:05)
[2019-07-17] MEDS ORDERED: GLYCOPYRROLATE 1 MG/5 ML VIAL. ONE (13:05)
[2019-07-17] MEDS ORDERED: SEVOFLURANE 61 TO 120 MINUTES. IH ONE (13:05)
--- NOTE | 2019-07-17 13:21 | PDOC4 ---
Operative Note Operative Note Date of Procedure: July 17, 2019 Pre-Op Diagnosis: S42.221A Two-part displaced fracture of surgical neck of right humerus, initial encounter for closed fracture Post-Op Diagnosis: S42.221A Two-part displaced fracture of surgical neck of right humerus, initial encounter for closed fracture Procedure: CPT 54993 open treatment proximal humeral surgical neck fracture with internal fixation Surgeon: Dontae Barney MD Supervisor Kennel: Laxmi GALO Anesthesia: General EBL: 100 mL Specimens Obtained: none Complications: none Drains: none Indications for Procedure: The patient is a 59-year-old woman who sustained a closed displaced fracture of the proximal humerus. The main fracture line is a 2 part displaced fracture with comminution and significant angulation. I recommended open treatment with internal fixation, using a plate and screws. The patient and I discussed the risks, benefits and alternatives of surgery. I discussed risks with her such as avascular necrosis, need for hardware removal, infection, nonunion or malunion, shoulder stiffness, neurovascular injury, bleeding, scarring, or other potential surgical or anesthetic complications. All of her questions about surgery were answered and she desired to proceed. Procedure in Detail: The patient was identified in the preoperative holding area. The correct right shoulder was marked by me. The patient was taken to the operating room where general anesthesia was used. The patient was positioned in the beach chair position on the operating table. Preoperative antibiotics were given intravenously. A timeout procedure was performed. The limb was prepared in sterile fashion with ChloraPrep and marked fracture instability was noted during the positioning of the arm to prepare the skin. Sterile drapes were applied. The large image intensifier was positioned at the head of the bed, and used throughout the procedure, and all of the images were interpreted intraoperatively by me. The deltopectoral approach was used. I injected local anesthetic, bupivacaine 0.25% into the area of the proposed incision. A 10 blade scalpel was used for sharp dissection. The deltopectoral interval was identified. The cephalic vein was retracted laterally. A Kobel retractor was placed, with care made not to injure the musculocutaneous nerve or the axillary nerve. I placed a bent Polo retractor, which my assistant front office manager used to expose the humeral head.. Fracture hematoma was cleared with curettes, rongeurs and irrigation. The fracture is severely unstable. The shaft was markedly displaced and unstable, and required traction by my assistant front office manager for reduction. A large K- wire used to stabilize the fracture reduction, and the large image intensifier was used to confirm the reduction. Next a Synthes locking periarticular proximal humerus plate was applied. A nonlocking screw was used, for preliminary plate application, and the plate was repositioned several times until satisfactory positioning was achieved on the image intensifier. The entire proximal cluster of the plate was now filled with locking screws using the drill guide, and after predrilling. The drill was used to perforate the cortex, and then the depth gauge was inserted to check length up to the subchondral bone, with care made to not penetrate the joint. The bone quality is very poor, soft like butter. Each of the screws were placed about 6 mm short of the subchondral bone and articular surface to avoid any joint penetration or joint impingement. The remaining locking holes in the shaft portion of the plate were secured with locking screws, after predrilling with the locking guide. The initial cortical screw in the shaft was removed and replaced with a locking screw due to the poor bone quality. Final images in AP and lateral planes showed satisfactory reduction and fixatio n. Copious saline and Betadine irrigation was used. Outer gloves were changed. The deltopectoral fascia was repaired with #0 Vicryl interrupted sutures. My assistant front office manager closed the subcutaneous tissues with 2-0 Vicryl. She placed ramon in the skin. She applied a bulky sterile dressing including Xeroform. Needle and sponge counts were correct. There were no apparent complications. DONTAE BARNEY MD Jul 17, 2019 13:21
[2019-07-17] MEDS ORDERED: IV DEXTROSE 5% 250 ML BAG. IV PRN (13:30)
[2019-07-17] MEDS ORDERED: POLYETHYLENE GLYCOL 3350 17 GM PACKET. PO PRN (13:30)
[2019-07-17] MEDS ORDERED: DEXTROSE 50% 25 GM / 50ML DISP.SYRIN. IV PRN (13:30)
[2019-07-17] MEDS ORDERED: CALCIUM CARBONATE 500 MG TAB.CHEW PO PRN (13:30)
[2019-07-17] MEDS ORDERED: MORPHINE SULFATE 4 MG/ML VIAL. IV PRN (13:30)
[2019-07-17] MEDS ORDERED: MORPHINE SULFATE 2 MG/ML VIAL. IV PRN (13:30)
[2019-07-17] MEDS ORDERED: MORPHINE SULFATE 2 MG/ML VIAL. ONE (14:48)
[2019-07-17] MEDS: MORPHINE SULFATE 2 MG/ML VIAL. IV PRN ×2 (14:50→15:02)
[2019-07-17] MEDS: IV 1/2 NORMAL SALINE 1,000 ML IV SCH (15:03)
[2019-07-17] MEDS ORDERED: HYDROmorphone 2 MG/ML VIAL ONE (15:11)
[2019-07-17] MEDS: HYDROmorphone 2 MG/ML VIAL IV PRN ×2 (15:30→15:44)
[2019-07-17] MEDS: oxyCODONE/APAP 5/325 1 TAB TABLET PO PRN ×2 (18:00→22:09)
[2019-07-17] MEDS: amLODIPine BESYLATE 10 MG TABLET PO SCH (18:00)
[2019-07-17] MEDS: diazePAM 2 MG TABLET PO PRN (19:29)
[2019-07-17] MEDS ORDERED: INSULIN LISPRO 300 UNITS/3 ML VIAL. SQ ONE (21:30)
[2019-07-17] MEDS: PHENYTOIN SODIUM EXTENDED 100 MG CAPSULE PO SCH (22:06)
[2019-07-17] MEDS: PHENYTOIN SODIUM EXTENDED 30 MG CAPSULE. PO SCH (22:06)
[2019-07-17] MEDS: ATORVASTATIN CALCIUM 10 MG TABLET. PO SCH (22:07)
[2019-07-17] MEDS: INSULIN GLARGINE SYRINGE. SQ SCH (22:12)
[2019-07-17 22:44] LABS: CALCIUM 8.4 mg/dL (8.5-10.1); CREATININE 0.9 mg/dL (0.6-1.0); GFR 63.9; POTASSIUM 4.6 mmol/L (3.5-5.1)
[2019-07-18] MEDS: IV 1/2 NORMAL SALINE 1,000 ML IV SCH ×2 (02:41→08:39)
[2019-07-18 03:00] VITALS: BP 117/49
[2019-07-18] MEDS: oxyCODONE/APAP 5/325 1 TAB TABLET PO PRN ×3 (04:53→15:03)
[2019-07-18] MEDS ORDERED: MAGNESIUM HYDROXIDE 2,400 MG/30 ML ORAL.SUSP. PO PRN (06:00)
[2019-07-18] MEDS: PANTOPRAZOLE 40 MG TABLET.DR. PO SCH (06:06)
[2019-07-18] MEDS: diazePAM 2 MG TABLET PO PRN ×2 (06:06→15:02)
[2019-07-18] MEDS: LEVOTHYROXINE 100 MCG TABLET PO SCH (06:06)
[2019-07-18 06:13] LABS: BASO % 1 % (0-3); EOS # 0.2 x10^3/uL (0.0-0.7); EOS % 3 % (0-3); HEMATOCRIT 35.8 % (36.0-47.0); HEMOGLOBIN 12.2 g/dL (12.0-15.5); LYMPH # 1.5 x10^3/uL (1.0-4.8); LYMPH % 25 % (24-48); MEAN CORPUSCULAR HEMOGLOBIN 32 pg (25-35); MEAN CORPUSCULAR HGB CONC 34 g/dL (31-37); MEAN CORPUSCULAR VOLUME 95 fL (79-100); MONO # 0.7 x10^3/uL (0.0-1.1); MONO % 12 % (0-9); NEUT # 3.6 x10^3/uL (1.8-7.7); NEUT % 59 % (31-73); PLATELET COUNT 194 x10^3/uL (140-400); RED BLOOD COUNT 3.75 x10^6/uL (3.50-5.40); RED CELL DISTRIBUTION WIDTH 13.5 % (11.5-14.5); WHITE BLOOD COUNT 6.1 x10^3/uL (4.0-11.0)
[2019-07-18 07:00] VITALS: BP 127/58
[2019-07-18] MEDS: MULTIVITAMIN with MINERAL TABLET. PO SCH (08:06)
[2019-07-18] MEDS: SENNOSIDES/DOCUSATE 8.6/50MG TABLET. PO SCH (08:06)
[2019-07-18] MEDS: LACOSAMIDE 50 MG TABLET PO SCH ×2 (08:06→21:16)
[2019-07-18] MEDS: POLYETHYLENE GLYCOL 3350 17 GM PACKET. PO SCH (08:06)
[2019-07-18] MEDS: GABAPENTIN 300 MG CAPSULE. PO SCH ×3 (08:06→21:16)
[2019-07-18] MEDS: amLODIPine BESYLATE 10 MG TABLET PO SCH (08:07)
[2019-07-18] MEDS: levETIRAcetam 500 MG TABLET PO SCH ×2 (08:07→21:16)
[2019-07-18] MEDS: INSULIN LISPRO 300 UNITS/3 ML VIAL. SQ SCH ×3 (08:13→16:47)
[2019-07-18] MEDS ORDERED: CHOLECALCIFEROL (VITAMIN D3) 1,000 UNIT TABLET PO SCH (09:00)
--- NOTE | 2019-07-18 09:44 | PDOC ---
PROGRESS NOTES Chief Complaint Chief Complaint ASSESSMENT AND PLAN: Fall with right humerus fracture -Mildly displaced comminuted fracture of the proximal humeral shaft just below the humeral neck. Seizure disorder DM2 Hypothyroidism admitted. p.r.n. narcotics, IV fluids, p.r.n. Zofran, try to home meds DVT prophylaxis. Full code. 32 min pt exam, chart review, > 50% of time spent with exam, chart review, pt care coordination History of Present Illness History of Present Illness Ms Lyle is a 59yo F w/ PMHx Severe seizure disorders, GERD, anxiety, hypertension, hyperlipidemia, hypothyroidism, neuropathy who presents after fall, found with right humerus fracture s/p ORIF on 07/17/2019. Her pain is controlled with 10mg oxycodone to a 0/10. No BM as of yet. She does not drive 2/2 her seizure disorder. Wishes to go home soon. No CP or SOB Vitals Vitals Vital Signs Date Time Temp Pulse Resp B/P (MAP) Pulse Ox O2 Delivery O2 Flow Rate FiO2 07/18/19 08:13 74 117/49 07/18/19 07:46 Room Air 07/18/19 07:00 98.1 14 98 98.1 07/17/19 22:09 2.0 Physical Exam General: Alert, Oriented X3, Cooperative, No acute distress Heart: Regular rate Lungs: Clear Abdomen: Normal bowel sounds, Soft, No tenderness Extremities: No cyanosis, Normal pulses, Other (the right shoulder is held in a splinted position in a shoulder immobilizer. The skin is intact over the fracture. There is quite a bit of swelling at the arm but no ecchymosis. There is probably a deformity of the shoulder but the swelling makes it somewhat difficult to evaluate. Just based on examination I would suspect apex anterior angulation of the fracture at the proximal humerus. The elbow is nontender, and she demonstrated motor function of the radial ulnar and median nerves at the right hand. Sensation is intact in the right fingers. Radial pulses intact.) Skin: No breakdown Labs LABS Laboratory Tests Test 07/17/19 11:13 07/17/19 15:07 07/17/19 20:48 07/17/19 22:25 Glucose (Fingerstick) 235 mg/dL (70-99) 165 mg/dL (70-99) 202 mg/dL (70-99) Sodium Level 134 mmol/L (136-145) Potassium Level 4.6 mmol/L (3.5-5.1) Chloride Level 100 mmol/L (98-107) Carbon Dioxide Level 27 mmol/L (21-32) Anion Gap 7 (6-14) Blood Urea Nitrogen 11 mg/dL (7-20) Creatinine 0.9 mg/dL (0.6-1.0) Estimated GFR (Cockcroft-Gault) 63.9 Glucose Level 279 mg/dL (70-99) Calcium Level 8.4 mg/dL (8.5-10.1) Test 07/18/19 05:05 07/18/19 06:54 White Blood Count 6.1 x10^3/uL (4.0-11.0) Red Blood Count 3.75 x10^6/uL (3.50-5.40) Hemoglobin 12.2 g/dL (12.0-15.5) Hematocrit 35.8 % (36.0-47.0) Mean Corpuscular Volume 95 fL (79-100) Mean Corpuscular Hemoglobin 32 pg (25-35) Mean Corpuscular Hemoglobin Concent 34 g/dL (31-37) Red Cell Distribution Width 13.5 % (11.5-14.5) Platelet Count 194 x10^3/uL (140-400) Neutrophils (%) (Auto) 59 % (31-73) Lymphocytes (%) (Auto) 25 % (24-48) Monocytes (%) (Auto) 12 % (0-9) Eosinophils (%) (Auto) 3 % (0-3) Basophils (%) (Auto) 1 % (0-3) Neutrophils # (Auto) 3.6 x10^3/uL (1.8-7.7) Lymphocytes # (Auto) 1.5 x10^3/uL (1.0-4.8) Monocytes # (Auto) 0.7 x10^3/uL (0.0-1.1) Eosinophils # (Auto) 0.2 x10^3/uL (0.0-0.7) Basophils # (Auto) 0.0 x10^3/uL (0.0-0.2) Glucose (Fingerstick) 152 mg/dL (70-99) Assessment and Plan Assessmemt and Plan Problems Medical Problems: (1) Closed right humeral fracture Status: Acute (2) Fall at home Status: Acute (3) Generalized weakness Status: Acute (4) History of seizure Status: Acute Comment Review of Relevant I have reviewed the following items vlad (where applicable) has been applied. Labs Laboratory Tests Test 07/16/19 16:00 07/16/19 17:15 07/16/19 20:22 07/16/19 23:00 White Blood Count 9.0 x10^3/uL (4.0-11.0) Red Blood Count 3.92 x10^6/uL (3.50-5.40) Hemoglobin 12.7 g/dL (12.0-15.5) Hematocrit 37.5 % (36.0-47.0) Mean Corpuscular Volume 96 fL (79-100) Mean Corpuscular Hemoglobin 32 pg (25-35) Mean Corpuscular Hemoglobin Concent 34 g/dL (31-37) Red Cell Distribution Width 13.4 % (11.5-14.5) Platelet Count 210 x10^3/uL (140-400) Neutrophils (%) (Auto) 73 % (31-73) Lymphocytes (%) (Auto) 15 % (24-48) Monocytes (%) (Auto) 6 % (0-9) Eosinophils (%) (Auto) 5 % (0-3) Basophils (%) (Auto) 1 % (0-3) Neutrophils # (Auto) 6.6 x10^3/uL (1.8-7.7) Lymphocytes # (Auto) 1.3 x10^3/uL (1.0-4.8) Monocytes # (Auto) 0.5 x10^3/uL (0.0-1.1) Eosinophils # (Auto) 0.5 x10^3/uL (0.0-0.7) Basophils # (Auto) 0.1 x10^3/uL (0.0-0.2) Sodium Level 139 mmol/L (136-145) Potassium Level 4.1 mmol/L (3.5-5.1) Chloride Level 102 mmol/L (98-107) Carbon Dioxide Level 28 mmol/L (21-32) Anion Gap 9 (6-14) Blood Urea Nitrogen 10 mg/dL (7-20) Creatinine 0.8 mg/dL (0.6-1.0) Estimated GFR (Cockcroft-Gault) 73.2 BUN/Creatinine Ratio 13 (6-20) Glucose Level 305 mg/dL (70-99) Calcium Level 8.9 mg/dL (8.5-10.1) Total Bilirubin 0.2 mg/dL (0.2-1.0) Aspartate Amino Transf (AST/SGOT) 18 U/L (15-37) Alanine Aminotransferase (ALT/SGPT) 19 U/L (14-59) Alkaline Phosphatase 136 U/L (46-116) Total Protein 6.8 g/dL (6.4-8.2) Albumin 3.7 g/dL (3.4-5.0) Albumin/Globulin Ratio 1.2 (1.0-1.7) Glucose (Fingerstick) 306 mg/dL (70-99) 285 mg/dL (70-99) Nasal Screen MRSA (PCR) Negative (Negative) Test 07/17/19 09:29 07/17/19 11:13 07/17/19 15:07 07/17/19 20:48 Glucose (Fingerstick) 303 mg/dL (70-99) 235 mg/dL (70-99) 165 mg/dL (70-99) 202 mg/dL (70-99) Test 07/17/19 22:25 07/18/19 05:05 07/18/19 06:54 Sodium Level 134 mmol/L (136-145) Potassium Level 4.6 mmol/L (3.5-5.1) Chloride Level 100 mmol/L (98-107) Carbon Dioxide Level 27 mmol/L (21-32) Anion Gap 7 (6-14) Blood Urea Nitrogen 11 mg/dL (7-20) Creatinine 0.9 mg/dL (0.6-1.0) Estimated GFR (Cockcroft-Gault) 63.9 Glucose Level 279 mg/dL (70-99) Calcium Level 8.4 mg/dL (8.5-10.1) White Blood Count 6.1 x10^3/uL (4.0-11.0) Red Blood Count 3.75 x10^6/uL (3.50-5.40) Hemoglobin 12.2 g/dL (12.0-15.5) Hematocrit 35.8 % (36.0-47.0) Mean Corpuscular Volume 95 fL (79-100) Mean Corpuscular Hemoglobin 32 pg (25-35) Mean Corpuscular Hemoglobin Concent 34 g/dL (31-37) Red Cell Distribution Width 13.5 % (11.5-14.5) Platelet Count 194 x10^3/uL (140-400) Neutrophils (%) (Auto) 59 % (31-73) Lymphocytes (%) (Auto) 25 % (24-48) Monocytes (%) (Auto) 12 % (0-9) Eosinophils (%) (Auto) 3 % (0-3) Basophils (%) (Auto) 1 % (0-3) Neutrophils # (Auto) 3.6 x10^3/uL (1.8-7.7) Lymphocytes # (Auto) 1.5 x10^3/uL (1.0-4.8) Monocytes # (Auto) 0.7 x10^3/uL (0.0-1.1) Eosinophils # (Auto) 0.2 x10^3/uL (0.0-0.7) Basophils # (Auto) 0.0 x10^3/uL (0.0-0.2) Glucose (Fingerstick) 152 mg/dL (70-99) Laboratory Tests Test 07/17/19 11:13 07/17/19 15:07 07/17/19 20:48 07/17/19 22:25 Glucose (Fingerstick) 235 mg/dL (70-99) 165 mg/dL (70-99) 202 mg/dL (70-99) Sodium Level 134 mmol/L (136-145) Potassium Level 4.6 mmol/L (3.5-5.1) Chloride Level 100 mmol/L (98-107) Carbon Dioxide Level 27 mmol/L (21-32) Anion Gap 7 (6-14) Blood Urea Nitrogen 11 mg/dL (7-20) Creatinine 0.9 mg/dL (0.6-1.0) Estimated GFR (Cockcroft-Gault) 63.9 Glucose Level 279 mg/dL (70-99) Calcium Level 8.4 mg/dL (8.5-10.1) Test 07/18/19 05:05 07/18/19 06:54 White Blood Count 6.1 x10^3/uL (4.0-11.0) Red Blood Count 3.75 x10^6/uL (3.50-5.40) Hemoglobin 12.2 g/dL (12.0-15.5) Hematocrit 35.8 % (36.0-47.0) Mean Corpuscular Volume 95 fL (79-100) Mean Corpuscular Hemoglobin 32 pg (25-35) Mean Corpuscular Hemoglobin Concent 34 g/dL (31-37) Red Cell Distribution Width 13.5 % (11.5-14.5) Platelet Count 194 x10^3/uL (140-400) Neutrophils (%) (Auto) 59 % (31-73) Lymphocytes (%) (Auto) 25 % (24-48) Monocytes (%) (Auto) 12 % (0-9) Eosinophils (%) (Auto) 3 % (0-3) Basophils (%) (Auto) 1 % (0-3) Neutrophils # (Auto) 3.6 x10^3/uL (1.8-7.7) Lymphocytes # (Auto) 1.5 x10^3/uL (1.0-4.8) Monocytes # (Auto) 0.7 x10^3/uL (0.0-1.1) Eosinophils # (Auto) 0.2 x10^3/uL (0.0-0.7) Basophils # (Auto) 0.0 x10^3/uL (0.0-0.2) Glucose (Fingerstick) 152 mg/dL (70-99) Medications Current Medications Fentanyl Citrate (Fentanyl 2ml Vial) 50 mcg 1X ONCE IV Last administered on 07/16/19at 13:16; Start 07/16/19 at 12:45; Stop 07/16/19 at 12:47; Status DC Ondansetron HCl (Zofran) 4 mg 1X ONCE IV Last administered on 07/16/19at 13:16; Start 07/16/19 at 12:45; Stop 07/16/19 at 12:47; Status DC Fentanyl Citrate (Fentanyl 2ml Vial) 50 mcg 1X ONCE IV Last administered on 07/16/19at 14:02; Start 07/16/19 at 14:00; Stop 07/16/19 at 14:02; Status DC Fentanyl Citrate (Fentanyl 2ml Vial) 50 mcg 1X ONCE IV Last administered on 07/16/19 15:17; Start 07/16/19 at 15:15; Stop 07/16/19 at 15:16; Status DC Fentanyl Citrate (Fentanyl 2ml Vial) 50 mcg PRN Q2HR PRN IV PAIN Last administered on 07/17/19 14:24; Start 07/16/19 at 15:30; Stop 07/17/19 at 14:24; Status DC Amlodipine Besylate (Norvasc) 10 mg DAILY PO Last administered on 07/18/19 08:13; Start 07/17/19 at 09:00 Atorvastatin Calcium (Lipitor) 10 mg QHS PO Last administered on 07/17/19 22:09; Start 07/16/19 at 21:00 Lacosamide (Vimpat) 100 mg BID PO Last administered on 07/18/19 08:13; Start 07/16/19 at 21:00 Levetiracetam (Keppra) 1,250 mg BID PO Last administered on 07/18/19 08:13; Start 07/16/19 at 21:00 Levothyroxine Sodium (Synthroid) 100 mcg DAILYAC PO Last administered on 07/18/19 06:07; Start 07/17/19 at 07:30 Oxycodone/ Acetaminophen (Percocet 10/325) 1 tab PRN Q6HRS PRN PO PAIN MODERATE Last administered on 07/16/19at 21:41; Start 07/16/19 at 17:45; Stop 07/17/19 at 13:35; Status DC Pantoprazole Sodium (Protonix) 40 mg DAILYAC PO Last administered on 07/18/19 06:07; Start 07/17/19 at 07:30 Phenytoin Sodium (Dilantin) 200 mg QHS PO Last administered on 07/17/19 22:09; Start 07/16/19 at 21:00 Polyethylene Glycol (miraLAX PACKET) 17 gm DAILY PO Last administered on 07/18/19 08:13; Start 07/17/19 at 09:00 Gabapentin (Neurontin) 600 mg TID PO Last administered on 07/18/19 08:13; Start 07/16/19 at 21:00 Insulin Glargine (Lantus Syringe) 12 unit QHS SQ Last administered on 07/17/19at 22:13; Start 07/16/19 at 21:00 Phenytoin Sodium (Dilantin) 30 mg QHS PO Last administered on 07/17/19at 22:09; Start 07/16/19 at 21:00 Insulin Human Lispro (HumaLOG) 0-7 UNITS TIDWMEALS SQ Last administered on 07/18/19at 08:14; Start 07/16/19 at 18:00 Dextrose (Dextrose 50%-Water Syringe) 12.5 gm PRN Q15MIN PRN IV SEE COMMENTS; Start 07/16/19 at 18:00; Stop 07/17/19 at 13:35; Status DC Dextrose 250 ml PRN Q15MIN PRN IV SEE COMMENTS; Start 07/16/19 at 18:00 Cefazolin Sodium/ Dextrose 50 ml @ 100 mls/hr 1X PREOP PRN IV SEE COMMENTS; Start 07/16/19 at 18:15; Status Cancel Insulin Human Lispro (HumaLOG) 3 units 1X ONCE SQ Last administered on 9at 21:41; Start 07/16/19 at 22:00; Stop 07/16/19 at 22:01; Status DC Ondansetron HCl (Zofran) 4 mg PRN Q6HRS PRN IV NAUSEA/VOMITING; Start 07/17/19 at 06:45; Stop 07/18/19 at 06:44; Status DC Fentanyl Citrate (Fentanyl 2ml Vial) 25 mcg PRN Q5MIN PRN IV MILD PAIN 1-3; Start 07/17/19 at 06:45; Stop 07/18/19 at 06:44; Status DC Fentanyl Citrate (Fentanyl 2ml Vial) 50 mcg PRN Q5MIN PRN IV MODERATE TO SEVERE PAIN; Start 07/17/19 at 06:45; Stop 07/18/19 at 06:44; Status DC Morphine Sulfate (Morphine Sulfate) 1 mg PRN Q10MIN PRN IV SEVERE PAIN 7-10 Last administered on 07/17/19at 15:03; Start 07/17/19 at 06:45; Stop 07/18/19 at 06:44; Status DC Ringer's Solution 1,000 ml @ 30 mls/hr Q24H IV Last administered on 07/17/19at 10:56; Start 07/17/19 at 07:00; Stop 07/17/19 at 07:01; Status DC Hydromorphone HCl (Dilaudid) 0.5 mg PRN Q10MIN PRN IV SEV PAIN, Second choice Last administered on 07/17/19at 15:44; Start 07/17/19 at 06:45; Stop 07/18/19 at 06:44; Status DC Prochlorperazine Edisylate (Compazine) 5 mg PACU PRN PRN IV NAUSEA, MRX1; Start 07/17/19 at 06:45; Stop 07/18/19 at 06:44; Status DC Bupivacaine HCl (Sensorcaine Mpf 0.25%) 30 ml STK-MED ONCE .ROUTE Last administered on 07/17/19at 12:33; Start 07/17/19 at 06:50; Stop 07/17/19 at 06:50; Status DC Cefazolin Sodium/ Dextrose 50 ml @ 100 mls/hr 1X PREOP PRN IV PRIOR TO PROCEDURE Last administered on 07/17/19at 11:36; Start 07/17/19 at 10:00; Stop 07/18/19 at 09:59 Insulin Human Lispro (HumaLOG VIAL for OP,RR ONLY) 0-10 units PRN Q1HR PRN SQ PER PROTOCOL Last administered on 07/17/19at 11:35; Start 07/17/19 at 11:30; Stop 07/18/19 at 11:29 Propofol 20 ml @ As Directed STK-MED ONCE IV ; Start 07/17/19 at 11:22; Stop 07/17/19 at 11:22; Status DC Dexamethasone Sodium Phosphate (Decadron) 4 mg STK-MED ONCE .ROUTE ; Start 07/17/19 at 11:22; Stop 07/17/19 at 11:22; Status DC Lidocaine HCl (Lidocaine Pf 2% Vial) 5 ml STK-MED ONCE .ROUTE ; Start 07/17/19 at 11:22; Stop 07/17/19 at 11:22; Status DC Ondansetron HCl (Zofran) 4 mg STK-MED ONCE .ROUTE ; Start 07/17/19 at 11:22; Stop 07/17/19 at 11:22; Status DC Rocuronium White (Zemuron) 50 mg STK-MED ONCE .ROUTE ; Start 07/17/19 at 11:22; Stop 07/17/19 at 11:22; Status DC Fentanyl Citrate (Fentanyl 2ml Vial) 100 mcg STK-MED ONCE .ROUTE ; Start 07/17/19 at 11:22; Stop 07/17/19 at 11:22; Status DC Diazepam (Valium) 2 mg PRN TID PRN PO ANXIETY Last administered on 07/18/19at 06:07; Start 07/17/19 at 12:00 Ephedrine Sulfate (ePHEDrine PF IN SALINE SYRINGE) 50 mg STK-MED ONCE IV ; Start 07/17/19 at 12:15; Stop 07/17/19 at 12:16; Status DC Sevoflurane (Ultane) 60 ml STK-MED ONCE IH ; Start 07/17/19 at 13:05; Stop 07/17/19 at 13:05; Status DC Neostigmine Methylsulfate (Neostigmine Methylsulfate) 5 mg STK-MED ONCE .ROUTE ; Start 07/17/19 at 13:05; Stop 07/17/19 at 13:05; Status DC Glycopyrrolate (Robinul) 1 mg STK-MED ONCE .ROUTE ; Start 07/17/19 at 13:05; Stop 07/17/19 at 13:06; Status DC Morphine Sulfate (Morphine Sulfate) 2 mg PRN Q1HR PRN IV SEVERE PAIN, 1ST CHOICE; Start 07/17/19 at 13:30 Fentanyl Citrate (Fentanyl 2ml Vial) 25 mcg PRN Q1HR PRN IV PAIN, NOT RELIEVED BY MORPHINE; Start 07/17/19 at 13:30 Multivitamins (Thera M Plus) 1 tab DAILY PO Last administered on 07/18/19at 08:13; Start 07/18/19 at 09:00 Senna/Docusate Sodium (Senna Plus) 1 tab DAILY PO Last administered on 07/18/19at 08:13; Start 07/18/19 at 09:00 Polyethylene Glycol (miraLAX PACKET) 17 gm PRN DAILY PRN PO CONSTIPATION; Start 07/17/19 at 13:30 Vitamin D (Vitamin D3) 1,000 unit DAILY PO Last administered on 07/18/19at 08:13; Start 07/18/19 at 09:00 Sodium Chloride 1,000 ml @ 75 mls/hr [id number] IV Last administered on 07/17/19at 15:03; Start 07/17/19 at 13:21 Ondansetron HCl (Zofran) 4 mg PRN Q4HRS PRN IV NAUSEA/VOMITING; Start 07/17/19 at 13:30 Calcium Carbonate/ Glycine (Tums) 500 mg PRN QID PRN PO INDIGESTION Last administered on 07/17/19at 22:09; Start 07/17/19 at 13:30 Magnesium Hydroxide (Milk Of Magnesia) 2,400 mg 1X PRN PRN PO CONSTIPATION Last administered on 07/18/19at 08:13; Start 07/18/19 at 06:00; Stop 07/19/19 at 05:59 Bisacodyl (Dulcolax Supp) 10 mg 1X PRN PRN [place] CONSTIPATION; Start 07/18/19 at 16:00; Stop 07/19/19 at 15:59 Morphine Sulfate (Morphine Sulfate) 4 mg PRN Q2HR PRN IV SEVERE PAIN, 2ND CHOICE; Start 07/17/19 at 13:30 Dextrose (Dextrose 50%-Water Syringe) 12.5 gm PRN Q15MIN PRN IV SEE COMMENTS; Start 07/17/19 at 13:30 Dextrose 250 ml PRN Q15MIN PRN IV SEE COMMENTS; Start 07/17/19 at 13:30 Cefazolin Sodium/ Dextrose 50 ml @ 100 mls/hr Q6H IV Last administered on 07/18/19at 04:54; Start 07/17/19 at 17:00; Stop 07/18/19 at 05:29; Status DC Oxycodone/ Acetaminophen (Percocet 5/325) 1 tab PRN Q4HRS PRN PO MILD PAIN 1-3 Last administered on 07/18/19at 04:54; Start 07/17/19 at 13:30 Oxycodone/ Acetaminophen (Percocet 5/325) 2 tab PRN Q4HRS PRN PO MODERATE PAIN, SEVERE PAIN; Start 07/17/19 at 13:45 Morphine Sulfate (Morphine Sulfate) 2 mg STK-MED ONCE .ROUTE ; Start 07/17/19 at 14:48; Stop 07/17/19 at 14:48; Status DC Hydromorphone HCl (Dilaudid) 2 mg STK-MED ONCE .ROUTE ; Start 07/17/19 at 15:11; Stop 07/17/19 at 15:11; Status DC Insulin Human Lispro (HumaLOG) 2 units 1X ONCE SQ Last administered on 07/17/19at 22:13; Start 07/17/19 at 21:30; Stop 07/17/19 at 21:31; Status DC Active Scripts Active Polyethylene Glycol 3350 255 Gm Powder 17 Gm PO DAILY hold for loose BM Protonix (Pantoprazole Sodium) 40 Mg Tablet.dr 1 Tab PO DAILY Keppra (Levetiracetam) 250 Mg Tablet 1,250 Mg PO BID 30 Days Vimpat (Lacosamide) 50 Mg Tablet 50 Mg PO BID 30 Days Reported [diazepam] 2 Mg PO PRN TID PRN [dilantin] 30 Mg PO QHS Synthroid (Levothyroxine Sodium) 100 Mcg Tablet 100 Mcg PO DAILYAC Atorvastatin Calcium 10 Mg Tablet 1 Tab PO DAILY Percocet 10-325 Mg Tablet (Oxycodone/Acetaminophen) 1 Each Tablet 1 Tab PO PRN Q4-6HRS PRN Amlodipine Besylate 10 Mg Tablet 10 Mg PO DAILY Levemir (Insulin Detemir) 100 Unit/1 Ml Vial 12 Unit SQ QHS Dilantin (Phenytoin Sodium Extended) 100 Mg Capsule 2 Cap PO QHS Novolog (Insulin Aspart) 100 Unit/1 Ml Vial 4 Unit SQ [id number] Novolog (Insulin Aspart) 100 Unit/1 Ml Vial 5 Unit SQ [id number] Novolog (Insulin Aspart) 100 Unit/1 Ml Vial 12 Unit SQ [id number] Neurontin (Gabapentin) 600 Mg Tablet 600 Mg PO TID Vitals/I & O Vital Sign - Last 24 Hours 07/17/19 07/17/19 07/17/19 07/17/19 10:56 11:02 13:40 13:40 Temp 97.8 97.2 97.8 97.2 Pulse 73 73 Resp 22 20 16 B/P (MAP) 151/69 187/64 Pulse Ox 97 97 100 O2 Delivery Room Air Room Air Simple Mask Mask O2 Flow Rate 6 6 07/17/19 07/17/19 07/17/19 07/17/19 13:55 14:10 14:24 14:25 Temp 97.2 97.2 97.2 97.2 97.2 97.2 Pulse 66 74 65 Resp 16 18 20 18 B/P (MAP) 192/62 150/62 140/61 Pulse Ox 100 100 99 99 O2 Delivery Simple Mask Simple Mask Nasal Cannula Nasal Cannula O2 Flow Rate 6 6 2.0 2.0 07/17/19 07/17/19 07/17/19 07/17/19 14:40 14:50 14:55 15:03 Temp 97.2 98.3 97.2 98.3 Pulse 62 64 Resp 18 18 18 18 B/P (MAP) 140/58 147/60 Pulse Ox 100 100 100 100 O2 Delivery Nasal Cannula Nasal Cannula Nasal Cannula Nasal Cannula O2 Flow Rate 2.0 2.0 2.0 2.0 07/17/19 07/17/19 07/17/19 07/17/19 15:10 15:25 15:30 15:40 Temp 98.4 98.4 98.4 98.4 98.4 98.4 Pulse 66 66 64 Resp 20 20 18 20 B/P (MAP) 139/60 142/47 131/62 Pulse Ox 100 100 100 100 O2 Delivery Nasal Cannula Nasal Cannula Nasal Cannula Nasal Cannula O2 Flow Rate 2.0 2.0 2.0 2.0 07/17/19 07/17/19 07/17/19 07/17/19 15:44 16:00 16:16 16:30 Pulse 71 72 72 Resp 18 18 B/P (MAP) 139/47 (77) 127/45 (72) 129/55 (79) Pulse Ox 99 97 98 98 O2 Delivery Nasal Cannula O2 Flow Rate 2.0 07/17/19 07/17/19 07/17/19 07/17/19 16:45 17:31 17:31 18:15 Pulse 75 64 Resp 18 18 B/P (MAP) 134/48 (76) 131/62 Pulse Ox 98 O2 Delivery Nasal Cannula Nasal Cannula O2 Flow Rate 2.0 2.0 07/17/19 07/17/19 07/17/19 07/17/19 18:15 19:00 19:22 19:35 Temp 97.6 97.6 Pulse 94 Resp 20 18 18 B/P (MAP) 149/47 (81) Pulse Ox 95 O2 Delivery Nasal Cannula Room Air Nasal Cannula Nasal Cannula O2 Flow Rate 2.0 2.0 2.0 07/17/19 07/17/19 07/17/19/2/19 22:09 23:00 23:19 03:00 Temp 98.6 97.7 98.6 97.7 Pulse 88 74 Resp 16 18 16 18 B/P (MAP) 116/85 (95) 117/49 (71) Pulse Ox 98 96 97 O2 Delivery Nasal Cannula Room Air Room Air Room Air O2 Flow Rate 2.0 07/18/19 07/18/19 07/18/19 07/18/19 04:54 06:07 07:00 07:46 Temp 98.1 98.1 Pulse 77 Resp 16 16 14 B/P (MAP) 127/58 (81) Pulse Ox 98 O2 Delivery Room Air Room Air Room Air Room Air 07/18/19 08:13 Pulse 74 B/P (MAP) 117/49 Intake and Output 07/17/19 07/17/19 07/18/19 14:59 22:59 06:59 Intake Total 1350 ml 2150 ml Output Total 100 ml Balance -100 ml 1350 ml 2150 ml FRANCINE JOSE MD Jul 18, 2019 09:44
[2019-07-18 11:00] VITALS: BP 105/61
--- NOTE | 2019-07-18 13:28 | PDOC ---
PROGRESS NOTES Subjective Subjective The arm feels better after surgery. She was doing a crossword puzzle and feels okay. Objective Vital Signs Vital Signs Date Time Temp Pulse Resp B/P (MAP) Pulse Ox O2 Delivery O2 Flow Rate FiO2 07/18/19 12:24 98 Room Air 07/18/19 11:00 97.9 82 16 105/61 (76) 97.9 07/17/19 22:09 2.0 Physical Exam The gross alignment of the shoulder is normal. The dressing is dry. She demonstrated motor function of the radial ulnar and median nerves at the hand. There is slight swelling as expected. No apparent neurovascular injury. Labs Laboratory Tests Test 07/16/19 16:00 07/16/19 17:15 07/16/19 20:22 07/16/19 23:00 White Blood Count 9.0 x10^3/uL (4.0-11.0) Red Blood Count 3.92 x10^6/uL (3.50-5.40) Hemoglobin 12.7 g/dL (12.0-15.5) Hematocrit 37.5 % (36.0-47.0) Mean Corpuscular Volume 96 fL (79-100) Mean Corpuscular Hemoglobin 32 pg (25-35) Mean Corpuscular Hemoglobin Concent 34 g/dL (31-37) Red Cell Distribution Width 13.4 % (11.5-14.5) Platelet Count 210 x10^3/uL (140-400) Neutrophils (%) (Auto) 73 % (31-73) Lymphocytes (%) (Auto) 15 % (24-48) Monocytes (%) (Auto) 6 % (0-9) Eosinophils (%) (Auto) 5 % (0-3) Basophils (%) (Auto) 1 % (0-3) Neutrophils # (Auto) 6.6 x10^3/uL (1.8-7.7) Lymphocytes # (Auto) 1.3 x10^3/uL (1.0-4.8) Monocytes # (Auto) 0.5 x10^3/uL (0.0-1.1) Eosinophils # (Auto) 0.5 x10^3/uL (0.0-0.7) Basophils # (Auto) 0.1 x10^3/uL (0.0-0.2) Sodium Level 139 mmol/L (136-145) Potassium Level 4.1 mmol/L (3.5-5.1) Chloride Level 102 mmol/L (98-107) Carbon Dioxide Level 28 mmol/L (21-32) Anion Gap 9 (6-14) Blood Urea Nitrogen 10 mg/dL (7-20) Creatinine 0.8 mg/dL (0.6-1.0) Estimated GFR (Cockcroft-Gault) 73.2 BUN/Creatinine Ratio 13 (6-20) Glucose Level 305 mg/dL (70-99) Calcium Level 8.9 mg/dL (8.5-10.1) Total Bilirubin 0.2 mg/dL (0.2-1.0) Aspartate Amino Transf (AST/SGOT) 18 U/L (15-37) Alanine Aminotransferase (ALT/SGPT) 19 U/L (14-59) Alkaline Phosphatase 136 U/L (46-116) Total Protein 6.8 g/dL (6.4-8.2) Albumin 3.7 g/dL (3.4-5.0) Albumin/Globulin Ratio 1.2 (1.0-1.7) Glucose (Fingerstick) 306 mg/dL (70-99) 285 mg/dL (70-99) Nasal Screen MRSA (PCR) Negative (Negative) Test 07/17/19 09:29 07/17/19 11:13 07/17/19 15:07 07/17/19 20:48 Glucose (Fingerstick) 303 mg/dL (70-99) 235 mg/dL (70-99) 165 mg/dL (70-99) 202 mg/dL (70-99) Test 07/17/19 22:25 07/18/19 05:05 07/18/19 06:54 07/18/19 11:41 Sodium Level 134 mmol/L (136-145) Potassium Level 4.6 mmol/L (3.5-5.1) Chloride Level 100 mmol/L (98-107) Carbon Dioxide Level 27 mmol/L (21-32) Anion Gap 7 (6-14) Blood Urea Nitrogen 11 mg/dL (7-20) Creatinine 0.9 mg/dL (0.6-1.0) Estimated GFR (Cockcroft-Gault) 63.9 Glucose Level 279 mg/dL (70-99) Calcium Level 8.4 mg/dL (8.5-10.1) White Blood Count 6.1 x10^3/uL (4.0-11.0) Red Blood Count 3.75 x10^6/uL (3.50-5.40) Hemoglobin 12.2 g/dL (12.0-15.5) Hematocrit 35.8 % (36.0-47.0) Mean Corpuscular Volume 95 fL (79-100) Mean Corpuscular Hemoglobin 32 pg (25-35) Mean Corpuscular Hemoglobin Concent 34 g/dL (31-37) Red Cell Distribution Width 13.5 % (11.5-14.5) Platelet Count 194 x10^3/uL (140-400) Neutrophils (%) (Auto) 59 % (31-73) Lymphocytes (%) (Auto) 25 % (24-48) Monocytes (%) (Auto) 12 % (0-9) Eosinophils (%) (Auto) 3 % (0-3) Basophils (%) (Auto) 1 % (0-3) Neutrophils # (Auto) 3.6 x10^3/uL (1.8-7.7) Lymphocytes # (Auto) 1.5 x10^3/uL (1.0-4.8) Monocytes # (Auto) 0.7 x10^3/uL (0.0-1.1) Eosinophils # (Auto) 0.2 x10^3/uL (0.0-0.7) Basophils # (Auto) 0.0 x10^3/uL (0.0-0.2) 25-Hydroxy Vitamin D Total 13.7 ng/mL (30-100) Glucose (Fingerstick) 152 mg/dL (70-99) 146 mg/dL (70-99) Laboratory Tests Test 07/17/19 15:07 07/17/19 20:48 07/17/19 22:25 07/18/19 05:05 Glucose (Fingerstick) 165 mg/dL (70-99) 202 mg/dL (70-99) Sodium Level 134 mmol/L (136-145) Potassium Level 4.6 mmol/L (3.5-5.1) Chloride Level 100 mmol/L (98-107) Carbon Dioxide Level 27 mmol/L (21-32) Anion Gap 7 (6-14) Blood Urea Nitrogen 11 mg/dL (7-20) Creatinine 0.9 mg/dL (0.6-1.0) Estimated GFR (Cockcroft-Gault) 63.9 Glucose Level 279 mg/dL (70-99) Calcium Level 8.4 mg/dL (8.5-10.1) White Blood Count 6.1 x10^3/uL (4.0-11.0) Red Blood Count 3.75 x10^6/uL (3.50-5.40) Hemoglobin 12.2 g/dL (12.0-15.5) Hematocrit 35.8 % (36.0-47.0) Mean Corpuscular Volume 95 fL (79-100) Mean Corpuscular Hemoglobin 32 pg (25-35) Mean Corpuscular Hemoglobin Concent 34 g/dL (31-37) Red Cell Distribution Width 13.5 % (11.5-14.5) Platelet Count 194 x10^3/uL (140-400) Neutrophils (%) (Auto) 59 % (31-73) Lymphocytes (%) (Auto) 25 % (24-48) Monocytes (%) (Auto) 12 % (0-9) Eosinophils (%) (Auto) 3 % (0-3) Basophils (%) (Auto) 1 % (0-3) Neutrophils # (Auto) 3.6 x10^3/uL (1.8-7.7) Lymphocytes # (Auto) 1.5 x10^3/uL (1.0-4.8) Monocytes # (Auto) 0.7 x10^3/uL (0.0-1.1) Eosinophils # (Auto) 0.2 x10^3/uL (0.0-0.7) Basophils # (Auto) 0.0 x10^3/uL (0.0-0.2) 25-Hydroxy Vitamin D Total 13.7 ng/mL (30-100) Test 07/18/19 06:54 07/18/19 11:41 Glucose (Fingerstick) 152 mg/dL (70-99) 146 mg/dL (70-99) Assessment Assessment Postoperative day 1 after ORIF proximal humerus. Surgery was on 07/17/19. Hypovitaminosis D. Her vitamin D level is 13.7 mg/mL, normal is 30-100 Plan Plan of Care Nonweightbearing, no pushing or lifting with the arm, 1 pound limit. Arm sling or shoulder immobilizer. Discharge planning, probably for tomorrow. Percocet for pain. She has very low vitamin D level, and her bone quality at surgery was ve ry bad. I recommended and I will prescribe 50,000 units of vitamin D2 (ergocalciferol) weekly for 6 weeks, and vitamin D3 (cholecalciferol) 5000 units daily indefinitely. DONTAE HAND MD Jul 18, 2019 13:28
[2019-07-18 15:00] VITALS: BP 124/61
[2019-07-18] MEDS ORDERED: BISACODYL 10 MG SUPP.RECT. PR PRN (16:00)
[2019-07-18 19:00] VITALS: BP 118/56
[2019-07-18] MEDS ORDERED: ENOXAPARIN 40 MG/0.4 ML SYRINGE. SQ SCH (21:00)
[2019-07-18] MEDS: ATORVASTATIN CALCIUM 10 MG TABLET. PO SCH (21:16)
[2019-07-18] MEDS: PHENYTOIN SODIUM EXTENDED 30 MG CAPSULE. PO SCH (21:16)
[2019-07-18] MEDS: PHENYTOIN SODIUM EXTENDED 100 MG CAPSULE PO SCH (21:16)
[2019-07-18] MEDS: INSULIN GLARGINE SYRINGE. SQ SCH (21:20)
[2019-07-18 23:00] VITALS: BP 112/51
[2019-07-19 03:00] VITALS: BP 111/47
[2019-07-19] MEDS: IV 1/2 NORMAL SALINE 1,000 ML IV SCH (05:21)
[2019-07-19] MEDS: PANTOPRAZOLE 40 MG TABLET.DR. PO SCH (06:06)
[2019-07-19] MEDS: LEVOTHYROXINE 100 MCG TABLET PO SCH (06:06)
[2019-07-19 07:00] VITALS: BP 116/58
[2019-07-19] MEDS: MULTIVITAMIN with MINERAL TABLET. PO SCH (07:44)
[2019-07-19] MEDS: LACOSAMIDE 50 MG TABLET PO SCH (07:44)
[2019-07-19] MEDS: POLYETHYLENE GLYCOL 3350 17 GM PACKET. PO SCH (07:44)
[2019-07-19] MEDS: GABAPENTIN 300 MG CAPSULE. PO SCH (07:44)
[2019-07-19] MEDS: amLODIPine BESYLATE 10 MG TABLET PO SCH (07:44)
[2019-07-19] MEDS: levETIRAcetam 500 MG TABLET PO SCH (07:44)
[2019-07-19] MEDS: oxyCODONE/APAP 5/325 1 TAB TABLET PO PRN (07:45)
[2019-07-19] MEDS: SENNOSIDES/DOCUSATE 8.6/50MG TABLET. PO SCH (07:45)
[2019-07-19] MEDS: INSULIN LISPRO 300 UNITS/3 ML VIAL. SQ SCH ×2 (07:52→11:48)
[2019-07-19] MEDS ORDERED: CHOLECALCIFEROL (VITAMIN D3) 5,000 UNIT CAPSULE PO SCH (09:00)
--- NOTE | 2019-07-19 10:15 | NUR ---
IP: Pt has a hx of + mrsa screen on 04/03/19 with current screen negative. Pt to remain in contact precautions as Nozin/CHG decolonization continues.
[2019-07-19 11:00] VITALS: BP 121/54
[2019-07-19] MEDS ORDERED: ASPI325T11 PO (11:54)
[2019-07-19] MEDS ORDERED: CHOL5000 PO (11:54)
--- NOTE | 2019-07-19 11:56 | PDOC3 ---
Discharge Summary Visit Information Date of Admission: Jul 16, 2019 Date of Discharge: Jul 19, 2019 Admitting Diagnosis: Closed right humerus fracture Final Diagnosis Problems Medical Problems: (1) Closed right humeral fracture Status: Acute (2) Fall at home Status: Acute (3) Generalized weakness Status: Acute (4) History of seizure Status: Acute Brief Hospital Course Allergies Allergies Coded Allergies Type Severity Reaction Last Updated Verified I S O L A T I O N *CONTACT* Allergy Unknown 07/17/19 Yes No Known Medication Allergies Allergy Unknown 07/17/19 Yes Vital Signs Vital Signs Date Time Temp Pulse Resp B/P (MAP) Pulse Ox O2 Delivery O2 Flow Rate FiO2 07/19/19 09:00 94 Room Air 07/19/19 07:52 74 116/58 07/19/19 07:00 98.4 16 98.4 Lab Results Laboratory Tests Test 07/17/19 15:07 07/17/19 20:48 07/17/19 22:25 07/18/19 05:05 Glucose (Fingerstick) 165 mg/dL (70-99) 202 mg/dL (70-99) Sodium Level 134 mmol/L (136-145) Potassium Level 4.6 mmol/L (3.5-5.1) Chloride Level 100 mmol/L (98-107) Carbon Dioxide Level 27 mmol/L (21-32) Anion Gap 7 (6-14) Blood Urea Nitrogen 11 mg/dL (7-20) Creatinine 0.9 mg/dL (0.6-1.0) Estimated GFR (Cockcroft-Gault) 63.9 Glucose Level 279 mg/dL (70-99) Calcium Level 8.4 mg/dL (8.5-10.1) White Blood Count 6.1 x10^3/uL (4.0-11.0) Red Blood Count 3.75 x10^6/uL (3.50-5.40) Hemoglobin 12.2 g/dL (12.0-15.5) Hematocrit 35.8 % (36.0-47.0) Mean Corpuscular Volume 95 fL (79-100) Mean Corpuscular Hemoglobin 32 pg (25-35) Mean Corpuscular Hemoglobin Concent 34 g/dL (31-37) Red Cell Distribution Width 13.5 % (11.5-14.5) Platelet Count 194 x10^3/uL (140-400) Neutrophils (%) (Auto) 59 % (31-73) Lymphocytes (%) (Auto) 25 % (24-48) Monocytes (%) (Auto) 12 % (0-9) Eosinophils (%) (Auto) 3 % (0-3) Basophils (%) (Auto) 1 % (0-3) Neutrophils # (Auto) 3.6 x10^3/uL (1.8-7.7) Lymphocytes # (Auto) 1.5 x10^3/uL (1.0-4.8) Monocytes # (Auto) 0.7 x10^3/uL (0.0-1.1) Eosinophils # (Auto) 0.2 x10^3/uL (0.0-0.7) Basophils # (Auto) 0.0 x10^3/uL (0.0-0.2) 25-Hydroxy Vitamin D Total 13.7 ng/mL (30-100) Test 07/18/19 06:54 07/18/19 11:41 07/18/19 16:35 07/18/19 20:28 Glucose (Fingerstick) 152 mg/dL (70-99) 146 mg/dL (70-99) 286 mg/dL (70-99) 205 mg/dL (70-99) Test 07/19/19 07:39 07/19/19 11:47 Glucose (Fingerstick) 185 mg/dL (70-99) 237 mg/dL (70-99) Laboratory Tests Test 07/18/19 16:35 07/18/19 20:28 07/19/19 07:39 07/19/19 11:47 Glucose (Fingerstick) 286 mg/dL (70-99) 205 mg/dL (70-99) 185 mg/dL (70-99) 237 mg/dL (70-99) Brief Hospital Course Ms Lyle is a 59yo F w/ PMHx Severe seizure disorders, GERD, anxiety, hypertension, hyperlipidemia, hypothyroidism, neuropathy who presents after fall, found with right humerus fracture s/p ORIF on 07/17/2019. Her pain is controlled with 10mg oxycodone to a 0/10. No BM as of yet. She does not drive 2/2 her seizure disorder. Wishes to go home soon. No CP or SOB. Seen by ortho in 2 weeks for f/u. Outpatient PT f/u scheduled. Vital Signs Date Time Temp Pulse Resp B/P (MAP) Pulse Ox O2 Delivery O2 Flow Rate FiO2 07/18/19 08:13 74 117/49 07/18/19 07:46 Room Air 07/18/19 07:00 98.1 14 98 98.1 07/17/19 22:09 2.0 Physical Exam: General: Alert, Oriented X3, Cooperative, No acute distress Heart: Regular rate Lungs: Clear Abdomen: Normal bowel sounds, Soft, No tenderness Extremities: No cyanosis, Normal pulses, Other (the right shoulder is held in a splinted position in a shoulder immobilizer. The skin is intact over the fracture. There is quite a bit of swelling at the arm but no ecchymosis. There is probably a deformity of the shoulder but the swelling makes it somewhat difficult to evaluate. Just based on examination I would suspect apex anterior angulation of the fracture at the proximal humerus. The elbow is nontender, and she demonstrated motor function of the radial ulnar and median nerves at the right hand. Sensation is intact in the right fingers. Radial pulses intact.) Skin: No breakdown Fall with right humerus fracture -Mildly displaced comminuted fracture of the proximal humeral shaft just below the humeral neck. Seizure disorder DM2 Hypothyroidism plan: p.r.n. narcotics, IV fluids, p.r.n. Zofran, try to home meds DVT prophylaxis - asa 325 mg Full code. 32 min pt exam, chart review, > 50% of time spent with exam, chart review, pt care coordination Discharge Information Condition at Discharge: Improved Follow Up: Weeks (2) Disposition/Orders: D/C to Home Scheduled Amlodipine Besylate (Amlodipine Besylate) 10 Mg Tablet, 10 MG PO DAILY, (Reported) Entered as Reported by: GAVI HUNG on 02/21/18 1218 Last Action: Continued on 07/16/19 174 by Zenaida Paredes Aspirin (Aspirin Ec) 325 Mg Tablet., 1 TAB PO DAILY for Thromboprophyalxis for 30 Days, #30 Ref 5 Prescribed by: FRANCINE JOSE MD on 07/19/19 1154 Atorvastatin Calcium (Atorvastatin Calcium) 10 Mg Tablet, 1 TAB PO DAILY, #30 Ref 5 (Reported) Entered as Reported by: GAVI HUNG on 02/21/18 1218 Last Action: Continued on 07/16/191748 by Zenaida Paredes Cholecalciferol (Vitamin D3) (Vitamin D3) 5,000 Unit Capsule, 5,000 UNIT PO DAILY for Hypovitaminosis D for 30 Days, #30 Ref 11 Prescribed by: FRANCINE JOSE MD on 07/19/19 1154 Gabapentin (Neurontin) 600 Mg Tablet, 600 MG PO TID, (Reported) Entered as Reported by: JAMIE ESTRADA on 02/04/15 1451 Last Action: Converted on 07/16/191748 by Zenaida Paredes Insulin Aspart (Novolog) 100 Unit/1 Ml Vial, 12 UNIT SQ DAILY07, (Reported) Entered as Reported by: RACHEAL LA on 07/20/171115 Last Action: Reviewed on 07/16/191729 by Zenaida Paredes Insulin Aspart (Novolog) 100 Unit/1 Ml Vial, 5 UNIT SQ DAILYBFRLUN, (Reported) Entered as Reported by: RACHEAL LA on 07/20/171115 Last Action: Reviewed on 07/16/191729 by Zenaida Paredes Insulin Aspart (Novolog) 100 Unit/1 Ml Vial, 4 UNIT SQ DAILYWSUP, (Reported) Entered as Reported by: RACHEAL LA on 07/20/171115 Last Action: Reviewed on 07/16/191729 by Zenaida Paredes Insulin Detemir (Levemir) 100 Unit/1 Ml Vial, 12 UNIT SQ QHS, (Reported) Entered as Reported by: RACHEAL LA on 07/20/171115 Last Action: Converted on 07/16/191748 by Zenaida Paredes Lacosamide (Vimpat) 50 Mg Tablet, 50 MG PO BID for Seizure for 30 Days, Ref 3 Prescribed by: MELISSA PEÑA on 01/31/15 153 Last Action: Continued on 07/16/191748 by Zenaida Paredes Levetiracetam (Keppra) 250 Mg Tablet, 1,250 MG PO BID for Seizure for 30 Days, Ref 3 Prescribed by: MELISSA PEÑA on 01/31/15 153 Last Action: Continued on 07/16/191748 by Zenaida Paredes Levothyroxine Sodium (Synthroid) 100 Mcg Tablet, 100 MCG PO DAILYAC for THYROID SUPPLEMENT, #30 Ref 0 (Reported) Entered as Reported by: Zenaida Paredes on 07/16/191729 Last Taken: 100 mcg daily ac on 07/16/19 Last Action: Continued on 07/16/191748 by Zenaida Paredes Pantoprazole Sodium (Protonix ) 40 Mg Tablet.dr, 1 TAB PO DAILY, #30 Ref 5 Prescribed by: ELLEN RICHMOND MD on 06/01/17 1134 Last Action: Continued on 07/16/191748 by Zenaida Paredes Phenytoin Sodium Extended (Dilantin) 100 Mg Capsule, 2 CAP PO QHS, #90 Ref 3 (Reported) Entered as Reported by: RACHEAL LA on 07/20/17 1116 Last Action: Continued on 07/16/191748 by Zenaida Paredes Polyethylene Glycol 3350 (Polyethylene Glycol 3350) 255 Gm Powder, 17 GM PO DAILY, #527 hold for loose BM Prescribed by: YAS JEREZ MD on 10/01/17 1051 Last Action: Continued on 07/16/191748 by Zenaida Paredes [dilantin] , 30 MG PO QHS for seizures, (Reported) Entered as Reported by: Zenaida Paredes on 07/16/191729 Last Taken: 30 mg PO QHS on Unknown Date & Time Last Action: Converted on 07/16/191748 by Zenaida Paredes Scheduled PRN Oxycodone/Apap 10-325 (Percocet 10-325 Mg Tablet ) 1 Each Tablet, 1 TAB PO PRN Q4-6HRS PRN for PAIN, #40 (Reported) Entered as Reported by: GAVI HUNG on 02/21/18 1218 Last Action: Continued on 07/16/191748 by Zenaida Paredes [diazepam] , 2 MG PO PRN TID PRN for panic attacks, (Reported) Entered as Reported by: Zenaida Paredes on 07/17/19 1148 Last Taken: 2 mg PO PRN TID on 07/15/19 Last Action: Converted on 07/17/19 1150 by FRANCINE Arredondo MD Jul 19, 2019 11:56
--- NOTE | 2019-07-19 13:54 | NUR ---
Discharge Note: ALIVIA WILDER [address] Discharge instructions and discharge home medications reviewed with patient and boyfriend and a copy given. All questions have been answered and understanding verbalized. The following instructions and handouts were given: information about humerus fracture, medications, follow up appointments, dressing changes, and printed instructions on how to apply the sling to right arm. Discontinued lines and drains: IV line in left wrist and left hand removed, catheter tip intact. Patient discharged to home with boyfriend, wheelchair used for mobility to discharge vehicle. Patients boyfriend stated he would be with her at all time while at home to take care of her.
[2019-07-25] MEDS ORDERED: ERGOCALCIFEROL (VITAMIN D2) 50,000 UNIT CAPSULE. PO SCH (09:00)
== END 2019-07-19 13:54 | disposition home or self-care (01) | DRG 494 ==
LOC: ER 12:33 → 4 NORTH 14:02
PROVIDERS: ADMIT Internal Medicine; ATTEND Internal Medicine
PROC: 0PSC04Z Reposition Right Humeral Head with Internal Fixation Device, Open Approach (ICD-10-PCS; principal; 2019-07-17 11:00)
DX: S42.221A 2-part displaced fracture of surgical neck of right humerus, initial encounter for closed fracture (principal); E03.9 Hypothyroidism, unspecified; E11.9 Type 2 diabetes mellitus without complications; E78.00 Pure hypercholesterolemia, unspecified; E78.5 Hyperlipidemia, unspecified; G40.909 Epilepsy, unspecified, not intractable, without status epilepticus; I10 Essential (primary) hypertension; K21.9 Gastro-esophageal reflux disease without esophagitis; E55.9 Vitamin D deficiency, unspecified; G62.9 Polyneuropathy, unspecified; W01.0XXA Fall on same level from slipping, tripping and stumbling without subsequent striking against object, initial encounter; Z82.49 Family history of ischemic heart disease and other diseases of the circulatory system; F32.9 Major depressive disorder, single episode, unspecified; F41.9 Anxiety disorder, unspecified; G89.29 Other chronic pain; Y93.89 Activity, other specified; Y92.89 Other specified places as the place of occurrence of the external cause; Y99.8 Other external cause status
CPT/HCPCS: 29105; 36415; 73030; 76000; 80048; 80053; 82306; 82962; 85025; 87641; 96374; 96375; 96376; A7015; C1713; J0171; J0696; J1100; J1170; J1650; J1815; J2001; J2270; J2405; J2704; J2710; J3010; J3490; J7120; 97535; 99285-25; G0378

== ENCOUNTER 2019-10-03 08:29 | Emergency (ER) | payer OTHER ==
[~2019-10-03] VITALS: Ht 152.4 cm; Wt 55.8 kg
[~2019-10-03 08:29] MED LIST changes: +ASPI325T11 PO; +CHOL5000 PO; +LACT20SO PO; +OMEP40CA45 PO; -OMEP40CA5 PO; +SIMV20TA18 PO; -SIMV20TA3 PO; +diazepam PO; +dilantin PO
[2019-10-03] MEDS ORDERED: NITROGLYCERIN SUBLINGUAL 0.4 MG BOTTLE OF 25. SL PRN (09:15)
--- NOTE | 2019-10-03 09:18 | EKG ---
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
[2019-10-03 09:24] LABS: BASO # 0.1 x10^3/uL (0.0-0.2); BASO % 2 % (0-3); EOS # 0.3 x10^3/uL (0.0-0.7); EOS % 6 % (0-3); HEMATOCRIT 38.7 % (36.0-47.0); HEMOGLOBIN 12.7 g/dL (12.0-15.5); LYMPH # 1.1 x10^3/uL (1.0-4.8); LYMPH % 28 % (24-48); MEAN CORPUSCULAR HEMOGLOBIN 30 pg (25-35); MEAN CORPUSCULAR HGB CONC 33 g/dL (31-37); MEAN CORPUSCULAR VOLUME 92 fL (79-100); MONO # 0.4 x10^3/uL (0.0-1.1); MONO % 9 % (0-9); NEUT # 2.3 x10^3/uL (1.8-7.7); NEUT % 55 % (31-73); PLATELET COUNT 248 x10^3/uL (140-400); RED BLOOD COUNT 4.21 x10^6/uL (3.50-5.40); RED CELL DISTRIBUTION WIDTH 13.8 % (11.5-14.5); WHITE BLOOD COUNT 4.1 x10^3/uL (4.0-11.0)
[2019-10-03 09:29] LABS: CREATININE 0.8 mg/dL (0.6-1.0); GFR 73.2; POTASSIUM 4.4 mmol/L (3.5-5.1)
[2019-10-03 09:36] LABS: ALBUMIN 3.8 g/dL (3.4-5.0); ALBUMIN/GLOBULIN RATIO 1.1 (1.0-1.7); MAGNESIUM 1.9 mg/dL (1.8-2.4); TOTAL BILIRUBIN 0.2 mg/dL (0.2-1.0); TOTAL PROTEIN 7.2 g/dL (6.4-8.2)
[2019-10-03 09:42] LABS: CREATINE KINASE 71 U/L (26-192)
[2019-10-03 09:46] VITALS: BP 112/57
--- NOTE | 2019-10-03 10:07 | PHYS DOC ---
Past Medical History Past Medical History: Anxiety, Diabetes-Type II, GERD, High Cholesterol, Hypertension, Hypothyroid, Seizure, Other Additional Past Medical Histor: Abd pain,Neuropathy,Insomnia,Chronic pain Past Surgical History: Other Additional Past Surgical Histo: Left shoulder and right kidney surgeries Alcohol Use: None Drug Use: None Adult General Chief Complaint Chief Complaint: CHEST PAIN [facility] HPI Patient is a 59 year old female with history of hypertension, dyslipidemia, diabetes mellitus, anxiety and chronic pain who presents with complaint of chest pain. Patient complaining of constant left sided chest and breast pain for one month as a sharp pain without ideation. Patient states she sometimes has episodes of shortness of breath and dizziness and denies nausea and vomiting, fever and chills, hypertension, urinary symptom. Patient states she had a fall 4 months ago but chest pain that started just 1 month ago and did not seek medical attention for her pain. Patient rated her pain 7 or 8/10. Review of Systems Review of Systems Constitutional: Denies fever or chills [] Eyes: Denies change in visual acuity, redness, or eye pain [] HENT: Denies nasal congestion or sore throat [] Respiratory: Denies cough, reports shortness of breath [] Cardiovascular: No additional information not addressed in HPI [] GI: Denies abdominal pain, nausea, vomiting, bloody stools or diarrhea [] : Denies dysuria or hematuria [] Musculoskeletal: Denies back pain or joint pain [] Integument: Denies rash or skin lesions [] Neurologic: Denies headache, focal weakness or sensory changes [] Endocrine: Denies polyuria or polydipsia [] All other systems were reviewed and found to be within normal limits, except as documented in this note. Current Medications Current Medications Current Medications Medications (Trade) Dose Ordered Sig/Khang Start Time Stop Time Status Last Admin Dose Admin Nitroglycerin (Nitrostat) 0.4 mg PRN Q5MIN PRN 10/03/19 09:15 10/03/19 11:10 DC Allergies Allergies Allergies Coded Allergies Type Severity Reaction Last Updated Verified I S O L A T I O N *CONTACT* Allergy Unknown 07/17/19 Yes No Known Medication Allergies Allergy Unknown 07/17/19 Yes Physical Exam Physical Exam Constitutional: Well developed, well nourished, mild distress, non-toxic appearance. [] HENT: Normocephalic, atraumatic. Eyes: PERRLA, EOMI, conjunctiva normal, no discharge. [] Neck: Normal range of motion, no tenderness, supple, no stridor. [] Cardiovascular:Heart rate regular rhythm, no murmur [] Lungs & Thorax: Bilateral breath sounds clear to auscultation [] Abdomen: Bowel sounds normal, soft, no tenderness, no masses, no pulsatile masses. [] Skin: Warm, dry, no erythema, no rash. [] Back: No tenderness, no CVA tenderness. [] Extremities: No tenderness, no cyanosis, no clubbing, ROM intact, no edema. [] Neurologic: Alert and oriented X 3, no focal deficits noted. [] Psychologic: Affect anxious, judgement normal, mood normal. [] Current Patient Data Vital Signs Vital Signs Date Time Temp Pulse Resp B/P (MAP) Pulse Ox O2 Delivery O2 Flow Rate FiO2 10/03/19 09:46 68 16 112/57 (75) 98 Room Air 10/03/19 08:32 98.4 98.4 Lab Values Laboratory Tests Test 10/03/19 09:00 White Blood Count 4.1 x10^3/uL (4.0-11.0) Red Blood Count 4.21 x10^6/uL (3.50-5.40) Hemoglobin 12.7 g/dL (12.0-15.5) Hematocrit 38.7 % (36.0-47.0) Mean Corpuscular Volume 92 fL (79-100) Mean Corpuscular Hemoglobin 30 pg (25-35) Mean Corpuscular Hemoglobin Concent 33 g/dL (31-37) Red Cell Distribution Width 13.8 % (11.5-14.5) Platelet Count 248 x10^3/uL (140-400) Neutrophils (%) (Auto) 55 % (31-73) Lymphocytes (%) (Auto) 28 % (24-48) Monocytes (%) (Auto) 9 % (0-9) Eosinophils (%) (Auto) 6 % (0-3) H Basophils (%) (Auto) 2 % (0-3) Neutrophils # (Auto) 2.3 x10^3/uL (1.8-7.7) Lymphocytes # (Auto) 1.1 x10^3/uL (1.0-4.8) Monocytes # (Auto) 0.4 x10^3/uL (0.0-1.1) Eosinophils # (Auto) 0.3 x10^3/uL (0.0-0.7) Basophils # (Auto) 0.1 x10^3/uL (0.0-0.2) Prothrombin Time 13.0 SEC (11.7-14.0) Prothrombin Time INR 1.0 (0.8-1.1) Sodium Level 142 mmol/L (136-145) Potassium Level 4.4 mmol/L (3.5-5.1) Chloride Level 102 mmol/L (98-107) Carbon Dioxide Level 33 mmol/L (21-32) H Anion Gap 7 (6-14) Blood Urea Nitrogen 11 mg/dL (7-20) Creatinine 0.8 mg/dL (0.6-1.0) Estimated GFR (Cockcroft-Gault) 73.2 BUN/Creatinine Ratio 14 (6-20) Glucose Level 246 mg/dL (70-99) H Calcium Level 9.0 mg/dL (8.5-10.1) Magnesium Level 1.9 mg/dL (1.8-2.4) Total Bilirubin 0.2 mg/dL (0.2-1.0) Aspartate Amino Transferase (AST) 18 U/L (15-37) Alanine Aminotransferase (ALT) 20 U/L (14-59) Alkaline Phosphatase 213 U/L (46-116) H Creatine Kinase 71 U/L (26-192) Creatine Kinase MB (Mass) 1.1 ng/mL (0.0-3.6) Creatine Kinase MB Relative Index % (0-4) Troponin I Quantitative < 0.017 ng/mL (0.000-0.055) MF-Loj-B-Type Natriuretic Peptide 161 pg/mL (0-124) H Total Protein 7.2 g/dL (6.4-8.2) Albumin 3.8 g/dL (3.4-5.0) Albumin/Globulin Ratio 1.1 (1.0-1.7) Lipase 49 U/L (73-393) L Laboratory Tests 10/03/19 09:00 Laboratory Tests 10/03/19 09:00 EKG EKG EKG interpreted by me. EKG at 0842 showed normal sinus rhythm at rate of 68, left fourth axis, normal [place] and QT intervals, no acute ST and T-wave abnormal ities. Radiology/Procedures Radiology/Procedures [][facility] [address] [place] [address] IMAGING REPORT Signed PATIENT: ALIVIA WILDER ACCOUNT: [id number] : 1960 LOCATION: ER AGE: 59 SEX: F EXAM STATUS: REG ER ORD. PHYSICIAN: KWAKU MAR MD REASON: injury and mid left sided chest pain x 1month, hx of fall PROCEDURE: RIBS LEFT AND PA CHEST Multiple views of the left ribs as well as AP view of the chest were obtained. History: Injury and left-sided chest pain for one month after fall Comparison: none There is no fracture displaced rib fracture or acute bony injury seen. No pneumothorax is seen. Bilateral humeral arthroplasty changes are identified. There is stable discoid atelectasis of the left lung base. Impression: Negative exam of the left ribs and chest. Electronically signed by: Mc iKm MD (10/03/2019 10:12 AM) [facility] DICTATED and SIGNED BY: MC KIM MD DATE: 10/03/19 1012 Course & Med Decision Making Course & Med Decision Making Pertinent Labs and Imaging studies reviewed. (See chart for details) discharge: I've spoken with the patient and/or caregivers. I've explained the patient's condition, diagnosis and treatment plan based on information available to me at this time. I've answered the patient's and/or caregivers questions and addressed any concerns. The patient and/or caregivers have a good understanding the patient's diagnosis, condition and treatment plan as can be expected at this po int. Vital signs have been stabilized. The patient's condition is stable for discharge from the emergency department. The patient will pursue further outpatient evaluation with her primary care provider or other designated consulting physician as outlined in the discharge instructions. Patient and/or caregivers are agreeable to this plan of care and follow-up instructions have been explained in detail. The patient and/or caregivers have received these instructions in written format and expressed understanding of these discharge instructions. The patient and her caregivers are aware that if any significant change in condition or worsening of symptoms should prompt him to immediately return to this of the closest emergency department. If an emergent department is not readily available I would encourage him to call 911. Anastacia Disclaimer Anastacia Disclaimer This electronic medical record was generated, in whole or in part, using a voice recognition dictation system. Departure Departure Impression: Primary Impression: Musculoskeletal chest pain Disposition: HOME, SELF-CARE (at 1047) Condition: IMPROVED Referrals: RUDDY CALHOUN MD (PCP) Patient Instructions: Chest Wall Pain Additional Instructions: Drink plenty of liquids Follow-up with your primary care physician in 3-5 days Return to ER if not getting better Apply ice on the affected area Scripts Acetaminophen With Codeine (TYLENOL WITH CODEINE #3 TABLET) 1 Each Tablet 1 TAB PO PRN Q6HRS PRN for PAIN, #10 TAB Prov: KWAKU MAR MD 10/03/19 Cyclobenzaprine Hcl (CYCLOBENZAPRINE HCL) 10 Mg Tablet 1 TAB PO TID, #21 TAB Prov: KWAKU MAR MD 10/03/19 The HEART Score for CP Pts HEART Score for Chest Pain: HEART Score for Chest Pain Response (Comments) Value History Slighlty/Non-Suspicious 0 ECG Normal 0 Age >45 - < 65 1 Risk Factors >3 Risk Factors or Hx CAD 2 Troponin < Normal Limit 0 Total 3 Risk Factors: Risk Factors: DM, Current or recent (<one month) smoker, HTN, HLP, family history of CAD, obesity. Risk Scores: Score 0 - 3: 2.5% MACE over next 6 weeks - Discharge Home Score 4 - 6: 20.3% MACE over next 6 weeks - Admit for Clinical Observation Score 7 - 10: 72.7% MACE over next 6 weeks - Early Invasive Strategies KWAKU MAR MD Oct 03, 2019 10:07
--- NOTE | 2019-10-03 10:15 | RAD ---
Multiple views of the left ribs as well as AP view of the chest were obtained. History: Injury and left-sided chest pain for one month after fall Comparison: none There is no fracture displaced rib fracture or acute bony injury seen. No pneumothorax is seen. Bilateral humeral arthroplasty changes are identified. There is stable discoid atelectasis of the left lung base. Impression: Negative exam of the left ribs and chest. Electronically signed by: Mc Kim MD (10/03/2019 10:12 AM) [id number]
[2019-10-03] MEDS ORDERED: ACET-704 PO ×2 (10:49→10:55)
[2019-10-03] MEDS ORDERED: CYCL10TA2 PO (10:55)
== END 2019-10-03 11:09 | disposition home or self-care (01) ==
LOC: ER 08:29
DX: R07.89 Other chest pain (principal); R06.02 Shortness of breath; R42 Dizziness and giddiness; F41.9 Anxiety disorder, unspecified; E78.00 Pure hypercholesterolemia, unspecified; E03.9 Hypothyroidism, unspecified; E11.40 Type 2 diabetes mellitus with diabetic neuropathy, unspecified; G89.29 Other chronic pain; I10 Essential (primary) hypertension; Z98.890 Other specified postprocedural states; Z91.041 Radiographic dye allergy status
CPT/HCPCS: 36415; 71101; 80053; 82553; 83690; 83735; 83880; 84484; 85025; 85610; 93005; 99285-25

== ENCOUNTER → 2019-11-17 | Outpatient (CLI) | payer OTHER ==
[~2019-11-17] MED LIST changes: +ACET-704 PO; -BUPR300T4 PO; +BUPR300T92 PO; +MAGN296S68 PO; -MAGN296S9 PO
--- NOTE | 2019-11-17 12:56 | KCIC ---
EXAM: Dual energy x-ray absorptiometry (DEXA). HISTORY: Postmenopausal female presents for osteoporosis screening. COMPARISON: 06/26/2008. TECHNIQUE: Dual energy x-ray absorptiometry of the lumbar spine and left hip was performed. Calculation of bone mineral density based on standard deviations above or below the expected young adult normal value (T-score) was completed. FINDINGS: The average bone mineral density in the 1st through 4th lumbar vertebrae is 0.904 g/cmxcm, corresponding with a T-score of -1.3. There has been an 11.9% decrease in density of the lumbar spine compared to the prior study. The average total bone mineral density in the left hip is 0.558 g/cmxcm, corresponding with a T-score of -3.1. There has been a 32.2% decrease in density of the left hip compared to the prior study. IMPRESSION: 1. Osteoporosis measures at the left hip. 2. Osteopenia measured at the lumbar spine. Note: Definitions established by the World Health Organization: 1. Normal: T-score is -1.0 or above. 2. Osteopenia: T-score is between -1.0 and -2.5 . 3. Osteoporosis: T-score is -2.5 or below. Electronically signed by: Jessica Lemons MD (11/17/2019 12:53 PM) [place] [id number]
== END | disposition home or self-care (01) ==
LOC: KCIC MRI 09:15
DX: S32.030A Wedge compression fracture of third lumbar vertebra, initial encounter for closed fracture (principal); M81.0 Age-related osteoporosis without current pathological fracture; X58.XXXA Exposure to other specified factors, initial encounter; Y93.89 Activity, other specified; Y92.89 Other specified places as the place of occurrence of the external cause; Y99.8 Other external cause status
CPT/HCPCS: 77080

== ENCOUNTER 2020-02-01 12:08 | Emergency (ER) | payer OTHER ==
[~2020-02-01] VITALS: Ht 152.4 cm; Wt 60.0 kg
[~2020-02-01 12:08] MED LIST changes: +DIAZ2TAB PO
--- NOTE | 2020-02-01 13:10 | RAD ---
Single view of the chest. 02/01/2020 12:40 PM Indication: Chest pain Comparison: Chest radiograph December 01, 2019 Findings: No pneumothorax, pleural effusion, or focal consolidative infiltrate is seen. Heart size is normal and stable. Aortic calcification again noted postoperative changes involving the left shoulder proximal right humerus noted. An acute osseous changes not identified. IMPRESSION: No evidence of acute cardiopulmonary process Electronically signed by: Casey Colon MD (02/01/2020 1:07 PM) [id number]
--- NOTE | 2020-02-01 13:12 | PHYS DOC ---
Past Medical History Past Medical History: Anxiety, Diabetes-Type II, GERD, High Cholesterol, Hypertension, Hypothyroid, Seizure, Other Additional Past Medical Histor: Abd pain,Neuropathy,Insomnia,Chronic pain Past Surgical History: Other Additional Past Surgical Histo: Left shoulder and right kidney surgeries Smoking Status: Never Smoker Alcohol Use: None Drug Use: None Adult General Chief Complaint Chief Complaint: CHEST PAIN HPI HPI Yes the patient had pulses Patient is a 59 year old female brought in by ambulance with chest pain. She said she had 1 of her spells she described as a seizure she takes medication for that she was watching the elias is right in her chair. She said that she woke up from the spell and she was having some central chest pain that is gone now she feels better this is happened to her before of note she had a clean cath back in November that showed no coronary artery disease Review of Systems Review of Systems Constitutional: Denies fever or chills [] Eyes: Denies change in visual acuity, redness, or eye pain [] Musculoskeletal: Denies back pain or joint pain [] Integument: Denies rash or skin lesions [] Neurologic: See HPI Endocrine: Denies polyuria or polydipsia [] All other systems were reviewed and found to be within normal limits, except as documented in this note. Allergies Allergies Allergies Coded Allergies Type Severity Reaction Last Updated Verified I S O L A T I O N *CONTACT* Allergy Unknown 07/17/19 Yes No Known Medication Allergies Allergy Unknown 07/17/19 Yes Physical Exam Physical Exam Constitutional: Well developed, well nourished, no acute distress, non-toxic appearance. [] HENT: Normocephalic, atraumatic, bilateral external ears normal, oropharynx moist, no oral exudates, nose normal. [] Eyes: PERRLA, EOMI, conjunctiva normal, no discharge. [] Neck: Normal range of motion, no tenderness, supple, no stridor. [] Cardiovascular:Heart rate regular rhythm, no murmur [] Lungs & Thorax: Bilateral breath sounds clear to auscultation [] Abdomen: Bowel sounds normal, soft, no tenderness, no masses, no pulsatile masses. [] Skin: Warm, dry, no erythema, no rash. [] Back: No tenderness, no CVA tenderness. [] Extremities: No tenderness, no cyanosis, no clubbing, ROM intact, one plus edema b/l Neurologic: Alert and oriented X 3, normal motor function, normal sensory function, no focal deficits noted. [] Psychologic: Affect normal, judgement normal, mood normal. [] Current Patient Data Vital Signs Vital Signs Date Time Temp Pulse Resp B/P (MAP) Pulse Ox O2 Delivery O2 Flow Rate FiO2 02/01/20 12:10 98.4 84 20 163/65 (97) 94 Room Air 98.4 Lab Values Laboratory Tests Test 02/01/20 13:20 02/01/20 15:31 White Blood Count 10.6 x10^3/uL (4.0-11.0) Red Blood Count 4.56 x10^6/uL (3.50-5.40) Hemoglobin 13.5 g/dL (12.0-15.5) Hematocrit 40.4 % (36.0-47.0) Mean Corpuscular Volume 89 fL (79-100) Mean Corpuscular Hemoglobin 30 pg (25-35) Mean Corpuscular Hemoglobin Concent 33 g/dL (31-37) Red Cell Distribution Width 14.9 % (11.5-14.5) H Platelet Count 242 x10^3/uL (140-400) Neutrophils (%) (Auto) 84 % (31-73) H Lymphocytes (%) (Auto) 7 % (24-48) L Monocytes (%) (Auto) 6 % (0-9) Eosinophils (%) (Auto) 3 % (0-3) Basophils (%) (Auto) 1 % (0-3) Neutrophils # (Auto) 8.9 x10^3/uL (1.8-7.7) H Lymphocytes # (Auto) 0.7 x10^3/uL (1.0-4.8) L Monocytes # (Auto) 0.6 x10^3/uL (0.0-1.1) Eosinophils # (Auto) 0.3 x10^3/uL (0.0-0.7) Basophils # (Auto) 0.1 x10^3/uL (0.0-0.2) Sodium Level 136 mmol/L (136-145) Potassium Level 4.2 mmol/L (3.5-5.1) Chloride Level 99 mmol/L (98-107) Carbon Dioxide Level 30 mmol/L (21-32) Anion Gap 7 (6-14) Blood Urea Nitrogen 15 mg/dL (7-20) Creatinine 0.8 mg/dL (0.6-1.0) Estimated GFR (Cockcroft-Gault) 73.2 BUN/Creatinine Ratio 19 (6-20) Glucose Level 355 mg/dL (70-99) H Calcium Level 8.6 mg/dL (8.5-10.1) Total Bilirubin 0.4 mg/dL (0.2-1.0) Aspartate Amino Transferase (AST) 21 U/L (15-37) Alanine Aminotransferase (ALT) 24 U/L (14-59) Alkaline Phosphatase 174 U/L (46-116) H Troponin I Quantitative 0.034 ng/mL (0.000-0.055) < 0.017 ng/mL (0.000-0.055) Total Protein 7.3 g/dL (6.4-8.2) Albumin 3.8 g/dL (3.4-5.0) Albumin/Globulin Ratio 1.1 (1.0-1.7) Laboratory Tests 02/01/20 13:20 Laboratory Tests 02/01/20 13:20 EKG EKG [] EKG shows normal sinus rhythm rate of 83 no acute ischemic changes noted this is a normal EKG interpreted by me the time of the encounter chest x-ray interpreted by me I suspect there may be some atelectasis at the left lung base no pneumothorax no pneumonia or otherwise. Radiology/Procedures Radiology/Procedures [] Impressions: My read chest x-ray no pneumonia seen may be atelectasis at the left lung base. Course & Med Decision Making Course & Med Decision Making Pertinent Labs and Imaging studies reviewed. (See chart for details) [] Clean cath chest pain likely related to anxiety patient reassured check basic lab work CLEAN CATH TWO TROPS NEG PT REASSURED DONT SUSPECT PE OR DISSECTION CP FREE IN ED Dragon Disclaimer Dragon Disclaimer This electronic medical record was generated, in whole or in part, using a voice recognition dictation system. Departure Departure Impression: Primary Impression: Chest pain Disposition: HOME, SELF-CARE Condition: STABLE Referrals: RUDDY CALOHUN MD (PCP) ZAHIRA GALLARDO MD Feb 01, 2020 13:11
[2020-02-01 13:31] LABS: BASO # 0.1 x10^3/uL (0.0-0.2); BASO % 1 % (0-3); EOS # 0.3 x10^3/uL (0.0-0.7); EOS % 3 % (0-3); HEMATOCRIT 40.4 % (36.0-47.0); HEMOGLOBIN 13.5 g/dL (12.0-15.5); LYMPH # 0.7 x10^3/uL (1.0-4.8); LYMPH % 7 % (24-48); MEAN CORPUSCULAR HEMOGLOBIN 30 pg (25-35); MEAN CORPUSCULAR HGB CONC 33 g/dL (31-37); MEAN CORPUSCULAR VOLUME 89 fL (79-100); MONO # 0.6 x10^3/uL (0.0-1.1); MONO % 6 % (0-9); NEUT # 8.9 x10^3/uL (1.8-7.7); NEUT % 84 % (31-73); PLATELET COUNT 242 x10^3/uL (140-400); RED BLOOD COUNT 4.56 x10^6/uL (3.50-5.40); RED CELL DISTRIBUTION WIDTH 14.9 % (11.5-14.5); WHITE BLOOD COUNT 10.6 x10^3/uL (4.0-11.0)
[2020-02-01 13:43] LABS: CALCIUM 8.6 mg/dL (8.5-10.1); CREATININE 0.8 mg/dL (0.6-1.0); GFR 73.2; POTASSIUM 4.2 mmol/L (3.5-5.1)
[2020-02-01 13:49] LABS: ALBUMIN 3.8 g/dL (3.4-5.0); ALBUMIN/GLOBULIN RATIO 1.1 (1.0-1.7); TOTAL BILIRUBIN 0.4 mg/dL (0.2-1.0); TOTAL PROTEIN 7.3 g/dL (6.4-8.2)
[2020-02-01 16:07] VITALS: BP 149/68
== END 2020-02-01 16:25 | disposition home or self-care (01) ==
LOC: ER 12:08
DX: R07.89 Other chest pain (principal); K21.9 Gastro-esophageal reflux disease without esophagitis; E78.00 Pure hypercholesterolemia, unspecified; I10 Essential (primary) hypertension; E11.40 Type 2 diabetes mellitus with diabetic neuropathy, unspecified; E03.9 Hypothyroidism, unspecified; G89.29 Other chronic pain; Z98.890 Other specified postprocedural states
CPT/HCPCS: 36415; 71045; 80053; 84484; 85025; 93005; 99285-25

== ENCOUNTER 2020-02-02 09:30 | Emergency (ER) | payer OTHER ==
[~2020-02-02] VITALS: Ht 152.4 cm; Wt 60.0 kg
--- NOTE | 2020-02-02 10:41 | RAD ---
Right shoulder 3 views. HISTORY: Trauma 3 views were taken of the right shoulder. There is callus about a fracture of the proximal humerus. There is a plate with multiple screws bridging the humerus fracture. Pattern is unchanged from the recent study. There is a new fracture of the distal clavicle with displacement which was not seen on the chest x-ray from January 31. IMPRESSION: 1. Subacute fracture proximal right humerus without change from recent x-rays. 2. New fracture distal right clavicle with displacement. Electronically signed by: Mikel Posey MD (02/02/2020 10:38 AM) [id number]
[2020-02-02 10:47] LABS: PHENY 24.6 mcg/mL (10.0-20.0)
--- NOTE | 2020-02-02 11:06 | RAD ---
CT HEAD WITHOUT CONTRAST 02/02/2020 10:01 AM Indication: Head trauma Comparison: Head CT August 06, 2019 Procedure: Multidetector CT imaging of the head was performed without the administration of contrast. Findings: There is no evidence of acute intracranial hemorrhage. There is no evidence of acute territorial infarction. Please note that CT is limited for evaluation of acute ischemia. No mass effect or midline shift is identified . The ventricles and basilar cisterns have an appropriate appearance. No abnormal extra-axial fluid collections are seen. No acute osseous changes are identified. Impression: No evidence of acute intracranial abnormality CT cervical spine without contrast. 02/02/2020 10:01 AM Indication:Head trauma Comparison Study: Spine October 21, 2014 Technique: Multidetector CT imaging of the cervical spine was obtained without administration of contrast. Findings: There is no evidence of acute fracture or alignment abnormality of the cervical spine. Atlantoaxial articulation and craniocervical junction appear to remain intact. Facet joints remain aligned. Vertebral body heights are maintained. There is degenerative change of the cervical spine including severe disc space narrowing at C5-C6. Posterior projecting disc ossific complexes are seen at C4-C5 and C5-C6. Moderate to severe right-sided neural foraminal narrowing is present at C5-C6. There is no prevertebral soft tissue swelling. Soft tissues are otherwise unremarkable. No bony compromise of the spinal canal is seen. Impression: 1.No evidence of acute fracture or alignment abnormality of the cervical spine 2. Degenerative changes of the cervical spine, most significant at C5-C6 CT DOSING PQRS STATEMENT: One or more of the following individualized dose reduction techniques were utilized for this examination: 1. Automated exposure control 2. Adjustment of the mA and/or kV according to patient size 3. Use of iterative reconstruction technique Electronically signed by: Casey Colon MD (02/02/2020 11:03 AM) [id number]
[2020-02-02 12:03] VITALS: BP 128/63
--- NOTE | 2020-02-02 13:07 | PHYS DOC ---
Past Medical History Past Medical History: Anxiety, Diabetes-Type II, GERD, High Cholesterol, Hypertension, Hypothyroid, Seizure, Other Additional Past Medical Histor: Abd pain,Neuropathy,Insomnia,Chronic pain Past Surgical History: Other Additional Past Surgical Histo: Left shoulder and right kidney surgeries Smoking Status: Never Smoker Alcohol Use: None Drug Use: None Adult General Chief Complaint Chief Complaint: MECHANICAL FALL HPI HPI Patient is a 60 year old female presenting with chief complaint of shoulder pain. Patient is a history of seizure disorder she said she had a spell earlier today she fell down hit her right shoulder. She does not recall at this is typical of her known seizures for which she is seen here frequently. She endorses medication compliance. She denies any chest pain or shortness of breath at this time no fever no cough. Review of Systems Review of Systems Constitutional: Denies fever or chills [] Eyes: Denies change in visual acuity, redness, or eye pain [] Integument: Denies rash or skin lesions [] Neurologic: Denies headache, focal weakness or sensory changes [] All other systems were reviewed and found to be within normal limits, except as documented in this note. Allergies Allergies Allergies Coded Allergies Type Severity Reaction Last Updated Verified I S O L A T I O N *CONTACT* Allergy Unknown 07/17/19 Yes No Known Medication Allergies Allergy Unknown 07/17/19 Yes Physical Exam Physical Exam Constitutional: Well developed, well nourished, no acute distress, non-toxic appearance. [] HENT: Normocephalic, atraumatic, bilateral external ears normal, oropharynx moist, no oral exudates, nose normal. [] Eyes: PERRLA, EOMI, conjunctiva normal, no discharge. [] Neck: Normal range of motion, no tenderness, supple, no stridor. [] Cardiovascular:Heart rate regular rhythm, no murmur [] Lungs & Thorax: Bilateral breath sounds clear to auscultation [] Abdomen: Bowel sounds normal, soft, no tenderness, no masses, no pulsatile masses. [] Skin: Warm, dry, no erythema, no rash. [] Back: No tenderness, no CVA tenderness. [] Extremities: tenderness to palpation noted at the right shoulder the right clavicle mild tenderness there 2+ edema in the bilateral lower extremities unchanged from prior visit Neurologic: Alert and oriented X 3, normal motor function, normal sensory function, no focal deficits noted. [] Psychologic: Affect normal, judgement normal, mood normal. [] Current Patient Data Vital Signs Vital Signs Date Time Temp Pulse Resp B/P (MAP) Pulse Ox O2 Delivery O2 Flow Rate FiO2 02/02/20 12:03 81 17 95 02/02/20 09:30 98.4 138/65 (89) Room Air 98.4 Lab Values Laboratory Tests Test 02/02/20 10:30 Phenytoin (Dilantin) Level 24.6 mcg/mL (10.0-20.0) H Phenytoin Last Dose Date Unknown Phenytoin Last Dose Time Unknown EKG EKG [] Radiology/Procedures Radiology/Procedures [] IMPRESSION: 1. Subacute fracture proximal right humerus without change from recent x-rays. 2. New fracture distal right clavicle with displacement. Electronically signed by: Mikel Posey MD (02/02/2020 10:38 AM) [id number] DICTATED and SIGNED BY: MIKEL POSEY MD DATE: 02/02/20 1038 Impressions: Technique: Multidetector CT imaging of the cervical spine was obtained without administration of contrast. Findings: There is no evidence of acute fracture or alignment abnormality of the cervical spine. Atlantoaxial articulation and craniocervical junction appear to remain intact. Facet joints remain aligned. Vertebral body heights are maintained. There is degenerative change of the cervical spine including severe disc space narrowing at C5-C6. Posterior projecting disc ossific complexes are seen at C4-C5 and C5-C6. Moderate to severe right-sided neural foraminal narrowing is present at C5-C6. There is no prevertebral soft tissue swelling. Soft tissues are otherwise unremarkable. No bony compromise of the spinal canal is seen. Impression: 1.No evidence of acute fracture or alignment abnormality of the cervical spine 2. Degenerative changes of the cervical spine, most significant at C5-C6 CT DOSING PQRS STATEMENT: One or more of the following individualized dose reduction techniques were utilized for this examination: 1. Automated exposure control 2. Adjustment of the mA and/or kV according to patient size 3. Use of iterative reconstruction technique Electronically signed by: Casey Patel MD (02/02/2020 11:03 AM) [id number] DICTATED and SIGNED BY: CASEY PATEL MD DATE: 02/02/20 1103 Course & Med Decision Making Course & Med Decision Making Pertinent Labs and Imaging studies reviewed. (See chart for details) [] 60-year-old female with known seizure disorder frequent ER visits multiple falls presenting after probable seizure blood sugar with paramedics was 224 Patient has distal clavicle fracture nondisplaced sling was applied. To check the Dilantin level due to recurrent seizure it was actually mildly elevated I recommended that she follow-up with her neurologist for discussion about any change in dosing regimen for her seizure medication. Otherwise she is neurologically intact her head and C-spine CT were negative there is no other trauma noted on her physical examination at this point time after the sling was applied we discharged her in stable condition. To be driven home by Dragon Disclaimer Dragon Disclaimer This electronic medical record was generated, in whole or in part, using a voice recognition dictation system. Departure Departure Impression: Primary Impression: Clavicle fracture Disposition: 01 HOME, SELF-CARE Condition: STABLE Referrals: JOHN FLEMING II, MD Patient Instructions: Clavicle Fracture, [id number] ZAIHRA GALLARDO MD Feb 02, 2020 13:07
== END 2020-02-02 12:03 | disposition home or self-care (01) ==
LOC: ER 09:30
DX: S42.034A Nondisplaced fracture of lateral end of right clavicle, initial encounter for closed fracture (principal); M25.511 Pain in right shoulder; F41.9 Anxiety disorder, unspecified; K21.9 Gastro-esophageal reflux disease without esophagitis; E78.00 Pure hypercholesterolemia, unspecified; I10 Essential (primary) hypertension; E03.9 Hypothyroidism, unspecified; E11.40 Type 2 diabetes mellitus with diabetic neuropathy, unspecified; G89.29 Other chronic pain; G43.909 Migraine, unspecified, not intractable, without status migrainosus; Z88.8 Allergy status to other drugs, medicaments and biological substances; Z98.890 Other specified postprocedural states; W18.00XA Striking against unspecified object with subsequent fall, initial encounter; Y93.89 Activity, other specified; Y92.89 Other specified places as the place of occurrence of the external cause; Y99.8 Other external cause status
CPT/HCPCS: 36415; 70450; 72125; 73030; 80185; 99285

== ENCOUNTER → 2020-02-07 | Outpatient (CLI) | payer OTHER ==
[2020-02-02 12:03] VITALS: BP 128/63
--- NOTE | 2020-02-07 09:04 | RAD ---
MR#: [id number] Date of Study: 02/07/2020 Ordering Physician: JESUS AUSTIN, Referring Physician: JESUS AUSTIN, Tech: Abdirizak Villa MBA, RDMS, RVT, RDCS, RTR APPROVED REPORT Patient Location : OUT-PATIENT Indications Lower Extremity Edema : Bilateral Findings Wright scale images of the bilateral saphenofemoral junctions is unremarkable. Bilateral GSV and LSV have no thrombus and on spectral imaging do not show reflux. The RGSV measures 5.8mm and left GSV measures 6.3 mm in maximum dimensions. Critical Notification Critical Value: No <Conclusion> No reflux seen in the GSV and LSV bilaterally Signed by : Mejia Benson, Electronically Approved : 02/07/2020 09:03:41
--- NOTE | 2020-02-07 09:13 | RAD ---
MR#: [id number] Date of Study: 02/07/2020 Ordering Physician: JESUS AUSTIN, Referring Physician: JESUS AUSTIN, Tech: Abdirizak Villa MBA, RDMS, RVT, RDCS, RTR APPROVED REPORT Bilateral Lower Extremity Venous Study for DVT Patient Location: OUT-PATIENT Indications Lower Extremity Edema: Bilateral Vein Imaging (Right) CFV (R): Compressible SFJ (R): Compressible FEM (R): Compressible POP (R): Compressible DFV (R): Compressible PTV (R): Spontaneous GSV (R): Spontaneous Peroneals (R): Spontaneous Vein Imaging (Left) CFV (L): Compressible SFJ (L): Compressible FEM (L): Compressible POP (L): Compressible DFV (L): Compressible PTV (L): Spontaneous GSV (L): Spontaneous Peroneals (L): Spontaneous Doppler Evaluation (Right) CFV (R): Spontaneous POP (R):Spontaneous Doppler Evaluation (Left) CFV (L):Spontaneous POP (L):Spontaneous Findings The bilateral lower extremity deep veins were evaluated for thrombus with color Doppler, spectral and grayscale images. On the right the grayscale images are very limited but the common femoral, superficial femoral and po pliteal veins do not demonstrate any evidence of thrombus and these veins appear to be compressible. The below-knee veins were not well visualized but grossly appear to be compressible. Spectral imaging and color Doppler do not reveal any evidence of obstruction to flow with normal respirophasic variat ion above the knee. Below the knee there is spontaneous flow noted. On the left, the grayscale images are very limited but the common femoral, superficial femoral and po pliteal veins do not demonstrate any evidence of thrombus and these veins appear to be compressible. The below-knee veins again were not well visualized but grossly appear to be compressible. Spectral i maging and color Doppler do not reveal any evidence of obstruction to flow with normal respirophasic variation above the knee. The below-knee veins demonstrate spontaneous flow. Technically very difficult study Critical Notification Critical Value: No <Conclusion> 1. No evidence of DVT in the BLE 2. Technically difficult study Signed by : Mejia Benson, Electronically Approved : 02/07/2020 09:12:42
--- NOTE | 2020-02-07 09:18 | RAD ---
MR#: [id number] Date of Study: 02/07/2020 Ordering Physician: JESUS AUSTIN, Referring Physician: JESUS AUSTIN, Tech: Abdirizak Villa MBA, RDMS, RVT, RDCS, RTR APPROVED REPORT Patient Location: OUT-PATIENT Indications Claudication:Bilaterally VELOCITY AND DOPPLER WAVEFORM ANALYSIS RIGHT cm/secWaveformSeverity LEFT cm/secWaveform Severity dCFA 141.0BiphasicdCFA 135.0Triphasic Prof Fem Art. 93.0BiphasicProf Fem Art. 92.0Biphasic Fem Art Prox. 155.0TriphasicFem Art Prox. 187.0Triphasic Fem Art Mid. 156.0TriphasicFem Art Mid. 179.0Triphasic Fem Art Dist. 160.0TriphasicFem Art Dist. 141.0Triphasic Pop Art(Fossa) 160.0TriphasicPop Art(AK) 98.0Biphasic ANIMATION DIRECTOR Prox. 102.0BiphasicPTA Prox. 99.0Biphasic ANIMATION DIRECTOR Dist. 155.0TriphasicPTA Dist. 104.0Biphasic SOFI Prox. 117.0BiphasicATA Prox. 107.0Triphasic DPA [id number] 78Biphasic Findings Wright scale images of the bilateral lower extremity arterial vessels reveal mild diffuse irregularitie s. Spectral waveforms are mostly triphasic and biphasic. Velocities are mildly elevated in the SFA but no critical stenosis identified. Three vessel run-off below the knee. Critical Notification Critical Value: No <Conclusion> 1. No significant lower extremities arterial stenosis Signed by : Mejia Benson, Electronically Approved : 02/07/2020 09:17:38
== END | disposition home or self-care (01) ==
LOC: US 07:34
PROVIDERS: ATTEND Internal Medicine Cardiovascular Disease
DX: I73.9 Peripheral vascular disease, unspecified (principal); M79.89 Other specified soft tissue disorders
CPT/HCPCS: 93925; 93970

== ENCOUNTER 2020-02-28 08:04 | Emergency (ER) | payer OTHER ==
[~2020-02-28] VITALS: Ht 154.9 cm; Wt 80.0 kg
[2020-02-28 08:05] VITALS: BP 180/78
--- NOTE | 2020-02-28 08:16 | PHYS DOC ---
Past Medical History Past Medical History: Anxiety, Diabetes-Type II, GERD, High Cholesterol, Hypertension, Hypothyroid, Seizure, Other Additional Past Medical Histor: Abd pain,Neuropathy,Insomnia,Chronic pain Past Surgical History: Other Additional Past Surgical Histo: Left shoulder and right kidney surgeries Smoking Status: Never Smoker Alcohol Use: None Drug Use: None General Adult EDM: Chief Complaint: SKIN PROBLEM HPI: HPI: Patient is a 60-year-old female well-known to our emergency department who presents with some dryness to both hands. She states she has been washing her hands a lot more lately. There is no pain to the area. [] Review of Systems: Review of Systems: Constitutional: Denies fever or chills. [] Eyes: Denies change in visual acuity. [] HENT: Denies nasal congestion or sore throat. [] Respiratory: Denies cough or shortness of breath. [] Cardiovascular: Denies chest pain or edema. [] GI: Denies abdominal pain, nausea, vomiting, bloody stools or diarrhea. [] : Denies dysuria. [] Musculoskeletal: Denies back pain or joint pain. [] Integument: Dry skin [] Neurologic: Denies headache, focal weakness or sensory changes. [] Endocrine: Denies polyuria or polydipsia. [] Lymphatic: Denies swollen glands. [] Psychiatric: Denies depression or anxiety. [] Heart Score: Risk Factors: Risk Factors: DM, Current or recent (<one month) smoker, HTN, HLP, family history of CAD, obesity. Risk Scores: Score 0 - 3: 2.5% MACE over next 6 weeks - Discharge Home Score 4 - 6: 20.3% MACE over next 6 weeks - Admit for Clinical Observation Score 7 - 10: 72.7% MACE over next 6 weeks - Early Invasive Strategies Allergies: Allergies: Allergies Coded Allergies Type Severity Reaction Last Updated Verified I S O L A T I O N *CONTACT* Allergy Unknown 07/17/19 Yes No Known Medication Allergies Allergy Unknown 07/17/19 Yes Physical Exam: PE: Constitutional: Well developed, well nourished, no acute distress, non-toxic appearance. [] HENT: Normocephalic, atraumatic, bilateral external ears normal, oropharynx moist, no oral exudates, nose normal. [] Eyes: PERRLA, EOMI, conjunctiva normal, no discharge. [] Neck: Normal range of motion, no tenderness, supple, no stridor. [] Cardiovascular:Heart rate regular rhythm, no murmur [] Lungs & Thorax: Bilateral breath sounds clear to auscultation [] Abdomen: Bowel sounds normal, soft, no tenderness, no masses, no pulsatile masses. [] Skin: Warm, dry, no erythema, no rash. [] Back: No tenderness, no CVA tenderness. [] Extremities: Dry cracked skin across the dorsal surface of both hands consistent with a contact dermatitis [] Neurologic: Alert and oriented X 3, normal motor function, normal sensory function, no focal deficits noted. [] Psychologic: Affect normal, judgement normal, mood normal. [] EKG: EKG: [] Radiology/Procedures: Radiology/Procedures: [] Course & Med Decision Making: Course & Med Decision Making Pertinent Labs and Imaging studies reviewed. (See chart for details) [] Dragon Disclaimer: Dragon Disclaimer: This electronic medical record was generated, in whole or in part, using a voice recognition dictation system. Departure Departure Impression: Primary Impression: Contact dermatitis and eczema Disposition: HOME, SELF-CARE Condition: STABLE Referrals: RUDDY CALHOUN MD (PCP) Patient Instructions: Contact Dermatitis, Hand Dermatitis Additional Instructions: use hydrocortisone cream 2-3 times daily TAO VILLAREAL DO Feb 28, 2020 08:16
== END 2020-02-28 08:20 | disposition home or self-care (01) ==
LOC: ER 08:04
DX: L25.0 Unspecified contact dermatitis due to cosmetics (principal); F41.9 Anxiety disorder, unspecified; K21.9 Gastro-esophageal reflux disease without esophagitis; E78.00 Pure hypercholesterolemia, unspecified; I10 Essential (primary) hypertension; E03.9 Hypothyroidism, unspecified; E11.40 Type 2 diabetes mellitus with diabetic neuropathy, unspecified; G89.29 Other chronic pain; G47.00 Insomnia, unspecified; Z98.890 Other specified postprocedural states; Z88.8 Allergy status to other drugs, medicaments and biological substances
CPT/HCPCS: 99281; 99282

== ENCOUNTER 2020-03-29 07:41 | Emergency (ER) | payer OTHER ==
[~2020-03-29] VITALS: Ht 152.4 cm; Wt 62.0 kg
[~2020-03-29 07:41] MED LIST changes: +ACET325T9 PO; +ALBU2.5V8 NEB; +DOCU-153 PO; +ENOX40DI3 SQ; +LEVO-101 PO; -LEVO100T PO; +LORA0.5T96 PO; +MAG30ORA2 PO
[2020-03-29] MEDS ORDERED: KETOROLAC 15 MG/ML VIAL. IVP ONE (08:00)
[2020-03-29] MEDS ORDERED: METOCLOPRAMIDE HCL 10 MG/2 ML VIAL. IVP ONE (08:00)
[2020-03-29] MEDS ORDERED: IV NORMAL SALINE 1000ML BAG 1,000 ML IV ONE (08:00)
[2020-03-29] MEDS ORDERED: DEXAMETHASONE SOD PHOS 4 MG/ML VIAL IVP ONE (08:00)
[2020-03-29] MEDS ORDERED: diphenhydrAMINE 50 MG/ML VIAL IVP ONE (08:00)
[2020-03-29] MEDS ORDERED: BUTA1TAB23 PO (08:02)
--- NOTE | 2020-03-29 08:02 | PHYS DOC ---
Past Medical History Past Medical History: Anxiety, Diabetes-Type II, GERD, High Cholesterol, Hypertension, Hypothyroid, Migraines, Seizure, Other Additional Past Medical Histor: Abd pain,Neuropathy,Insomnia,Chronic pain Past Surgical History: Other Additional Past Surgical Histo: Left shoulder and right kidney surgeries Smoking Status: Never Smoker Alcohol Use: None Drug Use: None General Adult EDM: Chief Complaint: Headache HPI: HPI: 60-year-old female presents via EMS from rehab unit with report of headache since last night. Patient does report history of prior migraines. Reports today's is worse and did not resolve despite pain medication. Patient is currently taking aspirin status post left hip arthroplasty. Patient denies trauma. Denies fever chills. Denies nausea or vomiting. Review of Systems: Review of Systems: Constitutional: Denies fever or chills Eyes: Denies redness or eye pain HENT: Denies nasal congestion or sore throat Respiratory: Denies cough or shortness of breath Cardiovascular: Denies chest pain or palpitations GI: Denies abdominal pain, nausea, or vomiting : Denies dysuria or hematuria Musculoskeletal: Denies back pain or joint pain Integument: Denies rash or skin lesions Neurologic: Reports headache; denies focal weakness or sensory changes Complete systems were reviewed and found to be within normal limits, except as documented in this note. Allergies: Allergies: Allergies Coded Allergies Type Severity Reaction Last Updated Verified I S O L A T I O N *CONTACT* Allergy Unknown 07/17/19 Yes No Known Medication Allergies Allergy Unknown 07/17/19 Yes Physical Exam: PE: Constitutional: Well developed, well nourished, no acute distress, non-toxic appearance HENT: Normocephalic, atraumatic Eyes: PERRL, EOMI, conjunctiva normal, no discharge Neck: Normal range of motion, no tenderness, supple, no meningeal signs Lungs & Thorax: No respiratory distress, equal chest rise and fall Extremities: No tenderness, Left hip ROM limited (hx of recent hip arthroplasty), BLE trace edema, no calf tenderness Neurologic: Alert and oriented X 3, normal motor function, normal sensory function, no focal deficits noted Psychologic: Affect anxious, judgment normal EKG: EKG: [] Radiology/Procedures: Radiology/Procedures: PROCEDURE: CT HEAD WO CONTRAST CT HEAD WO CONTRAST History: Headache Comparison: February 02, 2020 Technique: Noncontrast CT imaging was performed of the head. Exposure: One or more of the following individualized dose reduction techniques were utilized for this examination: 1. Automated exposure control 2. Adjustment of the mA and/or kV according to patient size 3. Use of iterative reconstruction technique. Findings: No intracranial hemorrhage. No mass effect. No hydrocephalus. Mild brain parenchymal volume loss. Mild foci of decreased attenuation within the hemispheric white matter, most often due to chronic microvascular ischemia, unchanged. Mild right greater than left hypertrophic changes along the greater wing of sphenoid along the middle cranial fossa, unchanged. Imaged orbits are unremarkable. Imaged paranasal sinuses and mastoid air cells are clear. No acute calvarial fracture. Impression: 1. No acute intracranial abnormality. Electronically signed by: Duglas Miller DO (03/29/2020 9:56 AM) [id number] Course & Med Decision Making: Course & Med Decision Making Pertinent Imaging studies reviewed. (See chart for details) Patient presents with report of headache. Patient reports worse than prior headaches. Patient has been on some blood thinners secondary to recent hip arthroplasty. Patient neurologically intact. Afebrile. No meningeal signs noted. Symptomatic treatment provided. CT head without acute process. Patient stable for discharge back to rehab unit with outpatient follow-up with PCP/neurologist. Neurology referral provided. Discussed findings and plan with patient, who acknowledges understanding and agreement. Anastacia Disclaimer: Anastacia Disclaimer: This electronic medical record was generated, in whole or in part, using a voice recognition dictation system. Departure Departure Impression: Primary Impression: Headache Qualified Codes: R51 - Headache Disposition: 01 HOME, SELF-CARE (back to rehab unit) Condition: STABLE Referrals: RUDDY CALHOUN MD (PCP) STARR ANDREW MD Patient Instructions: Headache, FAQs Scripts Butalb/Acetaminophen/Caffeine ([id number] [id number]) 1 Each Tablet 1 EACH PO Q6HRS PRN for HEADACHE, #14 TAB Prov: ALEX ROGERS DO 03/29/20 ALEX ROGERS DO March 29, 2020 08:02
[2020-03-29] MEDS: diphenhydrAMINE 50 MG/ML VIAL IM ONE (08:41)
[2020-03-29] MEDS: KETOROLAC 15 MG/ML VIAL. IM ONE (08:41)
[2020-03-29] MEDS: BUTALB/APAP/CAFEIN 50/325/40MG TABLET. PO ONE (08:42)
--- NOTE | 2020-03-29 09:59 | RAD ---
CT HEAD WO CONTRAST History: Headache Comparison: February 02, 2020 Technique: Noncontrast CT imaging was performed of the head. Exposure: One or more of the following individualized dose reduction techniques were utilized for this examination: 1. Automated exposure control 2. Adjustment of the mA and/or kV according to patient size 3. Use of iterative reconstruction technique. Findings: No intracranial hemorrhage. No mass effect. No hydrocephalus. Mild brain parenchymal volume loss. Mild foci of decreased attenuation within the hemispheric white matter, most often due to chronic microvascular ischemia, unchanged. Mild right greater than left hypertrophic changes along the greater wing of sphenoid along the middle cranial fossa, unchanged. Imaged orbits are unremarkable. Imaged paranasal sinuses and mastoid air cells are clear. No acute calvarial fracture. Impression: 1. No acute intracranial abnormality. Electronically signed by: Duglas Miller DO (03/29/2020 9:56 AM) [id number]
[2020-03-29 10:00] VITALS: BP 150/67
== END 2020-03-29 11:45 | disposition home or self-care (01) ==
LOC: ER 07:41
DX: G43.909 Migraine, unspecified, not intractable, without status migrainosus (principal); K21.9 Gastro-esophageal reflux disease without esophagitis; E03.9 Hypothyroidism, unspecified; G89.29 Other chronic pain; E11.40 Type 2 diabetes mellitus with diabetic neuropathy, unspecified; E78.00 Pure hypercholesterolemia, unspecified; I10 Essential (primary) hypertension; F41.9 Anxiety disorder, unspecified; Z91.041 Radiographic dye allergy status
CPT/HCPCS: 70450; 82962; 96372; 99285; J1200; J1885

== ENCOUNTER → 2020-05-10 | Outpatient (CLI) | payer OTHER ==
[~2020-05-10] MED LIST changes: +BUTA1TAB23 PO
--- NOTE | 2020-05-10 12:58 | KCIC ---
MRI Brain without contrast History:Left abducens nerve palsy, new onset double vision and dizziness, history of seizures Technique: Multiplanar, multisequential noncontrast MR imaging was performed of the brain. Comparison: December 11, 2007 Findings: There is no evidence of recent infarct or cytotoxic edema. Ventricular size is within normal limits. There is mild supratentorial involutional change somewhat progressed in the interval.There is no significant midline shift, intraaxial mass effect, or focal abnormal extra-axial fluid collection. There is mild T2 and FLAIR hyperintense signal of the supratentorial parenchyma bilaterally somewhat progressed since 2018 exam. There is preservation of the major intracranial flow-voids at the skull base. The cerebellar tonsils are normal in location. There is no significant abnormality of the pineal gland or pituitary gland. There is minimal bilateral ethmoid air cell and right maxillary sinus mucosal thickening. There is increased mild to moderate fluid of the right mastoid air cells, very minimally on the left.There is preserved marrow signal of the clivus. There may be a small focus of increased T2 hyperintense signal of the left lateral sella about 0.3 cm image 26 series 9. Impression: 1. There is no evidence of recent infarct or intracranial mass effect. There is nonspecific mild T2 and FLAIR hyperintense of the supratentorial parenchyma bilaterally somewhat greater than 2008 exam, nonspecific findings possibly due to chronic microvascular ischemic disease. There is mild infratentorial involutional change somewhat progressed since 2008 exam, can be associated with chronic antiseizure medication. 2. There may be a small T2 hyperintense lesion of the left lateral sella, small mass possible, better characterized with pre and postcontrast imaging as per clinical indication. 3. There is some increased fluid in the right mastoid air cells. Electronically signed by: Anshu Finch MD (05/10/2020 12:54 PM) [id number]
== END ==
LOC: KCIC MRI 10:33
PROVIDERS: ATTEND Psychiatry & Neurology Neurology with Special Qualifications in Child Neurology
DX: H49.22 Sixth [abducent] nerve palsy, left eye (principal)
CPT/HCPCS: 70551

== ENCOUNTER 2020-05-28 08:04 | Emergency (ER) | payer OTHER ==
[~2020-05-28] VITALS: Ht 152.4 cm; Wt 65.0 kg
--- NOTE | 2020-05-28 08:14 | PHYS DOC ---
Past Medical History Past Medical History: Anxiety, Diabetes-Type II, GERD, High Cholesterol, Hypertension, Hypothyroid, Migraines, Seizure, Other Additional Past Medical Histor: Abd pain,Neuropathy,Insomnia,Chronic pain Past Surgical History: Other Additional Past Surgical Histo: Left shoulder and right kidney surgeries Smoking Status: Never Smoker Alcohol Use: None Drug Use: None General Adult EDM: Chief Complaint: CHEST PAIN HPI: HPI: Patient is a 60 year old female presents via EMS with report of chest pain that started this AM after patient reportedly had a breakthrough seizure. Hx of seizures for which she is on Keppra, Vimpat, and phenytoin. Patient reports history of breakthrough seizures. Reports pain is currently resolved. Denies leg swelling or calf tenderness. Patient with cardiac risk factors including HTN, hyperchol, and DM. Denies fever/chills. Denies trauma. Denies known exposure to COVID-19. Hx of similar episodes of chest pain s/p breakthrough seizure. Per [facility] review from Dec 02, 2019: Cardiac Cath report: Coronaries. Left main. The left main was a normal-size vessel. It had no lesions. Left anterior descending. The LAD was a moderate size vessel. It had no lesions. Left circumflex. The left circumflex was a smaller nondominant vessel. It had no lesions. Right coronary artery the right coronary was a moderate size dominant vessel. It had no lesions. Left ventriculogram. The left ventricle had normal systolic function with an ejection fraction of 60- 65%. Conclusion: No angiographic evidence of coronary artery disease. Normal left ventricular systolic function. Review of Systems: Review of Systems: Constitutional: Denies fever or chills Eyes: Denies redness or eye pain HENT: Denies nasal congestion or sore throat Respiratory: Denies cough or shortness of breath Cardiovascular: Reports chest pain; denies palpitations GI: Denies abdominal pain, nausea, or vomiting : Denies dysuria or hematuria Musculoskeletal: Denies back pain or joint pain Integument: Denies rash or skin lesions Neurologic: Denies headache, focal weakness or sensory changes; reports seizure Complete systems were reviewed and found to be within normal limits, except as documented in this note. Heart Score: HEART Score for Chest Pain: HEART Score for Chest Pain Response (Comments) Value History Slighlty/Non-Suspicious 0 ECG Normal 0 Age >45 - < 65 1 Risk Factors >3 Risk Factors or Hx CAD 2 Troponin < Normal Limit 0 Total 3 Risk Factors: Risk Factors: DM, Current or recent (<one month) smoker, HTN, HLP, family history of CAD, obesity. Risk Scores: Score 0 - 3: 2.5% MACE over next 6 weeks - Discharge Home Score 4 - 6: 20.3% MACE over next 6 weeks - Admit for Clinical Observation Score 7 - 10: 72.7% MACE over next 6 weeks - Early Invasive Strategies Allergies: Allergies: Allergies Coded Allergies Type Severity Reaction Last Updated Verified I S O L A T I O N *CONTACT* Allergy Unknown 07/17/19 Yes No Known Medication Allergies Allergy Unknown 07/17/19 Yes Physical Exam: PE: Constitutional: Well developed, well nourished, no acute distress, non-toxic appearance HENT: Normocephalic, atraumatic Eyes: PERRL, EOMI, conjunctiva normal, no discharge Neck: Normal range of motion, supple Lungs & Thorax: No respiratory distress, equal chest rise and fall Abdomen: Soft, no tenderness Skin: Warm, dry, no erythema, no rash Extremities: No tenderness, ROM intact, no edema Neurologic: Alert and oriented X 3, motor and sensory function intact, no focal deficits noted Psychologic: Affect normal, judgment normal EKG: EKG: @0811 NSR at 71bpm, NO ST elevation, QRS 82ms, QT/QTc 372/409ms Radiology/Procedures: Radiology/Procedures: PROCEDURE: CHEST PA & LATERAL CHEST PA LATERAL History: Reason: chest pain / Spl. Instructions: / History: Comparison: March 16, 2020 Findings: Linear left basilar opacity, may represent scarring or atelectasis. Calcified left hilar lymph nodes and left upper lung calcified nodule, likely prior granulomatous disease, unchanged. No pleural effusion. Postop changes bilateral shoulders. No pneumothorax. Normal heart size. Post traumatic deformity of the right distal clavicle. Impression: 1. Left basilar linear opacity, likely scarring or atelectasis. Electronically signed by: Duglas Miller DO (05/28/2020 10:14 AM) [id number] Course & Med Decision Making: Course & Med Decision Making Pertinent Labs and Imaging studies reviewed. (See chart for details) Patient presents with atypical chest pain which is now resolved after patient reportedly had a breakthrough seizure. Hx of similar. EKG stable. Labs obtained and posted to chart. Troponin WNL. D-dimer WNL. CXR without acute process. HEART score 3. Hx of normal cardiac cath in Nov 2019. Patient stable for discharge with outpatient follow-up with PCP/Neurology. Discussed findings and plan with patient, who acknowledges understanding and agreement. Anastacia Disclaimer: Anastacia Disclaimer: This electronic medical record was generated, in whole or in part, using a voice recognition dictation system. Departure Departure Impression: Primary Impression: Chest pain Qualified Codes: R07.9 - Chest pain, unspecified Additional Impression: Recurrent seizures Disposition: HOME, SELF-CARE Condition: STABLE Referrals: RUDDY CALHOUN MD (PCP) STARR ANDREW MD Patient Instructions: Chest Pain (Nonspecific), [id number], Seizure, Adult, [id number] Justicifation of Admission Dx: Justifications for Admission: Justification of Admission Dx: N/A ALEX ROGERS DO May 28, 2020 08:14
[2020-05-28] MEDS ORDERED: ASPIRIN 325 MG TABLET PO ONE (08:30)
[2020-05-28 09:22] LABS: BASO # 0.1 x10^3/uL (0.0-0.2); BASO % 1 % (0-3); EOS # 0.2 x10^3/uL (0.0-0.7); EOS % 5 % (0-3); HEMATOCRIT 39.1 % (36.0-47.0); HEMOGLOBIN 13.2 g/dL (12.0-15.5); LYMPH % 21 % (24-48); MEAN CORPUSCULAR HEMOGLOBIN 32 pg (25-35); MEAN CORPUSCULAR HGB CONC 34 g/dL (31-37); MEAN CORPUSCULAR VOLUME 94 fL (79-100); MONO # 0.4 x10^3/uL (0.0-1.1); MONO % 7 % (0-9); NEUT # 3.2 x10^3/uL (1.8-7.7); NEUT % 65 % (31-73); PLATELET COUNT 242 x10^3/uL (140-400); RED BLOOD COUNT 4.18 x10^6/uL (3.50-5.40); RED CELL DISTRIBUTION WIDTH 16.5 % (11.5-14.5); WHITE BLOOD COUNT 4.9 x10^3/uL (4.0-11.0)
[2020-05-28 09:30] LABS: PROTHROMBIN TIME PATIENT 12.6 SEC (11.7-14.0)
[2020-05-28 09:36] LABS: PHENY 18.1 mcg/mL (10.0-20.0)
[2020-05-28 09:37] LABS: CALCIUM 8.9 mg/dL (8.5-10.1); CREATININE 0.7 mg/dL (0.6-1.0); GFR 85.1; POTASSIUM 4.2 mmol/L (3.5-5.1)
[2020-05-28 09:44] LABS: ALBUMIN 3.8 g/dL (3.4-5.0); ALBUMIN/GLOBULIN RATIO 1.4 (1.0-1.7); MAGNESIUM 1.9 mg/dL (1.8-2.4); TOTAL BILIRUBIN 0.1 mg/dL (0.2-1.0); TOTAL PROTEIN 6.6 g/dL (6.4-8.2)
[2020-05-28 09:46] LABS: D-DIMER 0.42 ug/mlFEU (0.00-0.50)
[2020-05-28 09:53] LABS: CREATINE KINASE 58 U/L (26-192)
--- NOTE | 2020-05-28 10:17 | RAD ---
CHEST PA LATERAL History: Reason: chest pain / Spl. Instructions: / History: Comparison: March 16, 2020 Findings: Linear left basilar opacity, may represent scarring or atelectasis. Calcified left hilar lymph nodes and left upper lung calcified nodule, likely prior granulomatous disease, unchanged. No pleural effusion. Postop changes bilateral shoulders. No pneumothorax. Normal heart size. Post traumatic deformity of the right distal clavicle. Impression: 1. Left basilar linear opacity, likely scarring or atelectasis. Electronically signed by: Duglas Miller DO (05/28/2020 10:14 AM) [id number]
[2020-05-28] MEDS ORDERED: hydrALAZINE 20 MG/ML VIAL. IVP ONE (10:30)
[2020-05-28 11:04] VITALS: BP 112/58
--- NOTE | 2020-05-29 07:55 | EKG ---
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
[2020-05-29] MEDS ORDERED: OMEP20TA63 PO (11:25)
[2020-05-29] MEDS ORDERED: SUCR1TAB35 PO (11:25)
== END 2020-05-28 11:06 | disposition home or self-care (01) ==
LOC: ER 08:04
DX: R07.89 Other chest pain (principal); R56.9 Unspecified convulsions; F41.9 Anxiety disorder, unspecified; I10 Essential (primary) hypertension; E11.40 Type 2 diabetes mellitus with diabetic neuropathy, unspecified; K21.9 Gastro-esophageal reflux disease without esophagitis; E78.00 Pure hypercholesterolemia, unspecified; E03.9 Hypothyroidism, unspecified; G43.909 Migraine, unspecified, not intractable, without status migrainosus; G89.29 Other chronic pain; Z91.041 Radiographic dye allergy status
CPT/HCPCS: 36415; 71046; 80053; 80185; 82553; 83605; 83690; 83735; 83880; 84484; 85025; 85379; 85610; 85730; 93005; 99285-25

== ENCOUNTER 2020-05-29 08:14 | Emergency (ER) | payer OTHER ==
[~2020-05-29] VITALS: Ht 152.4 cm; Wt 79.0 kg
[2020-05-29] MEDS ORDERED: LIDO:MAALOX 1:1 20 ML SINGLE DOSE. SWSW ONE (08:45)
--- NOTE | 2020-05-29 08:51 | PHYS DOC ---
Past Medical History Past Medical History: Anxiety, Diabetes-Type II, GERD, High Cholesterol, Hypertension, Hypothyroid, Migraines, Seizure, Other Additional Past Medical Histor: Abd pain,Neuropathy,Insomnia,Chronic pain, LEFT SHOULDER PAIN Past Surgical History: Hip Replacement, Other Additional Past Surgical Histo: Left shoulder and right kidney surgeries Smoking Status: Never Smoker Alcohol Use: None Drug Use: None General Adult EDM: Chief Complaint: CHEST PAIN HPI: HPI: Patient is a 60 year old female who was brought here by EMS from home due to substernal chest pain that radiated into her esophagus area after she ate breakfast. Patient described the pain as a burning sensation. Patient was seen here yesterday for chest pain, EKG and lab work came back normal, chest x-ray was normal as well. Patient has similar pain like this in the past. Patient had a normal cardiac catheterization in November of this year. Per [facility] review from Dec 02, 2019: Cardiac Cath report: Coronaries. Left main. The left main was a normal-size vessel. It had no lesions. Left anterior descending. The LAD was a moderate size vessel. It had no lesions. Left circumflex. The left circumflex was a smaller nondominant vessel. It had no lesions. Right coronary artery the right coronary was a moderate size dominant vessel. It had no lesions. Left ventriculogram. The left ventricle had normal systolic function with an ejection fraction of 60- 65%. Conclusion: No angiographic evidence of coronary artery disease. Normal left ventricular systolic function. Patient has history of hyper high cholesterol, hypertension, diabetic, seizure disorder. Patient said the pain is completely gone now. Patient denies any cough or fever. No known exposure to COVID-19 patient. Review of Systems: Review of Systems: Constitutional: Denies fever or chills. [] Eyes: Denies change in visual acuity. [] HENT: Denies nasal congestion or sore throat. [] Respiratory: Denies cough or shortness of breath. [] Cardiovascular: Positive for chest pain, no edema, GI: Denies abdominal pain, nausea, vomiting, bloody stools or diarrhea. [] : Denies dysuria. [] Musculoskeletal: Denies back pain or joint pain. [] Integument: Denies rash. [] Neurologic: Denies headache, focal weakness or sensory changes. [] Endocrine: Denies polyuria or polydipsia. [] Lymphatic: Denies swollen glands. [] Psychiatric: Denies depression or anxiety. [] Heart Score: HEART Score for Chest Pain: HEART Score for Chest Pain Response (Comments) Value History Slighlty/Non-Suspicious 0 ECG Normal 0 Age >45 - < 65 1 Risk Factors >3 Risk Factors or Hx CAD 2 Troponin < Normal Limit 0 Total 3 Risk Factors: Risk Factors: DM, Current or recent (<one month) smoker, HTN, HLP, family history of CAD, obesity. Risk Scores: Score 0 - 3: 2.5% MACE over next 6 weeks - Discharge Home Score 4 - 6: 20.3% MACE over next 6 weeks - Admit for Clinical Observation Score 7 - 10: 72.7% MACE over next 6 weeks - Early Invasive Strategies Current Medications: Current Medications Medications (Trade) Dose Ordered Sig/Khang Start Time Stop Time Status Last Admin Dose Admin Multi-Ingredient Mouthwash/Gargle (Gi Cocktail) 20 ml 1X ONCE 05/29/20 08:45 05/29/20 08:46 DC Allergies: Allergies: Allergies Coded Allergies Type Severity Reaction Last Updated Verified I S O L A T I O N *CONTACT* Allergy Unknown 07/17/19 Yes No Known Medication Allergies Allergy Unknown 07/17/19 Yes Physical Exam: PE: Constitutional: Well developed, well nourished, no acute distress, non-toxic appearance. [] HENT: Normocephalic, atraumatic, bilateral external ears normal, oropharynx moist, no oral exudates, nose normal. [] Eyes: PERRLA, EOMI, conjunctiva normal, no discharge. [] Neck: Normal range of motion, no tenderness, supple, no stridor. [] Cardiovascular:Heart rate regular rhythm, no murmur [] Lungs & Thorax: Bilateral breath sounds clear to auscultation [] Abdomen: Bowel sounds normal, soft, no tenderness, no masses, no pulsatile masses. [] Skin: Warm, dry, no erythema, no rash. [] Back: No tenderness, no CVA tenderness. [] Extremities: No tenderness, no cyanosis, no clubbing, ROM intact, no edema. [] Neurologic: Alert and oriented X 3, normal motor function, normal sensory function, no focal deficits noted. [] Psychologic: Affect normal, judgement normal, mood normal. [] Current Patient Data: Vital Signs: Vital Signs Date Time Temp Pulse Resp B/P (MAP) Pulse Ox O2 Delivery O2 Flow Rate FiO2 05/29/20 08:24 95.5 70 169/67 (101) 99 Room Air 95.5 EKG: EKG: EKG was done at 818, heart rate of 68 bpm, normal sinus rhythm, no ST segment elevation. Radiology/Procedures: Radiology/Procedures: [] Course & Med Decision Making: Course & Med Decision Making Pertinent Labs and Imaging studies reviewed. (See chart for details) Patient is a 60-year-old female who was evaluated in ER due to chest pain while she was eating. This is atypical chest pain. EKG and lab work was normal. Patient will be discharged home with a diagnosis of gastritis, with prescription for Prilosec and Carafate. Patient will need to follow-up with her family doctor for referral to GI specialist. Dragamee Disclaimer: Dragon Disclaimer: This electronic medical record was generated, in whole or in part, using a voice recognition dictation system. Departure Departure Impression: Primary Impression: Chest pain Additional Impression: Gastritis Disposition: 01 HOME, SELF-CARE Condition: IMPROVED Referrals: RUDDY CALHOUN MD (PCP) please follow up with your family doctor this week Patient Instructions: Chest Pain (Nonspecific), Gastritis, Adult Scripts Omeprazole Magnesium (PRILOSEC OTC) 20 Mg Tablet. 1 TAB PO DAILY for 30 Days, #30 TAB 0 Refills Prov: JAVY ÁLVAREZ DO 05/29/20 Sucralfate (CARAFATE) 1 Gm Tablet 1 TAB PO QID for 14 Days, #56 TAB 0 Refills Prov: JAVY ÁLVAREZ DO 05/29/20 Justicifation of Admission Dx: Justifications for Admission: Justification of Admission Dx: N/A JAVY ÁLVAREZ DO May 29, 2020 08:51
--- NOTE | 2020-05-29 09:23 | RAD ---
EXAM: CHEST 1 VIEW History: Chest pain COMPARISON: 05/28/2020 TECHNIQUE: Single portable radiograph of the chest FINDINGS: The cardiac silhouette is unremarkable. Calcified minimal left upper lobe of the lung. Minimal atelectasis left lingula base. . And screw fixation of the right humerus. Left shoulder arthroplasties identified. IMPRESSION: No acute cardiopulmonary findings. Electronically signed by: Eros Garcia MD (05/29/2020 9:20 AM) [id number]
[2020-05-29 09:29] LABS: PROTHROMBIN TIME PATIENT 12.9 SEC (11.7-14.0)
[2020-05-29 09:35] LABS: BACTERIA,URINE 0 /HPF (0-FEW); BILIRUBIN,URINE NEGATIVE (NEG); CLARITY,URINE CLEAR; COLOR,URINE YELLOW; NITRITE,URINE NEGATIVE (NEG); PROTEIN,URINE NEGATIVE (NEG-TRACE); RBC,URINE 0 /HPF (0-2); SQUAMOUS EPITHELIAL CELL,UR FEW /LPF; UROBILINOGEN,URINE 0.2 mg/dL (0.2 mg/dL)
[2020-05-29 09:46] LABS: BASO # 0.1 x10^3/uL (0.0-0.2); BASO % 1 % (0-3); EOS # 0.3 x10^3/uL (0.0-0.7); EOS % 5 % (0-3); HEMATOCRIT 39.4 % (36.0-47.0); HEMOGLOBIN 13.3 g/dL (12.0-15.5); LYMPH # 1.5 x10^3/uL (1.0-4.8); LYMPH % 23 % (24-48); MEAN CORPUSCULAR HEMOGLOBIN 32 pg (25-35); MEAN CORPUSCULAR HGB CONC 34 g/dL (31-37); MEAN CORPUSCULAR VOLUME 94 fL (79-100); MONO # 0.5 x10^3/uL (0.0-1.1); MONO % 7 % (0-9); NEUT # 4.2 x10^3/uL (1.8-7.7); NEUT % 64 % (31-73); PLATELET COUNT 242 x10^3/uL (140-400); RED BLOOD COUNT 4.21 x10^6/uL (3.50-5.40); RED CELL DISTRIBUTION WIDTH 16.7 % (11.5-14.5); WHITE BLOOD COUNT 6.6 x10^3/uL (4.0-11.0)
[2020-05-29 10:48] LABS: CALCIUM 8.9 mg/dL (8.5-10.1); CREATININE 0.7 mg/dL (0.6-1.0); GFR 85.1; POTASSIUM 4.2 mmol/L (3.5-5.1)
[2020-05-29 10:50] LABS: ALBUMIN 3.8 g/dL (3.4-5.0); ALBUMIN/GLOBULIN RATIO 1.4 (1.0-1.7); TOTAL BILIRUBIN 0.1 mg/dL (0.2-1.0); TOTAL PROTEIN 6.5 g/dL (6.4-8.2)
[2020-05-29] MEDS ORDERED: SUCR1TAB35 PO (11:25)
[2020-05-29] MEDS ORDERED: OMEP20TA63 PO (11:25)
[2020-05-29 11:30] VITALS: BP 122/59
--- NOTE | 2020-05-30 05:13 | EKG ---
[facility] [address] [place] [address] Test Date: 2020-05-29 Test Time: 08:18:45 Pat Name: ALIVIA WILDER Department: Room: Gender: F Baby Doctor: : 1960 Requested By: JAVY ÁLVAREZ Order Number: [id number] Reading MD: Measurements Intervals [place] Rate: 68 P: -90 CA: 168 QRS: -17 QRSD: 86 T: 35 QT: 380 QTc: 404 Interpretive Statements SINUS RHYTHM LEFTWARD AXIS OTHERWISE NORMAL ECG RI6.01 No previous ECG available for comparison
== END 2020-05-29 11:58 | disposition home or self-care (01) ==
LOC: ER 08:14
DX: K29.70 Gastritis, unspecified, without bleeding (principal); R07.89 Other chest pain; F41.9 Anxiety disorder, unspecified; K21.9 Gastro-esophageal reflux disease without esophagitis; E78.00 Pure hypercholesterolemia, unspecified; I10 Essential (primary) hypertension; G43.909 Migraine, unspecified, not intractable, without status migrainosus; E03.9 Hypothyroidism, unspecified; E11.40 Type 2 diabetes mellitus with diabetic neuropathy, unspecified; G89.29 Other chronic pain; Z98.890 Other specified postprocedural states; Z88.8 Allergy status to other drugs, medicaments and biological substances
CPT/HCPCS: 36415; 71045; 80053; 81001; 83690; 83735; 83880; 84484; 85025; 85610; 85730; 93005; 99285

== ENCOUNTER 2020-06-05 09:25 | Emergency (ER) | payer OTHER ==
[~2020-06-05] VITALS: Ht 152.4 cm; Wt 66.0 kg
[~2020-06-05 09:25] MED LIST changes: -ASPI-612 PO; +ASPI-886 PO; +OMEP20TA63 PO
[2020-06-05 12:14] LABS: BILIRUBIN,URINE NEGATIVE (NEG); CLARITY,URINE CLEAR; COLOR,URINE YELLOW; NITRITE,URINE NEGATIVE (NEG); PROTEIN,URINE NEGATIVE (NEG-TRACE); UROBILINOGEN,URINE 0.2 mg/dL (0.2 mg/dL)
--- NOTE | 2020-06-05 12:43 | RAD ---
CT HEAD WO CONTRAST Date: 06/05/2020 11:34 AM Clinical Indication: Reason: seizures x2 this mornning, dizzy / Spl. Instructions: / History: Comparison: MRI 05/10/2020. CT 03/29/2020. Technique: 5 mm axial tomographic images were obtained of the head without contrast. These were viewed on brain and bone windows. One or more of the following dose reduction techniques were utilized: Automated exposure control (AEC), Adjustment of mA and/or kV according to patient size, Use of iterative reconstruction technique such as ASiR, CT scan done according to ALARA and image gently/image wisely Findings: The brain parenchyma is normal in attenuation. No intra- or extra-axial mass or fluid collection. No acute hemorrhage. The ventricles are normal in size, shape, and morphology. The lancaster-white matter junction is normal. The subarachnoid cisterns are patent. The visualized paranasal sinuses are normal. The visualized portions of the orbits and globes are normal. The mastoid air cells are clear. The garment folder topogram shows no lytic lesion or fracture. Impression: No acute intracranial process. Electronically signed by: Anshu Lowe MD (06/05/2020 12:40 PM) [id number]
[2020-06-05 12:48] LABS: BACTERIA,URINE 0 /HPF (0-FEW); RBC,URINE 0 /HPF (0-2); WBC,URINE 0 /HPF (0-4)
[2020-06-05 12:52] VITALS: BP 127/56
--- NOTE | 2020-06-05 12:55 | PHYS DOC ---
Past Medical History Past Medical History: Anxiety, Diabetes-Type II, GERD, High Cholesterol, Hypertension, Hypothyroid, Migraines, Seizure, Other Additional Past Medical Histor: Abd pain,Neuropathy,Insomnia,Chronic pain, LEFT SHOULDER PAIN Past Surgical History: Hip Replacement, Other Additional Past Surgical Histo: Left shoulder and right kidney surgeries Smoking Status: Never Smoker Alcohol Use: None Drug Use: None General Adult EDM: Chief Complaint: SEIZURE HPI: HPI: Patient is a 60 year old female, accompanied by her boyfriend, who presents to the emergency department with concerns of having 2 seizure-like episodes this morning. Patient's boyfriend reports that approximately 4:40 AM and 8:44 AM the patient had 2 seizure-like episodes in which she just began to rub her hands together and would not respond to verbal or tactile stimulation. Patient also states that her blood sugar was low this morning, her last reading was 42 at 11:11 AM. She reports a history of seizures and diabetes, patient denies missing any doses of her Dilantin. She denies any fever, cough, shortness of breath, chest pain, palpitations, nausea, vomiting, or diarrhea. She reports her last bowel movement was earlier this morning, prior to the bowel movement she did have some left-sided abdominal pain that has since resolved. She complains of a numb/tingly sensation in the back of her head and on her left leg. She also reports pain in her toes because she needs to have her toenails cut per the patient. She currently rates her discomfort a 10 out of 10 on the pain scale. Review of Systems: Review of Systems: Constitutional: Denies fever or chills. [] Eyes: Denies change in visual acuity. [] HENT: Denies nasal congestion or sore throat. [] Respiratory: Denies cough or shortness of breath. [] Cardiovascular: Denies chest pain or edema. [] GI: See HPI : Denies dysuria, or incontinence. [] Musculoskeletal: Denies back pain or joint pain. [] Integument: Denies rash; see HPI. [] Neurologic: See HPI Endocrine: Denies polyuria or polydipsia. [] Lymphatic: Denies swollen glands. [] Psychiatric: Denies depression or anxiety. [] Heart Score: Risk Factors: Risk Factors: DM, Current or recent (<one month) smoker, HTN, HLP, family history of CAD, obesity. Risk Scores: Score 0 - 3: 2.5% MACE over next 6 weeks - Discharge Home Score 4 - 6: 20.3% MACE over next 6 weeks - Admit for Clinical Observation Score 7 - 10: 72.7% MACE over next 6 weeks - Early Invasive Strategies Allergies: Allergies: Allergies Coded Allergies Type Severity Reaction Last Updated Verified I S O L A T I O N *CONTACT* Allergy Unknown 07/17/19 Yes No Known Medication Allergies Allergy Unknown 07/17/19 Yes Physical Exam: PE: Constitutional: Well developed, well nourished, no acute distress, non-toxic appearance. [] HENT: Normocephalic, atraumatic, bilateral external ears normal, nose normal. [] Eyes: PERRLA, EOMI, conjunctiva normal, no discharge. [] Neck: Normal range of motion, no stridor. [] Cardiovascular:Heart rate regular rhythm Lungs & Thorax: Bilateral breath sounds clear to auscultation, Respirations ev en and unlabored, no retractions, no respiratory distress [] Abdomen: soft, no tenderness, no masses, no pulsatile masses. [] Skin: Warm, dry, no erythema, no rash. [] Extremities: Lower left extremity: No bony tenderness, no cyanosis, no clubbing, ROM intact, no edema, sensation intact. [] Neurologic: Alert and oriented X 3, normal motor function, normal sensory function, no focal deficits noted. [] Psychologic: Affect normal, judgement normal, mood normal. [] Current Patient Data: Labs: Laboratory Tests Test 06/05/20 11:27 06/05/20 12:05 Glucose (Fingerstick) 40 mg/dL (70-99) *L Urine Collection Type Unknown Urine Color Yellow Urine Clarity Clear Urine pH 8.0 (<5.0-8.0) Urine Specific [place] <=1.005 (1.000-1.030) Urine Protein Negative mg/dL (NEG-TRACE) Urine Glucose (UA) Negative mg/dL (NEG) Urine Ketones (Stick) Negative mg/dL (NEG) Urine Blood Negative (NEG) Urine Nitrite Negative (NEG) Urine Bilirubin Negative (NEG) Urine Urobilinogen Dipstick 0.2 mg/dL (0.2 mg/dL) Urine Leukocyte Esterase Negative (NEG) Urine RBC 0 /HPF (0-2) Urine WBC 0 /HPF (0-4) Urine Bacteria 0 /HPF (0-FEW) Vital Signs: Vital Signs Date Time Temp Pulse Resp B/P (MAP) Pulse Ox O2 Delivery O2 Flow Rate FiO2 06/05/20 11:00 98.2 80 16 141/64 (89) 98 Room Air 98.2 EKG: EKG: [] Radiology/Procedures: Radiology/Procedures: PROCEDURE: CT HEAD WO CONTRAST CT HEAD WO CONTRAST Date: 06/05/2020 11:34 AM Clinical Indication: Reason: seizures x2 this mornning, dizzy / Spl. Instructions: / History: Comparison: MRI 05/10/2020. CT 03/29/2020. Technique: 5 mm axial tomographic images were obtained of the head without contrast. These were viewed on brain and bone windows. One or more of the following dose reduction techniques were utilized: Automated exposure control (AEC), Adjustment of mA and/or kV according to patient size, Use of iterative reconstruction technique such as ASiR, CT scan done according to ALARA and image gently/image wisely Findings: The brain parenchyma is normal in attenuation. No intra- or extra-axial mass or fluid collection. No acute hemorrhage. The ventricles are normal in size, shape, and morphology. The [place]-white matter junction is normal. The subarachnoid cisterns are patent. The visualized paranasal sinuses are normal. The visualized portions of the orbits and globes are normal. The mastoid air cells are clear. The recreational resort manager topogram shows no lytic lesion or fracture. Impression: No acute intracranial process. Course & Med Decision Making: Course & Med Decision Making Pertinent Labs and Imaging studies reviewed. (See chart for details) Patient's blood sugar at the time my evaluation was noted to be 40. The patient was given orange juice and a turkey sandwich. Her blood sugar improved to 160. CT of the patient's head was negative. 1300-patient reports that she feels better and states that she would like to go home. She declines blood work at this time. I advised the patient of her normal head CT and normal urine. I encouraged the patient to follow-up with her primary care doctor and continue taking her meds as planned. I also advised the patient that she needs to make sure that she stays with someone for at least 24 hours to make sure that she does not have another seizure-like episode. Patient verbalized an understanding of home care, medications, follow-up, and return to ED instructions and was in agreement with the plan of care. [] Dragon Disclaimer: Dragon Disclaimer: This electronic medical record was generated, in whole or in part, using a voice recognition dictation system. Departure Departure Impression: Primary Impression: Hypoglycemia Disposition: HOME, SELF-CARE Condition: STABLE Referrals: RUDDY CALHOUN MD (PCP) Patient Instructions: Hypoglycemia (Low Blood Sugar) Additional Instructions: Continue taking your home medications as prescribed, your head CT today was normal. You need to make sure that someone stays with you for the next 24 hours to be sure that you do not have another seizure. Follow up with your primary care doctor in 1-2 days, return to the ER if symptoms worsen. Justicifation of Admission Dx: Justifications for Admission: Justification of Admission Dx: N/A AMANDEEP HARRINGTON APRN Jun 05, 2020 12:55
== END 2020-06-05 13:22 | disposition home or self-care (01) ==
LOC: ER 09:25
DX: E11.649 Type 2 diabetes mellitus with hypoglycemia without coma (principal); R56.9 Unspecified convulsions; R20.0 Anesthesia of skin; F41.9 Anxiety disorder, unspecified; K21.9 Gastro-esophageal reflux disease without esophagitis; E78.00 Pure hypercholesterolemia, unspecified; I10 Essential (primary) hypertension; E03.9 Hypothyroidism, unspecified; G43.909 Migraine, unspecified, not intractable, without status migrainosus; G89.29 Other chronic pain; Z98.890 Other specified postprocedural states
CPT/HCPCS: 70450; 81001; 82962; 99284

== ENCOUNTER 2020-08-02 08:41 | Inpatient (IN) | payer OTHER ==
[~2020-08-02] VITALS: Ht 152.4 cm; Wt 71.8 kg
--- NOTE | 2020-08-02 09:10 | PHYS DOC ---
Past Medical History Past Medical History: Anxiety, Diabetes-Type II, GERD, High Cholesterol, Hypertension, Hypothyroid, Migraines, Seizure, Other Additional Past Medical Histor: Abd pain,Neuropathy,Insomnia,Chronic pain, LEFT SHOULDER PAIN Past Surgical History: Hip Replacement, Other Additional Past Surgical Histo: Left shoulder and right kidney surgeries Smoking Status: Never Smoker Alcohol Use: None Drug Use: None General Adult EDM: Chief Complaint: MULTIPLE COMPLAINTS HPI: HPI: 60 yo F PMH left hip ORIF 03/2020, apathy, hypertension, GERD, diabetes, seizures, presents the ED with complaints of "knot/lump in my throat," described as a "funny feeling" that started at 7 AM with associated left-sided nonradiating type chest pain and heavy breathing. States symptoms started while she was eating breakfast. Does not know her family history. Denies cocaine or methamphetamine abuse (emr reports meth use). No prior history of cardiac disease, dvt/pe, on no AC. Review of Systems: Review of Systems: Constitutional: Denies fever or chills. [] Eyes: Denies change in visual acuity. [] HENT: Denies nasal congestion or sore throat. [] Respiratory: Denies cough or shortness of breath. [] Cardiovascular: Denies chest pain or edema. [] GI: Denies abdominal pain, nausea, vomiting, bloody stools or diarrhea. [] : Denies dysuria. [] Musculoskeletal: Denies back pain or joint pain. [] Integument: Denies rash. [] Neurologic: Denies headache, focal weakness or sensory changes. [] Endocrine: Denies polyuria or polydipsia. [] Lymphatic: Denies swollen glands. [] Psychiatric: Denies depression or anxiety. [] Heart Score: HEART Score for Chest Pain: HEART Score for Chest Pain Response (Comments) Value History Slighlty/Non-Suspicious 0 Age >45 - < 65 1 Risk Factors >3 Risk Factors or Hx CAD 2 Troponin < Normal Limit 0 Total 3 Risk Factors: Risk Factors: DM, Current or recent (<one month) smoker, HTN, HLP, family history of CAD, obesity. Risk Scores: Score 0 - 3: 2.5% MACE over next 6 weeks - Discharge Home Score 4 - 6: 20.3% MACE over next 6 weeks - Admit for Clinical Observation Score 7 - 10: 72.7% MACE over next 6 weeks - Early Invasive Strategies Allergies: Allergies: Allergies Coded Allergies Type Severity Reaction Last Updated Verified I S O L A T I O N *CONTACT* Allergy Unknown 07/17/19 Yes No Known Medication Allergies Allergy Unknown 07/17/19 Yes Physical Exam: PE: Constitutional: Well developed, well nourished, no acute distress, non-toxic appearance. [] HENT: Normocephalic, atraumatic, Eyes: , EOMI, conjunctiva normal, no discharge. [] Neck: Normal range of motion, no tenderness, supple, no stridor. [] Cardiovascular:Heart rate regular rhythm, no murmur [] Lungs & Thorax: Bilateral breath sounds clear to auscultation [] Abdomen: Bowel sounds normal, soft, no tenderness, no masses, no pulsatile masses. [] Skin: Warm, dry, no erythema, no rash. [] Back: No tenderness, no CVA tenderness. [] Extremities: No tenderness, no cyanosis, no clubbing, ROM intact, no edema. [] Neurologic: Alert and oriented X 3, normal motor function, normal sensory function, no focal deficits noted. [] Psychologic: Affect normal, very anxious EKG: EKG: Sinus rhythm at 67 bpm, no axis deviation, normal intervals, no T wave inversions, no ST elevations or ST depressions, Q waves in 1 and aVL Radiology/Procedures: Radiology/Procedures: IMAGING REPORT Signed PATIENT: ALIVIA WILDER ACCOUNT: [id number] : 1960 LOCATION: ER AGE: 60 SEX: F EXAM STATUS: REG ER ORD. PHYSICIAN: MARIAJOSE CARPENTER DO REASON: chest pain/stomach pain PROCEDURE: PORTABLE CHEST 1V EXAM: PORTABLE CHEST 1V, NECK SOFT TISSUE 08/02/2020 10:04 AM CLINICAL INDICATION:Lump in throat, chest and stomach pain. COMPARISON:Chest 05/29/2020 TECHNIQUE:AP view of the chest. AP and lateral views of the neck FINDINGS: CHEST: The heart is normal in size. Calcified left hilar lymph nodes and a calcified granuloma in the left upper lobe are unchanged. A 4 mm nodule in the mid right lung was not definitely seen on prior radiograph. Scarring or atelectasis in the left lung base is unchanged. No consolidation, pleural effusion, or pneumothorax. There is bilateral shoulder hardware. Old right distal clavicle fracture. NECK: The airway is clear. Epiglottis is normal. Prevertebral soft tissues normal. Moderate degenerative disc disease at C5-C6. IMPRESSION: 1. No acute cardiopulmonary abnormality. 2. 4 mm nodule in the mid right lung could be related to granulomatous disease but was not definitely seen on prior exam. 3. No acute abnormality of the neck. Electronically signed by: Luz Ying MD (08/02/2020 10:54 AM) [id number] DICTATED and SIGNED BY: LUZ YING MD DATE: 08/02/20 1054 IMAGING REPORT Signed PATIENT: ALIVIA WILDER ACCOUNT: [id number] : 1960 LOCATION: ER AGE: 60 SEX: F EXAM STATUS: REG ER ORD. PHYSICIAN: MARIAJOSE CARPENTER DO REASON: left leg swelling PROCEDURE: VENOUS LOWER EXTREMITY LEFT Left lower extremity venous doppler ultrasound History: Left leg swelling Comparison: None Findings: Multiple grayscale, color, and duplex spectral analysis sonographic images were acquired of the left lower extremity veins to evaluate for the presence of DVT. There is normal phasicity. Normal compression, color-flow, and augmentation is demonstrated from the left common femoral to the popliteal veins. There is normal color flow of the proximal greater saphenous vein. There is normal color flow of segments of the calf veins. Impression: 1. There is no evidence of deep venous thrombosis from the left common femoral to the popliteal veins. Electronically signed by: Monique Kenny MD (08/02/2020 10:09 AM) [id number] DICTATED and SIGNED BY: MONIQUE KENNY MD DATE: 08/02/20 1009 Course & Med Decision Making: Course & Med Decision Making Pertinent Labs and Imaging studies reviewed. (See chart for details) For atypical chest pain, troponin has doubled on repeat but still in normal range. SBP now 175. Patient does have bilateral lower extremity swelling worse in the left leg with a negative DVT study. On reeval patient states "10/10" chest pain and "I feel like I'm going to ." Given this and history of surgery in March, CTA of the chest to rule out pulmonary embolus was ordered. I did review her CTA from prior years (07/2019) with no aortic abnormality. 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 Patient with unremarkable cardiac cath in November of this year (had elevated trops at that time). Will admit to telemetry obs with cardiology consulted. Pt agrees with plan was stable at time of admission. I have spoken with the patient and/or caregivers. I have explained the patient's condition, diagnosis and treatment plan based on the information lacy rojas to me at this time. I have answered the patient's and/or caregivers questions and answered any concerns. The patient and/or caregivers have as good an understanding of the patient's diagnosis, condition and treatment plan as can be expected at this point. The patient has been stabilized within the capability of the emergency department. The patient will be transported for further care and management or will be moved to an observation or inpatient service. I have communicated with the staff or medical practitioner taking over this patient's care. Anastacia Disclaimer: Anastacia Disclaimer: This electronic medical record was generated, in whole or in part, using a voice recognition dictation system. Departure Departure Impression: Primary Impression: Chest pain Disposition: ADMITTED INPATIENT Admitting Physician: RANJITH Patton) Condition: STABLE Referrals: HEIKE FISH MD (PCP) Justicifation of Admission Dx: Justifications for Admission: Justification of Admission Dx: Yes Angina: [facility] MARIAJOSE CARPENTER DO Aug 02, 2020 09:10
--- NOTE | 2020-08-02 09:57 | EKG ---
[facility] [address] [place] [address] Test Date: 2020-08-02 Test Time: 09:35:51 Pat Name: ALIVIA WILDER Department: Room: Gender: F [employer] Cutter: : 1960 Requested By: MARIAJOSE CARPENTER Order Number: [id number] Reading MD: Measurements Intervals [place] Rate: 67 P: 39 OK: 164 QRS: -14 QRSD: 80 T: 26 QT: 376 QTc: 400 Interpretive Statements SINUS RHYTHM LEFTWARD AXIS OTHERWISE NORMAL ECG RI6.02 No previous ECG available for comparison
[2020-08-02 10:02] LABS: BASO # 0.1 x10^3/uL (0.0-0.2); BASO % 1 % (0-3); EOS # 0.3 x10^3/uL (0.0-0.7); EOS % 5 % (0-3); HEMATOCRIT 36.8 % (36.0-47.0); HEMOGLOBIN 12.8 g/dL (12.0-15.5); LYMPH # 1.5 x10^3/uL (1.0-4.8); LYMPH % 24 % (24-48); MEAN CORPUSCULAR HEMOGLOBIN 33 pg (25-35); MEAN CORPUSCULAR HGB CONC 35 g/dL (31-37); MEAN CORPUSCULAR VOLUME 96 fL (79-100); MONO # 0.5 x10^3/uL (0.0-1.1); MONO % 9 % (0-9); NEUT # 3.7 x10^3/uL (1.8-7.7); NEUT % 61 % (31-73); PLATELET COUNT 237 x10^3/uL (140-400); RED BLOOD COUNT 3.84 x10^6/uL (3.50-5.40); RED CELL DISTRIBUTION WIDTH 14.3 % (11.5-14.5); WHITE BLOOD COUNT 6.2 x10^3/uL (4.0-11.0)
--- NOTE | 2020-08-02 10:11 | RAD ---
Left lower extremity venous doppler ultrasound History: Left leg swelling Comparison: None Findings: Multiple grayscale, color, and duplex spectral analysis sonographic images were acquired of the left lower extremity veins to evaluate for the presence of DVT. There is normal phasicity. Normal compression, color-flow, and augmentation is demonstrated from the left common femoral to the popliteal veins. There is normal color flow of the proximal greater saphenous vein. There is normal color flow of segments of the calf veins. Impression: 1. There is no evidence of deep venous thrombosis from the left common femoral to the popliteal veins. Electronically signed by: Anshu Finch MD (08/02/2020 10:09 AM) [id number]
[2020-08-02 10:20] LABS: CALCIUM 8.7 mg/dL (8.5-10.1); CREATININE 0.7 mg/dL (0.6-1.0); GFR 85.1; POTASSIUM 4.1 mmol/L (3.5-5.1)
[2020-08-02 10:25] LABS: ALBUMIN 3.7 g/dL (3.4-5.0); ALBUMIN/GLOBULIN RATIO 1.4 (1.0-1.7); TOTAL BILIRUBIN 0.2 mg/dL (0.2-1.0); TOTAL PROTEIN 6.3 g/dL (6.4-8.2)
[2020-08-02 10:38] LABS: BARBITURATES NEG (NEG); BENZODIAZEPINES NEG (NEG); CANNABINOIDS NEG (NEG); COCAINE NEG (NEG); METHADONE NEG (NEG); OPIATES NEG (NEG); PHENCYCLIDINE NEG (NEG)
[2020-08-02 10:39] LABS: AMPHETAMINE/METHAMPHETAMINE NEG (NEG)
--- NOTE | 2020-08-02 10:57 | RAD ---
EXAM: PORTABLE CHEST 1V, NECK SOFT TISSUE 08/02/2020 10:04 AM CLINICAL INDICATION:Lump in throat, chest and stomach pain. COMPARISON:Chest 05/29/2020 TECHNIQUE:AP view of the chest. AP and lateral views of the neck FINDINGS: CHEST: The heart is normal in size. Calcified left hilar lymph nodes and a calcified granuloma in the left upper lobe are unchanged. A 4 mm nodule in the mid right lung was not definitely seen on prior radiograph. Scarring or atelectasis in the left lung base is unchanged. No consolidation, pleural effusion, or pneumothorax. There is bilateral shoulder hardware. Old right distal clavicle fracture. NECK: The airway is clear. Epiglottis is normal. Prevertebral soft tissues normal. Moderate degenerative disc disease at C5-C6. IMPRESSION: 1. No acute cardiopulmonary abnormality. 2. 4 mm nodule in the mid right lung could be related to granulomatous disease but was not definitely seen on prior exam. 3. No acute abnormality of the neck. Electronically signed by: Luz Ying MD (08/02/2020 10:54 AM) [id number]
[2020-08-02] MEDS ORDERED: IOHEXOL 350 MG/ML 100 ML VIAL. IV ONE (15:15)
[2020-08-02] MEDS ORDERED: ALPRAZolam 0.5 MG TABLET PO ONE (15:30)
--- NOTE | 2020-08-02 15:54 | PDOC1 ---
History and Physical Date of Admission Date of Admission DATE: 08/02/20 TIME: 15:54 Identification/Chief Complaint Chief Complaint Chest pain Source Source: Patient History of Present Illness History of Present Illness Ms Lyle is a 60 yo F w/ PMHx left hip ORIF 03/2020, neuropathy, hypertension, GERD, diabetes, seizures, Anxiety, High Cholesterol, Hypothyroid, Migraines who presents the ED with complaints of a lump in her throat that started at 7 AM with associated left-sided nonradiating type chest pain, radiation into her jaw and left arm with associated dyspnea. She also c/o occipital headache, which she notes is chronic. No recent seizures. Patient does have bilateral lower extremity swelling worse in the left leg with a negative DVT study. CTPA negative for PE, did reveal esophageal wall thickening and prior known rib and clavicle fractures. Patient with unremarkable cardiac cath in November 2019 Sinus rhythm at 67 bpm, no axis deviation, normal intervals, no T wave inversions, no ST elevations or ST depressions, Q waves in 1 and aVL Troponin 0.029. Admitted for further care. Past Medical History Cardiovascular: HTN, Hyperlipidemia, Other Pulmonary: Other CENTRAL NERVOUS SYSTEM: Seizure GI: GERD Heme/Onc: Cancer Psych: Anxiety Musculoskeletal: low back pain, Osteoarthritis Infectious disease: Other Endocrine: Diabetes, Hypothyroidism Past Surgical History Past Surgical History: Arthroscopy, Cholecystectomy, Other Family History Family History: Diabetes, Hypertension Social History Smoke: No ALCOHOL: none Drugs: None Current Problem List Problem List Problems Medical Problems: (1) Chest pain Status: Acute Current Medications Current Medications Current Medications Iohexol (Omnipaque 350 Mg/ml) 90 ml 1X ONCE IV ; Start 08/02/20 at 15:15; Stop 08/02/20 at 15:16; Status DC Alprazolam (Xanax) 0.5 mg 1X ONCE PO Last administered on 08/02/20at 15:45; Start 08/02/20 at 15:30; Stop 08/02/20 at 15:31; Status DC Active Scripts Active Prilosec Otc (Omeprazole Magnesium) 20 Mg Tablet.dr 1 Tab PO DAILY 30 Days Carafate (Sucralfate) 1 Gm Tablet 1 Tab PO QID 14 Days Kmqiow-Ljynnuif-Fekm 50-325-40 (Butalb/Acetaminophen/Caffeine) 1 Each Tablet 1 Each PO Q6HRS PRN Dok (Docusate Sodium) 100 Mg Capsule 100 Mg PO PRN BID PRN 30 Days Mag-Al Plus Xs Suspension (Mag Hydrox/Al Hydrox/Simeth) 30 Ml Oral.susp 30 Ml PO PRN DAILY PRN 28 Days Ativan (Lorazepam) 0.5 Mg Tablet 0.5 Mg PO PRN Q4HRS PRN 10 Days Tylenol (Acetaminophen) 325 Mg Tablet 650 Mg PO PRN Q4HRS PRN 14 Days Enoxaparin Sodium 40 Mg/0.4 Ml Disp.syrin 40 Mg SQ Q24H 14 Days Proair Hfa (Albuterol Sulfate) 8.5 Gm Hfa.aer.ad 2.5 Mg NEB PRN Q4HRS PRN 14 Days Tylenol With Codeine #3 Tablet (Acetaminophen/Codeine Phosphate) 1 Each Tablet 1 Tab PO PRN Q6HRS PRN Aspirin Ec (Aspirin) 325 Mg Tablet.dr 1 Tab PO DAILY 30 Days Vitamin D3 (Cholecalciferol (Vitamin D3)) 5,000 Unit Capsule 5,000 Unit PO DAILY 30 Days Polyethylene Glycol 3350 255 Gm Powder 17 Gm PO DAILY hold for loose BM Protonix (Pantoprazole Sodium) 40 Mg Tablet.dr 1 Tab PO DAILY Keppra (Levetiracetam) 250 Mg Tablet 1,250 Mg PO BID 30 Days Vimpat (Lacosamide) 50 Mg Tablet 50 Mg PO BID 30 Days Reported Dilantin (Phenytoin Sodium Extended) 100 Mg Capsule 30 Mg PO QHS Valium (Diazepam) 2 Mg Tablet 2 Mg PO TID PRN Synthroid (Levothyroxine Sodium) 100 Mcg Tablet 100 Mcg PO DAILYAC Atorvastatin Calcium 10 Mg Tablet 1 Tab PO DAILY Amlodipine Besylate 10 Mg Tablet 10 Mg PO DAILY Levemir (Insulin Detemir) 100 Unit/1 Ml Vial 12 Unit SQ QHS Novolog (Insulin Aspart) 100 Unit/1 Ml Vial 4 Unit SQ DAILYWSUP Novolog (Insulin Aspart) 100 Unit/1 Ml Vial 5 Unit SQ [id number] Novolog (Insulin Aspart) 100 Unit/1 Ml Vial 12 Unit SQ [id number] Neurontin (Gabapentin) 600 Mg Tablet 600 Mg PO TID Allergies Allergies: Coded Allergies: I S O L A T I O N *CONTACT* (Verified Allergy, Unknown, 07/17/19) +MRSA nasal screen 02/21/18 No Known Medication Allergies (Verified Allergy, Unknown, 07/17/19) ROS General: YES: Fatigue, Malaise; No: Chills, Night Sweats, Appetite, Other PSYCHOLOGICAL ROS: YES: Anxiety, Disorientation; No: Behavioral Disorder, Concentration difficultie, Decreased libido, Depression, Hallucinations, Hostility, Irritablity, Memory difficulties, Mood Swings, Obsessive thoughts, Physical abuse, Sexual abuse, Sleep disturbances, Suicidal ideation, Other Eyes: No Blurry vision, No Decreased vision, No Double vision, No Dry eyes, No Excessive tearing, No Eye Pain, No Itchy Eyes, No Loss of vision, No Photophobia, No Scotomata, No Uses contacts, No Uses glasses, No Other HEENT: YES: Heacaches; No: Visual Changes, Hearing change, Nasal congestion, Nasal discharge, Oral lesions, Sinus pain, Sore Throat, Epistaxis, Sneezing, Snoring, Tinnitus, Vertigo, Vocal changes, Other ALLERGY AND IMMUNOLOGY: No: Hives, Insect Bite Sensitivity, Itchy/Watery Eyes, Nasal Congestion, Post Nasal Drip, Seasonal Allergies, Other Hematological and Lymphatic: No: Bleeding Problems, Blood Clots, Blood Transfusions, Brusing, Night Sweats, Pallor, Swollen Lymph Nodes, Other ENDOCRINE: No: Breast Changes, Galactorrhea, Hair Pattern Changes, Hot Flashes, Malaise/lethargy, Mood Swings, Palpitations, Polydipsia/polyuria, Skin Changes, Temperature Intolerance, Unexpected Weight Changes, Other Breast: No New/Changing Breast Lumps, No Nipple changes, No Nipple discharge, No Other Respiratory: YES: Shortness of breath, SOB with excertion; No: Cough, Hemoptysis, Orthopnea, Pleuritic Pain, Sputum Changes, Stridor, Tachypnea, Wheezing, Other Cardiovascular: yes Chest Pain; No Palpitations, No Orthopnea, No Paroxysmal Noc. Dyspnea, No Edema, No Lt Headedness, No Other Gastrointestinal: Yes Nausea; No Vomiting, No Abdominal Pain, No Diarrhea, No Constipation, No Melena, No Hematochezia, No Other Genitourinary: No Dysuria, No Frequency, No Incontinence, No Hematuria, No Retention, No Discharge, No Urgency, No Pain, No Flank Pain, No Other, No , No , No , No , No , No , No Musculoskeletal: No Gait Disturbance, No Joint Pain, No Joint Stiffness, No Joint Swelling, No Muscle Pain, No Muscular Weakness, No Pain In:, No Swelling In:, No Other Neurological: No Behavorial Changes, No Bowel/Bladder ControlChng, No Confusion, No Dizziness, No Gait Disturbance, No Headaches, No Impaired Coord/balance, No Memory Loss, No Numbness/Tingling, No Seizures, No Speech Problems, No Tremors, No Visual Changes, No Weakness, No Other Skin: No Dry Skin, No Eczema, No Hair Changes, No Lumps, No Mole Changes, No Mottling, No Nail Changes, No Pruritus, No Rash, No Skin Lesion Changes, No Other, No Acne Physical Exam General: Alert, Cooperative, No acute distress HEENT: Atraumatic, PERRLA, EOMI, Mucous membr. moist/pink Lungs: Clear to auscultation, Normal air movement Heart: S1S2, RRR, no thrills, no rubs, no gallops, no murmurs Abdomen: Normal bowel sounds, Soft, No tenderness, No hepatosplenomegaly, No masses Rectal Exam: not examined Extremities: No clubbing, No cyanosis, No edema, Normal pulses, No tenderness/swelling Skin: No rashes, No breakdown, No significant lesion Neuro: Normal gait, Normal speech, Strength at 5/5 X4 ext, Normal tone, Sensation intact, Cranial nerves 3-12 NL, Reflexes 2+ Psych/Mental Status: Other (Confused) Vitals Vitals Vital Signs Date Time Temp Pulse Resp B/P (MAP) Pulse Ox O2 Delivery O2 Flow Rate FiO2 08/02/20 12:04 72 153/66 (95) 97 Room Air 08/02/20 08:45 98.1 18 98.1 Labs Labs Laboratory Tests Test 08/02/20 09:50 08/02/20 10:15 08/02/20 13:40 White Blood Count 6.2 x10^3/uL (4.0-11.0) Red Blood Count 3.84 x10^6/uL (3.50-5.40) Hemoglobin 12.8 g/dL (12.0-15.5) Hematocrit 36.8 % (36.0-47.0) Mean Corpuscular Volume 96 fL (79-100) Mean Corpuscular Hemoglobin 33 pg (25-35) Mean Corpuscular Hemoglobin Concent 35 g/dL (31-37) Red Cell Distribution Width 14.3 % (11.5-14.5) Platelet Count 237 x10^3/uL (140-400) Neutrophils (%) (Auto) 61 % (31-73) Lymphocytes (%) (Auto) 24 % (24-48) Monocytes (%) (Auto) 9 % (0-9) Eosinophils (%) (Auto) 5 % (0-3) Basophils (%) (Auto) 1 % (0-3) Neutrophils # (Auto) 3.7 x10^3/uL (1.8-7.7) Lymphocytes # (Auto) 1.5 x10^3/uL (1.0-4.8) Monocytes # (Auto) 0.5 x10^3/uL (0.0-1.1) Eosinophils # (Auto) 0.3 x10^3/uL (0.0-0.7) Basophils # (Auto) 0.1 x10^3/uL (0.0-0.2) Sodium Level 139 mmol/L (136-145) Potassium Level 4.1 mmol/L (3.5-5.1) Chloride Level 105 mmol/L (98-107) Carbon Dioxide Level 28 mmol/L (21-32) Anion Gap 6 (6-14) Blood Urea Nitrogen 10 mg/dL (7-20) Creatinine 0.7 mg/dL (0.6-1.0) Estimated GFR (Cockcroft-Gault) 85.1 BUN/Creatinine Ratio 14 (6-20) Glucose Level 85 mg/dL (70-99) Calcium Level 8.7 mg/dL (8.5-10.1) Magnesium Level 2.0 mg/dL (1.8-2.4) Total Bilirubin 0.2 mg/dL (0.2-1.0) Aspartate Amino Transf (AST/SGOT) 18 U/L (15-37) Alanine Aminotransferase (ALT/SGPT) 23 U/L (14-59) Alkaline Phosphatase 110 U/L (46-116) Troponin I Quantitative 0.029 ng/mL (0.000-0.055) 0.041 ng/mL (0.000-0.055) SX-Uco-P-Type Natriuretic Peptide 235 pg/mL (0-124) Total Protein 6.3 g/dL (6.4-8.2) Albumin 3.7 g/dL (3.4-5.0) Albumin/Globulin Ratio 1.4 (1.0-1.7) Lipase 34 U/L (73-393) Urine Opiates Screen Neg (NEG) Urine Methadone Screen Neg (NEG) Urine Barbiturates Neg (NEG) Urine Phencyclidine Screen Neg (NEG) Urine Amphetamine/Methamphetamine Neg (NEG) Urine Benzodiazepines Screen Neg (NEG) Urine Cocaine Screen Neg (NEG) Urine Cannabinoids Screen Neg (NEG) Urine Ethyl Alcohol Neg (NEG) Laboratory Tests Test 08/02/20 09:50 08/02/20 10:15 08/02/20 13:40 White Blood Count 6.2 x10^3/uL (4.0-11.0) Red Blood Count 3.84 x10^6/uL (3.50-5.40) Hemoglobin 12.8 g/dL (12.0-15.5) Hematocrit 36.8 % (36.0-47.0) Mean Corpuscular Volume 96 fL (79-100) Mean Corpuscular Hemoglobin 33 pg (25-35) Mean Corpuscular Hemoglobin Concent 35 g/dL (31-37) Red Cell Distribution Width 14.3 % (11.5-14.5) Platelet Count 237 x10^3/uL (140-400) Neutrophils (%) (Auto) 61 % (31-73) Lymphocytes (%) (Auto) 24 % (24-48) Monocytes (%) (Auto) 9 % (0-9) Eosinophils (%) (Auto) 5 % (0-3) Basophils (%) (Auto) 1 % (0-3) Neutrophils # (Auto) 3.7 x10^3/uL (1.8-7.7) Lymphocytes # (Auto) 1.5 x10^3/uL (1.0-4.8) Monocytes # (Auto) 0.5 x10^3/uL (0.0-1.1) Eosinophils # (Auto) 0.3 x10^3/uL (0.0-0.7) Basophils # (Auto) 0.1 x10^3/uL (0.0-0.2) Sodium Level 139 mmol/L (136-145) Potassium Level 4.1 mmol/L (3.5-5.1) Chloride Level 105 mmol/L (98-107) Carbon Dioxide Level 28 mmol/L (21-32) Anion Gap 6 (6-14) Blood Urea Nitrogen 10 mg/dL (7-20) Creatinine 0.7 mg/dL (0.6-1.0) Estimated GFR (Cockcroft-Gault) 85.1 BUN/Creatinine Ratio 14 (6-20) Glucose Level 85 mg/dL (70-99) Calcium Level 8.7 mg/dL (8.5-10.1) Magnesium Level 2.0 mg/dL (1.8-2.4) Total Bilirubin 0.2 mg/dL (0.2-1.0) Aspartate Amino Transf (AST/SGOT) 18 U/L (15-37) Alanine Aminotransferase (ALT/SGPT) 23 U/L (14-59) Alkaline Phosphatase 110 U/L (46-116) Troponin I Quantitative 0.029 ng/mL (0.000-0.055) 0.041 ng/mL (0.000-0.055) XZ-Lxo-D-Type Natriuretic Peptide 235 pg/mL (0-124) Total Protein 6.3 g/dL (6.4-8.2) Albumin 3.7 g/dL (3.4-5.0) Albumin/Globulin Ratio 1.4 (1.0-1.7) Lipase 34 U/L (73-393) Urine Opiates Screen Neg (NEG) Urine Methadone Screen Neg (NEG) Urine Barbiturates Neg (NEG) Urine Phencyclidine Screen Neg (NEG) Urine Amphetamine/Methamphetamine Neg (NEG) Urine Benzodiazepines Screen Neg (NEG) Urine Cocaine Screen Neg (NEG) Urine Cannabinoids Screen Neg (NEG) Urine Ethyl Alcohol Neg (NEG) Images Images CXR: The heart is normal in size. Calcified left hilar lymph nodes and a calcified granuloma in the left upper lobe are unchanged. A 4 mm nodule in the mid right lung was not definitely seen on prior radiograph. Scarring or atelectasis in the left lung base is unchanged. No consolidation, pleural effusion, or pneumothorax. There is bilateral shoulder hardware. Old right distal clavicle fracture. NECK: The airway is clear. Epiglottis is normal. Prevertebral soft tissues n ormal. Moderate degenerative disc disease at C5-C6. IMPRESSION: 1. No acute cardiopulmonary abnormality. 2. 4 mm nodule in the mid right lung could be related to granulomatous disease but was not definitely seen on prior exam. 3. No acute abnormality of the neck. Left lower extremity venous doppler ultrasound Findings: Multiple grayscale, color, and duplex spectral analysis sonographic images were acquired of the left lower extremity veins to evaluate for the presence of DVT. There is normal phasicity. Normal compression, color-flow, and augmentation is demonstrated from the left common femoral to the popliteal veins. There is normal color flow of the proximal greater saphenous vein. There is normal color flow of segments of the calf veins. Impression: 1. There is no evidence of deep venous thrombosis from the left common femoral to the popliteal veins. CTPA: Chest: Enlarged left thyroid gland, unchanged. Prior right thyroidectomy. No pathologic lymphadenopathy. No pulmonary embolus. No aortic aneurysm or dissection. Atheromatous plaque throughout the aorta and branch vessels. Diffuse esophageal wall thickening. Bilateral calcified pulmonary nodules as well as left calcified hilar lymph nodes, likely prior granulomatous disease. Lingular right middle lobe and bilateral lower lobe linear atelectasis. No consolidation or pleural effusion. No pneumothorax. Upper abdomen: Left adrenal myelolipomas largest measures 5.1 x 4.7 cm, unchanged. Moderate colonic stool burden within the imaged upper lobes., unchanged. Bones: Left shoulder arthroplasty. Internal fixation right proximal humerus. Chronic bilateral distal clavicular fractures. Chronic right-sided rib fractures. Chronic T12 superior endplate mild compression fracture. Impression: 1. Diffuse esophageal wall thickening, may represent esophagitis. 2. Enlarged left thyroid gland, unchanged. 3. Left adrenal myelolipomas, unchanged. VTE Prophylaxis Ordered VTE Prophylaxis Devices: Yes VTE Pharmacological Prophylaxi: Yes Assessment/Plan Assessment/Plan A/P: Chest pain - with elevated troponin. will trend. Atypical presentation and with esophageal findings and negative recent cath within the past year. Cardiology consulted Sore throat - no signs of tonsillar exudate, however esophageal thickening on CT noted. 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 Diffuse esophageal wall thickening, may represent esophagitis. Enlarged left thyroid gland, unchanged. Left adrenal myelolipomas, unchanged. FEN - ADA cardiac diet PPX - lovenox FULL CODE Dispo - inpatient for above Justifications for Admission Other Justification FRANCINE JOSE MD Aug 02, 2020 15:54
--- NOTE | 2020-08-02 17:23 | RAD ---
CT ANGIOGRAPHY CHEST History: Chest pain Technique: CT of the chest was performed with intravenous contrast. PE protocol. Maximum intensity projection coronal and sagittal reconstructions were performed. Exposure: One or more of the following individualized dose reduction techniques were utilized for this examination: 1. Automated exposure control 2. Adjustment of the mA and/or kV according to patient size 3. Use of iterative reconstruction technique. Comparison: August 05, 2019 Findings: Chest: Enlarged left thyroid gland, unchanged. Prior right thyroidectomy. No pathologic lymphadenopathy. No pulmonary embolus. No aortic aneurysm or dissection. Atheromatous plaque throughout the aorta and branch vessels. Diffuse esophageal wall thickening. Bilateral calcified pulmonary nodules as well as left calcified hilar lymph nodes, likely prior granulomatous disease. Lingular right middle lobe and bilateral lower lobe linear atelectasis. No consolidation or pleural effusion. No pneumothorax. Upper abdomen: Left adrenal myelolipomas largest measures 5.1 x 4.7 cm, unchanged. Moderate colonic stool burden within the imaged upper lobes., unchanged. Bones: Left shoulder arthroplasty. Internal fixation right proximal humerus. Chronic bilateral distal clavicular fractures. Chronic right-sided rib fractures. Chronic T12 superior endplate mild compression fracture. Impression: 1. Diffuse esophageal wall thickening, may represent esophagitis. 2. Enlarged left thyroid gland, unchanged. 3. Left adrenal myelolipomas, unchanged. Electronically signed by: Duglas Miller DO (08/02/2020 5:20 PM) [facility]
[2020-08-02 21:59] VITALS: BP 152/47
[2020-08-02 23:00] VITALS: BP 154/52
[2020-08-02] MEDS ORDERED: oxyCODONE/APAP 5/325 1 TAB TABLET PO PRN (23:30)
[2020-08-02] MEDS ORDERED: LACO100T PO (23:31)
[2020-08-02] MEDS ORDERED: GABA600T7 PO (23:31)
[2020-08-02] MEDS ORDERED: PHEN200C3 PO (23:31)
[2020-08-02] MEDS ORDERED: OXYC1TAB15 PO (23:31)
[2020-08-02] MEDS ORDERED: TRAZ-118 PO (23:31)
[2020-08-02] MEDS ORDERED: LEVE500T6 PO (23:31)
[2020-08-02] MEDS ORDERED: FERR325T14 PO (23:31)
[2020-08-03] MEDS ORDERED: NON FORMULARY ITEM (Insulin Detemir (Levemir) 12 UNIT) SQ SCH
[2020-08-03] MEDS ORDERED: PHENYTOIN SODIUM EXTENDED 30 MG CAPSULE. PO SCH
[2020-08-03] MEDS: MORPHINE SULFATE 2 MG/ML VIAL. IV PRN ×2 (00:02→06:53)
[2020-08-03] MEDS: LIDOCAINE (700MG/PATCH) PATCH. TD SCH ×2 (00:02→09:00)
[2020-08-03] MEDS: GABAPENTIN 300 MG CAPSULE. PO SCH ×5 (00:18→21:32)
[2020-08-03] MEDS: PHENYTOIN SODIUM EXTENDED 100 MG CAPSULE PO SCH ×3 (00:18→21:32)
[2020-08-03] MEDS: levETIRAcetam 500 MG TABLET PO SCH ×4 (00:19→21:31)
[2020-08-03] MEDS: LACOSAMIDE 50 MG TABLET PO SCH ×4 (00:19→21:31)
[2020-08-03] MEDS ORDERED: ENOXAPARIN 40 MG/0.4 ML SYRINGE. SQ ONE (00:30)
[2020-08-03] MEDS: INSULIN GLARGINE SYRINGE. SQ SCH ×2 (01:07→21:00)
[2020-08-03] MEDS ORDERED: DEXTROSE 50% 25 GM / 50ML DISP.SYRIN. IV PRN (01:15)
[2020-08-03] MEDS ORDERED: INSULIN LISPRO 300 UNITS/3 ML VIAL. SQ ONE (01:45)
[2020-08-03 03:00] VITALS: BP 158/63
[2020-08-03 05:54] LABS: CALCIUM 8.7 mg/dL (8.5-10.1); CREATININE 0.6 mg/dL (0.6-1.0); GFR 101.6
[2020-08-03 05:55] LABS: POTASSIUM 4.8 mmol/L (3.5-5.1)
[2020-08-03] MEDS: PANTOPRAZOLE 40 MG TABLET.DR. PO SCH (06:48)
[2020-08-03] MEDS: LEVOTHYROXINE 100 MCG TABLET PO SCH (06:48)
[2020-08-03 07:00] VITALS: BP 143/57
--- NOTE | 2020-08-03 07:26 | EKG ---
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
[2020-08-03] MEDS: NITROGLYCERIN SUBLINGUAL 0.4 MG BOTTLE OF 25. SL PRN ×2 (08:33→08:40)
--- NOTE | 2020-08-03 08:36 | NUR ---
During rounds, wayne was called due to pt having seizures. Pt had a blank stare, arms flexed with her rt leg extended lasting for 30 secs. Pt was disoriented afterwards. Dr Javier consulted.
[2020-08-03] MEDS: FERROUS SULFATE 325 MG TABLET. PO SCH ×3 (09:33→17:33)
[2020-08-03] MEDS: INSULIN LISPRO 300 UNITS/3 ML VIAL. SQ SCH ×4 (09:48→21:00)
[2020-08-03] MEDS: PATCH REMOVAL. MC SCH ×2 (09:48→21:00)
--- NOTE | 2020-08-03 10:00 | NUR ---
Patients heart rate in the 150's, went in room patient was having another seizure which lasted out 30 seconds. Vitals BP: 166/61 HR: 94 O2: 96% on 2L NC. Dr. Javier had rounded few moments before, stated she did not need Ativan at the moment since shes coming out of her seizures. He also stated not to call a rapid when patient had seizures. Dr. Javier is very familiar with patient and stated he would look at her medications and make sure she was on her medications. Patient had another seizure around 0953 that lasted about 30 seconds. Patient in postictal state. Patient does not remember anything that happened this morning. Will continue to monitor patient.
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
[2020-08-03 11:00] VITALS: BP 132/52
--- NOTE | 2020-08-03 14:02 | PDOC2 ---
CARDIAC CONSULT DATE OF CONSULT Date of Consult DATE: 08/03/20 TIME: 13:51 REASON FOR CONSULT Reason for Consult: Chest pain REFERRING PHYSICIAN Referring Physician: [facility] SOURCE Source: Chart review, Patient HISTORY OF PRESENT ILLNESS HISTORY OF PRESENT ILLNESS This is a 60 yo female admitted for complains not feeling good. Has complained of breathing heavily and left chest pressure. She has had C earlythis year to which no CAD was noted. Apparently she has been noted having multiple seizures as an inpt. Presently she is acting confused and drowsy. SHe has had 3 seizure episodes this morning and denies any chest pain or SOA. She lives with her boyfiend. PAST MEDICAL HISTORY Past Medical History Cardiovascular: HTN, Hyperlipidemia, Other (PSVT) Pulmonary: Other (lung nodule) CENTRAL NERVOUS SYSTEM: Seizure, DPN, GI: GERD Heme/Onc: Cancer (renal) Psych: Anxiety Musculoskeletal: low back pain, Osteoarthritis, rightfootdrop Endocrine: Diabetes (2), Hypothyroidism PAST SURGICAL HISTORY Past Surgical History Left hip ORIFArthroscopy (LrTSA; humeral ORIF; foot surgery), Cholecystectomy, Other (left partial nephrectomy; thyroid surgery) FAMILY HISTORY Family History: Diabetes SOCIAL HISTORY Smoke: No ALCOHOL: none Drugs: None Lives: Friends CURRENT MEDICATIONS CURRENT MEDICATIONS Current Medications Medications (Trade) Dose Ordered Sig/Khang Route PRN Reason Start Time Stop Time Status Last Admin Dose Admin Iohexol (Omnipaque 350 Mg/ml) 90 ml 1X ONCE IV 08/02/20 15:15 08/02/20 15:16 DC 08/02/20 15:15 Alprazolam (Xanax) 0.5 mg 1X ONCE PO 08/02/20 15:30 08/02/20 15:31 DC 08/02/20 15:45 Lidocaine (Lidoderm) 1 patch DAILY TD 08/02/20 23:15 08/03/20 00:02 Miscellaneous (Lidoderm Patch Removal) 1 ea QHS [facility] 08/03/20 09:00 08/03/20 09:48 Morphine Sulfate (Morphine Sulfate) 2 mg PRN Q4HRS PRN IV PAIN 08/02/20 23:15 08/03/20 06:53 Ferrous Sulfate (Feosol) 325 mg TIDWMEALS PO 08/03/20 08:00 08/03/20 13:39 Levetiracetam (Keppra) 1,250 mg BID PO 08/03/20 00:00 08/03/20 09:33 Gabapentin (Neurontin) 600 mg TID PO 08/03/20 00:00 08/03/20 09:34 Lacosamide (Vimpat) 100 mg BID PO 08/03/20 00:00 08/03/20 09:33 Levothyroxine Sodium (Synthroid) 100 mcg DAILY06 PO 08/03/20 06:00 08/03/20 06:48 Pantoprazole Sodium (Protonix) 40 mg DAILYAC PO 08/03/20 07:30 08/03/20 06:48 Insulin Glargine (Lantus Syringe) 12 unit QHS SQ 08/03/20 00:15 08/03/20 01:07 Enoxaparin Sodium (Lovenox 40mg Syringe) 40 mg 1X ONCE SQ 08/03/20 00:30 08/03/20 00:31 DC 08/03/20 01:02 Insulin Human Lispro (HumaLOG) 0-5 UNITS QIDACHS SQ 08/03/20 07:30 08/03/20 13:44 Insulin Human Lispro (HumaLOG) 3 units 1X ONCE SQ 08/03/20 01:45 08/03/20 01:46 DC 08/03/20 02:12 Nitroglycerin (Nitrostat) 0.4 mg PRN Q5MIN PRN SL CHEST PAIN 08/03/20 07:15 08/03/20 08:40 ALLERGIES ALLERGIES: Coded Allergies: I S O L A T I O N *CONTACT* (Verified Allergy, Unknown, 07/17/19) +MRSA nasal screen 02/21/18 No Known Medication Allergies (Verified Allergy, Unknown, 07/17/19) ROS Review of System limited, post ictal PHYSICAL EXAM General: Cooperative, No acute distress HEENT: Atraumatic, Mucous membr. moist/pink Lungs: Clear to auscultation Heart: Regular rate (SR), Normal S1, Normal S2, No murmurs Abdomen: Soft, No tenderness Extremities: No cyanosis, No edema Skin: No breakdown Neuro: Sensation intact Psych/Mental Status: Other (drowsy) MUSCULOSKELETAL: Osteoarthritic changes both hands VITALS/I&O VITALS/I&O: Vital Signs Date Time Temp Pulse Resp B/P (MAP) Pulse Ox O2 Delivery O2 Flow Rate FiO2 08/03/20 11:00 98.2 80 18 132/52 (78) 97 98.2 08/03/20 08:00 Room Air I & O 08/02/20 08/02/20 08/03/20 15:00 23:00 07:00 Intake Total 50 ml Balance 50 ml LABS Lab: Laboratory Tests Test 08/02/20 16:00 08/03/20 00:42 08/03/20 01:10 08/03/20 04:35 Troponin I Quantitative 0.052 ng/mL (0.000-0.055) 0.041 ng/mL (0.000-0.055) 0.076 ng/mL (0.000-0.055) Glucose (Fingerstick) 335 mg/dL (70-99) H Sodium Level 136 mmol/L (136-145) Potassium Level 4.8 mmol/L (3.5-5.1) Chloride Level 100 mmol/L (98-107) Carbon Dioxide Level 22 mmol/L (21-32) Anion Gap 14 (6-14) Blood Urea Nitrogen 13 mg/dL (7-20) Creatinine 0.6 mg/dL (0.6-1.0) Estimated GFR (Cockcroft-Gault) 101.6 Glucose Level 266 mg/dL (70-99) H Calcium Level 8.7 mg/dL (8.5-10.1) Thyroid Stimulating Hormone (TSH) 2.745 uIU/mL (0.358-3.74) Test 08/03/20 08:59 08/03/20 10:04 08/03/20 11:42 Glucose (Fingerstick) 316 mg/dL (70-99) H 260 mg/dL (70-99) H Troponin I Quantitative 0.088 ng/mL (0.000-0.055) Laboratory Tests 08/03/20 04:35 ECHOCARDIOGRAM ECHOCARDIOGRAM <Conclusion> The left ventricular systolic function is normal. The Ejection Fraction is 55-60%. There is normal LV segmental wall motion. Moderate aortic regurgitation. Trace mitral regurgitation. Trace to mild tricuspid regurgitation. The PA pressure was estimated at 35 mmHg. There is no evidence of significant pericardial effusion. DATE: 12/01/19 1430 HEART CATH HEART CATH Findings. Hemodynamics. Left ventricular pressure of 148/ 4/18. Aortic root pressure 146/56. Coronaries. Left main. The left main was a normal-size vessel. It had no lesions. Left anterior descending. The LAD was a moderate size vessel. It had no lesions. Left circumflex. The left circumflex was a smaller nondominant vessel. It had no lesions. Right coronary artery the right coronary was a moderate size dominant vessel. It had no lesions. Left ventriculogram. The left ventricle had normal systolic function with an ejection fraction of 60-65%. <Conclusion> No angiographic evidence of coronary artery disease. Normal left ventricular systolic function. DATE: 12/02/19 1417 ASSESSMENT/PLAN ASSESSMENT/PLAN 1. Atypical CP: likely MSK 2. Seizures: multiple episodes overnight, currently post ictal 3. Encephalopathy: due to seizures 4. Mild troponin elevation: demand mediated likely from seizure episodes 5. Reactive sinus tachycardia: appears to be concomitant with seizure episode. SR 6. HTN:controlled 7. HLP 8. Hypothyroidism: on replacement 9. CKD3 with Hx of partial left nephrectomy 10. DM2 Recommendations 1. Recent LHC with no CAD EF and WM nml No further cardiac workup 2. Seizure mgmt per neurology 3. Secondary prevention measures ] YASH CONKLIN APRN Aug 03, 2020 14:02
--- NOTE | 2020-08-03 14:35 | PDOC2 ---
CONSULT Date of Consult Date of Consult DATE: 08/03/20 TIME: 14:29 Reason for Consult Reason for Consult: Atypical chest pain, esophageal thickening on CT scan History of Present Illness Reason for Visit: This is a 60-year-old female who we have seen in the past for intermittent dysphasia and constipation. However on this occasion she presents with atypical chest pain and recent seizure. She has a long history of seizures and has been managed by with a number of different treatments and diagnoses. She is supposedly has acid reflux disease last upper endoscopy in 2018 revealed a small Schatzki's ring and mild gastritis but no significant esophagitis was seen. In our records in the past she has been on pantoprazole on a chronic basis. She relates now a pressure in her chest but not true dysphagia. She denies regular heartburn symptoms and is unsure if she is taking her acid reduction medicine since she has a hard time keeping up with her medicines because there are so many. She relates the chest discomfort starting in the last 2 days but is a limited historian. She denies hematemesis or melena. She does have a history of chronic constipation that she thinks is related to her medications. She seems to have a bowel movement once or twice a week. She relates her last bowel movement was a week ago. However in looking at her med list she is not on any narcotics or obvious meds other than iron which might constipate her. She does not take a laxative on a regular basis. She had a colonoscopy in March 2018 that revealed some hemorrhoids but was otherwise completely normal. We were asked to see her regarding the esophagitis or esophageal thickening seen on CT scan. Past Medical History Cardiovascular: HTN, Hyperlipidemia, Other Pulmonary: Other ( left lung nodules) CENTRAL NERVOUS SYSTEM: Periperal neuropathy, Seizure GI: GERD Heme/Onc: Cancer Psych: Anxiety Musculoskeletal: low back pain Infectious disease: Other ENT: Other ( right ear cholesteatoma) Renal/: Renal Ca. Endocrine: Diabetes Past Surgical History Past Surgical History: Cholecystectomy, Other ( left nephrectomy, thyroid, foot, biopsy of back lesion, left reversed total shoulder arthroplasty, humerus fracture repair, left hip fracture repair) Family History Family History: Diabetes Social History No ALCOHOL: none Drugs: None Lives: Friends Current Problem List Problem List Problems Medical Problems: (1) Chest pain Status: Acute Current Medications Current Medications Current Medications Iohexol (Omnipaque 350 Mg/ml) 90 ml 1X ONCE IV Last administered on 08/02/20at 15:15; Start 08/02/20 at 15:15; Stop 08/02/20 at 15:16; Status DC Alprazolam (Xanax) 0.5 mg 1X ONCE PO Last administered on 08/02/20at 15:45; Start 08/02/20 at 15:30; Stop 08/02/20 at 15:31; Status DC Lidocaine (Lidoderm) 1 patch DAILY TD Last administered on 08/03/20at 00:02; Start 08/02/20 at 23:15 Miscellaneous (Lidoderm Patch Removal) 1 ea QHS MC Last administered on 08/03/20at 09:48; Start 08/03/20 at 09:00 Morphine Sulfate (Morphine Sulfate) 2 mg PRN Q4HRS PRN IV PAIN Last administered on 08/03/20at 06:53; Start 08/02/20 at 23:15 Ferrous Sulfate (Feosol) 325 mg TIDWMEALS PO Last administered on 08/03/20at 13:39; Start 08/03/20 at 08:00 Levetiracetam (Keppra) 1,250 mg BID PO Last administered on 08/03/20at 09:33; Start 08/03/20 at 00:00 Oxycodone/ Acetaminophen (Percocet 5/325) 1 tab PRN Q6HRS PRN PO PAIN; Start 08/02/20 at 23:30 Trazodone HCl (Desyrel) 50 mg QHS PO ; Start 08/03/20 at 00:00 Gabapentin (Neurontin) 600 mg TID PO Last administered on 08/03/20at 09:34; Start 08/03/20 at 00:00 Lacosamide (Vimpat) 100 mg BID PO Last administered on 08/03/20at 09:33; Start 08/03/20 at 00:00 Phenytoin Sodium (Dilantin) 200 mg HS PO ; Start 08/03/20 at 00:00 Phenytoin Sodium (Dilantin) 30 mg HS PO ; Start 08/03/20 at 00:00; Stop 08/02/20 at 23:56; Status DC Atorvastatin Calcium (Lipitor) 10 mg HS PO ; Start 08/03/20 at 21:00 Levothyroxine Sodium (Synthroid) 100 mcg DAILY06 PO Last administered on 08/03/20at 06:48; Start 08/03/20 at 06:00 Pantoprazole Sodium (Protonix) 40 mg DAILYAC PO Last administered on 08/03/20at 06:48; Start 08/03/20 at 07:30 Non-Formulary Medication (Insulin Detemir (Levemir)) 12 unit QHS SQ ; Start 08/03/20 at 00:00; Status UNV Insulin Glargine (Lantus Syringe) 12 unit QHS SQ Last administered on 08/03/20at 01:07; Start 08/03/20 at 00:15 Enoxaparin Sodium (Lovenox 40mg Syringe) 40 mg Q24H SQ ; Start 08/03/20 at 21:00 Enoxaparin Sodium (Lovenox 40mg Syringe) 40 mg 1X ONCE SQ Last administered on 08/03/20at 01:02; Start 08/03/20 at 00:30; Stop 08/03/20 at 00:31; Status DC Insulin Human Lispro (HumaLOG) 0-5 UNITS QIDACHS SQ Last administered on 08/03/20at 13:44; Start 08/03/20 at 07:30 Dextrose (Dextrose 50%-Water Syringe) 12.5 gm PRN Q15MIN PRN IV SEE COMMENTS; Start 08/03/20 at 01:15 Insulin Human Lispro (HumaLOG) 3 units 1X ONCE SQ Last administered on 08/03/20at 02:12; Start 08/03/20 at 01:45; Stop 08/03/20 at 01:46; Status DC Nitroglycerin (Nitrostat) 0.4 mg PRN Q5MIN PRN SL CHEST PAIN Last administered on 08/03/20at 08:40; Start 08/03/20 at 07:15 Lorazepam (Ativan Inj) 1 mg PRN Q4HRS PRN IVP ANXIETY / AGITATION; Start 08/03/20 at 14:30 Sucralfate (Carafate) 1 gm BIDAC PO ; Start 08/03/20 at 16:30 Active Scripts Active Prilosec Otc (Omeprazole Magnesium) 20 Mg Tablet.dr 1 Tab PO DAILY 30 Days Carafate (Sucralfate) 1 Gm Tablet 1 Tab PO QID 14 Days Sdtjwr-Fkzjpjll-Ejyw 50-325-40 (Butalb/Acetaminophen/Caffeine) 1 Each Tablet 1 Each PO Q6HRS PRN Dok (Docusate Sodium) 100 Mg Capsule 100 Mg PO PRN BID PRN 30 Days Mag-Al Plus Xs Suspension (Mag Hydrox/Al Hydrox/Simeth) 30 Ml Oral.susp 30 Ml PO PRN DAILY PRN 28 Days Ativan (Lorazepam) 0.5 Mg Tablet 0.5 Mg PO PRN Q4HRS PRN 10 Days Tylenol (Acetaminophen) 325 Mg Tablet 650 Mg PO PRN Q4HRS PRN 14 Days Enoxaparin Sodium 40 Mg/0.4 Ml Disp.syrin 40 Mg SQ Q24H 14 Days Proair Hfa (Albuterol Sulfate) 8.5 Gm Hfa.aer.ad 2.5 Mg NEB PRN Q4HRS PRN 14 Days Tylenol With Codeine #3 Tablet (Acetaminophen/Codeine Phosphate) 1 Each Tablet 1 Tab PO PRN Q6HRS PRN Aspirin Ec (Aspirin) 325 Mg Tablet. 1 Tab PO DAILY 30 Days Vitamin D3 (Cholecalciferol (Vitamin D3)) 5,000 Unit Capsule 5,000 Unit PO DAILY 30 Days Polyethylene Glycol 3350 255 Gm Powder 17 Gm PO DAILY hold for loose BM Protonix (Pantoprazole Sodium) 40 Mg Tablet.dr 1 Tab PO DAILY Reported Percocet 5-325 Mg Tablet (Oxycodone/Acetaminophen) 1 Each Tablet 1 Tab PO PRN Q6HRS PRN Phenytoin Sodium Extended 200 Mg Capsule 1 Cap PO HS 30 Days Vimpat (Lacosamide) 100 Mg Tablet 100 Mg PO BID Gabapentin 600 Mg Tablet 600 Mg PO TID Ferrous Sulfate 325 Mg Tablet 325 Mg PO TID Trazodone Hcl 50 Mg Tablet 1 Tab PO QHS Levetiracetam 500 Mg Tablet 2.5 Tab PO BID Dilantin (Phenytoin Sodium Extended) 100 Mg Capsule 30 Mg PO QHS Valium (Diazepam) 2 Mg Tablet 2 Mg PO TID PRN Synthroid (Levothyroxine Sodium) 100 Mcg Tablet 100 Mcg PO DAILYAC Atorvastatin Calcium 10 Mg Tablet 1 Tab PO DAILY Amlodipine Besylate 10 Mg Tablet 10 Mg PO DAILY Levemir (Insulin Detemir) 100 Unit/1 Ml Vial 12 Unit SQ QHS Novolog (Insulin Aspart) 100 Unit/1 Ml Vial 4 Unit SQ [id number] Novolog (Insulin Aspart) 100 Unit/1 Ml Vial 5 Unit SQ [id number] Novolog (Insulin Aspart) 100 Unit/1 Ml Vial 12 Unit SQ DAILY07 Neurontin (Gabapentin) 600 Mg Tablet 600 Mg PO TID Allergies Allergies: Coded Allergies: I S O L A T I O N *CONTACT* (Verified Allergy, Unknown, 07/17/19) +MRSA nasal screen 02/21/18 No Known Medication Allergies (Verified Allergy, Unknown, 07/17/19) Physical Exam General: Other (Awake but limited response to questions with a flat affect.) HEENT: Atraumatic Lungs: Clear to auscultation Heart: Regular rate, Normal S1, Normal S2 Abdomen: Normal bowel sounds, Soft, No tenderness, No hepatosplenomegaly, No masses Extremities: No clubbing Skin: No rashes Vitals VITALS Vital Signs Date Time Temp Pulse Resp B/P (MAP) Pulse Ox O2 Delivery O2 Flow Rate FiO2 08/03/20 11:00 98.2 80 18 132/52 (78) 97 98.2 08/03/20 08:00 Room Air Labs Labs Laboratory Tests Test 08/02/20 09:50 08/02/20 10:15 08/02/20 13:40 08/02/20 16:00 White Blood Count 6.2 x10^3/uL (4.0-11.0) Red Blood Count 3.84 x10^6/uL (3.50-5.40) Hemoglobin 12.8 g/dL (12.0-15.5) Hematocrit 36.8 % (36.0-47.0) Mean Corpuscular Volume 96 fL (79-100) Mean Corpuscular Hemoglobin 33 pg (25-35) Mean Corpuscular Hemoglobin Concent 35 g/dL (31-37) Red Cell Distribution Width 14.3 % (11.5-14.5) Platelet Count 237 x10^3/uL (140-400) Neutrophils (%) (Auto) 61 % (31-73) Lymphocytes (%) (Auto) 24 % (24-48) Monocytes (%) (Auto) 9 % (0-9) Eosinophils (%) (Auto) 5 % (0-3) Basophils (%) (Auto) 1 % (0-3) Neutrophils # (Auto) 3.7 x10^3/uL (1.8-7.7) Lymphocytes # (Auto) 1.5 x10^3/uL (1.0-4.8) Monocytes # (Auto) 0.5 x10^3/uL (0.0-1.1) Eosinophils # (Auto) 0.3 x10^3/uL (0.0-0.7) Basophils # (Auto) 0.1 x10^3/uL (0.0-0.2) Sodium Level 139 mmol/L (136-145) Potassium Level 4.1 mmol/L (3.5-5.1) Chloride Level 105 mmol/L (98-107) Carbon Dioxide Level 28 mmol/L (21-32) Anion Gap 6 (6-14) Blood Urea Nitrogen 10 mg/dL (7-20) Creatinine 0.7 mg/dL (0.6-1.0) Estimated GFR (Cockcroft-Gault) 85.1 BUN/Creatinine Ratio 14 (6-20) Glucose Level 85 mg/dL (70-99) Calcium Level 8.7 mg/dL (8.5-10.1) Magnesium Level 2.0 mg/dL (1.8-2.4) Total Bilirubin 0.2 mg/dL (0.2-1.0) Aspartate Amino Transf (AST/SGOT) 18 U/L (15-37) Alanine Aminotransferase (ALT/SGPT) 23 U/L (14-59) Alkaline Phosphatase 110 U/L (46-116) Troponin I Quantitative 0.029 ng/mL (0.000-0.055) 0.041 ng/mL (0.000-0.055) 0.052 ng/mL (0.000-0.055) YO-Faz-A-Type Natriuretic Peptide 235 pg/mL (0-124) Total Protein 6.3 g/dL (6.4-8.2) Albumin 3.7 g/dL (3.4-5.0) Albumin/Globulin Ratio 1.4 (1.0-1.7) Lipase 34 U/L (73-393) Urine Opiates Screen Neg (NEG) Urine Methadone Screen Neg (NEG) Urine Barbiturates Neg (NEG) Urine Phencyclidine Screen Neg (NEG) Urine Amphetamine/Methamphetamine Neg (NEG) Urine Benzodiazepines Screen Neg (NEG) Urine Cocaine Screen Neg (NEG) Urine Cannabinoids Screen Neg (NEG) Urine Ethyl Alcohol Neg (NEG) Test 08/03/20 00:42 08/03/20 01:10 08/03/20 04:35 08/03/20 08:59 Glucose (Fingerstick) 335 mg/dL (70-99) 316 mg/dL (70-99) Troponin I Quantitative 0.041 ng/mL (0.000-0.055) 0.076 ng/mL (0.000-0.055) Sodium Level 136 mmol/L (136-145) Potassium Level 4.8 mmol/L (3.5-5.1) Chloride Level 100 mmol/L (98-107) Carbon Dioxide Level 22 mmol/L (21-32) Anion Gap 14 (6-14) Blood Urea Nitrogen 13 mg/dL (7-20) Creatinine 0.6 mg/dL (0.6-1.0) Estimated GFR (Cockcroft-Gault) 101.6 Glucose Level 266 mg/dL (70-99) Calcium Level 8.7 mg/dL (8.5-10.1) Thyroid Stimulating Hormone (TSH) 2.745 uIU/mL (0.358-3.74) Test 08/03/20 10:04 08/03/20 11:42 Troponin I Quantitative 0.088 ng/mL (0.000-0.055) Glucose (Fingerstick) 260 mg/dL (70-99) Laboratory Tests Test 08/02/20 16:00 08/03/20 00:42 08/03/20 01:10 08/03/20 04:35 Troponin I Quantitative 0.052 ng/mL (0.000-0.055) 0.041 ng/mL (0.000-0.055) 0.076 ng/mL (0.000-0.055) Glucose (Fingerstick) 335 mg/dL (70-99) Sodium Level 136 mmol/L (136-145) Potassium Level 4.8 mmol/L (3.5-5.1) Chloride Level 100 mmol/L (98-107) Carbon Dioxide Level 22 mmol/L (21-32) Anion Gap 14 (6-14) Blood Urea Nitrogen 13 mg/dL (7-20) Creatinine 0.6 mg/dL (0.6-1.0) Estimated GFR (Cockcroft-Gault) 101.6 Glucose Level 266 mg/dL (70-99) Calcium Level 8.7 mg/dL (8.5-10.1) Thyroid Stimulating Hormone (TSH) 2.745 uIU/mL (0.358-3.74) Test 08/03/20 08:59 08/03/20 10:04 08/03/20 11:42 Glucose (Fingerstick) 316 mg/dL (70-99) 260 mg/dL (70-99) Troponin I Quantitative 0.088 ng/mL (0.000-0.055) Images Images CT of the chest angiogram. Negative for pulmonary emboli but did show some relative thickening of the entire esophagus Assessment/Plan Assessment/Plan Atypical chest pain. She has been seen by cardiology and her symptoms are not likely related to acute coronary syndrome. As well her symptoms are atypical for GERD but the esophageal thickening on CT is somewhat disconcerting. However she had seizure activity this morning and was confused so elective endoscopy which was planned has now been canceled. I think empiric treatment for likely reflux disease with pantoprazole and Carafate would be more prudent. There is nothing to suspect any other cause for her esophagitis including infections at this time. History of Schatzki's ring and intermittent dysphagia. I could not get a clear history from her as to whether she has recent dysphasia or not but it does not appear to be a predominant symptom Constipation. This is a recurring problem for her with a bowel pattern of sometimes 2 or 3/week and sometimes 1/week. She does not take any laxative as far she knows. I think with this sort of pattern a more regular treatment program might be beneficial. Plan: Continue pantoprazole daily empirically add sucralfate for possible esophagitis. EGD was planned today but due to seizures and confusion it is been canceled. I will start a liquid diet and advance as tolerated. If she tolerates a diet and her symptoms are relatively well controlled then endoscopic evaluation is not needed urgently. For constipation I will add MiraLAX and would recommend this on a regular basis in the outpatient setting. It is reassuring that she had a normal colonoscopy 2 years ago. ENEIDA BEARDEN MD Aug 03, 2020 14:35
[2020-08-03 15:00] VITALS: BP 138/61
--- NOTE | 2020-08-03 15:07 | NUR ---
SW following. Spoke with RN and reviewed chart. SW consulted for discharge planning and possible placement per report that pt does not feel safe returning home at discharge. SW attempted to meet with pt. Pt confused and unable to answer questions appropriately. Pt currently on IV pain medications and had 2 seizures today per RN. Pt changed from observation to in-patient status. Neurology consulted. Pt currently on room air. SW did request COVID test per possible placement. SW awaiting PT/OT evaluation and recommendations. SW to continue following. Addendum: 08/06/20 at 1154 by GENE AGUIRRE Pt discharged home, self-care over the weekend. Pt COVID negative. No further SW needs at this time.
[2020-08-03] MEDS: POLYETHYLENE GLYCOL 3350 17 GM PACKET. PO SCH (15:20)
[2020-08-03] MEDS: SUCRALFATE 1 GM/10 ML ORAL.SUSP. PO SCH (16:30)
--- NOTE | 2020-08-03 17:58 | PDOC ---
[employer] PROGRESS NOTE Date of Service DOS: DATE: 08/03/20 TIME: 17:56 Chief Complaint Chief Complaint Chest pain, seizure Chest pain - with elevated troponin. will trend. Atypical presentation and with esophageal findings and negative recent cath within the past year. Cardiology consulted Sore throat - no signs of tonsillar exudate, however esophageal thickening on CT noted. 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 Diffuse esophageal wall thickening, may represent esophagitis. Enlarged left thyroid gland, unchanged. Left adrenal myelolipomas, unchanged. Consult Neurology History of Present Illness History of Present Illness Patient had an episode of seizure overnight, with postictal period. Consult placed to neurology. Patient showed me a log of her seizure activity over the recent months which was extensive. Discussed with RN. Vitals/I&O Vitals/I&O: Vital Signs Date Time Temp Pulse Resp B/P (MAP) Pulse Ox O2 Delivery O2 Flow Rate FiO2 08/03/20 15:00 98.0 84 17 138/61 (86) 96 Room Air 98.0 I & O 08/02/20 08/02/20 08/03/20 15:00 23:00 07:00 Intake Total 50 ml Balance 50 ml Physical Exam General: Alert, No acute distress, Other (Awake but limited response to questions with a flat affect.) Heart: Regular rate, Normal S1, Normal S2 Lungs: Clear Abdomen: Normal bowel sounds, Soft, No tenderness, No hepatosplenomegaly, No masses Extremities: No clubbing Skin: No rashes Labs Labs: Laboratory Tests Test 08/03/20 00:42 08/03/20 01:10 08/03/20 04:35 08/03/20 08:59 Glucose (Fingerstick) 335 mg/dL (70-99) 316 mg/dL (70-99) Troponin I Quantitative 0.041 ng/mL (0.000-0.055) 0.076 ng/mL (0.000-0.055) Sodium Level 136 mmol/L (136-145) Potassium Level 4.8 mmol/L (3.5-5.1) Chloride Level 100 mmol/L (98-107) Carbon Dioxide Level 22 mmol/L (21-32) Anion Gap 14 (6-14) Blood Urea Nitrogen 13 mg/dL (7-20) Creatinine 0.6 mg/dL (0.6-1.0) Estimated GFR (Cockcroft-Gault) 101.6 Glucose Level 266 mg/dL (70-99) Calcium Level 8.7 mg/dL (8.5-10.1) Thyroid Stimulating Hormone (TSH) 2.745 uIU/mL (0.358-3.74) Test 08/03/20 10:04 08/03/20 11:42 08/03/20 15:30 08/03/20 16:37 Troponin I Quantitative 0.088 ng/mL (0.000-0.055) Glucose (Fingerstick) 260 mg/dL (70-99) 230 mg/dL (70-99) SARS-CoV-2 Antigen (Rapid) Negative (NEGATIVE) Review of Systems Review of Systems: Seizure. Denies shortness of breath, denies headache, denies nausea, denies vomiting. Assessment and Plan Assessmemt and Plan Problems Medical Problems: (1) Chest pain Status: Acute Comment Review of Relevant I have reviewed the following items vlad (where applicable) has been applied. Medications: Current Medications Medications (Trade) Dose Ordered Sig/Khang Route PRN Reason Start Time Stop Time Status Last Admin Dose Admin Lidocaine (Lidoderm) 1 patch DAILY TD 08/02/20 23:15 08/03/20 00:02 Miscellaneous (Lidoderm Patch Removal) 1 ea QHS MC 08/03/20 09:00 08/03/20 09:48 Morphine Sulfate (Morphine Sulfate) 2 mg PRN Q4HRS PRN IV PAIN 08/02/20 23:15 08/03/20 06:53 Ferrous Sulfate (Feosol) 325 mg TIDWMEALS PO 08/03/20 08:00 08/03/20 17:33 Levetiracetam (Keppra) 1,250 mg BID PO 08/03/20 00:00 08/03/20 09:33 Gabapentin (Neurontin) 600 mg TID PO 08/03/20 00:00 08/03/20 15:20 Lacosamide (Vimpat) 100 mg BID PO 08/03/20 00:00 08/03/20 09:33 Levothyroxine Sodium (Synthroid) 100 mcg DAILY06 PO 08/03/20 06:00 08/03/20 06:48 Pantoprazole Sodium (Protonix) 40 mg DAILYAC PO 08/03/20 07:30 08/03/20 06:48 Insulin Glargine (Lantus Syringe) 12 unit QHS SQ 08/03/20 00:15 08/03/20 01:07 Enoxaparin Sodium (Lovenox 40mg Syringe) 40 mg 1X ONCE SQ 08/03/20 00:30 08/03/20 00:31 DC 08/03/20 01:02 Insulin Human Lispro (HumaLOG) 0-5 UNITS QIDACHS SQ 08/03/20 07:30 08/03/20 17:40 Insulin Human Lispro (HumaLOG) 3 units 1X ONCE SQ 08/03/20 01:45 08/03/20 01:46 DC 08/03/20 02:12 Nitroglycerin (Nitrostat) 0.4 mg PRN Q5MIN PRN SL CHEST PAIN 08/03/20 07:15 08/03/20 08:40 Polyethylene Glycol (miraLAX PACKET) 17 gm DAILY PO 08/03/20 15:00 08/03/20 15:20 Justifications for Admission Other Justification REJI REDMOND MD Aug 03, 2020 17:58
[2020-08-03 19:00] VITALS: BP 130/56
[2020-08-03] MEDS: traZODone 50 MG TABLET. PO SCH ×2 (21:31)
[2020-08-03] MEDS: ATORVASTATIN CALCIUM 10 MG TABLET. PO SCH (21:32)
[2020-08-03] MEDS: ENOXAPARIN 40 MG/0.4 ML SYRINGE. SQ SCH (21:34)
[2020-08-03 23:03] VITALS: BP 150/66
[2020-08-04 03:18] VITALS: BP 118/47
[2020-08-04] MEDS: LEVOTHYROXINE 100 MCG TABLET PO SCH (06:10)
[2020-08-04] MEDS: PANTOPRAZOLE 40 MG TABLET.DR. PO SCH (06:11)
[2020-08-04 07:05] VITALS: BP 133/51
--- NOTE | 2020-08-04 08:17 | NUR ---
Paged Dr. Sanders for pts blood sugar of [address] Sanders called back with orders to give the 5 units of Humalog SQ per Sliding Scale and to order 3 units of Regular insulin IV X1 and recheck before lunch. Will continue to monitor patient.
[2020-08-04] MEDS ORDERED: INSULIN LISPRO 300 UNITS/3 ML VIAL. SQ ONE ×2 (08:30→09:15)
[2020-08-04] MEDS: GABAPENTIN 300 MG CAPSULE. PO SCH ×3 (08:50→20:41)
[2020-08-04] MEDS: SUCRALFATE 1 GM/10 ML ORAL.SUSP. PO SCH ×2 (08:50→17:41)
[2020-08-04] MEDS: LIDOCAINE (700MG/PATCH) PATCH. TD SCH (08:51)
[2020-08-04] MEDS: LACOSAMIDE 50 MG TABLET PO SCH ×2 (08:51→20:40)
[2020-08-04] MEDS: levETIRAcetam 500 MG TABLET PO SCH ×2 (08:51→20:40)
[2020-08-04] MEDS: FERROUS SULFATE 325 MG TABLET. PO SCH ×3 (08:51→17:41)
[2020-08-04] MEDS: POLYETHYLENE GLYCOL 3350 17 GM PACKET. PO SCH (08:51)
[2020-08-04] MEDS: INSULIN LISPRO 300 UNITS/3 ML VIAL. SQ SCH ×4 (09:03→17:00)
[2020-08-04] MEDS ORDERED: IV NORMAL SALINE 500ML BAG 500 ML IV ONE (09:15)
[2020-08-04] MEDS ORDERED: DOCUSATE SODIUM 100 MG CAPSULE. PO PRN (10:00)
[2020-08-04] MEDS ORDERED: MAG HYDROX/ALUMINUM HYD/SIMETH 30 ML ORAL.SUSP PO PRN (10:00)
[2020-08-04] MEDS ORDERED: ALBUTEROL SULFATE 2.5 MG/3 ML NEBU. NEB PRN (10:00)
[2020-08-04] MEDS ORDERED: diazePAM 2 MG TABLET PO PRN (10:00)
[2020-08-04] MEDS ORDERED: BUTALB/APAP/CAFEIN 50/325/40MG TABLET. PO PRN (10:00)
--- NOTE | 2020-08-04 10:04 | PDOC ---
[employer] PROGRESS NOTE Date of Service DOS: DATE: 08/04/20 TIME: 09:59 Chief Complaint Chief Complaint Chest pain, seizure Chest pain - with elevated troponin. will trend. Atypical presentation and with esophageal findings and negative recent cath within the past year Cardiology consulted, neurology consulted, GI consulted Sore throat - no signs of tonsillar exudate, however esophageal thickening on CT noted. 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 Diffuse esophageal wall thickening, may represent esophagitis. Enlarged left thyroid gland, unchanged. Left adrenal myelolipomas, unchanged. History of Present Illness History of Present Illness Patient evaluated at bedside. She states her chest pain is improved, she is tolerating her liquid diet. Per GI, EGD need not be done urgently if she tolerates her diet. She continues to tolerate a full diet and remained seizure- free, may discharge today or tomorrow. Patient is anxious to go home. Vitals/I&O Vitals/I&O: Vital Signs Date Time Temp Pulse Resp B/P (MAP) Pulse Ox O2 Delivery O2 Flow Rate FiO2 08/04/20 07:05 98.7 91 21 133/51 (78) 99 Room Air 98.7 I & O 08/03/20 08/03/20 08/04/20 15:00 23:00 07:00 Intake Total 240 ml Balance 240 ml Physical Exam General: Alert, No acute distress, Other (Awake but limited response to questions with a flat affect.) Heart: Regular rate, Normal S1, Normal S2 Lungs: Clear Abdomen: Normal bowel sounds, Soft, No tenderness, No hepatosplenomegaly, No masses Extremities: No clubbing Skin: No rashes Labs Labs: Laboratory Tests Test 08/03/20 10:04 08/03/20 11:42 08/03/20 15:30 08/03/20 16:37 Troponin I Quantitative 0.088 ng/mL (0.000-0.055) Glucose (Fingerstick) 260 mg/dL (70-99) 230 mg/dL (70-99) SARS-CoV-2 Antigen (Rapid) Negative (NEGATIVE) Test 08/03/20 21:34 08/03/20 21:55 08/03/20 22:20 08/04/20 07:58 Glucose (Fingerstick) 79 mg/dL (70-99) 91 mg/dL (70-99) 130 mg/dL (70-99) 448 mg/dL (70-99) Assessment and Plan Assessmemt and Plan Problems Medical Problems: (1) Chest pain Status: Acute Comment Review of Relevant I have reviewed the following items vlad (where applicable) has been applied. Medications: Current Medications Medications (Trade) Dose Ordered Sig/Khang Route PRN Reason Start Time Stop Time Status Last Admin Dose Admin Atorvastatin Calcium (Lipitor) 10 mg HS PO 08/03/20 21:00 08/03/20 21:32 Enoxaparin Sodium (Lovenox 40mg Syringe) 40 mg Q24H SQ 08/03/20 21:00 08/03/20 21:34 Sucralfate (Carafate) 1 gm BIDAC PO 08/03/20 16:30 08/04/20 08:50 Polyethylene Glycol (miraLAX PACKET) 17 gm DAILY PO 08/03/20 15:00 08/04/20 08:51 Insulin Human Lispro (HumaLOG) 4 units 1X ONCE SQ 08/04/20 09:15 08/04/20 09:19 DC 08/04/20 09:40 Sodium Chloride 500 ml @ 500 mls/hr 1X ONCE IV 08/04/20 09:15 08/04/20 10:14 08/04/20 09:33 Justifications for Admission Other Justification REJI REDMOND MD Aug 04, 2020 10:04
[2020-08-04] MEDS ORDERED: GABAPENTIN 300 MG CAPSULE. PO SCH (10:30)
[2020-08-04 11:05] VITALS: BP 120/67
--- NOTE | 2020-08-04 11:48 | NUR ---
Spoke to Dr. Sanders about patients blood sugar at lunch time being 421. New orders were put in for lunch blood sugar, for now give 5 units of Hulmalog SQ and sliding scale of 9 units of Humalog SQ. Reassess at dinner time. Will continue to monitor patient.
[2020-08-04] MEDS: ASPIRIN ENTERIC COATED 325 MG TABLET.DR. PO SCH (12:13)
[2020-08-04] MEDS: amLODIPine BESYLATE 10 MG TABLET PO SCH (12:13)
[2020-08-04] MEDS: CHOLECALCIFEROL (VITAMIN D3) 5,000 UNIT CAPSULE PO SCH (12:13)
--- NOTE | 2020-08-04 15:04 | PDOC ---
Date of Service: DATE: 08/04/20 TIME: 14:59 Subjective: Subjective: Chest pain resolved. Still no BM Objective: Vital Signs: Vital Signs Date Time Temp Pulse Resp B/P (MAP) Pulse Ox O2 Delivery O2 Flow Rate FiO2 08/04/20 12:13 83 120/67 08/04/20 12:11 96 Room Air 08/04/20 11:05 99.1 20 99.1 Labs: Laboratory Tests Test 08/03/20 15:30 08/03/20 16:37 08/03/20 21:34 08/03/20 21:55 SARS-CoV-2 Antigen (Rapid) Negative (NEGATIVE) Glucose (Fingerstick) 230 mg/dL (70-99) 79 mg/dL (70-99) 91 mg/dL (70-99) Test 08/03/20 22:20 08/04/20 07:58 08/04/20 10:56 Glucose (Fingerstick) 130 mg/dL (70-99) 448 mg/dL (70-99) 421 mg/dL (70-99) Physical Exam: Physical Exam: Physical Exam General: Other (Awake but limited response to questions with a flat affect.) HEENT: Atraumatic Lungs: Clear to auscultation Heart: Regular rate, Normal S1, Normal S2 Abdomen: Normal bowel sounds, Soft, No tenderness, No hepatosplenomegaly, No masses Extremities: No clubbing Skin: No rashes Assessment & Plan: Assessment : Assessment/Plan Atypical chest pain. She has been seen by cardiology and her symptoms are not likely related to acute coronary syndrome. As well her symptoms are atypical for GERD but the esophageal thickening on CT is somewhat disconcerting. However she had seizure activity yesterday morning and was confused so elective endoscopy which was planned has now been canceled. I think empiric treatment for likely reflux disease with pantoprazole and Carafate would be more prudent. There is nothing to suspect any other cause for her esophagitis including infections at this time. History of Schatzki's ring and intermittent dysphagia. I could not get a clear history from her as to whether she has recent dysphasia or not but it does not appear to be a predominant symptom Constipation. This is a recurring problem for her with a bowel pattern of sometimes 2 or 3/week and sometimes 1/week. She does not take any laxative as far she knows. I think with this sort of pattern a more regular treatment program might be beneficial. Plan: Plan: Continue pantoprazole daily empirically add sucralfate for possible esophagitis. EGD was planned yesterday but due to seizures and confusion it is been canceled. Advance as tolerated. If she tolerates a diet and her symptoms are relatively well controlled then endoscopic evaluation is not needed urgently. For constipation I will add MiraLAX and would recommend this on a regular basis in the outpatient setting. It is reassuring that she had a normal colonoscopy 2 years ago. Justicifation of Admission Dx: Justifications for Admission: Justification of Admission Dx: Yes Angina: [facility]p [facility] Rest LIA KENT MD Aug 04, 2020 15:04
[2020-08-04 15:05] VITALS: BP 100/48
[2020-08-04] MEDS ORDERED: INSULIN LISPRO 300 UNITS/3 ML VIAL. SQ SCH (17:00)
[2020-08-04 19:00] VITALS: BP 110/46
[2020-08-04] MEDS: DEXTROSE 50% 25 GM / 50ML DISP.SYRIN. IV PRN ×2 (20:23→20:26)
[2020-08-04] MEDS: PATCH REMOVAL. MC SCH (20:32)
[2020-08-04] MEDS: ATORVASTATIN CALCIUM 10 MG TABLET. PO SCH (20:41)
[2020-08-04] MEDS: PHENYTOIN SODIUM EXTENDED 100 MG CAPSULE PO SCH (20:41)
[2020-08-04] MEDS: traZODone 50 MG TABLET. PO SCH (20:41)
[2020-08-04] MEDS: ENOXAPARIN 40 MG/0.4 ML SYRINGE. SQ SCH (20:42)
[2020-08-04] MEDS: INSULIN GLARGINE SYRINGE. SQ SCH (21:00)
--- NOTE | 2020-08-04 21:30 | NUR ---
zulay desai/Dr Sanders.
[2020-08-04 23:04] VITALS: BP 128/49
[2020-08-05 03:19] VITALS: BP 99/60
[2020-08-05] MEDS: PANTOPRAZOLE 40 MG TABLET.DR. PO SCH (06:04)
[2020-08-05] MEDS: LEVOTHYROXINE 100 MCG TABLET PO SCH (06:04)
[2020-08-05 07:00] VITALS: BP 143/52
[2020-08-05] MEDS ORDERED: INSULIN LISPRO 300 UNITS/3 ML VIAL. SQ SCH (07:00)
[2020-08-05] MEDS: SUCRALFATE 1 GM/10 ML ORAL.SUSP. PO SCH (07:32)
[2020-08-05] MEDS: INSULIN LISPRO 300 UNITS/3 ML VIAL. SQ SCH ×3 (08:00→12:45)
[2020-08-05] MEDS ORDERED: INSULIN LISPRO 300 UNITS/3 ML VIAL. SQ ONE (08:30)
[2020-08-05] MEDS ORDERED: POLYETHYLENE GLYCOL 3350 BTL 238 GM POWDER PO SCH (09:00)
[2020-08-05] MEDS ORDERED: NON FORMULARY ITEM (Omeprazole Magnesium (Prilosec Otc) 1 TAB) PO SCH (09:00)
[2020-08-05] MEDS: POLYETHYLENE GLYCOL 3350 17 GM PACKET. PO SCH (09:01)
[2020-08-05] MEDS: LACOSAMIDE 50 MG TABLET PO SCH (09:02)
[2020-08-05] MEDS: levETIRAcetam 500 MG TABLET PO SCH (09:02)
[2020-08-05] MEDS: GABAPENTIN 300 MG CAPSULE. PO SCH ×2 (09:02→15:06)
[2020-08-05] MEDS: CHOLECALCIFEROL (VITAMIN D3) 5,000 UNIT CAPSULE PO SCH (09:02)
[2020-08-05] MEDS: ASPIRIN ENTERIC COATED 325 MG TABLET.DR. PO SCH (09:03)
[2020-08-05] MEDS: FERROUS SULFATE 325 MG TABLET. PO SCH ×2 (09:03→12:41)
[2020-08-05] MEDS: LIDOCAINE (700MG/PATCH) PATCH. TD SCH (09:03)
[2020-08-05] MEDS: amLODIPine BESYLATE 10 MG TABLET PO SCH (09:03)
--- NOTE | 2020-08-05 09:21 | PDOC ---
[employer] PROGRESS NOTE Date of Service DOS: DATE: 08/05/20 TIME: 09:18 Chief Complaint Chief Complaint Chest pain, seizure Chest pain - with elevated troponin. will trend. Atypical presentation and with esophageal findings and negative recent cath within the past year Cardiology consulted, neurology consulted, GI consulted Sore throat - no signs of tonsillar exudate, however esophageal thickening on CT noted. 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 Diffuse esophageal wall thickening, may represent esophagitis. Enlarged left thyroid gland, unchanged. Left adrenal myelolipomas, unchanged. History of Present Illness History of Present Illness 08/04 Patient evaluated at bedside. She states her chest pain is improved, she is tolerating her liquid diet. Per GI, EGD need not be done urgently if she tolerates her diet. She continues to tolerate a full diet and remained seizure- free, may discharge today or tomorrow. Patient is anxious to go home. 08/05 Patient evaluated at bedside. Discussed with RN, no seizure-like activities overnight. She had an episode of hypoglycemia overnight that is resolved. Plan discharge today with GI and neurology follow-up. Vitals/I&O Vitals/I&O: Vital Signs Date Time Temp Pulse Resp B/P (MAP) Pulse Ox O2 Delivery O2 Flow Rate FiO2 08/05/20 09:03 77 143/52 08/05/20 07:00 98.0 18 99 Room Air 98.0 Physical Exam General: Alert, No acute distress, Other (Awake but limited response to questions with a flat affect.) Heart: Regular rate, Normal S1, Normal S2 Lungs: Clear Abdomen: Normal bowel sounds, Soft, No tenderness, No hepatosplenomegaly, No masses Extremities: No clubbing Skin: No rashes Labs Labs: Laboratory Tests Test 08/04/20 10:56 08/04/20 15:43 08/04/20 20:21 08/04/20 20:39 Glucose (Fingerstick) 421 mg/dL (70-99) 132 mg/dL (70-99) 31 mg/dL (70-99) 203 mg/dL (70-99) Test 08/05/20 07:49 Glucose (Fingerstick) 430 mg/dL (70-99) Review of Systems Review of Systems: All systems negative Assessment and Plan Assessmemt and Plan Problems Medical Problems: (1) Chest pain Status: Acute Comment Review of Relevant I have reviewed the following items vlad (where applicable) has been applied. Medications: Current Medications Medications (Trade) Dose Ordered Sig/Khang Route PRN Reason Start Time Stop Time Status Last Admin Dose Admin Insulin Human Lispro (HumaLOG) 0-9 UNITS TIDWMEALS SQ 08/04/20 12:00 08/04/20 12:17 Amlodipine Besylate (Norvasc) 10 mg DAILY PO 08/04/20 10:30 08/05/20 09:03 Aspirin (Ecotrin) 325 mg DAILY PO 08/04/20 10:30 08/05/20 09:03 Vitamin D (Vitamin D3) 5,000 unit DAILY PO 08/04/20 10:30 08/05/20 09:02 Insulin Human Lispro (HumaLOG) 4 units DAILYWSUP SQ 08/04/20 17:00 08/04/20 17:45 Insulin Human Lispro (HumaLOG) 5 units DAILYBFRLUN SQ 08/04/20 11:30 08/04/20 12:16 Justifications for Admission Other Justification REJI REDMOND MD Aug 05, 2020 09:21
[2020-08-05] MEDS ORDERED: IV NORMAL SALINE 1000ML BAG 1,000 ML IV ONE (10:30)
[2020-08-05 11:00] VITALS: BP 117/98
--- NOTE | 2020-08-05 12:58 | PDOC3 ---
Discharge Summary Visit Information Date of Admission: Aug 03, 2020 Date of Discharge: Aug 05, 2020 Final Diagnosis Problems Medical Problems: (1) Chest pain Status: Acute Brief Hospital Course Allergies Allergies Coded Allergies Type Severity Reaction Last Updated Verified I S O L A T I O N *CONTACT* Allergy Unknown 07/17/19 Yes No Known Medication Allergies Allergy Unknown 07/17/19 Yes Vital Signs Vital Signs Date Time Temp Pulse Resp B/P (MAP) Pulse Ox O2 Delivery O2 Flow Rate FiO2 08/05/20 11:00 98.2 76 18 117/98 (104) 98 Room Air 98.2 Lab Results Laboratory Tests Test 08/03/20 15:25 08/03/20 15:30 08/03/20 16:37 08/03/20 21:34 Coronavirus (PCR) Not detected (Not Detected) SARS-CoV-2 Antigen (Rapid) Negative (NEGATIVE) Glucose (Fingerstick) 230 mg/dL (70-99) 79 mg/dL (70-99) Test 08/03/20 21:55 08/03/20 22:20 08/04/20 07:58 08/04/20 10:56 Glucose (Fingerstick) 91 mg/dL (70-99) 130 mg/dL (70-99) 448 mg/dL (70-99) 421 mg/dL (70-99) Test 08/04/20 15:43 08/04/20 20:21 08/04/20 20:39 08/05/20 07:49 Glucose (Fingerstick) 132 mg/dL (70-99) 31 mg/dL (70-99) 203 mg/dL (70-99) 430 mg/dL (70-99) Test 08/05/20 10:04 08/05/20 11:41 Glucose (Fingerstick) 582 mg/dL (70-99) 354 mg/dL (70-99) Laboratory Tests Test 08/04/20 15:43 08/04/20 20:21 08/04/20 20:39 08/05/20 07:49 Glucose (Fingerstick) 132 mg/dL (70-99) 31 mg/dL (70-99) 203 mg/dL (70-99) 430 mg/dL (70-99) Test 08/05/20 10:04 08/05/20 11:41 Glucose (Fingerstick) 582 mg/dL (70-99) 354 mg/dL (70-99) Brief Hospital Course Ms. Lyle is a 60 old female who presented with esophagitis and seizure. Consults were placed to neurology, cardiology, and gastroenterology. CT chest showed diffuse esophageal wall thickening, customer solutions representative of esophagitis. She was recommended PPI and Carafate, and was not a candidate for EGD due to recent seizures. Her seizure medications were adjusted. She was stable for discharge. Discharge Information Condition at Discharge: Stable Follow Up: Weeks Disposition/Orders: D/C to Home Scheduled Amlodipine Besylate (Amlodipine Besylate) 10 Mg Tablet, 10 MG PO DAILY, (Reported) Entered as Reported by: GAVI HUNG on 02/21/181217 Last Action: Continued on 08/04/20956 by REJI REDMOND MD Aspirin (Aspirin Ec) 325 Mg Tablet.dr, 1 TAB PO DAILY for Thromboprophyalxis for 30 Days, #30 Ref 5 Prescribed by: FRANCINE JOSE MD on 07/19/191153 Last Action: Continued on 08/04/20956 by REJI REDMOND MD Atorvastatin Calcium (Atorvastatin Calcium) 10 Mg Tablet, 1 TAB PO DAILY, #30 Ref 5 (Reported) Entered as Reported by: GAVI HUNG on 02/21/181217 Last Action: Continued on 08/02/202355 by FRANCINE JOSE MD Cholecalciferol (Vitamin D3) (Vitamin D3) 5,000 Unit Capsule, 5,000 UNIT PO DAILY for Hypovitaminosis D for 30 Days, #30 Ref 11 Prescribed by: FRANCINE JOSE MD on 07/19/191153 Last Action: Continued on 08/04/20956 by REJI REDMOND MD Enoxaparin Sodium (Enoxaparin Sodium) 40 Mg/0.4 Ml Disp.syrin, 40 MG SQ Q24H for DVT PROPHYLAXIS for 14 Days, #14 Prescribed by: JORGE DOMINGO MD on 03/20/20 1032 Ferrous Sulfate (Ferrous Sulfate) 325 Mg Tablet, 325 MG PO TID for supp, (Reported) Entered as Reported by: RUDY GORDON on 08/02/20 2331 Last Action: Continued on 08/02/202334 by RUDY GORDON Gabapentin (Neurontin) 600 Mg Tablet, 600 MG PO TID, (Reported) Entered as Reported by: JAMIE ESTRADA on 02/04/15 1451 Last Action: Converted on 08/04/20956 by REJI REDMOND MD Gabapentin (Gabapentin) 600 Mg Tablet, 600 MG PO TID for NEUROGENIC PAIN, (Reported) Entered as Reported by: RUDY GORDON on 08/02/202330 Last Action: Converted on 08/02/202334 by RUDY GORDON Insulin Aspart (Novolog) 100 Unit/1 Ml Vial, 12 UNIT SQ DAILY07, (Reported) Entered as Reported by: RACHEAL LA on 07/20/171115 Last Action: Converted on 08/04/20956 by REJI REDMOND MD Insulin Aspart (Novolog) 100 Unit/1 Ml Vial, 5 UNIT SQ DAILYBFRLUN, (Reported) Entered as Reported by: RACHEAL LA on 07/20/171115 Last Action: Converted on 08/04/20956 by REJI REDMOND MD Insulin Aspart (Novolog) 100 Unit/1 Ml Vial, 4 UNIT SQ DAILYWSUP, (Reported) Entered as Reported by: RACHEAL LA on 07/20/171115 Last Action: Converted on 08/04/20956 by REJI REDMOND MD Insulin Detemir (Levemir) 100 Unit/1 Ml Vial, 12 UNIT SQ QHS, (Reported) Entered as Reported by: RACHEAL LA on 07/20/171115 Last Action: Converted on 08/02/202355 by FRANCINE JOSE MD Lacosamide (Vimpat) 100 Mg Tablet, 100 MG PO BID for seizures, (Reported) Entered as Reported by: RUDY GORDON on 08/02/202330 Last Action: Converted on 08/02/202334 by RUDY GORDON Levetiracetam (Levetiracetam) 500 Mg Tablet, 2.5 TAB PO BID for seizures, #180 Ref 3 (Reported) Entered as Reported by: RUDY GORDON on 08/02/202330 Last Action: Continued on 08/02/202334 by RUDY GORDON Levothyroxine Sodium (Synthroid) 100 Mcg Tablet, 100 MCG PO DAILYAC for THYROID SUPPLEMENT, #30 Ref 0 (Reported) Entered as Reported by: Zenaida Paredes on 07/16/19 1730 Last Action: Continued on 08/02/202355 by FRANCINE JOSE MD Omeprazole Magnesium (Prilosec Otc) 20 Mg Tablet.dr, 1 TAB PO DAILY for 30 Days, #30 Ref 0 Prescribed by: JAVY ÁLVAREZ D.O. on 05/29/201124 Last Action: Converted on 08/04/20956 by REJI REDMOND MD Pantoprazole Sodium (Protonix ) 40 Mg Tablet.dr, 1 TAB PO DAILY, #30 Ref 5 Prescribed by: ELLEN RICHMOND MD on 06/01/17 1134 Last Action: Continued on 08/02/202355 by FRANCINE JOSE MD Phenytoin Sodium Extended (Dilantin) 100 Mg Capsule, 30 MG PO QHS for , (Reported) Entered as Reported by: Ivan Silva on 12/01/19 1315 Phenytoin Sodium Extended (Phenytoin Sodium Extended) 200 Mg Capsule, 1 CAP PO HS for seizures for 30 Days, #30 Ref 0 (Reported) Entered as Reported by: RUDY GORDON on 08/02/202330 Last Action: Converted on 08/02/202334 by RUDY GORDON Polyethylene Glycol 3350 (Polyethylene Glycol 3350) 255 Gm Powder, 17 GM PO DAILY, #527 hold for loose BM Prescribed by: YAS JEREZ MD on 10/01/17 1051 Last Action: Continued on 08/04/20956 by REJI REDMOND MD Sucralfate (Carafate) 1 Gm Tablet, 1 TAB PO QID for 14 Days, #56 Ref 0 Prescribed by: JAVY ÁLVAREZ D.O. on 05/29/20 112 Trazodone Hcl (Trazodone Hcl) 50 Mg Tablet, 1 TAB PO QHS for sleep, #30 Ref 1 (Reported) Entered as Reported by: RUDY GORDON on 08/02/202330 Last Action: Continued on 08/02/202334 by RUDY GORDON Scheduled PRN Acetaminophen (Tylenol) 325 Mg Tablet, 650 MG PO PRN Q4HRS PRN for TEMP OVER 100.4F OR MILD PAIN for 14 Days, #30 Prescribed by: JORGE DOMINGO MD on 03/20/20 1032 Acetaminophen With Codeine (Tylenol With Codeine #3 Tablet) 1 Each Tablet, 1 TAB PO PRN Q6HRS PRN for PAIN, #10 Prescribed by: KWAKU MAR MD on 10/03/19 1055 Albuterol Sulfate (Proair Hfa) 8.5 Gm Hfa.aer.ad, 2.5 MG NEB PRN Q4HRS PRN for SHORTNESS OF BREATH for 14 Days, #1 Prescribed by: JORGE DOMINGO MD on 03/20/20 103 Last Action: Continued on 08/04/20956 by REJI REDMOND MD Butalb/Acetaminophen/Caffeine (Immlcn-Bsumyvgo-Emsp 50-325-40) 1 Each Tablet, 1 EACH PO Q6HRS PRN for HEADACHE, #14 Prescribed by: ALEX ROGERS D.O. on 03/29/20 0802 Last Action: Continued on 08/04/20956 by REJI REDMOND MD Diazepam (Valium) 2 Mg Tablet, 2 MG PO TID PRN for ANXIETY / AGITATION, (Reported) Entered as Reported by: Ivan Silva on 12/01/19 1315 Last Action: Continued on 08/04/20956 by REJI REDMOND MD Docusate Sodium (Dok) 100 Mg Capsule, 100 MG PO PRN BID PRN for CONSTIPATION for 30 Days, #30 Prescribed by: JORGE DOMINGO MD on 03/20/201031 Last Action: Continued on 08/04/20956 by REJI REDMOND MD Lorazepam (Ativan) 0.5 Mg Tablet, 0.5 MG PO PRN Q4HRS PRN for ANXIETY / AGITATION for 10 Days, #20 Prescribed by: JORGE DOMINGO MD on 03/20/201031 Last Action: HELD on 08/04/20956 by REJI REDMOND MD Mag Hydrox/Al Hydrox/Simeth (Mag-Al Plus Xs Suspension) 30 Ml Oral.susp, 30 ML PO PRN DAILY PRN for HEARTBURN / GAS for 28 Days, #120 Prescribed by: JORGE DOMINGO MD on 03/20/201031 Last Action: Continued on 08/04/20956 by REJI REDMOND MD Oxycodone/Apap 5-325 (Percocet 5-325 Mg Tablet ) 1 Each Tablet, 1 TAB PO PRN Q6HRS PRN for PAIN, Ref 0 (Reported) Entered as Reported by: RUDY GORDON on 08/02/202330 Last Action: Continued on 08/02/202334 by RUDY GORDON Justicifation of Admission Dx: Justifications for Admission: Justification of Admission Dx: Yes Angina: Symp at Rest REJI REDMOND MD Aug 05, 2020 12:58
[2020-08-05] MEDS ORDERED: SUCR1TAB35 PO (13:08)
[2020-08-05] MEDS ORDERED: LEVE500T6 PO (13:08)
[2020-08-05] MEDS ORDERED: PANT40TA77 PO (13:08)
[2020-08-05] MEDS ORDERED: PHEN200C3 PO (13:08)
[2020-08-05 15:00] VITALS: BP 102/41
--- NOTE | 2020-08-05 15:11 | PDOC ---
Date of Service: DATE: 08/05/20 TIME: 15:10 Subjective: Subjective: chest pain resolved. Ready to go home Objective: Vital Signs: Vital Signs Date Time Temp Pulse Resp B/P (MAP) Pulse Ox O2 Delivery O2 Flow Rate FiO2 08/05/20 11:00 98.2 76 18 117/98 (104) 98 Room Air 98.2 Labs: Laboratory Tests Test 08/04/20 15:43 08/04/20 20:21 08/04/20 20:39 08/05/20 07:49 Glucose (Fingerstick) 132 mg/dL (70-99) 31 mg/dL (70-99) 203 mg/dL (70-99) 430 mg/dL (70-99) Test 08/05/20 10:04 08/05/20 11:41 Glucose (Fingerstick) 582 mg/dL (70-99) 354 mg/dL (70-99) Physical Exam: Physical Exam: Physical Exam General: Coloring in her bed HEENT: Atraumatic Lungs: Clear to auscultation Heart: Regular rate, Normal S1, Normal S2 Abdomen: Normal bowel sounds, Soft, No tenderness, No hepatosplenomegaly, No masses Extremities: No clubbing Skin: No rashes Assessment & Plan: Assessment : Assessment/Plan Atypical chest pain. She has been seen by cardiology and her symptoms are not likely related to acute coronary syndrome. As well her symptoms are atypical for GERD but the esophageal thickening on CT is somewhat disconcerting. However she had seizure activity yesterday morning and was confused so elective endoscopy which was planned has now been canceled. I think empiric treatment for likely reflux disease with pantoprazole and Carafate would be more prudent. There is nothing to suspect any other cause for her esophagitis including infections at this time. History of Schatzki's ring and intermittent dysphagia. I could not get a clear history from her as to whether she has recent dysphasia or not but it does not appear to be a predominant symptom Constipation. This is a recurring problem for her with a bowel pattern of sometimes 2 or 3/week and sometimes 1/week. She does not take any laxative as far she knows. I think with this sort of pattern a more regular treatment program might be beneficial. Plan: Plan: Continue pantoprazole daily empirically add sucralfate for possible esophagitis. For constipation I will add MiraLAX and would recommend this on a regular basis in the outpatient setting. It is reassuring that she had a normal colonoscopy 2 years ago. Okay to d/c from a gi standpoint Justicifation of Admission Dx: Justifications for Admission: Justification of Admission Dx: Yes Angina: Symp at Rest LIA KENT MD Aug 05, 2020 15:11
== END 2020-08-05 16:30 | disposition home or self-care (01) | DRG 392 ==
LOC: ER 08:41 → ED HOLD 15:19 → 5 NORTH 21:02 → OBSVTOIN 08-03 09:05
PROVIDERS: ADMIT Internal Medicine; ATTEND Internal Medicine
DX: K21.0 Gastro-esophageal reflux disease with esophagitis (principal); I87.1 Compression of vein; M84.48XA Pathological fracture, other site, initial encounter for fracture; J98.11 Atelectasis; Z20.828 Contact with and (suspected) exposure to other viral communicable diseases; F41.9 Anxiety disorder, unspecified; G43.909 Migraine, unspecified, not intractable, without status migrainosus; G47.00 Insomnia, unspecified; G89.29 Other chronic pain; K59.00 Constipation, unspecified; E78.00 Pure hypercholesterolemia, unspecified; E03.9 Hypothyroidism, unspecified; E78.5 Hyperlipidemia, unspecified; E11.40 Type 2 diabetes mellitus with diabetic neuropathy, unspecified; Z62.810 Personal history of physical and sexual abuse in childhood; N18.3 Chronic kidney disease, stage 3 (moderate); I12.9 Hypertensive chronic kidney disease with stage 1 through stage 4 chronic kidney disease, or unspecified chronic kidney disease; E11.22 Type 2 diabetes mellitus with diabetic chronic kidney disease; M21.371 Foot drop, right foot; Z96.612 Presence of left artificial shoulder joint; Z96.649 Presence of unspecified artificial hip joint; Z85.528 Personal history of other malignant neoplasm of kidney; Z91.410 Personal history of adult physical and sexual abuse; Z90.49 Acquired absence of other specified parts of digestive tract; Z90.5 Acquired absence of kidney; Z83.3 Family history of diabetes mellitus; Z82.49 Family history of ischemic heart disease and other diseases of the circulatory system
CPT/HCPCS: 36415; 70360; 71045; 71275; 80048; 80053; 80307; 82962; 83690; 83735; 83880; 84443; 84484; 85025; 87426; 93005; 93971; 94760; 99285; G0378; G0379; J1650; J1815; J2270; J7030; J7040; Q9967; U0003-CS

== ENCOUNTER → 2020-12-12 | Outpatient (CLI) | payer OTHER ==
[~2020-12-12] MED LIST changes: +AMLO-187 PO; -AMLO10TA8 PO; +FERR325T14 PO; +LACO100T PO; +LEVE500T6 PO; +PHEN200C3 PO; +TRAZ-118 PO
--- NOTE | 2020-12-12 17:40 | RAD ---
MR#: [id number] Date of Study: 12/12/2020 Ordering Physician: JESUS AUSTIN, Referring Physician: JESUS AUSTIN, Tech: Abdirizak Villa MBA, RDMS, RVT, RDCS, RTR APPROVED REPORT Patient Location : OUT-PATIENT Indications Lower Extremity Edema : Bilateral Findings Grayscale images of the bilateral saphenofemoral junctions, greater and lesser saphenous veins did no t reveal any obvious evidence of thrombus The bilateral greater and lesser saphenous veins did not reveal any evidence of reflux. Normal calib er bilateral greater and lesser saphenous veins Critical Notification Critical Value: No <Conclusion> 1. No evidence of reflux in the bilateral greater and lesser saphenous vein Signed by : Mejia Benson, Electronically Approved : 12/12/2020 17:39:30
--- NOTE | 2020-12-12 17:41 | RAD ---
MR#: [id number] Date of Study: 12/12/2020 Ordering Physician: JESUS AUSTIN, Referring Physician: JESUS AUSTIN, Tech: Abdirizak Villa MBA, RDMS, RVT, RDCS, RTR APPROVED REPORT Bilateral Lower Extremity Venous Study for DVT Patient Location: OUT-PATIENT Indications Lower Extremity Edema: Bilateral Vein Imaging (Right) CFV (R): Compressible SFJ (R): Compressible FEM (R): Compressible POP (R): Compressible DFV (R): Compressible PTV (R): Spontaneous GSV (R): Spontaneous Peroneals (R): Spontaneous Vein Imaging (Left) CFV (L): Compressible SFJ (L): Compressible FEM (L): Compressible POP (L): Compressible DFV (L): Compressible PTV (L): Spontaneous GSV (L): Spontaneous Peroneals (L): Spontaneous Doppler Evaluation (Right) CFV (R): Spontaneous POP (R):Spontaneous Doppler Evaluation (Left) CFV (L):Spontaneous POP (L):Spontaneous Findings The bilateral lower extremity deep veins were evaluated for thrombus with color Doppler, spectral and grayscale images. On the right the grayscale images of the common femoral, superficial femoral and popliteal veins do n ot demonstrate any evidence of thrombus and these veins appear to be compressible. The below-knee vei ns were not well visualized but grossly appear to be compressible. Spectral imaging and color Doppler do not reveal any evidence of obstruction to flow with normal respirophasic variation above the knee . Below the knee there is spontaneous flow noted. On the left, the grayscale images of the common femoral, superficial femoral and popliteal veins do n ot demonstrate any evidence of thrombus and these veins appear to be compressible. The below-knee vei ns again were not well visualized but grossly appear to be compressible. Spectral imaging and color D oppler do not reveal any evidence of obstruction to flow with normal respirophasic variation above th e knee. The below-knee veins demonstrate spontaneous flow. Critical Notification Critical Value: No <Conclusion> 1. Negative for DVT in the BLE. Technically difficult study Signed by : Mejia Benson, Electronically Approved : 12/12/2020 17:40:34
== END ==
LOC: US 12:11
PROVIDERS: ATTEND Internal Medicine Cardiovascular Disease
DX: R22.43 Localized swelling, mass and lump, lower limb, bilateral (principal)
CPT/HCPCS: 93970

== ENCOUNTER 2020-12-13 09:14 | Emergency (ER) | payer OTHER ==
[~2020-12-13] VITALS: Ht 152.4 cm; Wt 62.0 kg
--- NOTE | 2020-12-13 09:50 | PHYS DOC ---
Past Medical History Past Medical History: Anxiety, Diabetes-Type II, GERD, High Cholesterol, Hypertension, Hypothyroid, Migraines, Seizure, Other Additional Past Medical Histor: Abd pain,Neuropathy,Insomnia,Chronic pain, LEFT SHOULDER PAIN Past Surgical History: Hip Replacement, Other Additional Past Surgical Histo: Left shoulder and right kidney surgeries, LEFT HIP Smoking Status: Never Smoker Alcohol Use: None Drug Use: None General Adult EDM: Chief Complaint: MECHANICAL FALL HPI: HPI: 60-year-old female past medical history significant for seizure disorder, hypothyroidism, hypertension, hyperlipidemia, insulin-dependent diabetes and GERD, presents to the ED with friend who she lives with, complaints of neck pain, right shoulder and left hip pain after patient had a seizure in her bathroom. Reports she is conscious during her seizures and landed forward on her right side, no urinary incontinence, no preceding aura. Patient takes no anticoagulants (home med list reviewed by myself). States she was seen by Dr. Pritchard yesterday for a routine followup. No new changes in her seizure medications, is on Keppra and compliant. Reports she has broken her left hip and both shoulders, c/o slightly worsening right anterior shoulder pain and left focal hip pain after her seizure today. Cannot recall the last time she had a seizure before today. No recent head trauma or h/o ICH. No associated urinary or bowel incontinence or trauma to the mouth, teeth, gingiva or tongue. Review of Systems: Review of Systems: Constitutional: Denies fever or chills. [] Eyes: Denies change in visual acuity. [] HENT: Denies nasal congestion or sore throat. [] Respiratory: Denies cough or shortness of breath. [] Cardiovascular: Denies chest pain or edema. [] GI: Denies abdominal pain, nausea, vomiting, bloody stools or diarrhea. [] : Denies dysuria or hematuria Musculoskeletal: Denies new midlin/thoracic/lumbar back pain or joint pain, denies saddle anesthesia, urinary or bowel retention or incontinence Integument: Denies rash or crepitus Neurologic: Denies headache, focal weakness or sensory changes. [] Endocrine: Denies polyuria or polydipsia. [] Lymphatic: Denies swollen glands. [] Psychiatric: Denies depression or anxiety. [] Heart Score: Risk Factors: Risk Factors: DM, Current or recent (<one month) smoker, HTN, HLP, family history of CAD, obesity. Risk Scores: Score 0 - 3: 2.5% MACE over next 6 weeks - Discharge Home Score 4 - 6: 20.3% MACE over next 6 weeks - Admit for Clinical Observation Score 7 - 10: 72.7% MACE over next 6 weeks - Early Invasive Strategies Allergies: Allergies: Allergies Coded Allergies Type Severity Reaction Last Updated Verified I S O L A T I O N *CONTACT* Allergy Unknown 07/17/19 Yes No Known Medication Allergies Allergy Unknown 07/17/19 Yes Physical Exam: PE: Constitutional: Well developed, well nourished, no acute distress, non-toxic appearance. HENT: Normocephalic, atraumatic, no oral/mm trauma/bleeding Eyes: PERRLA, EOMI, conjunctiva normal, no discharge. Neck: Normal range of motion, supple, Cardiovascular: S1/2 present, regular rhythm Lungs & Thorax: Speaking in full sentences, bilateral equal chest rise, no tachypnea or increased work of breathing Abdomen: soft, no tenderness, Skin: Warm, dry, no erythema, no rash. [] Back: No midline tenderness, no CVA tenderness. [] Extremities: No tenderness, no cyanosis, no edema, no deformity over both shoulders-range of motion intact, equal radial pulses Neurologic: Alert and oriented X 3, normal motor function, normal sensory function, no focal deficits noted. [] Psychologic: Affect normal, judgement normal, mood normal. [] Current Patient Data: Vital Signs: Vital Signs Date Time Temp Pulse Resp B/P (MAP) Pulse Ox O2 Delivery O2 Flow Rate FiO2 12/13/20 09:23 98.6 74 18 179/76 (110) 98 Room Air 98.6 EKG: EKG: Sinus rhythm at 62 bpm, no axis deviation, normal intervals, no T wave inversions, no ST elevations or ST depressions Radiology/Procedures: Radiology/Procedures: IMAGING REPORT Signed PATIENT: ALIVIA WILDER ACCOUNT: [id number] : 1960 LOCATION: ER AGE: 60 SEX: F EXAM STATUS: REG ER ORD. PHYSICIAN: MARIAJOSE CARPENTER DO REASON: fall PROCEDURE: CT HEAD AND CERVICAL SPINE WO EXAM: CT head and cervical spine without contrast INDICATION: Fall COMPARISON: CT head 06/05/2020, CT head and C-spine 02/02/2020, and CT cervical spine 10/21/2014 TECHNIQUE: Axial CT imaging through the head and cervical spine without intravenous contrast. Sagittal and coronal reformats were obtained. One or more of the following individualized dose reduction techniques were utilized for this examination: 1. Automated exposure control 2. Adjustment of the mA and/or kV according to patient size 3. Use of iterative reconstruction technique. FINDINGS: CT head: The ventricles and sulci are normal. Wilburn-white matter differentiation is maintained. There is no intracranial hemorrhage, acute infarct, or mass lesion. Basal cisterns are clear. The skull and scalp are intact. Paranasal sinuses and mastoid air cells are clear. Globes and orbits are intact. CT cervical spine: No acute fracture. There is minimal anterolisthesis of C3 on C4. There is straightening of lordosis. There is severe disc space narrowing at C5-C6 with sclerotic endplate changes, stable from prior exam. There is moderate right and mild left foraminal narrowing at C5-C6. There are disc ossify complexes at C4-C5 and C5-C6. Facet joints are normal. Prevertebral soft tissue is normal. The left thyroid lobe appears enlarged and heterogeneous, unchanged 2013. Lung apices are clear. IMPRESSION: 1. No acute intracranial abnormality. 2. No acute osseous abnormality of the cervical spine. 3. Unchanged severe degenerative disc disease at C5-6-6. Electronically signed by: Luz Ying MD (12/13/2020 11:14 AM) [id number] DICTATED and SIGNED BY: LUZ YING MD DATE: 12/13/20 [id number] 0 IMAGING REPORT Signed PATIENT: ALIVIA WILDER ACCOUNT: [id number] : 1960 LOCATION: ER AGE: 60 SEX: F EXAM STATUS: REG ER ORD. PHYSICIAN: MARIAJOSE CARPENTER DO REASON: seizure/trauma PROCEDURE: PORTABLE CHEST 1V XR CHEST 1V History: Reason: seizure/trauma / Spl. Instructions: / History: Comparison: August 02, 2020 Findings: Linear left basilar atelectasis or scarring. Prior granulomatous disease within the chest with calcified left hilar lymph nodes and left upper lung pulmonary nodule. Left shoulder arthroplasty. Internal fixation right proximal humerus. Chronic ununited right distal clavicle fracture. Chronic deformity of the left distal clavicle. No pleural effusion. No pneumothorax. Normal heart size. No consolidation. Impression: 1. No acute cardiopulmonary process. Electronically signed by: Duglas Miller DO (12/13/2020 10:27 AM) [id number] DICTATED and SIGNED BY: DUGLAS MILLER DO DATE: 12/13/20 [id number] IMAGING REPORT Signed PATIENT: ALIVIA WILDER ACCOUNT: [id number] : 1960 LOCATION: ER AGE: 60 SEX: F EXAM STATUS: REG ER ORD. PHYSICIAN: MARIAJOSE CARPENTER DO REASON: seizure/trauma PROCEDURE: PELVIS XR PELVIS 1-2V History: Reason: seizure/trauma / Spl. Instructions: / History: Technique: AP view the pelvis. Comparison: July 31, 2020 Findings: Internal fixation healed left proximal femur fracture. Chronic ununited lesser trochanter fracture fragment. Vascular calcifications. No dislocation. No acute fracture. Lower lumbar spondylosis. Impression: 1. No acute osseous abnormality. Electronically signed by: Duglas Miller DO (12/13/2020 10:26 AM) [id number] DICTATED and SIGNED BY: DUGLAS MILLER DO DATE: 12/13/20 [id number] 0 IMAGING REPORT Signed PATIENT: ALIVIA WILDER ACCOUNT: [id number] : 1960 LOCATION: ER AGE: 60 SEX: F EXAM STATUS: REG ER ORD. PHYSICIAN: MARIAJOSE CARPENTER DO REASON: seizure/trauma PROCEDURE: SHOULDER 2+V RIGHT XR SHOULDER_RIGHT 2+ VIEWS History: Reason: seizure/trauma / Spl. Instructions: / History: Technique: 3 views right shoulder Comparison: February 02, 2020 Findings: Internal fixation healed right proximal humerus fracture. Chronic ununited right distal clavicle fracture. No dislocation. Impression: 1. No acute osseous abnormality. 2. Internal fixation healed right proximal humerus fracture. 3. Chronic ununited right distal clavicle fracture. Electronically signed by: Duglas Miller DO (12/13/2020 10:22 AM) [id number] DICTATED and SIGNED BY: DUGLAS MILLER DO DATE: 12/13/20 [id number] 0 Course & Med Decision Making: Course & Med Decision Making Pertinent Labs and Imaging studies reviewed. (See chart for details) C-collar placed in ED given neck pain on presentation. I re-evaluated pt after CT imaging, the Nexus C-spine criteria are negative: There is no post midline tenderness, the patient is not intoxicated, there is a normal level of alertness, there are no focal neurologic deficits and there are no distracting injuries. Therefore the c-collar has been removed. Concern for seizure in a pt with epilepsy, ed visit to evaluate trauma. Patient with uncontrolled hypertension, no endorgan damage on labs or imaging. Keppra bolus given in ED. No re-occurrence of seizures in ed. Imaging negative for any acute trauma. Will discharge home with strict ED return precautions were given for neurologic deficits, severe headache, neck pain, repeat head injury, chest pain, dizziness or syncope. Encouraged urgent outpatient follow-up with PMD and neurology. Life-threatening processes were considered but are low suspicion at this time, given history, physical exam and ED workup. Pt was educated on all prescription medications and adverse effects. All patient's questions were answered and pt was stable at time of discharge. Life/limb-threatening differential includes but is not limited to, intracranial hemorrhage, diffuse axonal injury, spinal cord syndrome, unstable cervical fract ure or SCIWORA, fractures or joint dislocations, neurovascular injuries, organ injury or laceration, pneumothorax, pneumoperitoneum, pericardial tamponade, unstable pelvic fracture, compartment syndrome, flail chest or respiratory distress, burn injury or asphyxiation I spoken with the patient and her caregivers. I explained the patient's condition, diagnoses and treatment plan based on the information available to me at this time. I have answered the patient and her caregiver's questions and addressed any concerns. The patient and her caregivers have a good understanding of patient's diagnosis, condition and treatment plan as can be expected at this point. Vital signs have been stable. Patient's condition is stable and appropriate for discharge from the emergency department. Patient will pursue further outpatient evaluation with primary care physician or other designated or consulting physician as outlined in the discharge instructions. The patient and/or caregivers are agreeable to this plan of care and follow-up instructions have been explained in detail. The patient and/or caregivers have received these instructions in written form and have expressed an understanding of the discharge instructions. The patient and/or caregivers are aware that any significant change of condition or worsening of symptoms should prompt immediate return to this or the closest emergency department or call to 911. Anastacia Disclaimer: Dragamee Disclaimer: This electronic medical record was generated, in whole or in part, using a voice recognition dictation system. Departure Departure Impression: Primary Impression: Seizure Additional Impression: Blunt head injury Disposition: 01 DC HOME SELF CARE/HOMELESS Condition: STABLE Referrals: HEIKE FISH MD (PCP) within 5 days for re-evaluation Patient Instructions: Seizure, Adult Additional Instructions: FOLLOW UP WITH NEUROLOGY: [facility] Address: [address] [place] [id number] EMERGENCY DEPARTMENT GENERAL DISCHARGE INSTRUCTIONS Thank you for coming to [facility] Emergency Department (ED) today and trusting us with you care. We trust that you had a positive experience in our Emergency Department. If you wish to speak to the department management, you may call the Director at [phone]. YOUR FOLLOW UP INSTRUCTIONS ARE FOLLOWS: 1. Do you have a private Doctor? If you do not have a private doctor, please ask for a resource list of physicians or clinics that may be able to assist you with foll ow up care. 2. The Emergency Physicain has interpreted your x-rays. The X-Ray specialist will also review them. If there is a change in the findings, you will be notified in 48 hours when at all possible. 3. A lab test or culture has been done, your results will be reviewed and you will be notified if you need a change in treatment. ADDITIONAL INSTRUCTIONS AND INFORMATION: 1. Your care today has been supervised by a physician who is specially trained in emergency care. Many problems require more than one evaluation for a complete diagnosis and treatment. We recommend that you schedule your follow up appointment as re commended to ensure complete treatment of you illness or injury. If you are unable to obtain follow up care and continue to have a problem, or if your condition worsens, we recommend that you return to the ED. 2. We are not able to safely determine your condition over the phone nor are we able to give sound medical advice over the phone. For these safety reasons, if you call for medical advice we will ask you to come to the ED for further evaluation. 3. If you have any questions regarding these discharge instructions please call the ED at [phone]. SAFETY INFORMATION: In the interest of safety, wellness, and injury prevention; we encourage you to wear your sealbelt, if you smoke; quite smoking, and we encourage family to use a protective helmet for bicycling and other sporting events that present an increased risk for head injury. IF YOUR SYMPTOMS WORSEN OR NEW SYMPTOMS DEVELOP, OR YOU HAVE CONCERNS ABOUT YOUR CONDITION; OR IF YOUR CONDITION WORSENS WHILE YOU ARE WAITING FOR YOUR FOLLOW UP APPOINTMENT; EITHER CONTACT YOUR PRIMARY CARE DOCTOR, THE PHYSICIAN WHOSE NAME AND NUMBER YOU WERE GIVEN, OR RETURN TO THE ED IMMEDIATELY. MARIAJOSE CARPENTER DO Dec 13, 2020 09:49
[2020-12-13] MEDS ORDERED: levETIRAcetam 1,000 MG in IV DEXTROSE 5% 100ML 100 ML IV ONE (10:00)
--- NOTE | 2020-12-13 10:25 | RAD ---
XR SHOULDER_RIGHT 2+ VIEWS History: Reason: seizure/trauma / Spl. Instructions: / History: Technique: 3 views right shoulder Comparison: February 02, 2020 Findings: Internal fixation healed right proximal humerus fracture. Chronic ununited right distal clavicle frac ture. No dislocation. Impression: 1. No acute osseous abnormality. 2. Internal fixation healed right proximal humerus fracture. 3. Chronic ununited right distal clavicle fracture. Electronically signed by: Duglas Miller DO (12/13/2020 10:22 AM) [id number]
--- NOTE | 2020-12-13 10:26 | EKG ---
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
--- NOTE | 2020-12-13 10:28 | RAD ---
XR PELVIS 1-2V History: Reason: seizure/trauma / Spl. Instructions: / History: Technique: AP view the pelvis. Comparison: July 31, 2020 Findings: Internal fixation healed left proximal femur fracture. Chronic ununited lesser trochanter fracture fr agment. Vascular calcifications. No dislocation. No acute fracture. Lower lumbar spondylosis. Impression: 1. No acute osseous abnormality. Electronically signed by: Duglas Miller DO (12/13/2020 10:26 AM) [id number]
--- NOTE | 2020-12-13 10:29 | RAD ---
XR CHEST 1V History: Reason: seizure/trauma / Spl. Instructions: / History: Comparison: August 02, 2020 Findings: Linear left basilar atelectasis or scarring. Prior granulomatous disease within the chest with calcif ied left hilar lymph nodes and left upper lung pulmonary nodule. Left shoulder arthroplasty. Internal fixation right proximal humerus. Chronic ununited right distal clavicle fracture. Chronic deformity of the left distal clavicle. No pleural effusion. No pneumothorax. Normal heart size. No consolidatio n. Impression: 1. No acute cardiopulmonary process. Electronically signed by: Duglas Miller DO (12/13/2020 10:27 AM) [id number]
--- NOTE | 2020-12-13 11:16 | RAD ---
EXAM: CT head and cervical spine without contrast INDICATION: Fall COMPARISON: CT head 06/05/2020, CT head and C-spine 02/02/2020, and CT cervical spine 10/21/2014 TECHNIQUE: Axial CT imaging through the head and cervical spine without intravenous contrast. Sagitta l and coronal reformats were obtained. One or more of the following individualized dose reduction techniques were utilized for this examinat ion: 1. Automated exposure control 2. Adjustment of the mA and/or kV according to patient size 3. Use of iterative reconstruction technique. FINDINGS: CT head: The ventricles and sulci are normal. Wilburn-white matter differentiation is maintained. There is no in tracranial hemorrhage, acute infarct, or mass lesion. Basal cisterns are clear. The skull and scalp a re intact. Paranasal sinuses and mastoid air cells are clear. Globes and orbits are intact. CT cervical spine: No acute fracture. There is minimal anterolisthesis of C3 on C4. There is straightening of lordosis. There is severe disc space narrowing at C5-C6 with sclerotic endplate changes, stable from prior exam . There is moderate right and mild left foraminal narrowing at C5-C6. There are disc ossify complexes at C4-C5 and C5-C6. Facet joints are normal. Prevertebral soft tissue is normal. The left thyroid lo be appears enlarged and heterogeneous, unchanged 2013. Lung apices are clear. IMPRESSION: 1. No acute intracranial abnormality. 2. No acute osseous abnormality of the cervical spine. 3. Unchanged severe degenerative disc disease at C5-6-6. Electronically signed by: Luz Ying MD (12/13/2020 11:14 AM) [id number]
[2020-12-13 11:24] LABS: BASO # 0.1 x10^3/uL (0.0-0.2); BASO % 1 % (0-3); EOS # 0.2 x10^3/uL (0.0-0.7); EOS % 2 % (0-3); HEMATOCRIT 40.3 % (36.0-47.0); HEMOGLOBIN 13.9 g/dL (12.0-15.5); LYMPH # 1.4 x10^3/uL (1.0-4.8); LYMPH % 15 % (24-48); MEAN CORPUSCULAR HEMOGLOBIN 34 pg (25-35); MEAN CORPUSCULAR HGB CONC 35 g/dL (31-37); MEAN CORPUSCULAR VOLUME 97 fL (79-100); MONO # 0.6 x10^3/uL (0.0-1.1); MONO % 6 % (0-9); NEUT # 7.2 x10^3/uL (1.8-7.7); NEUT % 75 % (31-73); PLATELET COUNT 205 x10^3/uL (140-400); RED BLOOD COUNT 4.16 x10^6/uL (3.50-5.40); RED CELL DISTRIBUTION WIDTH 13.8 % (11.5-14.5); WHITE BLOOD COUNT 9.5 x10^3/uL (4.0-11.0)
[2020-12-13 11:30] LABS: CALCIUM 9.3 mg/dL (8.5-10.1); CREATININE 0.8 mg/dL (0.6-1.0); GFR 72.9
[2020-12-13] MEDS ORDERED: KETOROLAC 15 MG/ML VIAL. IVP ONE (11:30)
[2020-12-13 11:40] LABS: ALBUMIN 3.9 g/dL (3.4-5.0); ALBUMIN/GLOBULIN RATIO 1.3 (1.0-1.7); MAGNESIUM 2.1 mg/dL (1.8-2.4); TOTAL BILIRUBIN 0.3 mg/dL (0.2-1.0)
[2020-12-13 12:48] VITALS: BP 113/54
[2020-12-13 13:41] LABS: BILIRUBIN,URINE NEGATIVE (NEG); CLARITY,URINE CLEAR; COLOR,URINE YELLOW; NITRITE,URINE NEGATIVE (NEG); PH,URINE 6.5 (<5.0-8.0); PROTEIN,URINE NEGATIVE (NEG-TRACE); UROBILINOGEN,URINE 0.2 mg/dL (0.2 mg/dL)
[2020-12-13 13:47] LABS: BARBITURATES NEG (NEG); BENZODIAZEPINES NEG (NEG); CANNABINOIDS NEG (NEG); COCAINE NEG (NEG); METHADONE NEG (NEG); OPIATES NEG (NEG); PHENCYCLIDINE NEG (NEG)
[2020-12-13 13:51] LABS: AMPHETAMINE/METHAMPHETAMINE NEG (NEG)
[2020-12-13 13:53] LABS: BACTERIA,URINE 0 /HPF (0-FEW); RBC,URINE 0 /HPF (0-2)
== END 2020-12-13 13:52 | disposition home or self-care (01) ==
LOC: ER 09:14
DX: S09.8XXA Other specified injuries of head, initial encounter (principal); G40.909 Epilepsy, unspecified, not intractable, without status epilepticus; M54.2 Cervicalgia; M25.552 Pain in left hip; F41.9 Anxiety disorder, unspecified; E11.9 Type 2 diabetes mellitus without complications; K21.9 Gastro-esophageal reflux disease without esophagitis; E78.00 Pure hypercholesterolemia, unspecified; I10 Essential (primary) hypertension; E03.9 Hypothyroidism, unspecified; G43.909 Migraine, unspecified, not intractable, without status migrainosus; G89.29 Other chronic pain; Z98.890 Other specified postprocedural states; Z88.8 Allergy status to other drugs, medicaments and biological substances; X58.XXXA Exposure to other specified factors, initial encounter; Y93.89 Activity, other specified; Y92.89 Other specified places as the place of occurrence of the external cause; Y99.8 Other external cause status
CPT/HCPCS: 36415; 70450; 71045; 72125; 72170; 73030; 80053; 80307; 81001; 82550; 83735; 84484; 85025; 87086; 93005; 96365; 96375; 99285; G0480; J1885; J1953; J7060

== ENCOUNTER 2021-01-24 08:56 | Emergency (ER) | payer OTHER ==
[~2021-01-24] VITALS: Ht 152.4 cm; Wt 59.0 kg
--- NOTE | 2021-01-24 12:16 | PHYS DOC ---
Past Medical History Past Medical History: Anxiety, Diabetes-Type II, GERD, High Cholesterol, Hypertension, Hypothyroid, Migraines, Seizure, Other Additional Past Medical Histor: Abd pain,Neuropathy,Insomnia,Chronic pain, LEFT SHOULDER PAIN Past Surgical History: Hip Replacement, Other Additional Past Surgical Histo: Left shoulder and right kidney surgeries, LEFT HIP Smoking Status: Never Smoker Alcohol Use: None Drug Use: None General Adult EDM: Chief Complaint: ABDOMINAL PAIN HPI: HPI: Patient is a 60 year old female who was brought here by EMS from home due to abdominal cramping. Patient has been evaluated numerous times for numerous med ical problem. Patient denies any nausea vomiting, no chest pain, no trouble breathing. By the time she got here her symptoms completely resolved. Patient denies any cough or fever. Patient denies being exposed to anybody who tested positive COVID-19 Review of Systems: Review of Systems: Constitutional: Denies fever or chills. [] Eyes: Denies change in visual acuity. [] HENT: Denies nasal congestion or sore throat. [] Respiratory: Denies cough or shortness of breath. [] Cardiovascular: Denies chest pain or edema. [] GI: Positive for abdominal pain, no nausea, vomiting, bloody stools or diarrhea. [] : Denies dysuria. [] Musculoskeletal: Denies back pain or joint pain. [] Integument: Denies rash. [] Neurologic: Denies headache, focal weakness or sensory changes. [] Endocrine: Denies polyuria or polydipsia. [] Lymphatic: Denies swollen glands. [] Psychiatric: Denies depression or anxiety. [] Heart Score: C/O Chest Pain: N/A Risk Factors: Risk Factors: DM, Current or recent (<one month) smoker, HTN, HLP, family history of CAD, obesity. Risk Scores: Score 0 - 3: 2.5% MACE over next 6 weeks - Discharge Home Score 4 - 6: 20.3% MACE over next 6 weeks - Admit for Clinical Observation Score 7 - 10: 72.7% MACE over next 6 weeks - Early Invasive Strategies Allergies: Allergies: Allergies Coded Allergies Type Severity Reaction Last Updated Verified I S O L A T I O N *CONTACT* Allergy Unknown 07/17/19 Yes No Known Medication Allergies Allergy Unknown 07/17/19 Yes Physical Exam: PE: Constitutional: Well developed, well nourished, no acute distress, non-toxic appearance. [] HENT: Normocephalic, atraumatic, bilateral external ears normal, oropharynx moist, no oral exudates, nose normal. [] Eyes: PERRLA, EOMI, conjunctiva normal, no discharge. [] Neck: Normal range of motion, no tenderness, supple, no stridor. [] Cardiovascular:Heart rate regular rhythm, no murmur [] Lungs & Thorax: Bilateral breath sounds clear to auscultation [] Abdomen: Bowel sounds normal, soft, no tenderness, no masses, no pulsatile masses. [] Skin: Warm, dry, no erythema, no rash. [] Back: No tenderness, no CVA tenderness. [] Extremities: No tenderness, no cyanosis, no clubbing, ROM intact, no edema. [] Neurologic: Alert and oriented X 3, normal motor function, normal sensory function, no focal deficits noted. [] Psychologic: Affect normal, judgement normal, mood normal. [] Current Patient Data: Vital Signs: Vital Signs Date Time Temp Pulse Resp B/P (MAP) Pulse Ox O2 Delivery O2 Flow Rate FiO2 01/24/21 09:28 97.9 81 20 152/67 (95) 96 Room Air 97.9 EKG: EKG: [] Radiology/Procedures: Radiology/Procedures: [] Course & Med Decision Making: Course & Med Decision Making Pertinent Labs and Imaging studies reviewed. (See chart for details) Patient is a 60-year-old female who was brought here by EMS from home due to abdominal cramping, upon arrival to ER, her symptoms completely resolved. There is no further work-up needed at this time. Dragon Disclaimer: Dragon Disclaimer: This electronic medical record was generated, in whole or in part, using a voice recognition dictation system. Departure Departure Impression: Primary Impression: Abdominal pain Disposition: 01 DC HOME SELF CARE/HOMELESS Condition: IMPROVED Referrals: HEIKE FISH MD (PCP) Please follow up with your doctor on Thursday for reevaluation Patient Instructions: Abdominal Pain Additional Instructions: Thank you for visiting our Emergency Department. We appreciate you trusting us with your care. If any additional problems come up don't hesitate to return to visit us. Please follow up with your primary care provider so they can plan additional care if needed and know about the problem that you had. If symptoms worsen come back to the Emergency Department. Any concerning symptoms that start such as chest pain, shortness of air, weakness or numbness on one side of the body, running high fevers or any other concerning symptoms return to the ER. JAVY ÁLVAREZ DO Jan 24, 2021 12:16
[2021-01-24 12:28] VITALS: BP 122/59
== END 2021-01-24 12:39 | disposition home or self-care (01) ==
LOC: ER 08:56
DX: R10.9 Unspecified abdominal pain (principal); K21.9 Gastro-esophageal reflux disease without esophagitis; E78.00 Pure hypercholesterolemia, unspecified; E11.40 Type 2 diabetes mellitus with diabetic neuropathy, unspecified; I10 Essential (primary) hypertension; E03.9 Hypothyroidism, unspecified; G43.909 Migraine, unspecified, not intractable, without status migrainosus; G89.29 Other chronic pain; Z96.642 Presence of left artificial hip joint; Z91.041 Radiographic dye allergy status
CPT/HCPCS: 99285

== ENCOUNTER 2021-04-05 07:16 | Emergency (ER) | payer OTHER ==
[~2021-04-05] VITALS: Ht 152.4 cm; Wt 63.6 kg
[2021-04-05 08:07] LABS: BILIRUBIN,URINE NEGATIVE (NEG); CLARITY,URINE CLEAR; COLOR,URINE YELLOW; NITRITE,URINE NEGATIVE (NEG); PROTEIN,URINE NEGATIVE (NEG-TRACE); UROBILINOGEN,URINE 0.2 mg/dL (0.2 mg/dL)
[2021-04-05 08:30] LABS: BACTERIA,URINE 0 /HPF (0-FEW); RBC,URINE 0 /HPF (0-2); WBC,URINE 0 /HPF (0-4)
[2021-04-05] MEDS ORDERED: IV NORMAL SALINE 1000ML BAG 1,000 ML IV ONE (09:15)
--- NOTE | 2021-04-05 09:50 | ED.ADGEN ---
Past Medical History Past Medical History: Anxiety, Diabetes-Type II, GERD, High Cholesterol, Hypertension, Hypothyroid, Migraines, Seizure, Other Additional Past Medical Histor: Abd pain,Neuropathy,Insomnia,Chronic pain, LEFT SHOULDER PAIN Past Surgical History: Hip Replacement, Other Additional Past Surgical Histo: Left shoulder and right kidney surgeries, LEFT HIP Smoking Status: Never Smoker Alcohol Use: None Drug Use: None General Adult EDM: Chief Complaint: HYPERGLYCEMIA HPI: HPI: Patient is a 61-year-old female who presents to the emergency room complaining of generally feeling weak and unwell. Patient states that her boyfriend told her that she was breathing really heavy this morning and after she ate she felt tightness in her abdomen. She relates that her glucoses have been running high for last 24 hours. She is on insulin for her diabetes. She often has issues with her glucoses. She does states she a lot of stuff that she should not have eaten yesterday. She denies any chest pain or shortness of breath at this time. She denies any nausea, vomiting, abdominal pain, diarrhea, constipation, confusion. Review of Systems: Review of Systems: Complete ROS is negative unless otherwise documented in HPI Current Medications: Current Medications Medications (Trade) Dose Ordered Sig/Khang Start Time Stop Time Status Last Admin Dose Admin Sodium Chloride 1,000 ml @ 1,000 mls/hr 1X ONCE 04/05/21 09:15 04/05/21 10:15 DC 04/05/21 09:27 1,000 MLS/HR Allergies: Allergies: Allergies Coded Allergies Type Severity Reaction Last Updated Verified I S O L A T I O N *CONTACT* Allergy Unknown 07/17/19 Yes No Known Medication Allergies Allergy Unknown 04/05/21 Yes Physical Exam: PE: General: Awake, alert, NAD. Well Nourished, well hydrated. Cooperative HEENT: Atraumatic, EOMI, PERRL, airway patent, moist oral mucosa Neck: Supple, trachea midline Respiratory: CTA bilaterally, normal effort, no wheezing/crackles CV: RRR, no murmur, cap refill <2 GI: Soft, nondistended, nontender, no masses MSK: No obvious deformities Skin: Warm, dry, intact Neuro: A&O x3, speech NL, sensory and motor grossly intact, no focal deficits Psych: Normal affect, normal mood, not suicidal or homicidal Current Patient Data: Labs: Laboratory Tests Test 04/05/21 07:42 04/05/21 09:15 Urine Collection Type Unknown Urine Color Yellow Urine Clarity Clear Urine pH 6.0 (<5.0-8.0) Urine Specific [place] 1.015 (1.000-1.030) Urine Protein Negative mg/dL (NEG-TRACE) Urine Glucose (UA) >=1000 mg/dL (NEG) Urine Ketones (Stick) Negative mg/dL (NEG) Urine Blood Negative (NEG) Urine Nitrite Negative (NEG) Urine Bilirubin Negative (NEG) Urine Urobilinogen Dipstick 0.2 mg/dL (0.2 mg/dL) Urine Leukocyte Esterase Negative (NEG) Urine RBC 0 /HPF (0-2) Urine WBC 0 /HPF (0-4) Urine Squamous Epithelial Cells Few /LPF Urine Bacteria 0 /HPF (0-FEW) White Blood Count 7.1 x10^3/uL (4.0-11.0) Red Blood Count 3.73 x10^6/uL (3.50-5.40) Hemoglobin 12.9 g/dL (12.0-15.5) Hematocrit 37.7 % (36.0-47.0) Mean Corpuscular Volume 101 fL (79-100) H Mean Corpuscular Hemoglobin 35 pg (25-35) Mean Corpuscular Hemoglobin Concent 34 g/dL (31-37) Red Cell Distribution Width 14.0 % (11.5-14.5) Platelet Count 276 x10^3/uL (140-400) Neutrophils (%) (Auto) 70 % (31-73) Lymphocytes (%) (Auto) 17 % (24-48) L Monocytes (%) (Auto) 7 % (0-9) Eosinophils (%) (Auto) 5 % (0-3) H Basophils (%) (Auto) 1 % (0-3) Neutrophils # (Auto) 4.9 x10^3/uL (1.8-7.7) Lymphocytes # (Auto) 1.2 x10^3/uL (1.0-4.8) Monocytes # (Auto) 0.5 x10^3/uL (0.0-1.1) Eosinophils # (Auto) 0.3 x10^3/uL (0.0-0.7) Basophils # (Auto) 0.1 x10^3/uL (0.0-0.2) Sodium Level 138 mmol/L (136-145) Potassium Level 4.1 mmol/L (3.5-5.1) Chloride Level 102 mmol/L (98-107) Carbon Dioxide Level 30 mmol/L (21-32) Anion Gap 6 (6-14) Blood Urea Nitrogen 11 mg/dL (7-20) Creatinine 0.7 mg/dL (0.6-1.0) Estimated GFR (Cockcroft-Gault) 84.8 BUN/Creatinine Ratio 16 (6-20) Glucose Level 282 mg/dL (70-99) H Calcium Level 8.8 mg/dL (8.5-10.1) Total Bilirubin 0.2 mg/dL (0.2-1.0) Aspartate Amino Transferase (AST) 19 U/L (15-37) Alanine Aminotransferase (ALT) 26 U/L (14-59) Alkaline Phosphatase 177 U/L (46-116) H Troponin I Quantitative 0.022 ng/mL (0.000-0.055) Total Protein 6.6 g/dL (6.4-8.2) Albumin 3.8 g/dL (3.4-5.0) Albumin/Globulin Ratio 1.4 (1.0-1.7) Laboratory Tests 04/05/21 09:15 Laboratory Tests 04/05/21 09:15 Vital Signs: Vital Signs Date Time Temp Pulse Resp B/P (MAP) Pulse Ox O2 Delivery O2 Flow Rate FiO2 04/05/21 10:29 70 19 135/63 (87) 97 Room Air 04/05/21 07:26 98.8 98.8 EKG: EKG: [] Heart Score: C/O Chest Pain: N/A Risk Factors: Risk Factors: DM, Current or recent (<one month) smoker, HTN, HLP, family hist ory of CAD, obesity. Risk Scores: Score 0 - 3: 2.5% MACE over next 6 weeks - Discharge Home Score 4 - 6: 20.3% MACE over next 6 weeks - Admit for Clinical Observation Score 7 - 10: 72.7% MACE over next 6 weeks - Early Invasive Strategies Radiology/Procedures: Radiology/Procedures: [] Course & Med Decision Making: Course & Med Decision Making Pertinent Labs and Imaging studies reviewed. (See chart for details) Patient is 61-year-old female presents to the emergency room complaining of generalized weakness. Patient is well-known to this emergency room and often has issues with hyperglycemia. She does not have a history of DKA or hyperosmolar syndrome. At this time glucose was over 400 per the paramedics. We will get blood work and start fluids. Patient has a soft nontender abdomen at this time. She does not need an abdominal pain work-up. Glucose is improved. Patient will be discharged home to follow-up with primary care. Patient's test results and vitals while in the ED were fully reviewed and discussed with the patient. Patient is stable and at this time does not need admission to the hospital. We have discussed strict return precautions and the importance of following up with their Primary Care Physician. Patient stated understanding and was given an opportunity to ask any questions. Patient is in agreement with plan. Dragon Disclaimer: Dragon Disclaimer: This electronic medical record was generated, in whole or in part, using a voice recognition dictation system. Departure Departure Impression: Primary Impression: Uncontrolled diabetes mellitus Disposition: HOME / SELF CARE / HOMELESS Condition: STABLE Referrals: HEIKE FISH MD (PCP) Patient Instructions: Hyperglycemia SHASHI DE LOS SANTOS MD April 05, 2021 09:50
[2021-04-05 09:58] LABS: BASO # 0.1 x10^3/uL (0.0-0.2); BASO % 1 % (0-3); EOS # 0.3 x10^3/uL (0.0-0.7); EOS % 5 % (0-3); HEMATOCRIT 37.7 % (36.0-47.0); HEMOGLOBIN 12.9 g/dL (12.0-15.5); LYMPH # 1.2 x10^3/uL (1.0-4.8); LYMPH % 17 % (24-48); MEAN CORPUSCULAR HEMOGLOBIN 35 pg (25-35); MEAN CORPUSCULAR HGB CONC 34 g/dL (31-37); MEAN CORPUSCULAR VOLUME 101 fL (79-100); MONO # 0.5 x10^3/uL (0.0-1.1); MONO % 7 % (0-9); NEUT # 4.9 x10^3/uL (1.8-7.7); NEUT % 70 % (31-73); PLATELET COUNT 276 x10^3/uL (140-400); RED BLOOD COUNT 3.73 x10^6/uL (3.50-5.40); WHITE BLOOD COUNT 7.1 x10^3/uL (4.0-11.0)
[2021-04-05 10:05] LABS: CALCIUM 8.8 mg/dL (8.5-10.1); CREATININE 0.7 mg/dL (0.6-1.0); GFR 84.8; POTASSIUM 4.1 mmol/L (3.5-5.1)
[2021-04-05 10:07] LABS: ALBUMIN 3.8 g/dL (3.4-5.0); ALBUMIN/GLOBULIN RATIO 1.4 (1.0-1.7); TOTAL BILIRUBIN 0.2 mg/dL (0.2-1.0); TOTAL PROTEIN 6.6 g/dL (6.4-8.2)
[2021-04-05 10:29] VITALS: BP 135/63
--- NOTE | 2021-04-05 16:51 | EKG ---
[facility] [address] [place] [address] Test Date: 2021-04-05 Test Time: 07:23:41 Pat Name: ALIVIA WILDER Department: Room: Gender: F Comedian: : 1960 Requested By: SHASHI DE LOS SANTOS Order Number: [id number] Reading MD: Measurements Intervals [place] Rate: 78 P: -14 [place]: 166 QRS: -6 QRSD: 80 T: 41 QT: 364 QTc: 418 Interpretive Statements SINUS RHYTHM LEFTWARD AXIS OTHERWISE NORMAL ECG RI6.02 No previous ECG available for comparison
== END 2021-04-05 11:40 | disposition home or self-care (01) ==
LOC: ER 07:16
DX: E11.65 Type 2 diabetes mellitus with hyperglycemia (principal); F41.9 Anxiety disorder, unspecified; K21.9 Gastro-esophageal reflux disease without esophagitis; E78.00 Pure hypercholesterolemia, unspecified; I10 Essential (primary) hypertension; E03.9 Hypothyroidism, unspecified; E11.40 Type 2 diabetes mellitus with diabetic neuropathy, unspecified; G89.29 Other chronic pain; Z88.8 Allergy status to other drugs, medicaments and biological substances
CPT/HCPCS: 36415; 80053; 81001; 84484; 85025; 93005; 96360; 96361; 99285; J7030

== ENCOUNTER 2021-07-02 10:27 | Emergency (ER) | payer OTHER ==
[~2021-07-02] VITALS: Ht 152.4 cm; Wt 62.3 kg
[~2021-07-02 10:27] MED LIST changes: +DOCU-148 PO; -DOCU-153 PO; -LISI2.5T PO; +LISI2.5T12 PO; -OMEP40CA45 PO; +OMEP40CA7 PO
[2021-07-02 11:34] LABS: BASO # 0.1 x10^3/uL (0.0-0.2); BASO % 1 % (0-3); EOS # 0.3 x10^3/uL (0.0-0.7); EOS % 3 % (0-3); HEMOGLOBIN 11.9 g/dL (12.0-15.5); LYMPH % 22 % (24-48); MEAN CORPUSCULAR HEMOGLOBIN 35 pg (25-35); MEAN CORPUSCULAR HGB CONC 35 g/dL (31-37); MEAN CORPUSCULAR VOLUME 101 fL (79-100); MONO # 1.1 x10^3/uL (0.0-1.1); MONO % 12 % (0-9); NEUT # 5.8 x10^3/uL (1.8-7.7); NEUT % 63 % (31-73); PLATELET COUNT 278 x10^3/uL (140-400); RED BLOOD COUNT 3.36 x10^6/uL (3.50-5.40); WHITE BLOOD COUNT 9.3 x10^3/uL (4.0-11.0)
[2021-07-02 12:12] LABS: CALCIUM 8.8 mg/dL (8.5-10.1); CREATININE 0.6 mg/dL (0.6-1.0); GFR 101.3; POTASSIUM 3.8 mmol/L (3.5-5.1)
[2021-07-02] MEDS ORDERED: fentaNYL PF VIAL 100 MCG/2 ML VIAL IVP ONE (12:15)
--- NOTE | 2021-07-02 12:20 | RAD ---
Study: XR CHEST 1V Indication: Cough with chest pain. Comparison: 12/13/2020 Findings: The cardiomediastinal silhouette is within normal limits for size. Aortic calcific atherosclerosis. S cattered granulomas. Linear opacity paralleling the left hemidiaphragm also present on the comparison. No airspace opacity identified elsewhere. No layering effusion or pneumothorax. 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 Chronic irregularity at the distal aspect of both cl avicles. Partially imaged fixation screws at the proximal right humerus. Impression: No newly seen airspace abnormality. Again demonstrated is a linear opacity paralleling the left hemid iaphragm favored discoid atelectasis or scarring given persistence over time. Electronically signed by: RYLAND ACOSTA MD (07/02/2021 12:17 PM) [id number]
[2021-07-02 12:21] LABS: ALBUMIN 3.2 g/dL (3.4-5.0); DIRECT BILIRUBIN 0.2 mg/dL (0.0-0.2); TOTAL BILIRUBIN 0.4 mg/dL (0.2-1.0); TOTAL PROTEIN 6.6 g/dL (6.4-8.2)
[2021-07-02 12:28] LABS: BILIRUBIN,URINE NEGATIVE (NEG); CLARITY,URINE CLEAR; COLOR,URINE YELLOW; NITRITE,URINE POSITIVE (NEG); PROTEIN,URINE NEGATIVE (NEG-TRACE); UROBILINOGEN,URINE 0.2 mg/dL (0.2 mg/dL)
[2021-07-02 12:52] LABS: BACTERIA,URINE MODERATE /HPF (0-FEW); WBC,URINE >40 /HPF (0-4)
[2021-07-02] MEDS ORDERED: IV NORMAL SALINE 1000ML BAG 1,000 ML IV ONE (13:30)
[2021-07-02] MEDS ORDERED: cefTRIAXone IV Push 1 GM VIAL. IVP ONE (13:30)
--- NOTE | 2021-07-02 14:13 | PHYS DOC ---
Past Medical History Past Medical History: Anxiety, Diabetes-Type II, GERD, High Cholesterol, Hypertension, Hypothyroid, Migraines, Seizure, Other Additional Past Medical Histor: Abd pain,Neuropathy,Insomnia,Chronic pain, LEFT SHOULDER PAIN Past Surgical History: Hip Replacement, Other Additional Past Surgical Histo: Left shoulder and right kidney surgeries, LEFT HIP Smoking Status: Never Smoker Alcohol Use: None Drug Use: None General Adult EDM: Chief Complaint: FLU SYMPTOM HPI: HPI: Patient is a 61 year old female presents to the emergency department complaining of cough, pain all over, intermittent fevers at home for the past week. Patient states she last took her pain pills at 6 AM which helped some. Patient currently rates her pain at a 10 out of 10. Patient denies chest pain, shortness of breath, chest or nasal congestion, recent fever or chills, abdominal pain, nausea, vomiting, or diarrhea. Patient denies any other physical complaints or physical concerns. Review of Systems: Review of Systems: 14 body systems of review of systems have been reviewed. See HPI for pertinent positives and negative responses, otherwise all other systems are negative, nonpertinent or noncontributory. Constitutional: Negative except as outlined in HPI above. Skin: Negative except as outlined in HPI above. Eyes: Negative except as outlined in HPI above. HENT: Negative except as outlined in HPI above. Respiratory: Negative except as outlined in HPI above. Cardiovascular: Negative except as outlined in HPI above. GI: Negative except as outlined in HPI above. : Negative except as outlined in HPI above. Musculoskeletal: Negative except as outlined in HPI above. Integument: Negative except as outlined in HPI above. Neurologic: Negative except as outlined in HPI above. Endocrine: Negative except as outlined in HPI above. Lymphatic: Negative except as outlined in HPI above. Psychiatric: Negative except as outlined in HPI above. Heart Score: C/O Chest Pain: No Risk Factors: Risk Factors: DM, Current or recent (<one month) smoker, HTN, HLP, family history of CAD, obesity. Risk Scores: Score 0 - 3: 2.5% MACE over next 6 weeks - Discharge Home Score 4 - 6: 20.3% MACE over next 6 weeks - Admit for Clinical Observation Score 7 - 10: 72.7% MACE over next 6 weeks - Early Invasive Strategies Current Medications: Current Medications Medications (Trade) Dose Ordered Sig/Khang Start Time Stop Time Status Last Admin Dose Admin Ceftriaxone Sodium (Rocephin) 1 gm 1X ONCE 07/02/21 13:30 07/02/21 13:31 DC 07/02/21 13:34 1 GM Fentanyl Citrate (Fentanyl 2ml Vial) 50 mcg 1X ONCE 07/02/21 12:15 07/02/21 12:16 DC 07/02/21 12:23 50 MCG Sodium Chloride 1,000 ml @ 1,000 mls/hr 1X ONCE 07/02/21 13:30 07/02/21 14:29 07/02/21 13:34 1,000 MLS/HR Allergies: Allergies: Allergies Coded Allergies Type Severity Reaction Last Updated Verified I S O L A T I O N *CONTACT* Allergy Unknown 07/17/19 Yes No Known Medication Allergies Allergy Unknown 04/05/21 Yes Physical Exam: PE: Constitutional: Well developed, well nourished, no acute distress, non-toxic appearance. [] HENT: Normocephalic, atraumatic, bilateral external ears normal, oropharynx moist, no oral exudates, nose normal. [] Eyes: PERRLA, EOMI, conjunctiva normal, no discharge. [] Neck: Normal range of motion, no tenderness, supple, no stridor. [] Cardiovascular:Heart rate regular rhythm, no murmur [] Lungs & Thorax: Bilateral breath sounds clear to auscultation [] Abdomen: Bowel sounds normal, soft, no tenderness, no masses, no pulsatile masses. [] Skin: Warm, dry, no erythema, no rash. [] Back: No tenderness, no CVA tenderness. [] Extremities: No tenderness, no cyanosis, no clubbing, ROM intact, no edema. [] Neurologic: Alert and oriented X 3, normal motor function, normal sensory function, no focal deficits noted. [] Psychologic: Affect normal, judgement normal, mood normal. [] Current Patient Data: Labs: Laboratory Tests Test 07/02/21 11:17 07/02/21 11:24 White Blood Count 9.3 x10^3/uL Red Blood Count 3.36 x10^6/uL Hemoglobin 11.9 g/dL Hematocrit 34.0 % Mean Corpuscular Volume 101 fL Mean Corpuscular Hemoglobin 35 pg Mean Corpuscular Hemoglobin Concent 35 g/dL Red Cell Distribution Width 14.0 % Platelet Count 278 x10^3/uL Neutrophils (%) (Auto) 63 % Lymphocytes (%) (Auto) 22 % Monocytes (%) (Auto) 12 % Eosinophils (%) (Auto) 3 % Basophils (%) (Auto) 1 % Neutrophils # (Auto) 5.8 x10^3/uL Lymphocytes # (Auto) 2.0 x10^3/uL Monocytes # (Auto) 1.1 x10^3/uL Eosinophils # (Auto) 0.3 x10^3/uL Basophils # (Auto) 0.1 x10^3/uL Sodium Level 134 mmol/L Potassium Level 3.8 mmol/L Chloride Level 98 mmol/L Carbon Dioxide Level 28 mmol/L Anion Gap 8 Blood Urea Nitrogen 6 mg/dL Creatinine 0.6 mg/dL Estimated GFR (Cockcroft-Gault) 101.3 Glucose Level 103 mg/dL Calcium Level 8.8 mg/dL Total Bilirubin 0.4 mg/dL Direct Bilirubin 0.2 mg/dL Aspartate Amino Transf (AST/SGOT) 17 U/L Alanine Aminotransferase (ALT/SGPT) 22 U/L Alkaline Phosphatase 134 U/L Total Protein 6.6 g/dL Albumin 3.2 g/dL Urine Collection Type Void Urine Color Yellow Urine Clarity Clear Urine pH 7.0 Urine Specific [place] <=1.005 Urine Protein Negative mg/dL Urine Glucose (UA) Negative mg/dL Urine Ketones (Stick) Negative mg/dL Urine Blood Trace Urine Nitrite Positive Urine Bilirubin Negative Urine Urobilinogen Dipstick 0.2 mg/dL Urine Leukocyte Esterase Large Urine RBC 1-2 /HPF Urine WBC >40 /HPF Urine Squamous Epithelial Cells Few /LPF Urine Bacteria Moderate /HPF Current Medications Medications (Trade) Dose Ordered Sig/Khang Route PRN Reason Start Time Stop Time Status Last Admin Dose Admin Fentanyl Citrate (Fentanyl 2ml Vial) 50 mcg 1X ONCE IVP 07/02/21 12:15 07/02/21 12:16 DC 07/02/21 12:23 Sodium Chloride 1,000 ml @ 1,000 mls/hr 1X ONCE IV 07/02/21 13:30 07/02/21 14:29 DC 07/02/21 13:34 Ceftriaxone Sodium (Rocephin) 1 gm 1X ONCE IVP 07/02/21 13:30 07/02/21 13:31 DC 07/02/21 13:34 Laboratory Tests Test 07/02/21 11:17 07/02/21 11:24 White Blood Count 9.3 x10^3/uL (4.0-11.0) Red Blood Count 3.36 x10^6/uL (3.50-5.40) L Hemoglobin 11.9 g/dL (12.0-15.5) L Hematocrit 34.0 % (36.0-47.0) L Mean Corpuscular Volume 101 fL (79-100) H Mean Corpuscular Hemoglobin 35 pg (25-35) Mean Corpuscular Hemoglobin Concent 35 g/dL (31-37) Red Cell Distribution Width 14.0 % (11.5-14.5) Platelet Count 278 x10^3/uL (140-400) Neutrophils (%) (Auto) 63 % (31-73) Lymphocytes (%) (Auto) 22 % (24-48) L Monocytes (%) (Auto) 12 % (0-9) H Eosinophils (%) (Auto) 3 % (0-3) Basophils (%) (Auto) 1 % (0-3) Neutrophils # (Auto) 5.8 x10^3/uL (1.8-7.7) Lymphocytes # (Auto) 2.0 x10^3/uL (1.0-4.8) Monocytes # (Auto) 1.1 x10^3/uL (0.0-1.1) Eosinophils # (Auto) 0.3 x10^3/uL (0.0-0.7) Basophils # (Auto) 0.1 x10^3/uL (0.0-0.2) Sodium Level 134 mmol/L (136-145) L Potassium Level 3.8 mmol/L (3.5-5.1) Chloride Level 98 mmol/L (98-107) Carbon Dioxide Level 28 mmol/L (21-32) Anion Gap 8 (6-14) Blood Urea Nitrogen 6 mg/dL (7-20) L Creatinine 0.6 mg/dL (0.6-1.0) Estimated GFR (Cockcroft-Gault) 101.3 Glucose Level 103 mg/dL (70-99) H Calcium Level 8.8 mg/dL (8.5-10.1) Total Bilirubin 0.4 mg/dL (0.2-1.0) Direct Bilirubin 0.2 mg/dL (0.0-0.2) Aspartate Amino Transferase (AST) 17 U/L (15-37) Alanine Aminotransferase (ALT) 22 U/L (14-59) Alkaline Phosphatase 134 U/L (46-116) H Total Protein 6.6 g/dL (6.4-8.2) Albumin 3.2 g/dL (3.4-5.0) L Urine Collection Type Void Urine Color Yellow Urine Clarity Clear Urine pH 7.0 (<5.0-8.0) Urine Specific [place] <=1.005 (1.000-1.030) Urine Protein Negative mg/dL (NEG-TRACE) Urine Glucose (UA) Negative mg/dL (NEG) Urine Ketones (Stick) Negative mg/dL (NEG) Urine Blood Trace (NEG) Urine Nitrite Positive (NEG) Urine Bilirubin Negative (NEG) Urine Urobilinogen Dipstick 0.2 mg/dL (0.2 mg/dL) Urine Leukocyte Esterase Large (NEG) Urine RBC 1-2 /HPF (0-2) Urine WBC >40 /HPF (0-4) Urine Squamous Epithelial Cells Few /LPF Urine Bacteria Moderate /HPF (0-FEW) Laboratory Tests 07/02/21 11:17 Laboratory Tests 07/02/21 11:17 Vital Signs: Vital Signs Date Time Temp Pulse Resp B/P (MAP) Pulse Ox O2 Delivery O2 Flow Rate FiO2 07/02/21 12:17 74 24 147/67 (93) 98 Room Air 07/02/21 10:42 98.1 98.1 EKG: EKG: EKG performed at 1046 by ED nursing staff shows a heart rate of 71 bpm normal sinus rhythm without other ectopy, WI interval 0.158, QTc interval 0.415, no acute STEMI, no ACS, no acute ischemia appreciated, EKG interpreted by ED attending physician Dr. Inman. Radiology/Procedures: Radiology/Procedures: PATIENT: ALIVIA WILDER ACCOUNT: [id number] : 1960 LOCATION: ER AGE: 61 SEX: F EXAM STATUS: REG ER ORD. PHYSICIAN: ADAMOVICH,VICTOR MANUEL REGISTERED ART THERAPIST REASON: cough with chest pain PROCEDURE: CHEST AP ONLY Study: XR CHEST 1V Indication: Cough with chest pain. Comparison: 12/13/2020 Findings: The cardiomediastinal silhouette is within normal limits for size. Aortic calcific atherosclerosis. Scattered granulomas. Linear opacity paralleling the left hemidiaphragm also present on the comparison. No airspace opacity identified elsewhere. No layering effusion or pneumothorax. 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 Chronic irregularity at the distal aspect of both clavicles. Partially imaged fixation screws at the proximal right humerus. Impression: No newly seen airspace abnormality. Again demonstrated is a linear opacity paralleling the left hemidiaphragm favored discoid atelectasis or scarring given persistence over time. Electronically signed by: RYLAND ACOSTA MD (07/02/2021 12:17 PM) [id number] Course & Med Decision Making: Course & Med Decision Making Pertinent Labs and Imaging studies reviewed. (See chart for details) 61-year-old female, vital signs reviewed, presents to the emergency department chief complaints of cough and hurting all over. Will order cardiorespiratory work-up, urinalysis assay. Patient is EKG unremarkable, patient's cardiorespiratory work-up unremarkable, patient's urine is infected. Discussed findings with patient, will start on Keflex twice daily x7 days, discussed at length with patient new medications, home use, take until completed, side effects, patient gave verbal understanding and agrees with ED discharge planning. Discussed with the patient all findings and diagnostic testing as well as the need to follow-up with their primary care provider for further evaluation and treatment or return to the ED if any new or worsening symptoms. Strict return precautions were also discussed at length, the patient voiced understanding and agreement with the discharge planning. The patient was nontoxic in appearance, in no apparent distress, and hemodynamically stable at the time of disposition. Dragon Disclaimer: Dragon Disclaimer: This electronic medical record was generated, in whole or in part, using a voice recognition dictation system. Departure Departure Impression: Primary Impression: Urinary tract infection Qualified Codes: N39.0 - Urinary tract infection, site not specified; R31.9 - Hematuria, unspecified Disposition: 01 HOME / SELF CARE / HOMELESS Condition: GOOD Referrals: HEIKE FISH MD (PCP) Patient Instructions: Urinary Tract Infection Additional Instructions: You were seen today in the emergency department, a full cardiorespiratory work- up was completed, your evaluation was reassuring, you are not having a heart attack, you are not suffering from Covid pneumonia, you did not have a pneumonia or other infectious process of the heart or lungs. However by happenstance we did find a urinary tract infection, you were started on antibiotics today in the emergency department, prescribing you Keflex that you will take twice a day for the next 7 days. Please take as directed, please follow-up with your primary care physician for ongoing aches and pains. Thank you for visiting our Emergency Department. It was a pleasure taking care of you today in the emergency department and we appreciate you trusting us with your care. If any additional problems come up don't hesitate to return to visit us. Please follow up with your primary care provider so they can plan additional care if needed and know about the problem that you had. If symptoms worsen come back to the Emergency Department. Any concerning symptoms that start such as chest pain, shortness of air, weakness or numbness on one side of the body, running high fevers or any other concerning symptoms return to the ER. EMERGENCY DEPARTMENT GENERAL DISCHARGE INSTRUCTIONS Thank you for coming to [facility] Emergency Department (ED) today and trusting us with you care. We trust that you had a positive experience in our Emergency Department. If you wish to speak to the department management, you may call the Director at [phone]. YOUR FOLLOW UP INSTRUCTIONS ARE FOLLOWS: 1. Do you have a private Doctor? If you do not have a private doctor, please ask for a resource list of physicians or clinics that may be able to assist you with follo w up care. 2. The Emergency Physicain has interpreted your x-rays. The X-Ray specialist will also review them. If there is a change in the findings, you will be notified in 48 hours when at all possible. 3. A lab test or culture has been done, your results will be reviewed and you will be notified if you need a change in treatment. ADDITIONAL INSTRUCTIONS AND INFORMATION: 1. Your care today has been supervised by a physician who is specially trained in emergency care. Many problems require more than one evaluation for a complete diagnosis and treatment. We recommend that you schedule your follow up appointment as recommended to ensure complete treatment of you illness or injury. If you are unable to obtain follow up care and continue to have a problem, or if your condition worsens, we recommend that you return to the ED. 2. We are not able to safely determine your condition over the phone nor are we able to give sound medical advice over the phone. For these safety reasons, if you call for medical advice we will ask you to come to the ED for further evaluation. 3. If you have any questions regarding these discharge instructions please call the ED at [phone]. SAFETY INFORMATION: In the interest of safety, wellness, and injury prevention; we encourage you to wear your sealbelt, if you smoke; quite smoking, and we encourage family to use a pro tective helmet for bicycling and other sporting events that present an increased risk for head injury. IF YOUR SYMPTOMS WORSEN OR NEW SYMPTOMS DEVELOP, OR YOU HAVE CONCERNS ABOUT YOUR CONDITION; OR IF YOUR CONDITION WORSENS WHILE YOU ARE WAITING FOR YOUR FOLLOW UP APPOINTMENT; EITHER CONTACT YOUR PRIMARY CARE DOCTOR, THE PHYSICIAN WHOSE NAME AND NUMBER YOU WERE GIVEN, OR RETURN TO THE ED IMMEDIATELY. Scripts Cephalexin (CEPHALEXIN) 500 Mg Tablet 1 TAB PO BID for uti for 7 Days, #14 TAB Prov: ALEX SAUNDERS APRN 07/02/21 ALEX SAUNDERS APRN Jul 02, 2021 14:12
[2021-07-02 15:38] VITALS: BP 163/70
[2021-07-02] MEDS ORDERED: CEPH500T PO (15:50)
== END 2021-07-02 15:52 | disposition home or self-care (01) ==
LOC: ER 10:27
DX: N39.0 Urinary tract infection, site not specified (principal); R31.9 Hematuria, unspecified; E11.40 Type 2 diabetes mellitus with diabetic neuropathy, unspecified; K21.9 Gastro-esophageal reflux disease without esophagitis; E78.00 Pure hypercholesterolemia, unspecified; I10 Essential (primary) hypertension; E03.9 Hypothyroidism, unspecified; G43.909 Migraine, unspecified, not intractable, without status migrainosus; G89.29 Other chronic pain; Z91.041 Radiographic dye allergy status
CPT/HCPCS: 36415; 71045; 80048; 80076; 81001; 85025; 87077; 87086; 87186; 93005; 96361; 96374; 96375; 99285; J0696; J3010; J7030

== ENCOUNTER 2021-08-19 08:52 | Emergency (ER) | payer OTHER ==
[~2021-08-19] VITALS: Ht 152.4 cm; Wt 68.7 kg
[~2021-08-19 08:52] MED LIST changes: +CEPH500T PO
[2021-08-19 09:10] VITALS: BP 145/65
[2021-08-19] MEDS ORDERED: traMADol 50 MG TABLET PO ONE (09:30)
[2021-08-19] MEDS ORDERED: DEXAMETHASONE 4 MG TABLET PO ONE (09:30)
--- NOTE | 2021-08-19 09:58 | PHYS DOC ---
Past Medical History Past Medical History: Anxiety, Diabetes-Type II, GERD, High Cholesterol, Hypertension, Hypothyroid, Migraines, Seizure, Other Additional Past Medical Histor: Abd pain,Neuropathy,Insomnia,Chronic pain, LEFT SHOULDER PAIN Past Surgical History: No Surgical History Additional Past Surgical Histo: Left shoulder and right kidney surgeries, LEFT HIP Smoking Status: Never Smoker Alcohol Use: None Drug Use: None General Adult EDM: Chief Complaint: MULTIPLE COMPLAINTS HPI: HPI: Patient is a 61 year old female who presents with right ear pain and sore throat at times she states she feels off balance, chronic left shoulder pain, ch ronic hip pain bilaterally, chronic sciatic nerve pain. She rates her pain at a 4 out of 10. She states he does not feel her sciatic pain until she gets up and starts moving. She states her shoulder only hurts with movement and she has been using an arthritis cream that does help but then the pain comes back. She is been taking Tylenol and Valium as needed. She also takes gabapentin daily. Patient states all of these symptoms that she is here for today has been going on for over a month. Patient has a history of migraines, hypertension, high cholesterol, GERD, hypothyroidism, anxiety, diabetes, neuropathy, chronic shoulder pain, chronic hip pain, seizures. She denies chest pain, shortness of air, dizziness, headache, nausea, vomiting, fever, body aches, chills, abdominal pain, diarrhea, focal weakness, numbness, vision change, fall, syncope. Review of Systems: Review of Systems: Constitutional: Denies fever or chills. [] Eyes: Denies change in visual acuity. [] HENT: Denies nasal congestion or +sore throat. + Right ear pain [] Respiratory: Denies cough or shortness of breath. [] Cardiovascular: Denies chest pain or edema. [] GI: Denies abdominal pain, nausea, vomiting, bloody stools or diarrhea. [] : Denies dysuria. [] Musculoskeletal: Denies back pain or + bilateral shoulder joint pain. + Bila teral hip with sharp shooting pains down the back of her legs [] Integument: Denies rash. [] Neurologic: Denies headache, focal weakness or sensory changes. [] Endocrine: Denies polyuria or polydipsia. [] Lymphatic: Denies swollen glands. [] Psychiatric: Denies depression or anxiety. [] Heart Score: C/O Chest Pain: No Current Medications: Current Medications Medications (Trade) Dose Ordered Sig/Khang Start Time Stop Time Status Last Admin Dose Admin Dexamethasone (Decadron) 10 mg 1X ONCE 08/19/21 09:30 08/19/21 09:31 DC 08/19/21 09:43 10 MG Tramadol HCl (Ultram) 50 mg 1X ONCE 08/19/21 09:30 08/19/21 09:31 DC 08/19/21 09:44 50 MG Allergies: Allergies: Allergies Coded Allergies Type Severity Reaction Last Updated Verified I S O L A T I O N *CONTACT* Allergy Unknown 07/17/19 Yes No Known Medication Allergies Allergy Unknown 04/05/21 Yes Physical Exam: PE: Constitutional: Well developed, well nourished, no acute distress, non-toxic appearance. [] HENT: Normocephalic, atraumatic, bilateral external ears normal, oropharynx moist, no oral exudates, nose normal. Right ear impacted with wax. [] Eyes: PERRLA, EOMI, conjunctiva normal, no discharge. [] Neck: Normal range of motion, no tenderness, supple, no stridor. [] Cardiovascular:Heart rate regular rhythm, no murmur [] Lungs & Thorax: Bilateral breath sounds clear to auscultation [] Abdomen: Bowel sounds normal, soft, no tenderness, no masses, no pulsatile masses. [] Skin: Warm, dry, no erythema, no rash. [] Back: No tenderness, no CVA tenderness. [] Extremities: No tenderness, no cyanosis, no clubbing, ROM intact, no edema. [] Neurologic: Alert and oriented X 3, normal motor function, normal sensory function, no focal deficits noted. [] Psychologic: Affect normal, judgement normal, mood normal. [] Current Patient Data: Vital Signs: Vital Signs Date Time Temp Pulse Resp B/P (MAP) Pulse Ox O2 Delivery O2 Flow Rate FiO2 08/19/21 09:10 98.3 74 14 145/65 (91) 97 Room Air 98.3 EKG: EKG: [] Radiology/Procedures: Radiology/Procedures: [] Course & Med Decision Making: Course & Med Decision Making Pertinent Labs and Imaging studies reviewed. (See chart for details) See HPI. Alert and oriented x4. Ambulatory steady gait. Speaks in full clear sentences. Poor historian. States she did take a Valium this morning of which she takes when she has anxiety and feels like her throat is closing. Lungs are clear to auscultation all lobes. Abdomen is soft and nontender. Right ear is impacted with wax, cannot see the eardrum. Left ear tympanic is intact and white. No nystagmus. PERRLA. Throat is pink without exudates or swelling. Uvula midline. No trismus. Afebrile. No extremity or joint swelling. No joint redness. No joint deformity. Full range of motion of all joints. No tenderness to any joints. No focal bony spinal tenderness. No tenderness in her hips with palpation. Denies any kind of fall or injuries. Patient is given dexamethasone and tramadol in the ED. Her right ear is flushed. Urinalysis shows no infection. Right ear tympanic is cleared after flushing and tympanic is intact. Rapid strep is negative. Patient follow-up with her primary care provider. [] Anastacia Disclaimer: Anastacia Disclaimer: This electronic medical record was generated, in whole or in part, using a voice recognition dictation system. Departure Departure Impression: Primary Impression: Chronic left shoulder pain Additional Impressions: Ear pain, right Sore throat Disposition: 01 HOME / SELF CARE / HOMELESS Condition: STABLE Referrals: HEIKE FISH MD (PCP) Patient Instructions: Arthritis, Nonspecific, Cerumen Impaction-SportsMed, Chronic Back Pain, Sciatica with Rehab-SportsMed, Sore Throat Additional Instructions: Call your doctor make an appointment for a follow-up appointment. Drink plenty of fluids. Rest. If anything worsens you can return to the emergency room. GILL GOMES [employer] Aug 19, 2021 09:58
[2021-08-19 11:31] LABS: BILIRUBIN,URINE NEGATIVE (NEG); CLARITY,URINE CLEAR; COLOR,URINE YELLOW; NITRITE,URINE NEGATIVE (NEG); PH,URINE 7.5 (<5.0-8.0); PROTEIN,URINE NEGATIVE (NEG-TRACE); UROBILINOGEN,URINE 0.2 mg/dL (0.2 mg/dL)
[2021-08-19 12:10] LABS: BACTERIA,URINE 0 /HPF (0-FEW); RBC,URINE 0 /HPF (0-2); WBC,URINE 0 /HPF (0-4)
== END 2021-08-19 12:41 | disposition home or self-care (01) ==
LOC: ER 08:52
DX: H92.01 Otalgia, right ear (principal); J02.9 Acute pharyngitis, unspecified; M25.512 Pain in left shoulder; G89.29 Other chronic pain; E11.40 Type 2 diabetes mellitus with diabetic neuropathy, unspecified; K21.9 Gastro-esophageal reflux disease without esophagitis; E78.00 Pure hypercholesterolemia, unspecified; I10 Essential (primary) hypertension; E03.9 Hypothyroidism, unspecified; G43.909 Migraine, unspecified, not intractable, without status migrainosus; Z91.041 Radiographic dye allergy status
CPT/HCPCS: 81001; 87070; 87880; 99283

== ENCOUNTER → 2021-10-30 | Outpatient (CLI) | payer OTHER ==
[~2021-10-30] MED LIST changes: +CYCL10TA19 PO; -CYCL10TA2 PO; +DICY20TA PO; -DICY20TA3 PO
--- NOTE | 2021-10-30 12:29 | RAD ---
MR#: [id number] Date of Study: 10/30/2021 Ordering Physician: JESUS AUSTIN, Referring Physician: JESUS AUSTIN, Tech: Abdirizak Villa MBA, RDMS, RVT, RDCS, RTR APPROVED REPORT Patient Location: OUT-PATIENT Indications Claudication:Bilaterally VELOCITY AND DOPPLER WAVEFORM ANALYSIS RIGHT cm/secWaveformSeverity LEFT cm/secWaveform Severity dCFA 168.0TriphasicdCFA 123.0Triphasic Prof Fem Art. 115.0TriphasicProf Fem Art. 116.0Biphasic Fem Art Prox. 169.0TriphasicFem Art Prox. 145.0Triphasic Fem Art Mid. 170.0TriphasicFem Art Mid. 142.0Triphasic Fem Art Dist. 130.0TriphasicFem Art Dist. 132.0Triphasic Pop Art(Fossa) 123.0TriphasicPop Art(AK) 100.0Biphasic T[employer] Prox. 123.0TriphasicPTA Prox. 110.0Triphasic TENN[employer] Dist. 126.0TriphasicPTA Dist. 120.0Triphasic Per Art Mid. 127.0BiphasicPer Art Mid. 78.0Biphasic SOFI Prox. 76.0BiphasicATA Prox. 69.0Biphasic DPA 46MonophasicDPA 48Monophasic Findings Grayscale images of bilateral lower extremity arteries showed mild diffuse atherosclerosis. Spectral waveform and color duplex analysis was performed. The right common femoral artery showed slightly e levated velocities in the right common femoral artery and proximal to mid segment of the right superf icial femoral artery but the flow was triphasic. The left common femoral, superficial femoral and bi lateral popliteal arteries showed normal velocities with triphasic waveforms. There is three-vessel runoff below the knee bilaterally with biphasic waveforms. The dorsalis pedis artery showed monophas ic waveforms bilaterally suggestive of moderate diffuse disease. No significant flow-limiting stenos is was noted. Critical Notification Critical Value: No <Conclusion> Bilateral lower extremity arterial duplex scan did not show any significant peripheral artery stenosi s. Signed by : Reji Torres, Electronically Approved : 10/30/2021 12:29:16
== END ==
LOC: US 08:17
PROVIDERS: ATTEND Internal Medicine Cardiovascular Disease
DX: I70.203 Unspecified atherosclerosis of native arteries of extremities, bilateral legs (principal)
CPT/HCPCS: 93925

== ENCOUNTER → 2021-10-31 | Outpatient (CLI) | payer OTHER ==
--- NOTE | 2021-10-31 17:22 | RAD ---
MR#: [id number] Date of Study: 10/31/2021 Ordering Physician: JESUS AUSTIN, Referring Physician: JESUS AUSTIN, Tech: Abdirizak Villa MBA, RDMS, RVT, RDCS, RTR APPROVED REPORT Bilateral Lower Extremity Venous Study for DVT Patient Location: OUT-PATIENT Indications Lower Extremity Edema: Bilateral Vein Imaging (Right) CFV (R): Compressible SFJ (R): Compressible FEM (R): Compressible POP (R): Compressible DFV (R): Compressible PTV (R): Spontaneous GSV (R): Spontaneous Peroneals (R): Spontaneous Vein Imaging (Left) CFV (L): Compressible SFJ (L): Compressible FEM (L): Compressible POP (L): Compressible DFV (L): Compressible PTV (L): Spontaneous GSV (L): Spontaneous Doppler Evaluation (Right) CFV (R): Spontaneous POP (R):Spontaneous Doppler Evaluation (Left) CFV (L):Spontaneous POP (L):Spontaneous Findings Grayscale images of deep veins bilateral lower extremities were grossly normal with fully compressibl e common femoral, superficial femoral and popliteal veins. Spectral waveform analysis and color Doppl er flow was within normal limits bilaterally as well. Below the knee there is spontaneous flow with f ully compressible vessels. No obvious evidence of deep venous thrombosis was noted. Critical Notification Critical Value: No <Conclusion> Bilateral lower extremity venous duplex scan did not show any evidence of deep venous thrombosis Signed by : Reji Torres, Electronically Approved : 10/31/2021 17:22:08
== END ==
LOC: US 09:40
PROVIDERS: ATTEND Internal Medicine Cardiovascular Disease
DX: R60.0 Localized edema (principal)
CPT/HCPCS: 93970

== ENCOUNTER 2022-03-17 14:48 | Emergency (ER) | payer OTHER ==
[~2022-03-17] VITALS: Ht 152.4 cm; Wt 68.1 kg
[~2022-03-17 14:48] MED LIST changes: -ACET1TAB33 PO; +ACET1TAB56 PO
--- NOTE | 2022-03-17 14:51 | PHYS DOC ---
Past Medical History Past Medical History: Anxiety, Diabetes-Type II, GERD, High Cholesterol, Hypertension, Hypothyroid, Migraines, Seizure, Other Additional Past Medical Histor: Abd pain,Neuropathy,Insomnia,Chronic pain, LEFT SHOULDER PAIN Past Surgical History: No Surgical History Additional Past Surgical Histo: Left shoulder and right kidney surgeries, LEFT HIP Smoking Status: Never Smoker Alcohol Use: None Drug Use: None Adult General Chief Complaint Chief Complaint: [facility] Patient is a 62 year old female who presents with hypoglycemia. Patient was at physical therapy today when she was noted to have diminishing mental status. Her blood sugar was checked and found to be 41. She was still speaking and she was given oral glucose. EMS was called. When EMS arrived, she was feeling improved and her blood sugar was 93. She was brought to the emergency department for evaluation. On arrival to the ER, she is awake and alert and answering questions appropriately. She states she has been at baseline health with no recent illness. Has been going to physical therapy as she is status post shoulder surgery. She ate both breakfast and lunch today. States she took her normal dose of insulin. No chest pain. She does complain of some stabbing pain in the right breast over the last couple of days. No trauma. Specifically the pain is in the breast tissue. No persistent pain and she has very brief episodes lasting only a few seconds. Review of Systems Review of Systems Constitutional: Denies fever or chills Eyes: Denies change in visual acuity, redness, or eye pain HENT: Denies nasal congestion or sore throat Respiratory: Denies cough or shortness of breath Cardiovascular: No additional information not addressed in HPI GI: Denies abdominal pain, nausea, vomiting, bloody stools or diarrhea : Denies dysuria or hematuria Musculoskeletal: Denies back pain or joint pain Integument: Denies rash or skin lesions Neurologic: Denies headache, focal weakness or sensory changes Endocrine: As documented in HPI All other systems were reviewed and found to be within normal limits, except as documented in this note. Current Medications Current Medications Current Medications Medications (Trade) Dose Ordered Sig/Khang Start Time Stop Time Status Last Admin Dose Admin Sodium Chloride 1,000 ml @ 1,000 mls/hr 1X ONCE 03/17/22 15:00 03/17/22 15:59 DC 03/17/22 16:13 1,000 MLS/HR Allergies Allergies Allergies Coded Allergies Type Severity Reaction Last Updated Verified I S O L A T I O N *CONTACT* Allergy Unknown 07/17/19 Yes No Known Medication Allergies Allergy Unknown 03/17/22 Yes Physical Exam Physical Exam Constitutional: Well developed, well nourished, no acute distress, non-toxic appearance HENT: Normocephalic, atraumatic, bilateral external ears normal, oropharynx moist Eyes: PERRLA, EOMI, conjunctiva normal Neck: Normal range of motion, no tenderness Cardiovascular:Heart rate regular rhythm Lungs & Thorax: Bilateral breath sounds clear to auscultation Abdomen: Bowel sounds normal, soft, no tenderness Skin: Warm, dry, no erythema Back: No tenderness Extremities: No tenderness, edema bilat LE's which is baseline Neurologic: Alert and oriented X 3, normal motor function Psychologic: Affect normal Current Patient Data Vital Signs Vital Signs Date Time Temp Pulse Resp B/P (MAP) Pulse Ox O2 Delivery O2 Flow Rate FiO2 03/17/22 14:48 98.6 67 20 183/79 (113) 98 Room Air 98.6 Lab Values Laboratory Tests Test 03/17/22 16:00 03/17/22 16:30 03/17/22 16:58 Urine Collection Type Unknown Urine Color (Auto) Colorless Urine Turbidity Clear Urine pH (Auto) 6.5 (<5.0-8.0) Urine Specific [place] 1.007 (1.000-1.030) Urine Protein (Auto) Negative mg/dL (Negative) Urine Glucose (Auto)(UA) Negative mg/dL (Negative) Urine Ketones (Auto) Negative mg/dL (Negative) Urine Blood (Auto) Negative (Negative) Urine Nitrite (Auto) Negative (Negative) Urine Bilirubin (Auto) Negative (Negative) Urine Urobilinogen (Auto) Normal mg/dL (Normal) Urine Leukocyte Esterase (Auto) Negative (Negative) Urine RBC Occ /HPF (0-2) Urine WBC Occ /HPF (0-4) Urine Squamous Epithelial Cells Few /LPF Urine Transitional Epithelial Cells Occ /LPF Urine Bacteria 0 /HPF (0-FEW) White Blood Count 9.0 x10^3/uL (4.0-11.0) Red Blood Count 3.96 x10^6/uL (3.50-5.40) Hemoglobin 13.8 g/dL (12.0-15.5) Hematocrit 41.0 % (36.0-47.0) Mean Corpuscular Volume 104 fL (79-100) H Mean Corpuscular Hemoglobin 35 pg (25-35) Mean Corpuscular Hemoglobin Concent 34 g/dL (31-37) Red Cell Distribution Width 13.1 % (11.5-14.5) Platelet Count 281 x10^3/uL (140-400) Neutrophils (%) (Auto) 67 % (31-73) Lymphocytes (%) (Auto) 19 % (24-48) L Monocytes (%) (Auto) 9 % (0-9) Eosinophils (%) (Auto) 5 % (0-3) H Basophils (%) (Auto) 1 % (0-3) Neutrophils # (Auto) 6.1 x10^3/uL (1.8-7.7) Lymphocytes # (Auto) 1.7 x10^3/uL (1.0-4.8) Monocytes # (Auto) 0.8 x10^3/uL (0.0-1.1) Eosinophils # (Auto) 0.4 x10^3/uL (0.0-0.7) Basophils # (Auto) 0.1 x10^3/uL (0.0-0.2) Sodium Level 137 mmol/L (136-145) Potassium Level 3.9 mmol/L (3.5-5.1) Chloride Level 100 mmol/L (98-107) Carbon Dioxide Level 29 mmol/L (21-32) Anion Gap 8 (6-14) Blood Urea Nitrogen 10 mg/dL (7-20) Creatinine 0.7 mg/dL (0.6-1.0) Estimated GFR (Cockcroft-Gault) 84.5 Glucose Level 162 mg/dL (70-99) H Calcium Level 9.0 mg/dL (8.5-10.1) Troponin I High Sensitivity 19 ng/L (4-50) Glucose (Fingerstick) 202 mg/dL (70-99) H Laboratory Tests 03/17/22 16:30 Laboratory Tests 03/17/22 16:30 EKG EKG 14:55: Sinus rhythm. No STEMI. Rate is 67. Radiology/Procedures Radiology/Procedures [] Course & Med Decision Making Course & Med Decision Making Pertinent Labs and Imaging studies reviewed. (See chart for details) Patient is evaluated on arrival to her room. Normal neurologic examination. Currently no complaints. Will check basic labs. EKG is completed and is negative. Will repeat blood glucose. 18:00: Labs pending. ANJEL to Dr. Fisher Addendum: Care not turned over. Lab results returned and normal. Repeat blood glucose is 200. Patient is asymptomatic and stable for discharge home. Recommended she follow-up with her primary care doctor. Continue all her normal medical regimens Dragon Disclaimer Dragon Disclaimer This electronic medical record was generated, in whole or in part, using a voice recognition dictation system. Departure Departure Impression: Primary Impression: Hypoglycemia Disposition: HOME / SELF CARE / HOMELESS Condition: GOOD Referrals: RUDDY CALHOUN MD (PCP) DARSHAN PUGH DO March 17, 2022 14:51
[2022-03-17] MEDS ORDERED: IV NORMAL SALINE 1000ML BAG 1,000 ML IV ONE (15:00)
[2022-03-17 16:46] LABS: BASO # 0.1 x10^3/uL (0.0-0.2); BASO % 1 % (0-3); EOS # 0.4 x10^3/uL (0.0-0.7); EOS % 5 % (0-3); HEMOGLOBIN 13.8 g/dL (12.0-15.5); LYMPH # 1.7 x10^3/uL (1.0-4.8); LYMPH % 19 % (24-48); MEAN CORPUSCULAR HEMOGLOBIN 35 pg (25-35); MEAN CORPUSCULAR HGB CONC 34 g/dL (31-37); MEAN CORPUSCULAR VOLUME 104 fL (79-100); MONO # 0.8 x10^3/uL (0.0-1.1); MONO % 9 % (0-9); NEUT # 6.1 x10^3/uL (1.8-7.7); NEUT % 67 % (31-73); PLATELET COUNT 281 x10^3/uL (140-400); RED BLOOD COUNT 3.96 x10^6/uL (3.50-5.40); RED CELL DISTRIBUTION WIDTH 13.1 % (11.5-14.5)
[2022-03-17 16:46] LABS: BACTERIA,URINE 0 /HPF (0-FEW); RBC,URINE OCC /HPF (0-2); WBC,URINE OCC /HPF (0-4)
[2022-03-17 17:02] LABS: CREATININE 0.7 mg/dL (0.6-1.0); GFR 84.5; POTASSIUM 3.9 mmol/L (3.5-5.1)
[2022-03-17 17:35] VITALS: BP 179/75
== END 2022-03-17 18:00 | disposition home or self-care (01) ==
LOC: ER 14:48
DX: E11.649 Type 2 diabetes mellitus with hypoglycemia without coma (principal); E11.40 Type 2 diabetes mellitus with diabetic neuropathy, unspecified; K21.9 Gastro-esophageal reflux disease without esophagitis; E78.00 Pure hypercholesterolemia, unspecified; I10 Essential (primary) hypertension; E03.9 Hypothyroidism, unspecified; G43.909 Migraine, unspecified, not intractable, without status migrainosus; G89.29 Other chronic pain; Z91.041 Radiographic dye allergy status
CPT/HCPCS: 36415; 80048; 81001; 82962; 83880; 84484; 85025; 96360; 99285; J7030

== ENCOUNTER 2022-03-25 15:06 | Emergency (ER) | payer OTHER ==
[~2022-03-25] VITALS: Ht 152.4 cm; Wt 68.0 kg
[2022-03-25] MEDS ORDERED: IV NORMAL SALINE 1000ML BAG 1,000 ML IV ONE (15:45)
[2022-03-25] MEDS ORDERED: KETOROLAC 15 MG/ML VIAL. IVP ONE (15:45)
[2022-03-25] MEDS ORDERED: CYCLOBENZAPRINE 10 MG TABLET. PO ONE (15:45)
--- NOTE | 2022-03-25 15:45 | PHYS DOC ---
Past Medical History Past Medical History: Anxiety, Diabetes-Type II, GERD, High Cholesterol, Hypertension, Hypothyroid, Migraines, Seizure, Other Additional Past Medical Histor: Abd pain,Neuropathy,Insomnia,Chronic pain, LEFT SHOULDER PAIN (HARMAN PRECIADO APRN) Past Surgical History: No Surgical History Additional Past Surgical Histo: Left shoulder and right kidney surgeries, LEFT HIP (HARMAN PRECIADO APRN) Smoking Status: Never Smoker Alcohol Use: None Drug Use: None (HARMAN PRECIADO APRN) General Adult EDM: Chief Complaint: CHEST PAIN HPI: HPI: Patient is a 62-year-old female who presents today with headache via [facility]. Patient states that over the last 3 days she has had increased pain in her neck and the back of her head, she denies any trauma. Patient states that she is also had 2 seizures today and she states she has seizures frequently, she also brought in all of her medications and she is currently out of cyclobenzaprine which she takes for headaches. Patient states she sees Dr. Ramirez in [facility] for all of her medical management. Patient denies missing any doses of her medications. (HARMAN PRECIADO AUTOMOBILE OR TRUCK RENTAL DISPATCHER) Review of Systems: Review of Systems: Constitutional: Denies fever or chills. [] Eyes: Denies change in visual acuity. [] HENT: Denies nasal congestion or sore throat. [] Respiratory: Denies cough or shortness of breath. [] Cardiovascular: Denies chest pain or edema. [] GI: Denies abdominal pain, nausea, vomiting, bloody stools or diarrhea. [] : Denies dysuria. [] Musculoskeletal: Back of head and neck pain denies back pain or joint pain. [] Integument: Denies rash. [] Neurologic: denies headache, focal weakness or sensory changes. [] Endocrine: Denies polyuria or polydipsia. [] Lymphatic: Denies swollen glands. [] Psychiatric: Denies depression or anxiety. [] (HARMAN PRECIADO AUTOMOBILE OR TRUCK RENTAL DISPATCHER) Heart Score: C/O Chest Pain: Yes HEART Score for Chest Pain: HEART Score for Chest Pain Response (Comments) Value History Slighlty/Non-Suspicious 0 ECG Normal 0 Age >45 - < 65 1 Risk Factors 1 or 2 Risk Factors 1 Troponin < Normal Limit 0 Total 2 Risk Factors: Risk Factors: DM, Current or recent (<one month) smoker, HTN, HLP, family history of CAD, obesity. Risk Scores: Score 0 - 3: 2.5% MACE over next 6 weeks - Discharge Home Score 4 - 6: 20.3% MACE over next 6 weeks - Admit for Clinical Observation Score 7 - 10: 72.7% MACE over next 6 weeks - Early Invasive Strategies (HARMAN PRECIADO APRN) Current Medications: Current Medications Medications (Trade) Dose Ordered Sig/Khang Start Time Stop Time Status Last Admin Dose Admin Cyclobenzaprine HCl (Flexeril) 10 mg 1X ONCE 03/25/22 15:45 03/25/22 15:46 UNV Ketorolac Tromethamine (Toradol 15mg Vial) 15 mg 1X ONCE 03/25/22 15:45 03/25/22 15:46 UNV Sodium Chloride 1,000 ml @ 999 mls/hr 1X ONCE 03/25/22 15:45 03/25/22 16:45 UNV (HARMAN PRECIADO AUTOMOBILE [employer]UCK RENTAL DISPATCHER) Allergies: Allergies: Allergies Coded Allergies Type Severity Reaction Last Updated Verified I S O L A T I O N *CONTACT* Allergy Unknown 07/17/19 Yes No Known Medication Allergies Allergy Unknown 03/17/22 Yes (HARMAN PRECIADO APRN) Physical Exam: PE: Constitutional: Well developed, well nourished, mild distress, non-toxic appearance. [] HENT: Normocephalic, atraumatic, bilateral external ears normal, oropharynx moist, no oral exudates, nose normal. [] Eyes: PERRLA, EOMI, conjunctiva normal, no discharge. [] Neck: Normal range of motion, generalized tenderness of the neck, it does extend into the scalp area with tenderness with palpation noted Cardiovascular:Heart rate regular rhythm, no murmur [] Lungs & Thorax: Bilateral breath sounds clear to auscultation [] Abdomen: Bowel sounds normal, soft, no tenderness, no masses, no pulsatile masses. [] Skin: Warm, dry, no erythema, no rash. [] Back: No tenderness, no CVA tenderness. [] Extremities: No tenderness, no cyanosis, no clubbing, ROM intact, no edema. [] Neurologic: Alert and oriented X 3, normal motor function, normal sensory function, no focal deficits noted. [] Psychologic: Affect normal, judgement normal, mood normal. [] (HARMAN PRECIADO APRN) Current Patient Data: Labs: Laboratory Tests Test 03/25/22 16:06 03/25/22 16:25 Urine Collection Type Unknown Urine Color (Auto) Colorless Urine Turbidity Clear Urine pH (Auto) 7.0 Urine Specific [place] 1.009 Urine Protein (Auto) Negative mg/dL Urine Glucose (Auto)(UA) Negative mg/dL Urine Ketones (Auto) Negative mg/dL Urine Blood (Auto) Negative Urine Nitrite Negative Urine Bilirubin (Auto) Negative Urine Urobilinogen (Auto) Normal mg/dL Urine Leukocyte Esterase (Auto) Negative Urine RBC 0 /HPF Urine WBC Occ /HPF Urine Squamous Epithelial Cells Mod /LPF Urine Bacteria 0 /HPF White Blood Count 8.1 x10^3/uL Red Blood Count 4.24 x10^6/uL Hemoglobin 14.9 g/dL Hematocrit 43.2 % Mean Corpuscular Volume 102 fL Mean Corpuscular Hemoglobin 35 pg Mean Corpuscular Hemoglobin Concent 35 g/dL Red Cell Distribution Width 13.1 % Platelet Count 294 x10^3/uL Neutrophils (%) (Auto) 81 % Lymphocytes (%) (Auto) 11 % Monocytes (%) (Auto) 7 % Eosinophils (%) (Auto) 2 % Basophils (%) (Auto) 1 % Neutrophils # (Auto) 6.5 x10^3/uL Lymphocytes # (Auto) 0.9 x10^3/uL Monocytes # (Auto) 0.5 x10^3/uL Eosinophils # (Auto) 0.1 x10^3/uL Basophils # (Auto) 0.1 x10^3/uL Sodium Level 138 mmol/L Potassium Level 3.7 mmol/L Chloride Level 101 mmol/L Carbon Dioxide Level 24 mmol/L Anion Gap 13 Blood Urea Nitrogen 11 mg/dL Creatinine 0.8 mg/dL Estimated GFR (Cockcroft-Gault) 72.4 BUN/Creatinine Ratio 14 Glucose Level 177 mg/dL Calcium Level 8.2 mg/dL Total Bilirubin 0.3 mg/dL Aspartate Amino Transf (AST/SGOT) 25 U/L Alanine Aminotransferase (ALT/SGPT) 26 U/L Alkaline Phosphatase 160 U/L Troponin I High Sensitivity 17 ng/L PX-Ksi-L-Type Natriuretic Peptide 224 pg/mL Total Protein 7.2 g/dL Albumin 3.4 g/dL Albumin/Globulin Ratio 0.9 Phenytoin (Dilantin) Level 9.9 mcg/mL Phenytoin Last Dose Date Phenytoin Last Dose Time Current Medications Medications (Trade) Dose Ordered Sig/Khang Route PRN Reason Start Time Stop Time Status Last Admin Dose Admin Sodium Chloride 1,000 ml @ 999 mls/hr 1X ONCE IV 03/25/22 15:45 03/25/22 16:45 DC 03/25/22 16:43 Ketorolac Tromethamine (Toradol 15mg Vial) 15 mg 1X ONCE IVP 03/25/22 15:45 03/25/22 15:46 DC 03/25/22 16:44 Cyclobenzaprine HCl (Flexeril) 10 mg 1X ONCE PO 03/25/22 15:45 03/25/22 15:46 DC 03/25/22 16:43 Vital Signs: Vital Signs Date Time Temp Pulse Resp B/P (MAP) Pulse Ox O2 Delivery O2 Flow Rate FiO2 03/25/22 15:10 99.1 91 16 161/70 (100) 97 Room Air 99.1 (HARMAN PRECIADO [employer]OMOBILE [employer]UCK RENTAL DISPATCHER) EKG: EKG: EKG done at [address] Rogers at 1532 shows sinus rhythm with no ectopy at a rate of 95 NE interval of 140 ms with a QTC of 425 ms. No STEMI [] (HARMAN PRECIADO AUTOMOBILE OR TRUCK RENTAL DISPATCHER) Radiology/Procedures: Radiology/Procedures: REASON: headache and neck pain PROCEDURE: CT HEAD AND CERVICAL SPINE WO EXAMINATION: CT HEAD AND C-SPINE WO CLINICAL HISTORY: Headache and neck pain. TECHNIQUE: Serial axial images without IV contrast were obtained from the vertex to the foramen magnum. CT of the cervical spine without IV contrast. Spiral, high resolution axial images were obtained from the skull base to the cervicothoracic junction with sagittal and coronal planar reconstructions. CT Dose Reduction Employed: One or more of the following individualized dose reduction techniques were utilized for this examination: 1. Automated exposure control 2. Adjustment of the mA and/or kV according to patient size 3. Use of iterative reconstruction technique. COMPARISON: 12/13/2020 FINDINGS: BRAIN: Acute Change: No evidence of an acute contusion or other acute parenchymal process. Hemorrhage: No evidence of acute intracranial hemorrhage. Mass Lesion/Mass Effect: No evidence of intracranial mass or extraaxial fluid collection. No significant mass effect. Chronic Change: Scattered patchy foci of hypoattenuation in the supratentorial white matter, nonspecific but likely represents mild microvascular ischemia. Atherosclerotic calcification of the intracranial portion of the bilateral int ernal carotid arteries. Parenchyma: Parenchyma otherwise within normal limits for age. Ventricles: Ventricles within normal limits for age. Paranasal Sinuses and Skull Base: Visualized paranasal sinuses clear. No evidence of acute calvarial fracture. C-SPINE: Alignment: Straightening of the normal cervical lordosis, likely positional. Osseous Structures: No evidence of acute fracture or spondylolisthesis. Degenerative Changes: Multilevel degenerative disc disease, severe at C5-6 and C6-7. This is similar to slightly progressed at C5-6 and significantly progressed at C6-7. No evidence of high-grade osseous neural foraminal or spinal stenosis. Cervical Soft Tissues: No prevertebral soft tissue swelling. Vascular calcifications. Asymmetrically enlarged left thyroid lobe, incompletely evaluated but similar to prior study. IMPRESSION: BRAIN: No evidence of acute intracranial abnormality. C-SPINE: No evidence of acute osseous abnormality involving the cervical spine. Severe C5-6 and C6-7 degenerative disease as described. Electronically signed by: Kevin Mora DO (03/25/2022 5:10 PM) [facility] DICTATED and SIGNED BY: KEVIN MORA DO DATE: 03/25/22 170[] (HARMAN PRECIADO APRN) Course & Med Decision Making: Course & Med Decision Making Pertinent Labs and Imaging studies reviewed. (See chart for details) 059 I reviewed radiological and laboratory results with patient and informed her there was no acute findings at this time, she states her pain has improved and her head and neck which is what she came in for originally. Patient states she does have an appointment with Dr. Ramirez her primary care physician on Thursday and instructed her to keep that appointment and let her physician know that she was here in the emergency department and we did some labs so that he may review those in detail. Patient is to continue all home medications I will write her another prescription for some Flexeril for her to take as needed for muscle pains and headaches. Patient verbalized understanding of this and agreeable with the plan of care. (HARMAN PRECIADO APRN) Dragon Disclaimer: Dragon Disclaimer: This electronic medical record was generated, in whole or in part, using a voice recognition dictation system. (HARMAN PRECIADO AUTOMOBILE OR TRUCK RENTAL DISPATCHER) Departure Departure Impression: Primary Impression: Headache Qualified Codes: R51.9 - Headache, unspecified Additional Impression: Neck pain, musculoskeletal Disposition: HOME / SELF CARE / HOMELESS Condition: STABLE Referrals: RUDDY RAMIREZ MD (PCP) Patient Instructions: General Headache Without Cause, Musculoskeletal Pain Additional Instructions: Flexeril take 1 tablet every 8 hours as needed for neck pain or muscle spasms, use with caution may cause drowsiness Continue all your other home medications as prescribed Follow-up with Dr. Ramirez on Thursday as previously scheduled Return to the emergency department should you have increased chest pain that does not go away, increased shortness of breath, or development of a fever. Scripts Cyclobenzaprine Hcl (CYCLOBENZAPRINE HCL) 10 Mg Tablet 10 MG PO TID PRN PRN for MUSCLE SPASMS, #14 TAB Prov: HARMAN PRECIADO APRN 03/25/22 Attending Signature Attending Signature I have reviewed the PA/SUPPLY CHAIN ANALYST's note and plan of care. I was available for consultation as needed during the patient's visit in the emergency department. I agree with the clinical impression, plan, and disposition. (ALEX ROGERS DO) HARMAN PRECIADO APRN March 25, 2022 15:45 ALEX ROGERS DO March 31, 2022 16:31
--- NOTE | 2022-03-25 16:22 | EKG ---
[facility] [address] [place] [address] Test Date: 2022-03-25 Test Time: 15:23:40 Pat Name: ALIVIA WILDER Department: Room: Gender: F Brilliandeer Looper: : 1960 Requested By: HARMAN PRECIADO Order Number: [id number] Reading MD: Reji Torres Measurements Intervals [place] Rate: 95 P: 43 MT: 140 QRS: -10 QRSD: 76 T: 51 QT: 336 QTc: 425 Interpretive Statements SINUS RHYTHM LEFTWARD AXIS Electronically Signed On 03-26-2022 17:09:27 CDT by Reji Torres
[2022-03-25 16:37] LABS: BASO # 0.1 x10^3/uL (0.0-0.2); BASO % 1 % (0-3); EOS # 0.1 x10^3/uL (0.0-0.7); EOS % 2 % (0-3); HEMATOCRIT 43.2 % (36.0-47.0); HEMOGLOBIN 14.9 g/dL (12.0-15.5); LYMPH # 0.9 x10^3/uL (1.0-4.8); LYMPH % 11 % (24-48); MEAN CORPUSCULAR HEMOGLOBIN 35 pg (25-35); MEAN CORPUSCULAR HGB CONC 35 g/dL (31-37); MEAN CORPUSCULAR VOLUME 102 fL (79-100); MONO # 0.5 x10^3/uL (0.0-1.1); MONO % 7 % (0-9); NEUT # 6.5 x10^3/uL (1.8-7.7); NEUT % 81 % (31-73); PLATELET COUNT 294 x10^3/uL (140-400); RED BLOOD COUNT 4.24 x10^6/uL (3.50-5.40); RED CELL DISTRIBUTION WIDTH 13.1 % (11.5-14.5); WHITE BLOOD COUNT 8.1 x10^3/uL (4.0-11.0)
[2022-03-25 16:55] LABS: BACTERIA,URINE 0 /HPF (0-FEW); RBC,URINE 0 /HPF (0-2); WBC,URINE OCC /HPF (0-4)
[2022-03-25 17:00] LABS: ANION GAP 13 (6-14); BLOOD UREA NITROGEN 11 mg/dL (7-20); BUN/CREATININE RATIO 14 (6-20); CALCIUM 8.2 mg/dL (8.5-10.1); CARBON DIOXIDE 24 mmol/L (21-32); CHLORIDE 101 mmol/L (98-107); CREATININE 0.8 mg/dL (0.6-1.0); GFR 72.4; GLUCOSE 177 mg/dL (70-99); POTASSIUM 3.7 mmol/L (3.5-5.1); SODIUM 138 mmol/L (136-145)
[2022-03-25 17:06] LABS: ALBUMIN 3.4 g/dL (3.4-5.0); ALBUMIN/GLOBULIN RATIO 0.9 (1.0-1.7); ALK PHOS 160 U/L (46-116); ALT (SGPT) 26 U/L (14-59); AST (SGOT) 25 U/L (15-37); PHENY 9.9 mcg/mL (10.0-20.0); TOTAL BILIRUBIN 0.3 mg/dL (0.2-1.0); TOTAL PROTEIN 7.2 g/dL (6.4-8.2)
--- NOTE | 2022-03-25 17:13 | RAD ---
EXAMINATION: CT HEAD AND C-SPINE WO CLINICAL HISTORY: Headache and neck pain. TECHNIQUE: Serial axial images without IV contrast were obtained from the vertex to the foramen magnum. CT of the cervical spine without IV contrast. Spiral, high resolution axial images were obtained from the skull base to the cervicothoracic junction with sagittal and coronal planar reconstructions. CT Dose Reduction Employed: One or more of the following individualized dose reduction techniques wer e utilized for this examination: 1. Automated exposure control 2. Adjustment of the mA and/or kV ac cording to patient size 3. Use of iterative reconstruction technique. COMPARISON: 12/13/2020 FINDINGS: BRAIN: Acute Change: No evidence of an acute contusion or other acute parenchymal process. Hemorrhage: No evidence of acute intracranial hemorrhage. Mass Lesion/Mass Effect: No evidence of intracranial mass or extraaxial fluid collection. No signific ant mass effect. Chronic Change: Scattered patchy foci of hypoattenuation in the supratentorial white matter, nonspeci fic but likely represents mild microvascular ischemia. Atherosclerotic calcification of the intracran ial portion of the bilateral internal carotid arteries. Parenchyma: Parenchyma otherwise within normal limits for age. Ventricles: Ventricles within normal limits for age. Paranasal Sinuses and Skull Base: Visualized paranasal sinuses clear. No evidence of acute calvarial fracture. C-SPINE: Alignment: Straightening of the normal cervical lordosis, likely positional. Osseous Structures: No evidence of acute fracture or spondylolisthesis. Degenerative Changes: Multilevel degenerative disc disease, severe at C5-6 and C6-7. This is similar to slightly progressed at C5-6 and significantly progressed at C6-7. No evidence of high-grade osseou s neural foraminal or spinal stenosis. Cervical Soft Tissues: No prevertebral soft tissue swelling. Vascular calcifications. Asymmetrically enlarged left thyroid lobe, incompletely evaluated but similar to prior study. IMPRESSION: BRAIN: No evidence of acute intracranial abnormality. C-SPINE: No evidence of acute osseous abnormality involving the cervical spine. Severe C5-6 and C6-7 degenerative disease as described. Electronically signed by: Kevin Bright DO (03/25/2022 5:10 PM) [facility]
[2022-03-25 18:00] VITALS: BP 132/76
[2022-03-25] MEDS ORDERED: CYCL10TA19 PO (18:03)
== END 2022-03-25 18:33 | disposition home or self-care (01) ==
LOC: ER 15:06
DX: G43.909 Migraine, unspecified, not intractable, without status migrainosus (principal); M54.2 Cervicalgia; K21.9 Gastro-esophageal reflux disease without esophagitis; E78.00 Pure hypercholesterolemia, unspecified; I10 Essential (primary) hypertension; E03.9 Hypothyroidism, unspecified; E11.40 Type 2 diabetes mellitus with diabetic neuropathy, unspecified; G89.29 Other chronic pain; Z91.041 Radiographic dye allergy status
CPT/HCPCS: 36415; 70450; 72125; 80053; 80185; 81001; 83880; 84484; 85025; 93005; 96361; 96374; 99285; J1885; J7030